=== PATIENT | male | born 1960 | race Caucasian/White ===

== ENCOUNTER → 2025-02-28 | Outpatient (REF) | payer MEDICAID, SELFPAY ==
--- OUTSIDE RECORDS SUMMARY | 2025-02-28 04:25 | XMS RPT_ITS | CCD ---
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 Name Role Phone Aviva Leon Unavailable Unavailable PROVIDER, UNKNOWN Unavailable Unavailable No, PCP Unavailable Unavailable PROVIDER, UNKNOWN Unavailable Unavailable No, PCP Unavailable Unavailable Morello, David Unavailable Unavailable MUAKKASSA, FARID F Unavailable Unavailable MALLAT, ALI F Unavailable Unavailable MUAKKASSA, FARID F Unavailable Unavailable IMCA Unavailable Unavailable SHANDA LCARK Unavailable Unavailable HARSHAL GARCIA Unavailable Unavailable JEB DELCID Unavailable Unavailable Unavailable Primary Care Provider UnavailRosalind Barrera Attending Unavailable Rosalind Ramirez Attending Unavailable Rosalind Ramirez Attending Unavailable Rosalind Ramirez Attending Unavailable Rosalind Ramirez Attending Unavailable Rosalind Ramirez Attending Unavailable Rosalind Ramirez Referring Unavailable Rosalind Ramirez Attending Unavailable Rosalind Ramirez Attending Unavailable Rosalind Almanzar MD Primary Care Provider ROSALIND ALMANZAR Primary Care Unavailable VIKA ANGELA Admitting Unavailable VIKA ANGELA Attending Unavailable SELINA MARQUEZ Consulting Unavailable Rosalind Almanzar MD Primary Care Provider Allergies Allergy Classification Reported Allergen(s) Allergy Type Date of Onset Reaction(s) Facility (2 sources) codeine; Translations: [CODEINE] Drug Allergy 7 [facility] (2 sources) ANTIHISTAMINE-1; Translations: [ANTIHISTAMINE-1 ] Propensity to adverse reactions (disorder) 7 [facility] Medications Current Medications Medication Drug Class(es) Dates Sig (Normalized) Sig (Original) acetaminophen 500 mg oral tablet (6 sources) Start: 02-22-2025 End: 03-25-2025 take 1000 mg by mouth every eight hours Start: 02-19-2025 End: 02-27-2025 take 1 tablet by mouth every four hours as needed for pain and pain and pain [id number] 200 actuat albuter ol 0.09 mg/actuat metered dose inhaler (4 sources) beta2-Adrenergic Agonist Start: 02-22-2025 End: 03-28-2025 docusate sodium 50 mg / sennosides, custodial 8.6 mg oral tablet (2 sources) Start: 02-23-2025 End: 03-25-2025 0.4 ml enoxaparin sodium 100 mg/ml prefilled syringe (4 sources) Low Molecular Weight Heparin Start: 02-14-2025 End: 03-09-2025 ergocalciferol 1.25 mg oral capsule (4 sources) Provitamin D2 Compound Start: 03-02-2025 End: 04-07-2025 Start: 02-16-2025 End: 02-27-2025 ertapenem 1,000 mg in sodium chloride 0.9 % 50 mL IVPB (1 source) Start: 05-17-2023 End: 06-24-2023 ertapenem 1,000 mg in sodium chloride 0.9 % 50 mL IVPB Infuse 1,000 mg into a venous catheter Every 24 hours. 0 05/17/2023 06/24/2023 Active folic acid 1 mg oral tablet (1 source) Start: 05-18-2023 End: 05-17-2024 take 1 tablet by mouth once daily folic acid (Folvite) 1 MG tablet Take 1 tablet (1 mg) by mouth daily. 0 05/18/2023 05/17/2024 Active gabapentin 400 mg oral capsule (16 sources) Anti-epileptic Agent Start: 02-27-2025 End: 03-29-2025 Start: 02-23-2025 End: 02-27-2025 Start: 05-17-2023 End: 02-27-2025 Start: 05-17-2023 End: 05-16-2024 gabapentin (Neurontin) 300 M G capsule Take 1 capsule (300 mg) by mouth in the morning and 1 capsule (300 mg) at noon and 1 capsule (300 mg) before bedtime. 05/17/2023 Suspended mirtazapine 7.5 mg oral tabl et (4 sources) Start: 02-23-2025 End: 03-25-2025 Start: 02-22-2025 End: 02-27-2025 thiamine 100 mg oral tablet (1 source) Start: 05-17-2023 End: 05-16-2024 take 1 tablet by mouth once daily thiamine (Vitamin B-1) 100 MG tablet Take 1 tablet (100 mg) by mouth daily. 0 05/17/2023 05/16/2024 Active vortioxetine 5 mg oral tablet (4 sources) Start: 02-27-2025 End: 03-29-2025 Start: 02-16-2025 End: 02-27-2025 Completed/Discontinued Medications Medication Drug Class(es) Dates Sig (Normalized) Sig (Original) amoxicillin 875 mg / clavulanate 125 mg oral tablet (2 sources) Penicillin-class Antibacterial Start: 02-16-2025 End: 02-23-2025 bismuth tribromophenate 0.03 mg/mg topical ointment (4 sources) Start: 05-18-2023 End: 02-27-2025 Start: 05-18-2023 apply 1 dose transde rmal route once daily Bismuth Tribromoph-Petrolatum (xeroform petrolat patch 2"x2") pads Apply 1 each topically daily. 05/18/2023 Suspended calcium chloride 0.0014 meq/ ml / potassium chloride 0.004 meq/ml / sodium chloride 0.103 meq/ml / sodium lactate 0.028 meq/ml injectable solution (2 sources) Start: 02-14-2025 End: 02-22-2025 Drug or medicament (substanc e) (6 sources) Start: 02-19-2025 End: 02-27-2025 Start: 02-19-2025 End: 02-27-2025 Start: 02-15-2025 End: 02-19-2025 1 ml HYDROmorphone hydrochloride 1 mg/ml cartridge (2 sources) Opioid Agonist Start: 02-19-2025 End: 02-19-2025 hydrOXYzine pamoate 50 mg oral capsule (4 sources) Antihistamine Start: 05-17-2023 End: 02-27-2025 take 50 mg by mouth every six hours as needed for anxiety LORazepam 0.5 mg oral tablet (2 sources) Benzodiazepine Start: 02-17-2025 End: 02-27-2025 melatonin 5 mg oral tablet (4 sources) Start: 02-14-2025 End: 02-27-2025 miconazole nitrate 0.02 mg/mg topical powder (4 sources) Azole Antifungal Start: 02-16-2025 End: 02-27-2025 1 ml naloxone hydrochloride 0.4 mg/ml injection (2 sources) Opioid Antagonist Start: 02-16-2025 End: 02-27-2025 oxyCODONE hydrochloride 5 mg oral tablet (6 sources) Opioid Agonist Start: 02-23-2025 End: 03-02-2025 take 10 mg by mouth every four hours as needed for pain Start: 02-16-2025 End: 02-17-2025 take 5 mg by mouth every four hours as needed for pain polyethylene glycol 3350 [id number] mg powder for oral solution (6 sources) Osmotic Laxative Start: 02-14-2025 End: 03-29-2025 potassium chloride 20 meq powder for oral solution (2 sources) Start: 02-15-2025 End: 02-15-2025 prochlorperazine 5 mg/ml injectable solution (2 sources) Phenothiazine Start: 02-15-2025 End: 02-27-2025 take 5 mg intravenously every six hours as needed for nausea and vomiting 5 ml sodium chloride 9 mg/ml injection (18 sources) Start: 02-19-2025 End: 02-27-2025 Start: 02-16-2025 End: 02-27-2025 Start: 02-16-2025 End: 02-27-2025 Start: 02-14-2025 End: 02-14-2025 traZODone hydrochloride 100 mg oral tablet (4 sources) Serotonin Reuptake Inhibitor Start: 05-17-2023 End: 02-27-2025 (8 sources) Start: 02-22-2025 End: 02-27-2025 [Order 1 Start] Name: diphenhydrAMINE (BENADryl) injection 25 mg Signed Summary: 25 mg, IntraVENous, Once PRN, other, Use per medication instructions, Starting on Lakeisha 02/22/25 at 0332, For 1 dose, CV Procedural Medications, Use for allergic reaction during transthoracic echocardiogram (TTE) procedure only. Mild or Moderate Allergic Reaction (hives, itching, redness, stable vitals), administer 25 mg IVP over 3 minutes or via IM if IV access is not obtainable and contact provider. Severe Allergic Reaction/Anaphylaxis (cardiovascular collapse, respiratory compromise), administer 25 mg IVP over 3 minutes or via IM if IV access is not obtainable. Activate EMS and contact provider. [Order 1 End] [Order 2 Start] Name: diphenhydrAMINE (BENADryl) injection 25 mg Signed Summary: 25 mg, IntraMUSCular, Once PRN, other, Use per medication instructions, Starting on Lakeisha 02/22/25 at 0332, For 1 dose, CV Procedural Medications, Use for allergic reaction during transthoracic echocardiogram (TTE) procedure only. Mild or Moderate Allergic Reaction (hives, itching, redness, stable vitals), administer 25 mg IVP over 3 minutes or via IM if IV access is not obtainable and contact provider. Severe Allergic Reaction/Anaphylaxis (cardiovascular collapse, respiratory compromise), administer 25 mg IVP over 3 minutes or via IM if IV access is not obtainable. Activate EMS and contact provider. [Order 2 End] Start: 02-22-2025 End: 02-27-2025 Start: 02-19-2025 End: 02-27-2025 take 4 mg by mouth every eight hours as needed for nausea and vomiting [Order 1 Start] Name: ondansetron ODT (Zofran-ODT) disintegrating tablet 4 mg Signed Summary: 4 mg, Oral, Every 8 hours PRN, nausea, vomiting, Starting on Wed02/19/25 at 1332, Phase II/On Unit, 1st Line. If inadequate response within 60 minutes, proceed to next-line agent or contact provider if no further options ordered. Patient should allow tablet to dissolve on tongue. Do not remove from blister pack until just before administering. [Order 1 End] [Order 2 Start] Name: ondansetron (Zofran) injection 4 mg Signed Summary: 4 mg, IntraVENous, Every 6 hours PRN, nausea, vomiting, Starting on Wed02/19/25 at 1332, Phase II/On Unit, 1st Line. Give IV if patient is unable to take orally. If inadequate response within 60 minutes, proceed to next-line agent or contact provider if no further options ordered. [Order 2 End] Start: 02-14-2025 End: 02-27-2025 take 4 mg by mouth every eight hours as needed for nausea and vomiting [Order 1 Start] Name: ondansetron ODT (Zofran-ODT) disintegrating tablet 4 mg Signed Summary: 4 mg, Oral, Every 8 hours PRN, nausea, vomiting, Starting on Wed02/14/25 at 1633, 1st Line. If inadequate response within 60 minutes, proceed to next-line agent or contact provider if no further options ordered. Patient should allow tablet to dissolve on tongue. Do not remove from blister pack until just before administering. [Order 1 End] [Order 2 Start] Name: ondansetron (Zofran) injection 4 mg Signed Summary: 4 mg, IntraVENous, Every 6 hours PRN, nausea, vomiting, Starting on Wed02/14/25 at 1633, 1st Line. Give IV if patient is unable to take orally. If inadequate response within 60 minutes, proceed to next-line agent or contact provider if no further options ordered. [Order 2 End] (2 sources) Start: 02-15-2025 End: 02-15-2025 (2 sources) Start: 02-15-2025 End: 02-27-2025 Problems Active Problems Problem Classification Problem Date Documented Date Episodic/Chronic Alcohol-related disorders (13 sources) Alcohol abuse with intoxication, uncomplicated; Translations: [Alcohol abuse with intoxication, unspecified] Onset: 03-22-2017 05-11-2023 Chronic Anal and rectal conditions (7 sources) Rectal mass; Translations: [Other specified diseases of anus and rectum] Onset: 02-14-2025 02-16-2025 Episodic Cancer of rectum and anus (2 sources) Malignant tumor of rectum; Translations: [Malignant neoplasm of rectum] 02-23-2025 Chronic Chronic ulcer of skin (4 sources) Pressure ulcer of sacral region, unstageable; Translations: [Pressure ulcer, lower back] Onset: 02-14-2025 Chronic Essential hypertension (2 sources) Essential (primary) hypertension; Translations: [Essential (primary) hypertension] Onset: 04-03-2017 Chronic Infective arthritis and osteomyelitis (except that caused by tuberculosis or sexually transmitted disease) (8 sources) Osteomyelitis of finger of right hand; Translations: [Osteomyelitis, unspecified] Onset: 05-07-2023 05-07-2023 Chronic Malaise and fatigue (11 sources) Decline in functional status; Translations: [Other malaise] Onset: 02-14-2025 02-16-2025 Episodic Mood disorders (11 sources) Depressive disorder; Translations: [Depression] Onset: 02-14-2025 02-16-2025 Chronic Mood disorders (2 sources) Major depressive disorder, single episode, unspecified; Translations: [Major depressive disorder, single episode, unspecified] Onset: 04-03-2017 Nutritional deficiencies (18 sources) Nutritional marasmus; Translations: [Unspecified severe protein-calorie malnutrition] Onset: 05-10-2023 05-11-2023 Chronic Other aftercare (2 sources) Encounter for palliative care; Translations: [Encounter for palliative care] Onset: 02-14-2025 Episodic Other aftercare (2 sources) Patient encounter status; Translations: [Encounter for palliative care] 02-23-2025 Episodic Other nutritional; endocrine; and metabolic disorders (12 sources) Adult failure to thrive syndrome; Translations: [Adult failure to thrive] Onset: 02-14-2025 02-14-2025 Episodic Other nutritional; endocrine; and metabolic disorders (2 sources) Adult failure to thrive; Translations: [Adult failure to thrive] Onset: 02-14-2025 Episodic Other screening for suspected conditions (not mental disorders or infectious disease) (4 sources) Abnormal electrocardiogram [ECG] [EKG]; Translations: [Electrocardiogram abnormal] Onset: 02-14-2025 Episodic Residual codes; unclassified (1 source) Edema of foot; Translations: [Localized edema] 06-23-2023 Episodic Residual codes; unclassified (5 sources) At risk of delirium; Translations: [Other specified personal risk factors, not elsewhere classified] Onset: 02-16-2025 02-16-2025 Episodic Substance-related disorders (4 sources) Opioid abuse, uncomplicated; Translations: [Nicotine dependence, unspecified, uncomplicated] Onset: 04-03-2017 Chronic Unclassified (1 source) Unknown / UNK(Unknown) Onset: 03-31-2017 Past or Other Problems Problem Classification Problem Date Documented Da te Episodic/Chronic Bacterial infection; unspecified site (5 sources) Bacteremia caused by Gram-positive bacteria; Translations: [Bacteremia] Onset: 06-23-2023 06-23-2023 Episodic Other connective tissue disease (2 sources) Pain in right leg; Translations: [Pain in right leg] Onset: 04-03-2017 Episodic Other connective tissue disease (5 sources) Pain in right foot; Translations: [Pain in right foot] Onset: 06-23-2023 06-23-2023 Episodic Unclassified (1 source) Injury, unspecified, initial encounter Onset: 03-24-2017 Unclassified (2 sources) Pressure injury of sacral region, unstageable ([facility]) 02-27-2025 Results Test Name Value Interpretation Reference Range [facility] [id number] 02-27-2025 [id number] [facility] [id number] [facility] [id number] [facility] [id number] [facility] [id number] Transport requested 130pm in Roundtrip. Awaiting time confirmation. [facility] [phone] Discharge med list transmitted to [facility] via [facility]port per [facility] request. Tasked to complete a 7000, but a PASSR was previously completed. TCC notified [facility] [phone] [facility] CBC W Auto Differential pane l (Bld)on 02-27-2025 Basophils (Bld) [#/Vol] 0 10*3/uL 0.0 - 0.2 10*3/uL [facility] Basophils/100 WBC (Bld) 0.3 % 0.0 - 2.0 % [facility] Eosinophils (Bld) [#/Vol] 0.1 10*3/uL 0.0 - 0.5 10*3/uL [facility] Eosinophils/100 WBC (Bld) 0.9 % 0.0 - 6.0 % [facility] Erythrocyte distribution width (RBC) [Ratio] 20 % High 11.5 - 15.0 % [facility] Hematocrit (Bld) [Volume fraction] 25.6 % Low 40.0 - 52.0 % [facility] Hemoglobin (Bld) [Mass/Vol] 7.8 g/dL Low 13.0 - 18.0 g/dL [facility] Immature granulocytes (Bld) [#/Vol] 0.1 10*3/uL High NINF - 0.1 10*3/uL [facility] Immature granulocytes/100 WBC (Bld) 0.9 % 0.0 - 2.0 % [facility] Interpretation and review of laboratory results Abnormal [facility] Lymphocytes (Bld) [#/Vol] 1.1 10*3/uL 1.0 - 4.3 10*3/uL [facility] Lymphocytes/100 WBC (Bld) 14.4 % Low 15.0 - 45.0 % [facility] MCH (RBC) [Entitic mass] 23.8 pg Low 26. 0 - 34.[address] [facility] MCHC (RBC) [Mass/Vol] 30.5 % 30.5 - 36.0 % [facility] MCV (RBC) [Entitic vol] 78 fL 77.0 - 99.[address] [facility] Monocytes (Bld) [#/Vol] 0.7 10*3/uL 0.0 - 0.9 10*3/uL [facility] Monocytes/100 WBC (Bld) 9.3 % 5.0 - 13.0 % [facility] Neutrophils (Bld) [#/Vol] 5.8 10*3/uL 1.8 - 7.5 10*3/uL [facility] Neutrophils/100 WBC (Bld) 74.2 % 38.0 - 82.0 % [facility] Nucleated RBC/100 WBC (Bld) [Ratio] 0 % [facility] Platelet mean volume (Bld) [Entitic vol] 8.7 fL Low 9.0 - 12.[address] [facility] Platelets (Bld) [#/Vol] 289 10*3/uL 140 - 440 10*3/uL [facility] RBC (Bld) [#/Vol] 3.28 10*6/uL Low 4.40 - 5.9 0 10*6/uL [facility] WBC (Bld) [#/Vol] 7.8 10*3/uL 3.6 - 10.7 10*3/uL [facility] CBC WITH AUTO DIFFERENTIALon 02-27-2025 Basophils (Bld) [#/Vol] 0.0 10*3/uL Normal 0.0-0.2 [facility] Comment on above: Performed By: #### L [id number] ####Knot Borer: SLAVA GARCIAMACIEJ ([id number])[facility] ([facility])[address] Basophils/100 WBC (Bld) 0.3 % Normal 0.0-2.0 [facility] Comment on above: Performed By: #### L [id number] ####Knot Borer: SLAVA GARCIAMACIEJ ([id number])[facility] ([facility])[address] Eosinophils (Bld) [#/Vol] 0.1 10*3/uL Normal 0.0-0.5 [facility] Comment on above: Performed By: #### L [id number] ####Knot Borer: SLAVA GARCIAMACIEJ ([id number])[facility] ([facility])[address] Eosinophils/100 WBC (Bld) 0.9 % Normal 0.0-6.0 [facility] Comment on above: Performed By: #### L [id number] ####Knot Borer: SLAVA GARCIAMACIEJ ([id number])[facility] ([facility])[address] Erythrocyte distribution width (RBC) [Ratio] 20.0 % High 11.5-15.0 [facility] Comment on above: Performed By: #### L [id number] ####Knot Borer: SLAVA GARCIAMACIEJ ([id number])[facility] [place] ([facility])[address] Hematocrit (Bld) [Volume fraction] 25.6 % Low 40.0-52.0 [facility] Comment on above: Performed By: #### L [id number] ####Knot Borer: SLAVA GAINES ([id number])[facility] [place] ([facility])[address] Hemoglobin (Bld) [Mass/Vol] 7.8 g/dL Low 13.0-18.0 [facility] Comment on above: Performed By: #### L [id number] ####Knot Borer: SLAVA GAINES ([id number])[facility] [place] ([facility])[address] IMMATURE GRANS % 0.9 % Normal 0.0-2.0 [facility] Comment on above: Performed By: #### L [id number] ####Knot Borer: SLAVA GAINES ([id number])[facility] ([facility])[address] IMMATURE GRANS ABSOLUTE 0.1 10*3/uL High <0.1 [facility] Comment on above: Performed By: #### L [id number] ####Knot Borer: SLAVA GAINES ([id number])[facility] ([facility])[address] Lymphocytes (Bld) [#/Vol] 1.1 10*3/uL Normal 1.0-4.3 [facility] Comment on above: Performed By: #### L [id number] ####Knot Borer: SLAVA GAINES ([id number])[facility] ([facility])[address] Lymphocytes/100 WBC (Bld) 14.4 % Low 15.0-45.0 [facility] Comment on above: Performed By: #### L [id number] ####Knot Borer: SLAVA GAINES ([id number])[facility] [place] ([facility])[address] MCH (RBC) [Entitic mass] 23.8 pg Low 26.0-34.0 [facility] Comment on above: Performed By: #### L [id number] ####Knot Borer: SLAVA GAINES ([id number])[facility] ([facility])[address] MCHC 30.5 % Normal 30.5-36.0 [facility] Comment on above: Performed By: #### L [id number] ####Knot Borer: SLAVA MCCLELLANCeciliaMACIEJ ([id number])[facility] ([facility])[address] MCV (RBC) [Entitic vol] 78.0 fL Normal 77.0-99.0 [facility] Comment on above: Performed By: #### L [id number] ####Knot Borer: SLAVA EDER ([id number])[facility] ([facility])[address] Monocytes (Bld) [#/Vol] 0.7 10*3/uL Normal 0.0-0.9 [facility] Comment on above: Performed By: #### L [id number] ####Knot Borer: SLAVA MCCLELLANGOOD ([id number])[facility] ([facility])[address] [place] [address] [place] Monocytes/100 WBC (Bld) 9.3 % Normal 5.0-13.0 [facility] Comment on above: Performed By: #### L [id number] ####Knot Borer: SLAVA GARCIAMACIEJ ([id number])[facility] ([facility])[address] NEUTROPHILS ABSOLUTE 5.8 10*3/uL Normal 1.8-7.5 [facility] Comment on above: Performed By: #### L [id number] ####Knot Borer: SLAVA GARCIAMACIEJ ([id number])[facility] ([facility])[address] Neutrophils/100 WBC (Bld) 74.2 % Normal 38.0-82.0 [facility] Comment on above: Performed By: #### L [id number] ####Knot Borer: SLAVA GARCIAMACIEJ ([id number])[facility] ([facility])[address] NRBC 0.0 /100 WBCs Normal 0.0-2.0 [facility] Comment on above: Performed By: #### L [id number] ####Knot Borer: SLAVA GAINES ([id number])[facility] [place] ([facility])[address] Platelet mean volume (Bld) [Entitic vol] 8.7 fL Low 9.0-12.7 [facility] Comment on above: Performed By: #### L [id number] ####Knot Borer: SLAVA GAINES ([id number])[facility] [place] ([facility])[address] Platelets (Bld) [#/Vol] 289 10*3/uL Normal 140-440 [facility] Comment on above: Performed By: #### L [id number] ####Knot Borer: SLAVA GAINES ([id number])[facility] [place] ([facility])[address] RBC (Bld) [#/Vol] 3.28 10*6/uL Low 4.40-5.90 [facility] Comment on above: Performed By: #### L [id number] ####Knot Borer: SLAVA GAINES ([id number])[facility] [place] ([facility])[address] WBC (Bld) [#/Vol] 7.8 10*3/uL Normal 3.6-10.7 [facility] Comment on above: Performed By: #### L [id number] ####Knot Borer: SLAVA GAINES ([id number])[facility] [place] ([facility])[address] COMPREHENSIVE METABOLIC PANE Barry 02-27-2025 Albumin [Mass/Vol] 1.5 g/dL Low 3.1-4.5 [facility] Comment on above: Performed By: #### L [id number] ####Knot Borer: SLAVA GAINES ([id number])[facility] [place] ([facility])[address] ALP [Catalytic activity/Vol] 71 U/L Normal 40-150 [facility] Comment on above: Performed By: #### L [id number] ####Knot Borer: SLAVA GAINES ([id number])[facility] [place] ([facility])[address] ALT [Catalytic activity/Vol] U/L Normal <40 [facility] Comment on above: Performed By: #### L [id number] ####Knot Borer: SLAVA GAINES ([id number])[facility] [place] ([facility])[address] Anion gap [Moles/Vol] 7 mmol/L Normal 3-13 [facility] Comment on above: Performed By: #### L [id number] ####Knot Borer: SLAVA GAINES ([id number])[facility] ([facility])[address] AST [Catalytic activity/Vol] 12 U/L Normal <34 [facility] Comment on above: Performed By: #### L [id number] ####Knot Borer: SLAVA GAINES ([id number])[facility] [place] ([facility])[address] Bilirubin [Mass/Vol] 0.2 mg/dL Normal <1.2 [facility] Comment on above: Performed By: #### L [id number] ####Knot Borer: SLAVA GAINES ([id number])[facility] [place] ([facility])[address] Calcium [Mass/Vol] 7.6 mg/dL Low 8.8-10.0 [facility] Comment on above: Performed By: #### L [id number] ####Knot Borer: SLAVA GAINES ([id number])[facility] [place] ([facility])[address] Chloride [Moles/Vol] 103 mmol/L Normal 98-107 [facility] Comment on above: Performed By: #### L [id number] ####Knot Borer: SLAVA GAINES ([id number])[facility] [place] ([facility])[address] CO2 [Moles/Vol] 24 mmol/L Normal 23-31 [facility] Comment on above: Performed By: #### L [id number] ####Knot Borer: SLAVA MCCLELLANGOOD ([id number])[facility] ([facility])[address] Creatinine [Mass/Vol] 0.59 mg/dL Low 0.67-1.27 [facility] Comment on above: Performed By: #### L [id number] ####Knot Borer: SLAVA MCCLELLANGOOD ([id number])[facility] ([facility] [place] [address] GLOMERULAR FILTRATION RATE ML/MIN/1.73 SQ M.PREDICTED >90.0 Normal >60.0 [facility] Comment on above: Result Comment: Calc ulation based on the Chronic Kidney Disease Epidemiology Collaboration (CKD-EPI) equation refit without adjustment for race Performed By: #### L [id number] ####Knot Borer: SLAVA GAINES ([id number])[facility] (HL[facility])[address] [place] [address] Glucose [Mass/Vol] 129 mg/dL High 82-115 [facility] Comment on above: Performed By: #### L [id number] ####Knot Borer: SLAVA GARCIAMACIEJ ([id number])[facility] (SBHLAB)[address] Potassium [Moles/Vol] 4.5 mmol/L Normal 3.5-5.1 [facility] Comment on above: Result Comment: [facility] potassium values may be up to 0.5 mmol/L lower than serum values. Performed By: #### L [id number] ####Knot Borer: SLAVA GAINES ([id number])[facility] (SBHLAB)[address] Protein [Mass/Vol] 4.9 g/dL Low 6.4-8.3 [facility] Comment on above: Performed By: #### L [id number] ####Knot Borer: SLAVA SHARPCER ([id number])[facility] (SBHLAB)[address] Sodium [Moles/Vol] 134 mmol/L Low 136-145 [facility] Comment on above: Performed By: #### L [id number] ####Knot Borer: SLAVA GARCIAMACIEJ ([id number])[facility] BRARCROWNPOINT [facility]ILITYN (SBHLAB)[address] Urea nitrogen [Mass/Vol] 16 mg/dL Normal 9-23 [facility] Comment on above: Performed By: #### L [id number] ####Knot Borer: SLAVA MCCLELLANCeciliaMACIEJ ([id number])[facility] (SBHLAB)[address] [place] [address] Comprehensive metabolic 1998 panelon 02-27-2025 Albumin [Mass/Vol] 1.5 g/dL Low 3.1 - 4.5 g/dL [facility] ALP [Catalytic activity/Vol] 71 U/L 40 - 150 U/L [facility] ALT [Catalytic activity/Vol] U/[facility]L [facility] Anion gap [Moles/Vol] 7 mmol/L 3 - 13 mmol/L [facility] AST [Catalytic activity/Vol] 12 U/L [facility] - 34 U/L [facility] Bilirubin [Mass/Vol] 0.2 mg/dL NINF - 1.2 mg/dL [facility] Calcium [Mass/Vol] 7.6 mg/dL Low 8.8 - 10. 0 mg/dL [facility] Chloride [Moles/Vol] 103 mmol/L 98 - 10 7 mmol/L [facility] CO2 [Moles/Vol] 24 mmol/L 23 - 31 mmol/L [facility] Creatinine [Mass/Vol] 0.59 mg/dL Low 0.67 - 1.27 mg/dL [facility] GFR/1.73 sq M.predicted (S/P/Bld) [Vol rate/Area] - PINF [facility] Glucose [Mass/Vol] 129 mg/dL High 82 - 115 mg/dL [facility] Interpretation and review of laboratory results Abnormal [facility] Potassium [Moles/Vol] 4.5 mmol/L 3.5 - 5.1 mmol/L [facility] Protein [Mass/Vol] 4.9 g/dL Low 6.4 - 8.3 g/dL [facility] Sodium [Moles/Vol] 134 mmol/L Low 136 - 145 mmol/L [facility] Urea nitrogen [Mass/Vol] 16 mg/dL 9 - 23 mg/dL [facility] Nursing Noteon 02-27-2025 Nursing Note Report called to María watts RN at [facility]. Normal [facility] Progress Noteon 02-27-2025 Progress Note Normal [facility] Progress Note Normal [facility] [id number] 02-26-2025 [id number] I was notified by COLIN Fregoso that patient will no be discharging, attempted to cancel transport in [facility]/ already canceled by Elementary Librarian [facility] [phone] Disch cancelled due to acute back pain. CUSTOM GRINDER tasked to cancel the transport. LVM for pt's brother Aguila with update. [facility] notified of cancelled disch. [facility] [phone] Marcello SCHROEDER updated on 5p m crop picker time. [facility] [phone] [facility] [phone] Transport requested 4pm in [facility]trip. Awaiting time confirmation. [facility] [phone] [facility] [phone] Discharge med list transmitted to [facility] via [employer] per TCC request. [facility] [id number] [facility] CBC W Auto Differential pane l (Bld)on 02-26-2025 Basophils (Bld) [#/Vol] 0 10*3/uL 0.0 - 0.2 10*3/uL [facility] Basophils/100 WBC (Bld) 0.2 % 0.0 - 2.0 % [facility] Eosinophils (Bld) [#/Vol] 0.1 10*3/uL 0.0 - 0.5 10*3/uL [facility] Eosinophils/100 WBC (Bld) 1 % 0.0 - 6.0 % [facility] Erythrocyte distribution width (RBC) [Ratio] 20.7 % High 11.5 - 15.0 % [facility] Hematocrit (Bld) [Volume fraction] 33.6 % Low 40.0 - 52.0 % [facility] Hemoglobin (Bld) [Mass/Vol] 10 g/dL Low 13.0 - 18.0 g/dL [facility] Immature granulocytes (Bld) [#/Vol] 0.1 10*3/uL High NINF - 0.1 10*3/uL [facility] Immature granulocytes/100 WBC (Bld) 1 % 0.0 - 2.0 % [facility] Interpretation and review of laboratory results Abnormal [facility] Lymphocytes (Bld) [#/Vol] 1.3 10*3/uL 1.0 - 4.3 10*3/uL [facility] Lymphocytes/100 WBC (Bld) 14.8 % Low 15.0 - 45.0 % [facility] MCH (RBC) [Entitic mass] 23.9 pg Low 26. 0 - 34.0 pg [facility] MCHC (RBC) [Mass/Vol] 29.8 % Low 30.5 - 36.0 % [facility] MCV (RBC) [Entitic vol] 80.2 fL 77.0 - 99.0 fL [facility] Monocytes (Bld) [#/Vol] 0.7 10*3/uL 0.0 - 0.9 10*3/uL [facility] Monocytes/100 WBC (Bld) 7.4 % 5.0 - 13.0 % [facility] Neutrophils (Bld) [#/Vol] 6.7 10*3/uL 1.8 - 7.5 10*3/uL [facility] Neutrophils/100 WBC (Bld) 75.6 % 38.0 - 82.0 % [facility] Nucleated RBC/100 WBC (Bld) [Ratio] 0 % [facility] Platelet mean volume (Bld) [Entitic vol] 8.9 fL Low 9.0 - 12.[address] [facility] Platelets (Bld) [#/Vol] 350 10*3/uL 140 - 440 10*3/uL [facility] RBC (Bld) [#/Vol] 4.19 10*6/uL Low 4.40 - 5.9 0 10*6/uL [facility] WBC (Bld) [#/Vol] 8.9 10*3/uL 3.6 - 10.7 10*3/uL [facility] CBC WITH AUTO DIFFERENTIALon 02-26-2025 Basophils (Bld) [#/Vol] 0.0 10*3/uL Normal 0.0-0.2 [facility] Comment on above: Performed By: #### L [id number] ####Knot Borer: SLAVA GAINES ([id number])[facility] (SBAB)[address] [place] [address] Basophils/100 WBC (Bld) 0.2 % Normal 0.0-2.0 [facility] Comment on above: Performed By: #### L [id number] ####Knot Borer: SLAVA GAINES ([id number])[facility] (SBAB)[address] [place] [address] Eosinophils (Bld) [#/Vol] 0.1 10*3/uL Normal 0.0-0.5 [facility] Comment on above: Performed By: #### L [id number] ####Knot Borer: SLAVA GAINES ([id number])[facility] (SBHLAB)[address] [place] [address] Eosinophils/100 WBC (Bld) 1.0 % Normal 0.0-6.0 [facility] Comment on above: Performed By: #### L [id number] ####Knot Borer: SLAVA GAINES ([id number])[facility] (SBAB)[address] [place] [address] Erythrocyte distribution width (RBC) [Ratio] 20.7 % High 11.5-15.0 [facility] Comment on above: Performed By: #### L [id number] ####Knot Borer: SLAVA MCCLELLANCeciliaMACIEJ ([id number])[facility]OWNPOINT [facility]N (SBHLAB)[address] Hematocrit (Bld) [Volume fraction] 33.6 % Low 40.0-52.0 [facility] Comment on above: Performed By: #### L [id number] ####Knot Borer: SLAVA EDER ([id number])[facility])[address] Hemoglobin (Bld) [Mass/Vol] 10.0 g/dL Low 13.0-18.0 [facility] Comment on above: Performed By: #### L [id number] ####Knot Borer: SLAVA GARCIAMACIEJ ([id number])[facility])[address] IMMATURE GRANS % 1.0 % Normal 0.0-2.0 [facility] Comment on above: Performed By: #### L [id number] ####Knot Borer: SLAVA GARCIAMACIEJ ([id number])[facility] [place] ([facility])[address] IMMATURE GRANS ABSOLUTE 0.1 10*3/uL High <0.1 [facility] Comment on above: Performed By: #### L [id number] ####Knot Borer: SLAVA MCCLELLANGOOD ([id number])[facility] (SBHLAB)[address] Lymphocytes (Bld) [#/Vol] 1.3 10*3/uL Normal 1.0-4.3 [facility] Comment on above: Performed By: #### L [id number] ####Knot Borer: SLAVA GARCIAMACIEJ ([id number])[facility] (SBAB)[address] [place] [address] [place] Lymphocytes/100 WBC (Bld) 14.8 % Low 15.0-45.0 [facility] Comment on above: Performed By: #### L [id number] ####Knot Borer: SLAVA GARCIAMACIEJ ([id number])[facility] [place] (SBHLAB)[address] MCH (RBC) [Entitic mass] 23.9 pg Low 26.0-34.0 [facility] Comment on above: Performed By: #### L [id number] ####Knot Borer: SLAVA GARCIAMACIEJ ([id number])[facility] (SBHLAB)[address] MCHC 29.8 % Low 30.5-36.0 [facility] Comment on above: Performed By: #### L [id number] ####Knot Borer: SLAVA GARCIAMACIEJ ([id number])[facility] [place] (SBHLAB)[address] MCV (RBC) [Entitic vol] 80.2 fL Normal 77.0-99.0 [facility] Comment on above: Performed By: #### L [id number] ####Knot Borer: SLAVA GAINES ([id number])[facility] [place] (SBHLAB)[address] [place] [address] Monocytes (Bld) [#/Vol] 0.7 10*3/uL Normal 0.0-0.9 [facility] Comment on above: Performed By: #### L [id number] ####Knot Borer: SLAVA GARCIAMACIEJ ([id number])[facility] [place] (SBHLAB)[address] Monocytes/100 WBC (Bld) 7.4 % Normal 5.0-13.0 [facility] Comment on above: Performed By: #### L [id number] ####Knot Borer: SLAVA GAINES ([id number])[facility] [place] (SBHLAB)[address] NEUTROPHILS ABSOLUTE 6.7 10*3/uL Normal 1.8-7.5 [facility] Comment on above: Performed By: #### L [id number] ####Knot Borer: SLAVA GAINES ([id number])[facility] [place] (SBHLAB)[address] Neutrophils/100 WBC (Bld) 75.6 % Normal 38.0-82.0 [facility] Comment on above: Performed By: #### L [id number] ####Knot Borer: SLAVA GAINES ([id number])[facility] [place] (SBHLAB)[address] NRBC 0.0 /100 WBCs Normal 0.0-2.0 [facility] Comment on above: Performed By: #### L [id number] ####Knot Borer: SLAVA GAINES ([id number])[facility] [place] (SBHLAB)[address] [place] [address] [place] Platelet mean volume (Bld) [Entitic vol] 8.9 fL Low 9.0-12.7 [facility] Comment on above: Performed By: #### L [id number] ####Knot Borer: SLAVA GAINES ([id number])[facility] [place] (SBHLAB)[address] [place] [address] [place] Platelets (Bld) [#/Vol] 350 10*3/uL Normal 140-440 [facility] Comment on above: Performed By: #### L [id number] ####Knot Borer: SLAVA GAINES ([id number])[facility] [place] (SBHLAB)[address] [place] [address] [place] RBC (Bld) [#/Vol] 4.19 10*6/uL Low 4.40-5.90 [facility] Comment on above: Performed By: #### L [id number] ####Knot Borer: SLAVA GAINES ([id number])[facility] [place] (SBHLAB)[address] [place] [address] [place] WBC (Bld) [#/Vol] 8.9 10*3/uL Normal 3.6-10.7 [facility] Comment on above: Performed By: #### L [id number] ####Knot Borer: SLAVA GAINES ([id number])[facility] (SBHLAB)[address] COMPREHENSIVE METABOLIC PANE Barry 02-26-2025 Albumin [Mass/Vol] 1.8 g/dL Low 3.1-4.5 [facility] Comment on above: Performed By: #### L [id number] ####Knot Borer: SLAVA GAINES ([id number])[facility] (SBHLAB)[address] ALP [Catalytic activity/Vol] 79 U/L Normal 40-150 [facility] Comment on above: Performed By: #### L [id number] ####Knot Borer: SLAVA GAINES ([id number])[facility] (SBHLAB)[address] ALT [Catalytic activity/Vol] U/L Normal <40 [facility] Comment on above: Performed By: #### L [id number] ####Knot Borer: SLAVA GAINES ([id number])[facility] [place] (HLAB)[address] Anion gap [Moles/Vol] 7 mmol/L Normal 3-13 [facility] Comment on above: Performed By: #### L [id number] ####Knot Borer: SLAVA GAINES ([id number])[facility] (SBHLAB)[address] AST [Catalytic activity/Vol] 15 U/L Normal <34 [facility] Comment on above: Performed By: #### L [id number] ####Knot Borer: SLAVA GAINES ([id number])[facility] (HLAB)[address] Bilirubin [Mass/Vol] 0.2 mg/dL Normal <1.2 [facility] Comment on above: Performed By: #### L [id number] ####Knot Borer: SLAVA GAINES ([id number])[facility]ITALVeronica BRARSHAUNNAN (SBHLAB)[address] Calcium [Mass/Vol] 7.9 mg/dL Low 8.8-10.0 [facility] Comment on above: Performed By: #### L [id number] ####Knot Borer: SLAVA GAINES ([id number])[facility] [place] (SBHLAB)[address] Chloride [Moles/Vol] 103 mmol/L Normal 98-107 [facility] Comment on above: Performed By: #### L [id number] ####Knot Borer: SLAVA GAINES ([id number])[facility] MAYKELSHAUNNAN (SBHLAB)[address] CO2 [Moles/Vol] 25 mmol/L Normal 23-31 [facility] Comment on above: Performed By: #### L [id number] ####Knot Borer: SLAVA GAINES ([id number])[facility]ITAL[facility] BRARSHAUNNAN (SBHLAB)[address] Creatinine [Mass/Vol] 0.56 mg/dL Low 0.67-1.27 [facility] Comment on above: Performed By: #### L [id number] ####Knot Borer: SLAVA GAINES ([id number])[facility]ITAL[facility] BRARSHAUNNAN (SBHLAB)[address] GLOMERULAR FILTRATION RATE ML/MIN/1.73 SQ M.PREDICTED >90.0 Normal >60.0 [facility] Comment on above: Result Comment: Calc ulation based on the Chronic Kidney Disease Epidemiology Collaboration (CKD-EPI) equation refit without adjustment for race Performed By: #### L [id number] ####Knot Borer: SLAVA GAINES ([id number])[facility]ITAL[facility] BARBSHAUNNAN (SBHLAB)[address] Glucose [Mass/Vol] 109 mg/dL Normal 82-115 [facility] Comment on above: Performed By: #### L [id number] ####Knot Borer: SLAVA GAINES ([id number])[facility] (SBHLAB)[address] Potassium [Moles/Vol] 4.0 mmol/L Normal 3.5-5.1 [facility] Comment on above: Result Comment: [facility] potassium values may be up to 0.5 mmol/L lower than serum values. Performed By: #### L [id number] ####Knot Borer: SLAVA GAINES ([id number])[facility] (SBHLAB)[address] Protein [Mass/Vol] 5.8 g/dL Low 6.4-8.3 [facility] Comment on above: Performed By: #### L [id number] ####Knot Borer: SLAVA GAINES ([id number])[facility] (SBHLAB)[address] [place] [address] Sodium [Moles/Vol] 135 mmol/L Low 136-145 [facility] Comment on above: Performed By: #### L [id number] ####Knot Borer: SLAVA GAINES ([id number])[facility] (SBHLAB)[address] [place] [address] Urea nitrogen [Mass/Vol] 16 mg/dL Normal 9-23 [facility] Comment on above: Performed By: #### L [id number] ####Knot Borer: SLAVA GAINES ([id number])[facility] (SBHLAB)[address] [place] [address] Comprehensive metabolic 1998 panelon 02-26-2025 Albumin [Mass/Vol] 1.8 g/dL Low 3.1 - 4.5 g/dL [facility] ALP [Catalytic activity/Vol] 79 U/L 40 - 150 U/L [facility] ALT [Catalytic activity/Vol] U/L NINF - 40 U/L [facility] Anion gap [Moles/Vol] 7 mmol/L 3 - 13 mmol/L [facility] AST [Catalytic activity/Vol] 15 U/L NINF - 34 U/L [facility] Bilirubin [Mass/Vol] 0.2 mg/dL NINF - 1.2 mg/dL [facility] Calcium [Mass/Vol] 7.9 mg/dL Low 8.8 - 10. 0 mg/dL [facility] Chloride [Moles/Vol] 103 mmol/L 98 - 10 7 mmol/L [facility] CO2 [Moles/Vol] 25 mmol/L 23 - 31 mmol/L [facility] Creatinine [Mass/Vol] 0.56 mg/dL Low 0.67 - 1.27 mg/dL [facility] GFR/1.73 sq M.predicted (S/P/Bld) [Vol rate/Area] - PINF [facility] Glucose [Mass/Vol] 109 mg/dL 82 - 115 mg/dL [facility] Interpretation and review of laboratory results Abnormal [facility] Potassium [Moles/Vol] 4 mmol/L 3.5 - 5.1 mmol/L [facility] Protein [Mass/Vol] 5.8 g/dL Low 6.4 - 8.3 g/dL [facility] Sodium [Moles/Vol] 135 mmol/L Low 136 - 145 mmol/L [facility] Urea nitrogen [Mass/Vol] 16 mg/dL 9 - 23 mg/dL [facility] No Panel InformationOrdered By: Slava Gaines on 02-26-2025 Addendum l2kkvFZcUHMabULnRTBp MVx iomSjGNWouBMhW6NvrqwqPL jvTB8xNQ7qbNobkWUsdFNwZ JKzJqYjb4lwj508vNIxd6xm MRRQZDlfNPLHTZf4fWrcR03 ni7A8WeodB83adFEpDAU6HW ClAJUtqVIgIHLrLFT1QBOev MYwC5txUCUaWB3echpiLEen ULidRIGvlMT7XXEsbFJbZ3O wOXMjNItlVLKjooo0BtMjJb 9vdGVyeTcyMFxwYXJkXHBsY WluXGZzMjAgUGxlYXNlIHNl ZSBccHJvdGVjdHtcZmllbGR 3PZqkJonlwB9noIAITCQPGz jEZhaxtxKfLC7ZPENQDvPLU Q73JwS5NJf8GTgalDvlLfdr aaJufKCqUsSqpS5Gg5gwvbZ eozBhVkNpdTLcTOMrj40uph bfzbiwMtipfKH3NDncNqvrz B9pfUPBXVSFGuiPEatqncMw US9PJJTMKC9XtEU0OKb2gPV 5XD22MVZnDOCnjUYrPIifC3 19XHBsYWluXGZzMjAgIHJlc Q6hvTOyXTmoaw6fCHFfjgj8 ZUHDNDZJHPuQOI8UGHYTRSK XMM3KWMjTAjHqQSU5CGzsSM JtH64JSjGXZDHLX74KMFCOF IEDP4TITRKQDWiYT4HOUB1W XCGNGUJCQY3FIWcADvLYVLe ZT0LPEU7MQLKEIINMMD2CKu IoBEuEZ0JQP8bGFGNiYLEFU ZDLIRLgIjWIAY6bLSa1FmPi DCH3BYOVBQEyTGIqYX8bWUG jfRVkHLWab42ebxhmnlJ2Ik F0KNzgcPKHFVQIWWrICECJY l4QSEBMSBVEYQ3VYtCzO9NZ LO7XNa8DBXSQSPHWRM5SLDa XReDrB4IRQM2LWm2YJAOOCO MOMO8PShZhDFMWB9TDAoHAZ 3yzEEBLGYKKIGAaTcEFKB9a WVCTOJ6TZAUURQYJE04RRIJ FVGYNE1PKWC7= [facility] Work Phone: Case Report Locately Phone: Clinical Information t1hvdKFoJZHerRCsTMY wMVx gafDkPFJloOTaA4CfmjrbWH qdGO4nRM4enHiiiGMuwICrC TZsUuPpv3cbu597pYNur8rx ZNPOJVnnGZUQNNy6mRyrG15 vu1A9JjpeH8cbWBNpAJmzAR AcKWhbqELcAOi0IBKmgUMvd xLvBtYjPDGbrLIpzAO9SVIm JO3jdmfoZQstCQjbADJmbvD 5WDMiaPYfI8PvJSYkWD0hjk jfIDV2QLuwRHHrEBG2XeHeS OAym1Rmkbp2XdAsbNBcVDjv bGFpblxmczIwXGNmMSBSZWN 5DBvgeVVdkgGxSKl3Ag51ZH BbSUNELTEwLUNNXVxjZjAgI FxwYXJ9 [facility] Work Phone: Comment o1kadVJjBPQgwHZoWSMc MVx duxWjSULxxNLqB2QdqkgiSL rkLJ5dOY0fqEuouGArkYAaA EXxYfHcb7omm509tXXev3bq KKLHOGwaASSJMDv9hTfiP72 ne1Z5OzasL77pjVLqHZC7FK XuOYIdlXCcMMPiXKN7EKNth KRzU9qhLUQtMY6hxuirTKsc BAoaSZIinKQ6YQDprGIgY9L fSACpCRbxSMOrlab5TrTzLn 9vdGVyeTcyMFxwYXJkXHBsY YukHDVrZrZbQK68UPScffGg Q0GwO5vuh55uGEanqj5vonJ hQBBdRKRinxnoRQXub8EjzZ XpCRLwLTNlO7Rpz30peYIaN 9erAdFhEiEdu5mfd4SmBREi iMHftN48qkBesSj5wFXkbML tIGlzIHByZXNlbnQuICBNTV XlvHIorCptHdPrpsPuIY0mx G1fMTewmXuzvrCanFx1vbO6 kfQai3naa4fyONKacp3= [facility] Work Phone: Disclaimer e4yufVTvLWPffJRiTzRq MDA jRZXyq1bdTSYynSTuBjMdVz NcZnRuYmpcdWMxXGRlZmYwe 2tzp427eBBkt1akBNCwCeY3 kFQmJZUzR71fARGVQ271AGW xQGzxl6rjr9FaLFKfrOPlh6 O5VZNBKMoaCUSHZRc2mEcgF 20ry1Y9PykzW9zlZQYsJTKe I9WuOC5pERUuUaa8RPA2IBJ 0JAOdHUWbU6CuQU3gDCKqeQ YyVOy5n1kepIcxCPVsNVO3n 2vzXIlzqyQgZV0acm9enGn3 b8otelDqGXAwBUBzeIHVJYI sU6XalNwwBn3zhVh5tIzfKu xqYCD9Xny9MT9bmc32uiw6a OzyWHFotilbLoQ1SGrmUSEd hfpqOQh7ZCkwZXOdoER4XGB auXOrX6BiOIXeDE6jiqv0SE R8KDfjTSIlDnR6FPIflBEoE LYggSeeXSgtq369WMH7NyMz JN9vO0Xcq2O6jB3weDNsQWC wkZDdZuTuGKFqol2ajGZqRG auc7GyFOJ1wuX1oWEzyMFfI FPuMZ11Nyapu7InTlbyUAH5 EKHwqnCak7Qtl5czXsZvsnQ yK0srF0TgOQBaECLdFSKtCn DfqbDji6Ibe3PwfPQxeBx7y 8wzKSXiHOIzpCnxo7quJPL2 IYGeE4S3aRQfd4gqTYpuVYE bjPG7ndW5KIAbzVBrY5OylL 4yNPUxVD0lelu3n7dzKGA7E EtlYIFoSrH1hfS8CKTpwDSj EOWzyNluNGvxc175NEM2QvL nMKLgu6AjP8AyrXycZ90nnT zhK01rDNLbfPbhpT1jdDmbp U9jCyYyQjTmHYxjxIxawJYo htzgDPgumvS8LHtlkrdqPKR pOMsiT0nkApRmVVYzhIkuNN ylr4TeSOGsRRSfYDDfIXgjE 6scxI4cqafpJMjdJRIreKdh m9hqSrLboNX9DS5getDwQEA tmUzgrtN2owOqsTnhyG5rgX 4ckLbbqI2olJMocTD0tantW GluIHNpdHUgaHlicmlkaXph gWomfpatxZ9yHNK1mFLdEHA 4vNKbOZXpKNSdRBPtcA49kk 3glTEnsaAkE0XmK0EjxUCvy TnbDrkptBYorJIeEt9npARg AG6jWLJhzPQcJ3TkOI3cEMK hclxwYXIgVGhlIHVzZSBvZi MvnsHga5BzxR2lNOGhCQDzN P01ywDfofC6aXBsCQZteyIv dGVzdHMgaXMgcmVndWxhdGV fXINeYEEhVSAqGKh4sUOac7 GbM3qnmCDixbBrS5FgdTIaX LYHKB8oEYgeg1JrdXXmeWUy x1KgSQHuQVFuwV0xYOPiZJ8 zVMPpWTurZMUuxsYntc0ltf JuNWZmDVYtH3SzoasfnEcek nRtVPXtgo3ufcUkLDO4KBZe ZSBjbGluaWNhbCBsYWJvcmF 0q6MfZILle4OvZ5KkwQDwHB WobJImKBF0u5LpcG5kPRdtv KBoOFRtYV3dgJSaLXSxSCFk ZWFyZWQgYnkgdGhlIFVTIEZ dx2MqAZ4tXSQfjYuiFSGavA 2wk9JdBALiq63uGGZERYviY FRoZSBGREEgaGFzIGRldGVy bWluZWQgdGhhdCBzdWNoIGN mRGYuHB6sIFKsirEdkDEld9 SdnAGedmWha5WqxkUpYDJfM KW7FgObyDEvLBRrfbKOcQha eH0fcB9ug4AzzF3tPOkhvlO woDXkNc3gyLHzSF3zVWZwxs FmZmluIGVtYmVkZGVkIHRpc 5N6GK9uXCMief9wjuwfpKMz uO1jaIAxpuVsRM0mOL9nD5I 6hELnDARndoNbu5qpGOg7zM QlKHOssTQpdWWiIbmtDZA1X VGhTZO5fcGzoqVpZKPihOkj eWI9tKPhAACeAIHrVEVmKL7 5F6Oxg2DhI4cqZI98BSNlQM AoJNPfarXhz2qvOLOjp5ogH LBsaOSpQ9AlJJWtwTYducqp XiChQXL5UNNnSAK3vATvMXW qD9LsdJVqaRSvjI85RP3tlL U0IN2lWUO5UQfvjZ1mUzVDm I31cq0leSC9z5KtVW4aK4Ay MOQxt9C3geEmWWNzQN0qeLF iZWVuIHZhbGlkYXRlZCBvbi ZqKQEzoGVqUwttLZG1yOYtk CVbSbMGIXN6nMKnBIDsk9Hr ZCBiZSBpbnRlcnByZXRlZCB 9aSLhXAYxoQUye13hV8c8TS 6vjYjbCXKsrAHmHYWna2Fvt VPfcNd4wARzClGeLIkaUEYm QLzayBo6kOE8ZD0wOVIhM4Q zJ6jyoKPlHOAnCJWadYLdds 5ccGFyfQ== [facility] Work Phone: Gross Description t9kydQTpWCYmdITsJKGs MVx bjoFsFVNueRCfR3XkfbndQE gdOJ3bMC5lgPpfyFLqxKHjB QJtSdWxc6ycz536uIGbz9nf QAULCJluASOAFJu5uMsxD69 kz8R2XadzY96crSJaDSF0SF WiRQDhoCEvPKSjMIH4VGQrv IQjW6puPZBcFK2xctlmOMla JSaiVVXolLA4EMUzbICoU6R hFGAbCQgiYGCqdvv6MtAbYj 9vdGVyeTcyMFxwYXJkXHBsY FwyFBNoLlSbRxNtQGc5CDEt cR1nFk9beJBczC4irEFlCAk iUEYrtaYltCGfSB3jy0RdDr 3vZLScb5InnBRvqMKnBVNus V8wTAJeWLBis6o6lSF7eRA2 HL1dGUQ6pgMcYQZuEpQ6QNK tSqV5CFCuRoYatC1kHEEeTH Tvf3OjsHGjGQOkQMGfV7Ewd 75vpBLkZ2xcNLdeNZhzDZ20 fPAbGTYsVQ1vHZwkk7HhFCS hGIHmPGCmswYzwDEtw8Kxu9 LuXcQnpjXopUE1mA4hVoBfU GhlIHNwZWNpbWVuIGlzIHNl jdvxdSr0FUNwC1Zvh25gGYT ubsPrYE95xZFkePnzb0TwaX p0uPLjGFovOFAksTCaVYUsK OE1YYNlERnrHKG7 [facility] Work [facility]: Pathologist Interpretation Location [facility], [address] [place] [id number], CLIA: [id number]; Joint Commission: [id number]; CAP: [id number] [facility] Work Phone: Pathology report final diagnosis Narrative t5fqqOFqZRWwnEDwCPJmVCg bwmAgSHVegXQqP0AtsihqRN geOB6iOX4fvJcnlXFycZJbN YKsUrHez0nlh018aKEoj8wn JTZLKDqeOGQTBOx4hLuuJ39 lg2N6IfdoF42xsHNgFTN1XX SbKINqtKMkWWBfSTG2VNJfo LGaO9pkJULdHG7esqsbXXcc FVrcFKDpcDV1CBZbfUWrP0Z mBSLqCJseRSKiymb4PmStWo 9vdGVyeTcyMFxwYXJkXHBsY WluXGZzMjAgUkVDVFVNLCBN CYUWMCNXBTOSU0eVVcNpBEa UOkBKQCJTBITQTN5XT3XGI8 sCW05XMyzzLVRzhZCztG== [facility] Work Phone: Synoptic Checklist [facility] [employer] Work Phone: [facility] Work Phone: Progress Noteon 02-26-2025 Progress Note Patient has been sanam rly adamant about not being ready to go today and wants to leave tomorrow. He says his pain is not controlled enough. Will hold DC today and plan on tomorrow. D/w ALEXANDRE Armendariz, Palliative Care and CM/TCC via secure chat Normal [facility] Progress Note Normal [facility] Progress Note Seen and examined. W e just received authorization so will plan to discharge today to SNF. D/w pt and ALEXANDRE Armendariz, separately. Normal [facility] Progress Note Normal [facility] Progress Note Normal [facility] Progress [facility] Normal [facility] Progress [facility] Normal [facility] [id number] 02-25-2025 [id number] Normal [facility] CBC W Auto Differential pane l (Bld)on 02-25-2025 Basophils (Bld) [#/Vol] 0 10*3/uL 0.0 - 0.2 10*3/uL [facility] Basophils/100 WBC (Bld) 0.3 % 0.0 - 2.0 % [facility] Eosinophils (Bld) [#/Vol] 0.1 10*3/uL 0.0 - 0.5 10*3/uL [facility] Eosinophils/100 WBC (Bld) 0.7 % 0.0 - 6.0 % [facility] Erythrocyte distribution width (RBC) [Ratio] 20.2 % High 11.5 - 15.0 % [facility] Hematocrit (Bld) [Volume fraction] 29.5 % Low 40.0 - 52.0 % [facility] Hemoglobin (Bld) [Mass/Vol] 9 g/dL Low 13.0 - 18.0 g/dL [facility] Immature granulocytes (Bld) [#/Vol] 0.1 10*3/uL High NINF - 0.1 10*3/uL [facility] Immature granulocytes/100 WBC (Bld) 0.7 % 0.0 - 2.0 % [facility] Interpretation and review of laboratory results Abnormal [facility] Lymphocytes (Bld) [#/Vol] 1.3 10*3/uL 1.0 - 4.3 10*3/uL [facility] Lymphocytes/100 WBC (Bld) 12.4 % Low 15.0 - 45.0 % [facility] MCH (RBC) [Entitic mass] 23.9 pg Low 26. 0 - 34.[address] [facility] MCHC (RBC) [Mass/Vol] 30.5 % 30.5 - 36.0 % [facility] MCV (RBC) [Entitic vol] 78.5 fL 77.0 - 99.[address] [facility] Monocytes (Bld) [#/Vol] 0.7 10*3/uL 0.0 - 0.9 10*3/uL [facility] Monocytes/100 WBC (Bld) 6.3 % 5.0 - 13.0 % [facility] Neutrophils (Bld) [#/Vol] 8.6 10*3/uL High 1.8 - 7.5 10*3/uL [facility] Neutrophils/100 WBC (Bld) 79.6 % 38.0 - 82.0 % [facility] Nucleated RBC/100 WBC (Bld) [Ratio] 0 % [facility] Platelet mean volume (Bld) [Entitic vol] 9.4 fL 9.0 - 12.[address] [facility] Platelets (Bld) [#/Vol] 352 10*3/uL 140 - 440 10*3/uL [facility] RBC (Bld) [#/Vol] 3.76 10*6/uL Low 4.40 - 5.9 0 10*6/uL [facility] WBC (Bld) [#/Vol] 10.7 10*3/uL 3.6 - 10.7 10*3/uL [facility] CBC WITH AUTO DIFFERENTIALon 02-25-2025 Basophils (Bld) [#/Vol] 0.0 10*3/uL Normal 0.0-0.2 [facility] Comment on above: Performed By: #### L [id number] ####Knot Borer: SLAVA GAINES ([id number])[facility] ([facility] [place] [address] Basophils/100 WBC (Bld) 0.3 % Normal 0.0-2.0 [facility] Comment on above: Performed By: #### L [id number] ####Knot Borer: SLAVA GAINES ([id number])[facility] (SBHL[facility])[address] [place] [address] Eosinophils (Bld) [#/Vol] 0.1 10*3/uL Normal 0.0-0.5 [facility] Comment on above: Performed By: #### L [id number] ####Knot Borer: SLAVA GAINES ([id number])[facility] (SB[facility])[address] [place] [address] Eosinophils/100 WBC (Bld) 0.7 % Normal 0.0-6.0 [facility] Comment on above: Performed By: #### L [id number] ####Knot Borer: SLAVA GAINES ([id number])[facility] (SB[facility])[address] [place] [address] Erythrocyte distribution width (RBC) [Ratio] 20.2 % High 11.5-15.0 [facility] Comment on above: Performed By: #### L [id number] ####Knot Borer: SLAVA MCCLELLANCeciliaMACIEJ ([id number])[facility] [place] (SBHLAB)[address] Hematocrit (Bld) [Volume fraction] 29.5 % Low 40.0-52.0 [facility] Comment on above: Performed By: #### L [id number] ####Knot Borer: SLAVA EDER ([id number])[facility] (SBHLAB)[address] Hemoglobin (Bld) [Mass/Vol] 9.0 g/dL Low 13.0-18.0 [facility] Comment on above: Performed By: #### L [id number] ####Knot Borer: SLAVA EDER ([id number])[facility] [place] (SBAB)[address] [place] [address] IMMATURE GRANS % 0.7 % Normal 0.0-2.0 [facility] Comment on above: Performed By: #### L [id number] ####Knot Borer: SLAVA EDER ([id number])[facility] (SB[facility])[address] IMMATURE GRANS ABSOLUTE 0.1 10*3/uL High <0.1 [facility] Comment on above: Performed By: #### L [id number] ####Knot Borer: SLAVA GARCIAMACIEJ ([id number])[facility] (SBHLAB)[address] Lymphocytes (Bld) [#/Vol] 1.3 10*3/uL Normal 1.0-4.3 [facility] Comment on above: Performed By: #### L [id number] ####Knot Borer: SLAVA GARCIAMACIEJ ([id number])[facility] (SB[facility])[address] Lymphocytes/100 WBC (Bld) 12.4 % Low 15.0-45.0 [facility] Comment on above: Performed By: #### L [id number] ####Knot Borer: SLAVA GAINES ([id number])[facility] AMARALTony (SBHLAB)[address] MCH (RBC) [Entitic mass] 23.9 pg Low 26.0-34.0 [facility] Comment on above: Performed By: #### L [id number] ####Knot Borer: SLAVA GARCIAMACIEJ ([id number])[facility] (SBHLAB)[address] MCHC 30.5 % Normal 30.5-36.0 [facility] Comment on above: Performed By: #### L [id number] ####Knot Borer: SLAVA GARCIAMACIEJ ([id number])[facility]ITAL[facility] AMARALN (SBHLAB)[address] MCV (RBC) [Entitic vol] 78.5 fL Normal 77.0-99.0 [facility] Comment on above: Performed By: #### L [id number] ####Knot Borer: SLAVA GARCIAMACIEJ ([id number])[facility] (SBHLAB)[address] [place] [address] Monocytes (Bld) [#/Vol] 0.7 10*3/uL Normal 0.0-0.9 [facility] Comment on above: Performed By: #### L [id number] ####Knot Borer: SLAVA GAINES ([id number])CH[facility]STOPHER BRARSHAUNNAN (SBHLAB)[address] Monocytes/100 WBC (Bld) 6.3 % Normal 5.0-13.0 [facility] Comment on above: Performed By: #### L [id number] ####Knot Borer: SLAVA GAINES ([id number])[facility]ITAL[facility] BARBSHAUNNAN (SBHLAB)[address] NEUTROPHILS ABSOLUTE 8.6 10*3/uL High 1.8-7.5 [facility] Comment on above: Performed By: #### L [id number] ####Knot Borer: SLAVA SHARPCER ([id number])[facility] AMARALN (SBHLAB)[address] Neutrophils/100 WBC (Bld) 79.6 % Normal 38.0-82.0 [facility] Comment on above: Performed By: #### L [id number] ####Knot Borer: SLAVA EDER ([id number])[facility] (SBHLAB)[address] NRBC 0.0 /100 WBCs Normal 0.0-2.0 [facility] Comment on above: Performed By: #### L [id number] ####Knot Borer: SLAVA EDER ([id number])[facility]ITALVer[facility] (SBHLAB)[address] Platelet mean volume (Bld) [Entitic vol] 9.4 fL Normal 9.0-12.7 [facility] Comment on above: Performed By: #### L [id number] ####Knot Borer: SLAVA EDER ([id number])[facility] (SBHLAB)[address] [place] [address] [place] Platelets (Bld) [#/Vol] 352 10*3/uL Normal 140-440 [facility] Comment on above: Performed By: #### L [id number] ####Knot Borer: SLAVA MCCLELLANGOOD ([id number])[facility]ITAL[facility] (SBHLAB)[address] [place] [address] [place] RBC (Bld) [#/Vol] 3.76 10*6/uL Low 4.40-5.90 [facility] Comment on above: Performed By: #### L [id number] ####Knot Borer: SLAVA GARCIAMACIEJ ([id number])[facility] (SBHLAB)[address] [place] [address] [place] WBC (Bld) [#/Vol] 10.7 10*3/uL Normal 3.6-10.7 [facility] Comment on above: Performed By: #### L [id number] ####Knot Borer: SLAVA GAINES ([id number])[facility] [place] (SBHLAB)[address] COMPREHENSIVE METABOLIC PANE Barry 02-25-2025 Albumin [Mass/Vol] 1.5 g/dL Low 3.1-4.5 [facility] Comment on above: Performed By: #### L [id number] ####Knot Borer: SLAVA GAINES ([id number])[facility] [place] (SBHLAB)[address] ALP [Catalytic activity/Vol] 66 U/L Normal 40-150 [facility] Comment on above: Performed By: #### L [id number] ####Knot Borer: SLAVA GAINES ([id number])[facility] [place] (SBHLAB)[address] ALT [Catalytic activity/Vol] U/L Normal <40 [facility] Comment on above: Performed By: #### L [id number] ####Knot Borer: SLAVA GAINES ([id number])[facility] [place] (SBHLAB)[address] Anion gap [Moles/Vol] 6 mmol/L Normal 3-13 [facility] Comment on above: Performed By: #### L [id number] ####Knot Borer: SLAVA GAINES ([id number])[facility] [place] (SBHLAB)[address] AST [Catalytic activity/Vol] 13 U/L Normal <34 [facility] Comment on above: Performed By: #### L [id number] ####Knot Borer: SLAVA GAINES ([id number])[facility] [place] (SBHLAB)[address] Bilirubin [Mass/Vol] 0.2 mg/dL Normal <1.2 [facility] Comment on above: Performed By: #### L [id number] ####Knot Borer: SLAVA GAINES ([id number])[facility] [place] (SBHLAB)[address] Calcium [Mass/Vol] 7.5 mg/dL Low 8.8-10.0 [facility] Comment on above: Performed By: #### L [id number] ####Knot Borer: SLAVA GAINES ([id number])[facility] AMARALN (SBHLAB)[address] Chloride [Moles/Vol] 107 mmol/L Normal 98-107 [facility] Comment on above: Performed By: #### L [id number] ####Knot Borer: SLAVA GAINES ([id number])[facility] (SBHLAB)[address] CO2 [Moles/Vol] 23 mmol/L Normal 23-31 [facility] Comment on above: Performed By: #### L [id number] ####Knot Borer: SLAVA GAINES ([id number])[facility]ITAL[facility] (SBHLAB)[address] Creatinine [Mass/Vol] 0.47 mg/dL Low 0.67-1.27 [facility] Comment on above: Performed By: #### L [id number] ####Knot Borer: SLAVA GAINES ([id number])[facility] (SBHLAB)[address] GLOMERULAR FILTRATION RATE ML/MIN/1.73 SQ M.PREDICTED >90.0 Normal >60.0 [facility] Comment on above: Result Comment: Calc ulation based on the Chronic Kidney Disease Epidemiology Collaboration (CKD-EPI) equation refit without adjustment for race Performed By: #### L [id number] ####Knot Borer: SLAVA GAINES ([id number])[facility] (SBHLAB)[address] Glucose [Mass/Vol] 104 mg/dL Normal 82-115 [facility] Comment on above: Performed By: #### L [id number] ####Knot Borer: SLAVA GAINES ([id number])[facility] (HLAB)[address] Potassium [Moles/Vol] 4.2 mmol/L Normal 3.5-5.1 [facility] Comment on above: Result Comment: [facility] potassium values may be up to 0.5 mmol/L lower than serum values. Performed By: #### L [id number] ####Knot Borer: SLAVA GAINES ([id number])[facility] [place] (SBHLAB)[address] Protein [Mass/Vol] 4.9 g/dL Low 6.4-8.3 [facility] Comment on above: Performed By: #### L [id number] ####Knot Borer: SLAVA GAINES ([id number])[facility] [place] (SBHLAB)[address] Sodium [Moles/Vol] 136 mmol/L Normal 136-145 [facility] Comment on above: Performed By: #### L [id number] ####Knot Borer: SLAVA GAINES ([id number])[facility] [place] (SBHLAB)[address] Urea nitrogen [Mass/Vol] 15 mg/dL Normal 9-23 [facility] Comment on above: Performed By: #### L [id number] ####Knot Borer: SLAVA GAINES ([id number])[facility] MUN[facility] (SBHLAB)[address] Comprehensive metabolic 1998 panelon 02-25-2025 Albumin [Mass/Vol] 1.5 g/dL Low 3.1 - 4.5 g/dL [facility] ALP [Catalytic activity/Vol] 66 U/L 40 - 150 U/L [facility] ALT [Catalytic activity/Vol] U/L NINF - 40 U/L [facility] Anion gap [Moles/Vol] 6 mmol/L 3 - 13 mmol/L [facility] AST [Catalytic activity/Vol] 13 U/L NINF - 34 U/L [facility] Bilirubin [Mass/Vol] 0.2 mg/dL NINF - 1.2 mg/dL [facility] Calcium [Mass/Vol] 7.5 mg/dL Low 8.8 - 10. 0 mg/dL [facility] Chloride [Moles/Vol] 107 mmol/L 98 - 10 7 mmol/L [facility] CO2 [Moles/Vol] 23 mmol/L 23 - 31 mmol/L [facility] Creatinine [Mass/Vol] 0.47 mg/dL Low 0.67 - 1.27 mg/dL [facility] GFR/1.73 sq M.predicted (S/P/Bld) [Vol rate/Area] - PINF [facility] Glucose [Mass/Vol] 104 mg/dL 82 - 115 mg/dL [facility] Interpretation and review of laboratory results Abnormal [facility] Potassium [Moles/Vol] 4.2 mmol/L 3.5 - 5.1 mmol/L [facility] Protein [Mass/Vol] 4.9 g/dL Low 6.4 - 8.3 g/dL [facility] Sodium [Moles/Vol] 136 mmol/L 136 - 145 mmol/L [facility] Urea nitrogen [Mass/Vol] 15 mg/dL 9 - 23 mg/dL [facility] Nursing Noteon 02-25-2025 Nursing Note Pt throughout shift refusing turns. Pt educated on importance of turns to help prevent bedsores and relieve pressure. Pt declined. Waffle mattress in place. Call light within reach. Normal [facility] Nursing Note Patient cleaned this morning and still having stool coming from the rectal area. Will continue to monitor Normal [facility] Progress Noteon 02-25-2025 Progress Note Normal [facility] Progress Note Normal [facility] Progress Note Normal [facility] [id number] 02-24-2025 [id number] Normal [facility] COMPLETE URINALYSIS WITH REF SHERMAN TO CULTUREon 02-24-2025 BACTERIA (#/HPF) IN URINE Few Abnormal Negative [facility] Comment on above: Performed By: #### L [id number] ####Knot Borer: SLAVA GAINES ([id number])[facility] [place] (SBHLAB)[address] [place] [address] BILIRUBIN, TOTAL PRESENCE IN URINE Negative Normal Negative [facility] Comment on above: Performed By: #### L [id number] ####Knot Borer: SLAVA GARCIAMACIEJ ([id number])[facility] (SBHLAB)[address] Clarity (U) Clear Normal Clear [facility] Comment on above: Performed By: #### L [id number] ####Knot Borer: SLAVA GARCIAMACIEJ ([id number])[facility] [place] (SBHLAB)[address] [place] [address] [place] Color (U) Light Yellow Normal Lt. Yellow [facility] Comment on above: Performed By: #### L [id number] ####Knot Borer: SLAVA GAINES ([id number])[facility] ([facility])[address] GLUCOSE (MG/DL) IN URINE Normal Normal Nor mal (<70) [facility] Comment on above: Performed By: #### L [id number] ####Knot Borer: SLAVA GAINES ([id number])[facility] ([facility])[address] HEMOGLOBIN PRESENCE IN URINE 0.1 mg/dL Abnormal Negative [facility] Comment on above: Performed By: #### L [id number] ####Knot Borer: SLAVA GAINES ([id number])[facility] (SBHLAB)[address] Ketones Ql (U) Negative Normal Negative [facility] Comment on above: Performed By: #### L [id number] ####Knot Borer: SLAVA GAINES ([id number])[facility] (SBHLAB)[address] LEUKOCYTE ESTERASE PRESENCE IN URINE BY TEST STRIP Negative Normal Negative [facility] Comment on above: Performed By: #### L [id number] ####Knot Borer: SLAVA GAINES ([id number])[facility] (SBHLAB)[address] NITRITE PRESENCE IN URINE Negative Normal Negative [facility] Comment on above: Performed By: #### L [id number] ####Knot Borer: SLAVA GAINES ([id number])[facility] (SBHLAB)[address] pH (U) 7.5 [pH] Normal 5.0-8.0 [facility] Comment on above: Performed By: #### L [id number] ####Knot Borer: SLAVA GAINES ([id number])[facility] (SBHLAB)[address] Protein (U) [Mass/Vol] Negative Normal Negative [facility] Comment on above: Performed By: #### L [id number] ####Knot Borer: SLAVA GAINES ([id number])[facility] AM[facility]N (SBHLAB)[address] RBC (#/HPF) IN URINE SEDIMENT 51-100 Abnormal 0-2 [facility] Comment on above: Performed By: #### L [id number] ####Knot Borer: SLAVA GAINES ([id number])[facility] [place] (HLAB)[address] Specific gravity (U) [Rel density] 1.011 Normal 1.005-1.030 [facility] Comment on above: Result Comment: CHUY R COMMENTS:A specimen with <=10 WBC is not consistent with inflammation. This specimen will not reflex to a urine culture. Performed By: #### L [id number] ####Knot Borer: SLAVA GAINES ([id number])[facility] (SBHLAB)[address] SQUAMOUS EPITHELIAL CELLS (#/HPF) IN URINE SEDIMENT Negative Normal 3-5 [facility] Comment on above: Performed By: #### L [id number] ####Knot Borer: SLAVA GAINES ([id number])[facility] [place] (SBHLAB)[address] UROBILINOGEN (MG/DL) IN URINE Normal Normal Normal (0-1) [facility] Comment on above: Performed By: #### L [id number] ####Knot Borer: SLAVA GAINES ([id number])[facility] (SBHLAB)[address] WBC (LEUKOCYTE) (#/HPF) IN URINE SEDIMENT 3-5 Normal 0-5 [facility] Comment on above: Performed By: #### L [id number] ####Knot Borer: SLAVA GAINES ([id number])[facility] (SBHLAB)[address] DRUGS OF ABUSEon 02-24-2025 AMPHETAMINE SCREEN Negative Normal [facility] Comment on above: Performed By: #### L [id number] ####Knot Borer: SLAVA GAINES ([id number])[facility] (SBAB)[address] BARBITURATES SCREEN Negative Normal [facility] Comment on above: Performed By: #### L [id number] ####Knot Borer: SLAVA GAINES ([id number])[facility] (SBAB)[address] BENZODIAZEPINE SCREEN Negative Normal [facility] Comment on above: Performed By: #### L [id number] ####Knot Borer: SLAVA GAINES ([id number])[facility] (SBAB)[address] [place] [address] COCAINE METAB. SCREEN Negative Normal [facility] Comment on above: Performed By: #### L [id number] ####Knot Borer: SLAVA GAINES ([id number])[facility] (SBAB)[address] FENTANYL SCREEN, UR QUAL Negative Normal [facility] Comment on above: Result Comment: ORDE R COMMENTS:The expected value for all of the drugs listed above is Negative.The following drugs or drug groups have been screened for by Immunoassay at the following thresholds:Amphetamine class (1000 ng/mL)Barbiturates (200 ng/mL)Benzodiazepines (200 ng/mL)Cocaine (300 ng/mL)Methadone (300 ng/mL)Opiates (300 ng/mL)Oxycodone (100 ng/mL)PCP (25 ng/mL)Fentanyl (1.0 ng/ml)NOTE: These results are for medical treatment only. Analysis performed using non-forensic procedures. POSITIVE results are NOT confirmed by a more specificalternative method unless requested. If confirmation is needed, request confirmation under separate order. Performed By: #### L [id number] ####Knot Borer: SLAVA GAINES ([id number])[facility] [place] (SBHLAB)[address] METHADONE SCREEN Negative Normal [facility] Comment on above: Performed By: #### L [id number] ####Knot Borer: SLAVA GAINES ([id number])[facility] [place] (SBHLAB)[address] OPIATES SCREEN Positive Normal [facility] Comment on above: Performed By: #### L [id number] ####Knot Borer: SLAVA GAINES ([id number])[facility] [place] (SBHLAB)[address] OXYCODONE SCREEN Positive Normal [facility] Comment on above: Performed By: #### L [id number] ####Knot Borer: SLAVA GAINES ([id number])[facility] [place] (SBHLAB)[address] PHENCYCLIDINE SCREEN Negative Normal [facility] Comment on above: Performed By: #### L [id number] ####Knot Borer: SLAVA GAINES ([id number])[facility] [place] (SBHLAB)[address] Laboratory - Drug toxicology on 02-24-2025 Amphetamines Screen method >1000 ng/mL Ql (U) Negative [facility] Barbiturates Screen method >200 ng/mL Ql (U) Negative [facility] Benzodiazepines Ql (U) Negative [facility] Methadone Screen Ql (U) Negative [facility] Opiates Screen Ql (U) Positive [facility] oxyCODONE Ql (U) Positive [facility] Phencyclidine Ql (U) Negative [facility] No Panel Informationon 02-24 COCAINE METAB. SCREEN Negative [facility] FENTANYL SCREEN, UR QUAL Negative [facility] Nursing Noteon 02-24-2025 Nursing Note Patient refusing to have bed linens changed. Explained the importance of staying dry, patient verbalized understanding. Normal [facility] Nursing Note Normal [facility] Progress Noteon 02-24-2025 Progress Note Normal [facility] Urinalysis complete panel (U )Ordered By: Brittanie Saldaña on 02-24-2025 Bacteria LM.HPF (Urine sed) [#/Area] Few Abnormal Negative /HPF [facility] Bilirubin Ql (U) Negative Negative mg/dL [facility] Clarity (U) Clear Clear [facility] Color (U) Light Yellow Lt. Yellow [facility] Epithelial cells.squamous LM.HPF (Urine sed) [#/Area] Negative [facility] Glucose Ql (U) Normal Normal (<70) mg/dL [facility] Hemoglobin Ql (U) 0.1 mg/dL Abnormal Negative [facility] ealth Interpretation and review of laboratory results Abnormal [facility] Ketones (U) [Mass/Vol] Negative Negat chandra mg/dL [facility] Leukocyte esterase Test strip Ql (U) Negative Negative Kerry/uL [facility] Nitrite Ql (U) Negative Negative [facility] pH (U) 7.5 [pH] 5.0 - 8.[address] [facility] Protein (U) [Mass/Vol] Negative Negat chandra mg/dL [facility] RBC LM.HPF (Urine sed) [#/Area] 51-[address] [facility] Specific gravity (U) [Rel density] 1.011 1.005 - 1.030 [facility] Urobilinogen (U) [Mass/Vol] Normal Normal (0-1) mg/dL [facility] WBC LM.HPF (Urine sed) [#/Area] 3-5 [facility] [id number] 02-23-2025 [id number] Normal [facility] [id number] SW completed PASRR f or [facility] [place] SW notified CM and the facility in [facility] [phone] [facility] [phone] UPDATED NOTES TO [facility] via [facility] per TCC request. Await review and response regarding ability to accept. TCC notified. [facility] CBC W Auto Differential pane l (Bld)Ordered By: Alexia Ayon on 02-23-2025 Basophils (Bld) [#/Vol] 0 10*3/uL 0.0 - 0.2 10*3/uL [facility] Basophils/100 WBC (Bld) 0.2 % 0.0 - 2.0 % [facility] Eosinophils (Bld) [#/Vol] 0.1 10*3/uL 0.0 - 0.5 10*3/uL [facility] Eosinophils/100 WBC (Bld) 0.6 % 0.0 - 6.0 % [facility] Erythrocyte distribution width (RBC) [Ratio] 20 % High 11.5 - 15.0 % [facility] Hematocrit (Bld) [Volume fraction] 35.8 % Low 40.0 - 52.0 % [facility] Hemoglobin (Bld) [Mass/Vol] 10.7 g/dL Low 13.0 - 18.0 g/dL [facility] Immature granulocytes (Bld) [#/Vol] 0.1 10*3/uL High NINF - 0.1 10*3/uL [facility] Immature granulocytes/100 WBC (Bld) 0.7 % 0.0 - 2.0 % [facility] Interpretation and review of laboratory results Abnormal [facility] Lymphocytes (Bld) [#/Vol] 1.1 10*3/uL 1.0 - 4.3 10*3/uL [facility] Lymphocytes/100 WBC (Bld) 11 % Low 15.0 - 45.0 % [facility] MCH (RBC) [Entitic mass] 23.7 pg Low 26. 0 - 34.[address] [facility] MCHC (RBC) [Mass/Vol] 29.9 % Low 30.5 - 36.0 % [facility] MCV (RBC) [Entitic vol] 79.4 fL 77.0 - 99.[address] [facility] Monocytes (Bld) [#/Vol] 0.8 10*3/uL 0.0 - 0.9 10*3/uL [facility] Monocytes/100 WBC (Bld) 7.7 % 5.0 - 13.0 % [facility] Neutrophils (Bld) [#/Vol] 8.2 10*3/uL High 1.8 - 7.5 10*3/uL [facility] Neutrophils/100 WBC (Bld) 79.8 % 38.0 - 82.0 % [facility] Nucleated RBC/100 WBC (Bld) [Ratio] 0 % [facility] Platelet mean volume (Bld) [Entitic vol] 8.9 fL Low 9.0 - 12.[address] [facility] Platelets (Bld) [#/Vol] 371 10*3/uL 140 - 440 10*3/uL [facility] RBC (Bld) [#/Vol] 4.51 10*6/uL 4.40 - 5.9 0 10*6/uL [facility] WBC (Bld) [#/Vol] 10.3 10*3/uL 3.6 - 10.7 10*3/uL [facility] CBC WITH AUTO DIFFERENTIALon 02-23-2025 Basophils (Bld) [#/Vol] 0.0 10*3/uL Normal 0.0-0.2 [facility] Comment on above: Performed By: #### L [id number] ####Knot Borer: SLAVA GAINES ([id number])[facility] (SBHLAB)[address] [place] [address] Basophils/100 WBC (Bld) 0.2 % Normal 0.0-2.0 [facility] Comment on above: Performed By: #### L [id number] ####Knot Borer: SLAVA GAINES ([id number])[facility] (SBHLAB)[address] Eosinophils (Bld) [#/Vol] 0.1 10*3/uL Normal 0.0-0.5 [facility] Comment on above: Performed By: #### L [id number] ####Knot Borer: SLAVA GARCIAMACIEJ ([id number])[facility] ([facility] [place] [address] Eosinophils/100 WBC (Bld) 0.6 % Normal 0.0-6.0 [facility] Comment on above: Performed By: #### L [id number] ####Knot Borer: SLAVA GARCIAMACIEJ ([id number])[facility] ([facility])[address] Erythrocyte distribution width (RBC) [Ratio] 20.0 % High 11.5-15.0 [facility] Comment on above: Performed By: #### L [id number] ####Knot Borer: SLAVA EDER ([id number])[facility] ([facility])[address] [place] [address] Hematocrit (Bld) [Volume fraction] 35.8 % Low 40.0-52.0 [facility] Comment on above: Performed By: #### L [id number] ####Knot Borer: SLAVA GARCIAMACIEJ ([id number])[facility] ([facility])[address] [place] [address] Hemoglobin (Bld) [Mass/Vol] 10.7 g/dL Low 13.0-18.0 [facility] Comment on above: Performed By: #### L [id number] ####Knot Borer: SLAVA GAINES ([id number])[facility] ([facility])[address] [place] [address] IMMATURE GRANS % 0.7 % Normal 0.0-2.0 [facility] Comment on above: Performed By: #### L [id number] ####Knot Borer: SLAVA GARCIAMACIEJ ([id number])[facility] ([facility])[address] [place] [address] IMMATURE GRANS ABSOLUTE 0.1 10*3/uL High <0.1 [facility] Comment on above: Performed By: #### L [id number] ####Knot Borer: SLAVACOLE GAINES ([id number])[facility] (SBHLAB)[address] Lymphocytes (Bld) [#/Vol] 1.1 10*3/uL Normal 1.0-4.3 [facility] Comment on above: Performed By: #### L [id number] ####Knot Borer: SLAVA EDER ([id number])[facility] [place] (SBHLAB)[address] Lymphocytes/100 WBC (Bld) 11.0 % Low 15.0-45.0 [facility] Comment on above: Performed By: #### L [id number] ####Knot Borer: SLAVA GAINES ([id number])[facility] (SBHL[facility])[address] [place] [address] MCH (RBC) [Entitic mass] 23.7 pg Low 26.0-34.0 [facility] Comment on above: Performed By: #### L [id number] ####Knot Borer: SLAVA EDER ([id number])[facility] [place] (SBHLAB)[address] [place] [address] MCHC 29.9 % Low 30.5-36.0 [facility] Comment on above: Performed By: #### L [id number] ####Knot Borer: SLAVA GAINES ([id number])[facility]ITAL[facility] (SBHL[facility])[address] [place] [address] MCV (RBC) [Entitic vol] 79.4 fL Normal 77.0-99.0 [facility] Comment on above: Performed By: #### L [id number] ####Knot Borer: SLAVA GARCIAMACIEJ ([id number])[facility] ([facility])[address] [place] [address] Monocytes (Bld) [#/Vol] 0.8 10*3/uL Normal 0.0-0.9 [facility] Comment on above: Performed By: #### L [id number] ####Knot Borer: SLAVA GAINES ([id number])[facility] (SBHLAB)[address] Monocytes/100 WBC (Bld) 7.7 % Normal 5.0-13.0 [facility] Comment on above: Performed By: #### L [id number] ####Knot Borer: SLAVA GAINES ([id number])[facility] [place] (SBHLAB)[address] NEUTROPHILS ABSOLUTE 8.2 10*3/uL High 1.8-7.5 [facility] Comment on above: Performed By: #### L [id number] ####Knot Borer: SLAVA GAINES ([id number])[facility] [place] (SBHLAB)[address] Neutrophils/100 WBC (Bld) 79.8 % Normal 38.0-82.0 [facility] Comment on above: Performed By: #### L [id number] ####Knot Borer: SLAVA GAINES ([id number])[facility] [place] (SB[facility])[address] NRBC 0.0 /100 WBCs Normal 0.0-2.0 [facility] Comment on above: Performed By: #### L [id number] ####Knot Borer: SLAVA GAINES ([id number])[facility] [place] (SB[facility])[address] Platelet mean volume (Bld) [Entitic vol] 8.9 fL Low 9.0-12.7 [facility] Comment on above: Performed By: #### L [id number] ####Knot Borer: SLAVA GAINES ([id number])[facility] [place] ([facility])[address] Platelets (Bld) [#/Vol] 371 10*3/uL Normal 140-440 [facility] Comment on above: Performed By: #### L [id number] ####Knot Borer: SLAVA GAINES ([id number])[facility]A [facility] (SBHLAB)[address] RBC (Bld) [#/Vol] 4.51 10*6/uL Normal 4.40-5.90 [facility] Comment on above: Performed By: #### L [id number] ####Knot Borer: SLAVA GAINES ([id number])[facility]A [facility] (SBHLAB)[address] WBC (Bld) [#/Vol] 10.3 10*3/uL Normal 3.6-10.7 [facility] Comment on above: Performed By: #### L [id number] ####Knot Borer: SLAVA GARCIAMACIEJ ([id number])[facility] (SBHLAB)[address] [place] [address] COMPREHENSIVE METABOLIC PANE Barry 02-23-2025 Albumin [Mass/Vol] 1.6 g/dL Low 3.1-4.5 [facility] Comment on above: Performed By: #### L [id number] ####Knot Borer: SLAVA GAINES ([id number])[facility] ([facility])[address] [place] [address] ALP [Catalytic activity/Vol] 70 U/L Normal 40-150 [facility] Comment on above: Performed By: #### L [id number] ####Knot Borer: SLAVA GAINES ([id number])[facility] ([facility])[address] ALT [Catalytic activity/Vol] U/L Normal <40 [facility] Comment on above: Performed By: #### L [id number] ####Knot Borer: SLAVA GAINES ([id number])[facility] (SB[facility])[address] [place] [address] Anion gap [Moles/Vol] 6 mmol/L Normal 3-13 [facility] Comment on above: Performed By: #### L [id number] ####Knot Borer: SLAVA GAINES ([id number])[facility] (SBHLAB)[address] AST [Catalytic activity/Vol] 14 U/L Normal <34 [facility] Comment on above: Performed By: #### L [id number] ####Knot Borer: SLAVA GAINES ([id number])[facility] [place] ([facility])[address] Bilirubin [Mass/Vol] 0.2 mg/dL Normal <1.2 [facility] Comment on above: Performed By: #### L [id number] ####Knot Borer: SLAVA GAINES ([id number])[facility] [place] ([facility])[address] Calcium [Mass/Vol] 7.3 mg/dL Low 8.8-10.0 [facility] Comment on above: Performed By: #### L [id number] ####Knot Borer: SLAVA GAINES ([id number])[facility] [place] ([facility])[address] Chloride [Moles/Vol] 105 mmol/L Normal 98-107 [facility] Comment on above: Performed By: #### L [id number] ####Knot Borer: SLAVA GAINES ([id number])[facility] [place] (SBHLAB)[address] [place] [address] [place] CO2 [Moles/Vol] 24 mmol/L Normal 23-31 [facility] Comment on above: Performed By: #### L [id number] ####Knot Borer: SLAVA GAINES ([id number])[facility] [place] (SB[facility])[address] [place] [address] [place] Creatinine [Mass/Vol] 0.55 mg/dL Low 0.67-1.27 [facility] Comment on above: Performed By: #### L [id number] ####Knot Borer: SLAVA GAINES ([id number])[facility] [place] (SB[facility])[address] [place] [address] GLOMERULAR FILTRATION RATE ML/MIN/1.73 SQ M.PREDICTED >90.0 Normal >60.0 [facility] Comment on above: Result Comment: Calc ulation based on the Chronic Kidney Disease Epidemiology Collaboration (CKD-EPI) equation refit without adjustment for race Performed By: #### L [id number] ####Knot Borer: SLAVA GAINES ([id number])[facility] (SB[facility])[address] Glucose [Mass/Vol] 89 mg/dL Normal 82-115 [facility] Comment on above: Performed By: #### L [id number] ####Knot Borer: SLAVA GAINES ([id number])[facility] (HLAB)[address] [place] [address] Potassium [Moles/Vol] 4.7 mmol/L Normal 3.5-5.1 [facility] Comment on above: Result Comment: [facility] potassium values may be up to 0.5 mmol/L lower than serum values. Performed By: #### L [id number] ####Knot Borer: SLAVA GAINES ([id number])[facility] (HLAB)[address] [place] [address] Protein [Mass/Vol] 5.0 g/dL Low 6.4-8.3 [facility] Comment on above: Performed By: #### L [id number] ####Knot Borer: SLAVA GAINES ([id number])[facility] (HLAB)[address] Sodium [Moles/Vol] 135 mmol/L Low 136-145 [facility] Comment on above: Performed By: #### L [id number] ####Knot Borer: SLAVA GAINES ([id number])[facility] (HLAB)[address] Urea nitrogen [Mass/Vol] 14 mg/dL Normal 9-23 [facility] Comment on above: Performed By: #### L [id number] ####Knot Borer: SLAVA GAINES ([id number])[facility] (SBHLAB)[address] Comprehensive metabolic 1998 panelon 02-23-2025 Albumin [Mass/Vol] 1.6 g/dL Low 3.1 - 4.5 g/dL [facility] ALP [Catalytic activity/Vol] 70 U/L 40 - 150 U/L [facility] ALT [Catalytic activity/Vol] U/L NINF - 40 U/L [facility] Anion gap [Moles/Vol] 6 mmol/L 3 - 13 mmol/L [facility] AST [Catalytic activity/Vol] 14 U/L NINF - 34 U/L [facility] Bilirubin [Mass/Vol] 0.2 mg/dL NINF - 1.2 mg/dL [facility] Calcium [Mass/Vol] 7.3 mg/dL Low 8.8 - 10. 0 mg/dL [facility] Chloride [Moles/Vol] 105 mmol/L 98 - 10 7 mmol/L [facility] CO2 [Moles/Vol] 24 mmol/L 23 - 31 mmol/L [facility] Creatinine [Mass/Vol] 0.55 mg/dL Low 0.67 - 1.27 mg/dL [facility] GFR/1.73 sq M.predicted (S/P/Bld) [Vol rate/Area] - PINF [facility] Glucose [Mass/Vol] 89 mg/dL 82 - 115 mg/dL [facility] Interpretation and review of laboratory results Abnormal [facility] Potassium [Moles/Vol] 4.7 mmol/L 3.5 - 5.1 mmol/L [facility] Protein [Mass/Vol] 5 g/dL Low 6.4 - 8.3 g/dL [facility] Sodium [Moles/Vol] 135 mmol/L Low 136 - 145 mmol/L [facility] Urea nitrogen [Mass/Vol] 14 mg/dL 9 - 23 mg/dL [facility] Progress Noteon 02-23-2025 Progress Note Normal [facility] Progress Note Normal [facility] Progress Note Normal [facility] Progress Note Normal [facility] Progress Note Normal [facility] Progress Note Normal [facility] Progress Note Normal [facility] TRANSTHORACIC ECHOCARDIOGRAM (TTE) COMPLETEon 02-23-2025 TRANSTHORACIC ECHOCARDIOGRAM (TTE) COMPLETE Abnormal [facility] US Heart TransthoracicOrdere d By: Jorge Luis Rivero on 02-23-2025 Aortic Arch 2.8 cm [facility] [employer] Work Phone: Aortic Sinus Valsalva 3.6 cm [facility] [employer] Work Phone: Aortic Sinus Valsalva Index 2 cm/m2 [facility] [employer] Work Phone: Aortic valve Orifice area by US 3.5 cm2 [facility] [employer] Work Phone: Ascending Aorta 3.2 cm [facility] Work Phone: Ascending Aorta Index 1.78 cm/m2 [facility] [employer] Work Phone: E/E' Lateral 5.8 [facility] [employer] Phone: E/E' Ratio (Averaged) 7.73 [facility] Work Phone: E/E' Septal 9.67 [facility] [employer] Phone: Fractional Shortening 2D 38 % 28 - 44 % [facility] [employer] Phone: Interpretation and review of laboratory results Abnormal [facility] [employer] Phone: IVSd 1 cm 0.6 - 1.0 cm [facility] [employer] Phone: LA Diameter 2.5 cm [facility] [employer] Phone: LA Size Index 1.39 cm/m2 [facility] [employer] Work Phone: LA Volume 2C 16 mL Abnormal 18 - 58 mL [facility] [employer] Phone: LA Volume 4C 25 mL 18 - 58 mL [facility] [employer] Phone: LA Volume A/L 25 mL [facility] [employer] Work Phone: LA Volume BP 21 mL 18 - 58 mL [facility] [employer] Phone: LA Volume Index 2C 9 mL/m2 Abnormal 16 - 34 mL/m2 [facility] Work Phone: LA Volume Index 4C 14 mL/m2 Abnormal 16 - 34 mL/m2 [facility] Work Phone: LA Volume Index A/L 14 mL/m2 16 - 34 mL/m2 [facility] Work Phone: LA Volume Index BP 12 ml/m2 Abnormal 16 - 34 ml/m2 [facility] Work Phone: Left ventricular Ejection fraction by US.2D+Calculated by biplane method of disks 69 % 55 - 100 % [facility] Work Phone: LV E' Lateral Velocity 10 cm/s [facility] Work Phone: LV E' Septal Velocity 6 cm/s [facility] Work Phone: LV EDV A2C 53 mL [facility] Work Phone: LV EDV A4C 99 mL [facility] Work Phone: LV EDV BP 72 mL 67 - 155 mL [facility] Work Phone: LV EDV Index A2C 29 mL/m2 [facility] Work Phone: LV EDV Index A4C 55 mL/m2 [facility] Work Phone: LV EDV Index BP 40 mL/m2 [facility] Work Phone: LV Ejection Fraction A2C 74 % [facility] Work Phone: LV Ejection Fraction A4C 66 % [facility] Work Phone: LV ESV A2C 14 mL [facility] Work Phone: LV ESV A4C 33 mL [facility] Work Phone: LV ESV BP 22 mL 22 - 58 mL [facility] Work Phone: LV ESV Index A2C 8 mL/m2 [facility] Work Phone: LV ESV Index A4C 18 mL/m2 [facility] Work Phone: LV ESV Index BP 12 mL/m2 [facility] Work Phone: LV Mass 2D 137.2 g 88 - 224 g [facility] Work Phone: LV Mass 2D Index 76.2 g/m2 49 - 115 g/m2 [facility] [employer] Work Phone: LV RWT Ratio 0.48 [facility] [employer] Work Phone: LVIDd 4.2 cm 4.2 - 5.9 cm [facility] Work Phone: LVIDd Index 2.33 cm/m2 [facility] Work Phone: LVIDs 2.6 cm [facility] [employer] Work Phone: LVIDs Index 1.44 cm/m2 [facility] [employer] Work Phone: LVOT Cardiac Output 4.5 liter/mi nut e [facility] [employer] Work Phone: LVOT Diameter 2.1 cm [facility] [employer] Work Phone: LVOT Mean Gradient 2 mmHg [facility] Work Phone: LVOT Peak Gradient 3 mmHg [facility] [employer] Work Phone: LVOT Peak Velocity 0.9 m/s [facility] [employer] Work Phone: LVOT Stroke Volume Index 31.3 mL/m2 [facility] [employer] Work Phone: LVOT SV 56.4 ml [facility] Work Phone: LVOT VTI 16.3 cm [facility] Work Phone: LVPWd 1 cm 0.6 - 1.0 cm [facility] Work Phone: MV A Velocity 0.69 m/s [facility] [employer] Work Phone: MV E Velocity 0.58 m/s [facility] Work Phone: MV E Wave Deceleration Time 208.6 ms [facility] [employer] Work Phone: MV E/A 0.84 [facility] Work Phone: RA Area 4C 9.3 cm2 [facility] Work Phone: RV Basal Dimension 3.6 cm [facility] Work Phone: RV Free Wall Peak S' 20 cm/s [facility] Work Phone: RV Longitudinal Dimension 5.9 cm [facility] Work Phone: RV Mid Dimension 2.9 cm [facility] Work Phone: Sinotubular Junction 2.4 cm [facility] Work Phone: TAPSE 3 cm 1.7 cm [facility] Work Phone: [facility] Work Phone: US Heart Transthoracicon CV CPACS [id number] 02-22-[id number] [facility] CBC W Auto Differential pane l (Bld)on 02-22-2025 Basophils (Bld) [#/Vol] 0 10*3/uL 0.0 - 0.2 10*3/uL [facility] [employer] Basophils/100 WBC (Bld) 0.2 % 0.0 - 2.0 % [facility] [employer] Eosinophils (Bld) [#/Vol] 0.1 10*3/uL 0.0 - 0.5 10*3/uL [facility] [employer] Eosinophils/100 WBC (Bld) 1 % 0.0 - 6.0 % [facility] [employer] Erythrocyte distribution width (RBC) [Ratio] 18.6 % High 11.5 - 15.0 % [facility] [employer] Hematocrit (Bld) [Volume fraction] 31.4 % Low 40.0 - 52.0 % [facility] [employer] Hemoglobin (Bld) [Mass/Vol] 9.3 g/dL Low 13.0 - 18.0 g/dL [facility] [employer] Immature granulocytes (Bld) [#/Vol] 0.1 10*3/uL High NINF - 0.1 10*3/uL [facility] Immature granulocytes/100 WBC (Bld) 1 % 0.0 - 2.0 % [facility] Interpretation and review of laboratory results Abnormal [facility] Lymphocytes (Bld) [#/Vol] 1.4 10*3/uL 1.0 - 4.3 10*3/uL [facility] Lymphocytes/100 WBC (Bld) 16.2 % 15.0 - 45.0 % [facility] MCH (RBC) [Entitic mass] 23.4 pg Low 26. 0 - 34.0 pg [facility] MCHC (RBC) [Mass/Vol] 29.6 % Low 30.5 - 36.0 % [facility] MCV (RBC) [Entitic vol] 79.1 fL 77.0 - 99.0 fL [facility] Monocytes (Bld) [#/Vol] 1 10*3/uL High 0.0 - 0.9 10*3/uL [facility] Monocytes/100 WBC (Bld) 12.2 % 5.0 - 13.0 % [facility] Neutrophils (Bld) [#/Vol] 5.8 10*3/uL 1.8 - 7.5 10*3/uL [facility] Neutrophils/100 WBC (Bld) 69.4 % 38.0 - 82.0 % [facility] Nucleated RBC/100 WBC (Bld) [Ratio] 0 % [facility] Platelet mean volume (Bld) [Entitic vol] 9.2 fL 9.0 - 12.7 fL [facility] [employer] Platelets (Bld) [#/Vol] 357 10*3/uL 140 - 440 10*3/uL [facility] RBC (Bld) [#/Vol] 3.97 10*6/uL Low 4.40 - 5.9 0 10*6/uL [facility] WBC (Bld) [#/Vol] 8.3 10*3/uL 3.6 - 10.7 10*3/uL [facility] CBC WITH AUTO DIFFERENTIALon 02-22-2025 Basophils (Bld) [#/Vol] 0.0 10*3/uL Normal 0.0-0.2 [facility] Comment on above: Performed By: #### L [id number] ####Knot Borer: SLAVA GAINES ([id number])[facility] ([facility])[address] [place] [address] Basophils/100 WBC (Bld) 0.2 % Normal 0.0-2.0 [facility] Comment on above: Performed By: #### L [id number] ####Knot Borer: SLAVA GAINES ([id number])[facility] [place] (SBHLAB)[address] Eosinophils (Bld) [#/Vol] 0.1 10*3/uL Normal 0.0-0.5 [facility] Comment on above: Performed By: #### L [id number] ####Knot Borer: SLAVA GAINES ([id number])[facility] [place] (SBHLAB)[address] Eosinophils/100 WBC (Bld) 1.0 % Normal 0.0-6.0 [facility] Comment on above: Performed By: #### L [id number] ####Knot Borer: SLAVA GAINES ([id number])[facility] ([facility])[address] Erythrocyte distribution width (RBC) [Ratio] 18.6 % High 11.5-15.0 [facility] Comment on above: Performed By: #### L [id number] ####Knot Borer: SLAVA GAINES ([id number])[facility] ([facility])[address] Hematocrit (Bld) [Volume fraction] 31.4 % Low 40.0-52.0 [facility] Comment on above: Performed By: #### L [id number] ####Knot Borer: SLAVA GAINES ([id number])[facility] [place] (SBHLAB)[address] [place] [address] Hemoglobin (Bld) [Mass/Vol] 9.3 g/dL Low 13.0-18.0 [facility] Comment on above: Performed By: #### L [id number] ####Knot Borer: SLAVA GAINES ([id number])[facility] (SBHLAB)[address] IMMATURE GRANS % 1.0 % Normal 0.0-2.0 [facility] Comment on above: Performed By: #### L [id number] ####Knot Borer: SLAVA GAINES ([id number])[facility] (SBHLAB)[address] IMMATURE GRANS ABSOLUTE 0.1 10*3/uL High <0.1 [facility] Comment on above: Performed By: #### L [id number] ####Knot Borer: SLAVA GAINES ([id number])[facility] (SBHLAB)[address] Lymphocytes (Bld) [#/Vol] 1.4 10*3/uL Normal 1.0-4.3 [facility] Comment on above: Performed By: #### L [id number] ####Knot Borer: SLAVA GARCIAMACIEJ ([id number])[facility] [facility] [place] [address] Lymphocytes/100 WBC (Bld) 16.2 % Normal 15.0-45.0 [facility] Comment on above: Performed By: #### L [id number] ####Knot Borer: SLAVA GAINES ([id number])[facility] (SBAB)[address] [place] [address] MCH (RBC) [Entitic mass] 23.4 pg Low 26.0-34.0 [facility] Comment on above: Performed By: #### L [id number] ####Knot Borer: SLAVA GAINES ([id number])[facility] (SBHLAB)[address] [place] [address] MCHC 29.6 % Low 30.5-36.0 [facility] Comment on above: Performed By: #### L [id number] ####Knot Borer: SLAVA GAINES ([id number])[facility] (SBHLAB)[address] [place] [address] MCV (RBC) [Entitic vol] 79.1 fL Normal 77.0-99.0 [facility] Comment on above: Performed By: #### L [id number] ####Knot Borer: SLAVA GAINES ([id number])[facility] [place] (SBHLAB)[address] Monocytes (Bld) [#/Vol] 1.0 10*3/uL High 0.0-0.9 [facility] Comment on above: Performed By: #### L [id number] ####Knot Borer: SLAVA GAINES ([id number])[facility] [place] (SBHLAB)[address] Monocytes/100 WBC (Bld) 12.2 % Normal 5.0-13.0 [facility] Comment on above: Performed By: #### L [id number] ####Knot Borer: SLAVA GAINES ([id number])[facility] [place] (SBHLAB)[address] NEUTROPHILS ABSOLUTE 5.8 10*3/uL Normal 1.8-7.5 [facility] Comment on above: Performed By: #### L [id number] ####Knot Borer: SLAVA GAINES ([id number])[facility] [place] (SBHLAB)[address] Neutrophils/100 WBC (Bld) 69.4 % Normal 38.0-82.0 [facility] Comment on above: Performed By: #### L [id number] ####Knot Borer: SLAVA GAINES ([id number])[facility] [place] (SBHLAB)[address] NRBC 0.0 /100 WBCs Normal 0.0-2.0 [facility] Comment on above: Performed By: #### L [id number] ####Knot Borer: SLAVA GAINES ([id number])[facility] [place] (SBHLAB)[address] Platelet mean volume (Bld) [Entitic vol] 9.2 fL Normal 9.0-12.7 [facility] Comment on above: Performed By: #### L [id number] ####Knot Borer: SLAVA GAINES ([id number])[facility] [place] (SBHLAB)[address] Platelets (Bld) [#/Vol] 357 10*3/uL Normal 140-440 [facility] Comment on above: Performed By: #### L [id number] ####Knot Borer: SLAVA GAINES ([id number])[facility] [place] (SBHLAB)[address] RBC (Bld) [#/Vol] 3.97 10*6/uL Low 4.40-5.90 [facility] Comment on above: Performed By: #### L [id number] ####Knot Borer: SLAVA GAINES ([id number])[facility] (SBHLAB)[address] WBC (Bld) [#/Vol] 8.3 10*3/uL Normal 3.6-10.7 [facility] Comment on above: Performed By: #### L [id number] ####Knot Borer: SLAVA GAINES ([id number])[facility] (SBHLAB)[address] COMPREHENSIVE METABOLIC PANE Barry 02-22-2025 Albumin [Mass/Vol] 1.7 g/dL Low 3.1-4.5 [facility] Comment on above: Performed By: #### L [id number] ####Knot Borer: SLAVA GAINES ([id number])[facility] [place] (SBHLAB)[address] ALP [Catalytic activity/Vol] 69 U/L Normal 40-150 [facility] Comment on above: Performed By: #### L [id number] ####Knot Borer: SLAVA GAINES ([id number])[facility] (SBHLAB)[address] ALT [Catalytic activity/Vol] U/L Normal <40 [facility] Comment on above: Performed By: #### L [id number] ####Knot Borer: SLAVA GAINES ([id number])[facility] [place] (SBHLAB)[address] Anion gap [Moles/Vol] 7 mmol/L Normal 3-13 [facility] Comment on above: Performed By: #### L [id number] ####Knot Borer: LSAVA GAINES ([id number])[facility] (SBHLAB)[address] AST [Catalytic activity/Vol] 14 U/L Normal <34 [facility] Comment on above: Performed By: #### L [id number] ####Knot Borer: SLAVA GAINES ([id number])[facility] (HLAB)[address] Bilirubin [Mass/Vol] 0.2 mg/dL Normal <1.2 [facility] Comment on above: Performed By: #### L [id number] ####Knot Borer: SLAVA GAINES ([id number])[facility] (HLAB)[address] Calcium [Mass/Vol] 7.6 mg/dL Low 8.8-10.0 [facility] Comment on above: Performed By: #### L [id number] ####Knot Borer: SLAVA GAINES ([id number])[facility] (SBHLAB)[address] [place] [address] [place] Chloride [Moles/Vol] 102 mmol/L Normal 98-107 [facility] Comment on above: Performed By: #### L [id number] ####Knot Borer: SLAVA GAINES ([id number])[facility] (SBHLAB)[address] CO2 [Moles/Vol] 25 mmol/L Normal 23-31 [facility] Comment on above: Performed By: #### L [id number] ####Knot Borer: SLAVA GAINES ([id number])[facility] [place] (SBHLAB)[address] Creatinine [Mass/Vol] 0.54 mg/dL Low 0.67-1.27 [facility] Comment on above: Performed By: #### L [id number] ####Knot Borer: SLAVA GAINES ([id number])[facility] [place] (SBHLAB)[address] [place] [address] [place] GLOMERULAR FILTRATION RATE ML/MIN/1.73 SQ M.PREDICTED >90.0 Normal >60.0 [facility] Comment on above: Result Comment: Calc ulation based on the Chronic Kidney Disease Epidemiology Collaboration (CKD-EPI) equation refit without adjustment for race Performed By: #### L [id number] ####Knot Borer: SLAVA GAINES ([id number])[facility] (SBHLAB)[address] Glucose [Mass/Vol] 95 mg/dL Normal 82-115 [facility] Comment on above: Performed By: #### L [id number] ####Knot Borer: SLAVA GAINES ([id number])[facility] (SBHLAB)[address] [place] [address] [place] Potassium [Moles/Vol] 4.9 mmol/L Normal 3.5-5.1 [facility] Comment on above: Result Comment: [facility] potassium values may be up to 0.5 mmol/L lower than serum values. Performed By: #### L [id number] ####Knot Borer: SLAVA GAINES ([id number])[facility] [place] (SBHLAB)[address] [place] [address] [place] Protein [Mass/Vol] 5.1 g/dL Low 6.4-8.3 [facility] Comment on above: Performed By: #### L [id number] ####Knot Borer: SLAVA GAINES ([id number])[facility] [place] (SBHLAB)[address] [place] [address] [place] Sodium [Moles/Vol] 134 mmol/L Low 136-145 [facility] Comment on above: Performed By: #### L [id number] ####Knot Borer: SLAVA MCCLELLANCeciliaMACIEJ ([id number])[facility] (SBHLAB)[address] Urea nitrogen [Mass/Vol] 11 mg/dL Normal - [facility] Comment on above: Performed By: #### L [id number] ####Knot Borer: SLAVA MCCLELLANCeciliaMACIEJ ([id number])[facility] (SBHLAB)[address] Comprehensive metabolic 1998 panelon 02-22-2025 Albumin [Mass/Vol] 1.7 g/dL Low 3.1 - 4.5 g/dL [facility] ALP [Catalytic activity/Vol] 69 U/L 40 - 150 U/L [facility] ALT [Catalytic activity/Vol] U/L NINF - 40 U/L [facility] Anion gap [Moles/Vol] 7 mmol/L 3 - 13 mmol/L [facility] AST [Catalytic activity/Vol] 14 U/L NINF - 34 U/L [facility] Bilirubin [Mass/Vol] 0.2 mg/dL NINF - 1.2 mg/dL [facility] Calcium [Mass/Vol] 7.6 mg/dL Low 8.8 - 10. 0 mg/dL [facility] Chloride [Moles/Vol] 102 mmol/L 98 - 10 7 mmol/L [facility] CO2 [Moles/Vol] 25 mmol/L 23 - 31 mmol/L [facility] Creatinine [Mass/Vol] 0.54 mg/dL Low 0.67 - 1.27 mg/dL [facility] GFR/1.73 sq M.predicted (S/P/Bld) [Vol rate/Area] - PINF [facility] Glucose [Mass/Vol] 95 mg/dL 82 - 115 mg/dL [facility] Interpretation and review of laboratory results Abnormal [facility] Potassium [Moles/Vol] 4.9 mmol/L 3.5 - 5.1 mmol/L [facility] Protein [Mass/Vol] 5.1 g/dL Low 6.4 - 8.3 g/dL [facility] Sodium [Moles/Vol] 134 mmol/L Low 136 - 145 mmol/L [facility] Urea nitrogen [Mass/Vol] 11 mg/dL 9 - 23 mg/dL [facility] ECG 12-LEADon 02-22-2025 ECG 12-LEAD IMPRESSION: Sinus Bradycardia Supraventricular trigeminy Non-conducted PAC (last beat) Low voltage, extremity leads Electronically Signed On 02-22-2025 16:47:49 EDT by Baltazar Thakkar Normal [facility] No Panel InformationOrdered By: Baltazar Thakkar on 02-22-2025 P Downs 97 degrees [facility] Work Phone: [phone] [place] Interval 168 ms [facility] Work Phone: [phone] QRS Downs 24 degrees [facility] Phone: QRSD Interval 113 ms [facility] Work Phone: QT Interval 476 ms [facility] Phone: [phone] QTC Interval 467 ms [facility] Phone: T Wave Downs 30 degrees [facility] Phone: Locately Phone: [phone] No Panel Informationon 02-[address] [facility] Nursing Noteon 02-22-2025 Nursing Note Notified Ryan Bennett NP about inflammation of stoma. Spoke with Dr. Michoacano Walter about blisters and sores to pt lip and side of tongue. Normal [facility] Progress Noteon 02-22-2025 Progress Note [facility] Progress Note Normal [facility] Progress Note PHYSICAL THERAPY [facility] Name/MRN: David Doan ([id number]) Date: 02/22/2025 Treatment is being deferred at present because Pt just received his lunch . Will continue to attempt Sharri Waterman PTA Normal [facility] Progress Note Normal [facility] Progress [facility] Normal [facility] Progress Note Normal [facility] Progress Note Normal [facility] Vital signsOrdered By: Baltazar Thakkar on 02-22-2025 Heart rate 58 /min bpm [facility] Work Phone: [phone] 02-21-2025 [id number] Normal [facility] CBC W Auto Differential pane l (Bld)on 02-21-2025 Basophils (Bld) [#/Vol] 0 10*3/uL 0.0 - 0.2 10*3/uL [facility] Basophils/100 WBC (Bld) 0.1 % 0.0 - 2.0 % [facility] Eosinophils (Bld) [#/Vol] 0 10*3/uL 0.0 - 0.5 10*3/uL [facility] Eosinophils/100 WBC (Bld) 0 % 0.0 - 6.0 % [facility] Erythrocyte distribution width (RBC) [Ratio] 18.6 % High 11.5 - 15.0 % [facility] Hematocrit (Bld) [Volume fraction] 32.9 % Low 40.0 - 52.0 % [facility] Hemoglobin (Bld) [Mass/Vol] 9.7 g/dL Low 13.0 - 18.0 g/dL [facility] Immature granulocytes (Bld) [#/Vol] 0.1 10*3/uL High NINF - 0.1 10*3/uL [facility] Immature granulocytes/100 WBC (Bld) 1 % 0.0 - 2.0 % [facility] Interpretation and review of laboratory results Abnormal [facility] Lymphocytes (Bld) [#/Vol] 1.2 10*3/uL 1.0 - 4.3 10*3/uL [facility] Lymphocytes/100 WBC (Bld) 13.3 % Low 15.0 - 45.0 % [facility] MCH (RBC) [Entitic mass] 23 pg Low 26. 0 - 34.[address] [facility] MCHC (RBC) [Mass/Vol] 29.5 % Low 30.5 - 36.0 % [facility] MCV (RBC) [Entitic vol] 78 fL 77.0 - 99.[address] [facility] Monocytes (Bld) [#/Vol] 0.8 10*3/uL 0.0 - 0.9 10*3/uL [facility] Monocytes/100 WBC (Bld) 8.3 % 5.0 - 13.0 % [facility] Neutrophils (Bld) [#/Vol] 7.2 10*3/uL 1.8 - 7.5 10*3/uL [facility] Neutrophils/100 WBC (Bld) 77.3 % 38.0 - 82.0 % [facility] Nucleated RBC/100 WBC (Bld) [Ratio] 0.2 % [facility] Platelet mean volume (Bld) [Entitic vol] 9.3 fL 9.0 - 12.[address] [facility] Platelets (Bld) [#/Vol] 362 10*3/uL 140 - 440 10*3/uL [facility] RBC (Bld) [#/Vol] 4.22 10*6/uL Low 4.40 - 5.9 0 10*6/uL [facility] WBC (Bld) [#/Vol] 9.3 10*3/uL 3.6 - 10.7 10*3/uL [facility] CBC WITH AUTO DIFFERENTIALon 02-21-2025 Basophils (Bld) [#/Vol] 0.0 10*3/uL Normal 0.0-0.2 [facility] Comment on above: Performed By: #### L [id number] ####Knot Borer: SLAVA GAINES ([id number])[facility] (SBAB)[address] Basophils/100 WBC (Bld) 0.1 % Normal 0.0-2.0 S [facility] Comment on above: Performed By: #### L [id number] ####Knot Borer: SLAVA GAINES ([id number])[facility] (SBAB)[address] Eosinophils (Bld) [#/Vol] 0.0 10*3/uL Normal 0.0-0.5 [facility] Comment on above: Performed By: #### L [id number] ####Knot Borer: SLAVA GAINES ([id number])[facility] (SBHLAB)[address] [place] [address] [place] Eosinophils/100 WBC (Bld) 0.0 % Normal 0.0-6.0 [facility] Comment on above: Performed By: #### L [id number] ####Knot Borer: SLAVA GAINES ([id number])[facility] (SBAB)[address] Erythrocyte distribution width (RBC) [Ratio] 18.6 % High 11.5-15.0 [facility] Comment on above: Performed By: #### L [id number] ####Knot Borer: SLAVA GAINES ([id number])[facility] (SBHLAB)[address] Hematocrit (Bld) [Volume fraction] 32.9 % Low 40.0-52.0 [facility] Comment on above: Performed By: #### L [id number] ####Knot Borer: SLAVA GAINES ([id number])[facility] ([facility] Hemoglobin (Bld) [Mass/Vol] 9.7 g/dL Low 13.0-18.0 [facility] Comment on above: Performed By: #### L [id number] ####Knot Borer: SLAVA GAINES ([id number])[facility] (SBHLAB)[address] IMMATURE GRANS % 1.0 % Normal 0.0-2.0 [facility] Comment on above: Performed By: #### L [id number] ####Knot Borer: SLAVA GAINES ([id number])[facility] ([facility])[address] IMMATURE GRANS ABSOLUTE 0.1 10*3/uL High <0.1 [facility] Comment on above: Performed By: #### L [id number] ####Knot Borer: SLAVA GAINES ([id number])[facility] (SBHLAB)[address] Lymphocytes (Bld) [#/Vol] 1.2 10*3/uL Normal 1.0-4.3 [facility] Comment on above: Performed By: #### L [id number] ####Knot Borer: SLAVA GAINES ([id number])[facility] (SBHLAB)[address] Lymphocytes/100 WBC (Bld) 13.3 % Low 15.0-45.0 [facility] Comment on above: Performed By: #### L [id number] ####Knot Borer: SLAVA GAINES ([id number])[facility] [place] (SBHLAB)[address] MCH (RBC) [Entitic mass] 23.0 pg Low 26.0-34.0 [facility] Comment on above: Performed By: #### L [id number] ####Knot Borer: SLAVA GAINES ([id number])[facility] (SBHLAB)[address] MCHC 29.5 % Low 30.5-36.0 [facility] Comment on above: Performed By: #### L [id number] ####Knot Borer: SLAVA GAINES ([id number])[facility] [place] (SBHLAB)[address] MCV (RBC) [Entitic vol] 78.0 fL Normal 77.0-99.0 [facility] Comment on above: Performed By: #### L [id number] ####Knot Borer: SLAVA GAINES ([id number])[facility] [place] (SBHLAB)[address] [place] [address] Monocytes (Bld) [#/Vol] 0.8 10*3/uL Normal 0.0-0.9 [facility] Comment on above: Performed By: #### L [id number] ####Knot Borer: SLAVA GAINES ([id number])[facility] [place] (SBHLAB)[address] Monocytes/100 WBC (Bld) 8.3 % Normal 5.0-13.0 [facility] Comment on above: Performed By: #### L [id number] ####Knot Borer: SLAVA GAINES ([id number])[facility] [place] (SBHLAB)[address] NEUTROPHILS ABSOLUTE 7.2 10*3/uL Normal 1.8-7.5 [facility] Comment on above: Performed By: #### L [id number] ####Knot Borer: SLAVA GAINES ([id number])[facility] [place] (SBHLAB)[address] Neutrophils/100 WBC (Bld) 77.3 % Normal 38.0-82.0 [facility] Comment on above: Performed By: #### L [id number] ####Knot Borer: SLAVA GAINES ([id number])[facility] [place] (SBHLAB)[address] NRBC 0.2 /100 WBCs Normal 0.0-2.0 [facility] Comment on above: Performed By: #### L [id number] ####Knot Borer: SLAVA GAINES ([id number])[facility] [place] (SBHLAB)[address] Platelet mean volume (Bld) [Entitic vol] 9.3 fL Normal 9.0-12.7 [facility] Comment on above: Performed By: #### L [id number] ####Knot Borer: SLAVA GAINES ([id number])[facility] [place] (SBHLAB)[address] Platelets (Bld) [#/Vol] 362 10*3/uL Normal 140-440 [facility] Comment on above: Performed By: #### L [id number] ####Knot Borer: SLAVA GAINES ([id number])[facility] [place] (SBHLAB)[address] RBC (Bld) [#/Vol] 4.22 10*6/uL Low 4.40-5.90 [facility] Comment on above: Performed By: #### L [id number] ####Knot Borer: SLAVA GAINES ([id number])[facility] [place] (SBHLAB)[address] WBC (Bld) [#/Vol] 9.3 10*3/uL Normal 3.6-10.7 [facility] Comment on above: Performed By: #### L [id number] ####Knot Borer: SLAVA GAINES ([id number])[facility] [place] (SBHLAB)[address] COMPREHENSIVE METABOLIC PANE Barry 02-21-2025 Albumin [Mass/Vol] 1.7 g/dL Low 3.1-4.5 [facility] Comment on above: Performed By: #### L [id number] ####Knot Borer: SLAVA GAINES ([id number])[facility] [place] (SBHLAB)[address] ALP [Catalytic activity/Vol] 60 U/L Normal 40-150 [facility] Comment on above: Performed By: #### L AB17 ####Knot Borer: SLAVA GAINES ([id number])[facility] [place] (SBHLAB)[address] ALT [Catalytic activity/Vol] U/L Normal <40 [facility] Comment on above: Performed By: #### L AB17 ####Knot Borer: SLAVA GAINES ([id number])[facility] [place] (SBHLAB)[address] Anion gap [Moles/Vol] 3 mmol/L Normal 3-13 [facility] Comment on above: Performed By: #### L AB17 ####Knot Borer: SLAVA GAINES ([id number])[facility] [place] (SBHLAB)[address] AST [Catalytic activity/Vol] 19 U/L Normal <34 [facility] Comment on above: Performed By: #### L AB17 ####Knot Borer: SLAVA GAINES ([id number])[facility] [place] (SBHLAB)[address] Bilirubin [Mass/Vol] 0.2 mg/dL Normal <1.2 [facility] Comment on above: Performed By: #### L AB17 ####Knot Borer: SLAVA GAINES ([id number])[facility] (SBHLAB)[address] Calcium [Mass/Vol] 7.6 mg/dL Low 8.8-10.0 [facility] Comment on above: Performed By: #### L [id number] ####Knot Borer: SLAVA GAINES ([id number])[facility] [place] (SBHLAB)[address] Chloride [Moles/Vol] 103 mmol/L Normal 98-107 [facility] Comment on above: Performed By: #### L AB17 ####Knot Borer: SLAVA GAINES ([id number])[facility] [place] (SBHLAB)[address] CO2 [Moles/Vol] 27 mmol/L Normal 23-31 [facility] Comment on above: Performed By: #### L AB17 ####Knot Borer: SLAVA GAINES ([id number])[facility] Creatinine [Mass/Vol] 0.54 mg/dL Low 0.67-1.27 [facility] Comment on above: Performed By: #### L AB17 ####Knot Borer: SLAVA GAINES ([id number])[facility] [place] (HLAB)[address] GLOMERULAR FILTRATION RATE ML/MIN/1.73 SQ M.PREDICTED >90.0 Normal >60.0 [facility] Comment on above: Result Comment: Calc ulation based on the Chronic Kidney Disease Epidemiology Collaboration (CKD-EPI) equation refit without adjustment for race Performed By: #### L AB17 ####Knot Borer: SLAVA GAINES ([id number])[facility] (SBHLAB)[address] Glucose [Mass/Vol] 117 mg/dL High 82-115 [facility] Comment on above: Performed By: #### L [id number] ####Knot Borer: SLAVA GAINES ([id number])[facility] (SBHLAB)[address] Potassium [Moles/Vol] 5.1 mmol/L Normal 3.5-5.1 [facility] Comment on above: Result Comment: [facility] potassium values may be up to 0.5 mmol/L lower than serum values. Performed By: #### L AB17 ####Knot Borer: SLAVA GAINES ([id number])[facility] (SB[facility]AB)[address] Protein [Mass/Vol] 5.2 g/dL Low 6.4-8.3 [facility] Comment on above: Performed By: #### L AB17 ####Knot Borer: SLAVA GAINES ([id number])[facility] (SB[facility])[address] Sodium [Moles/Vol] 133 mmol/L Low 136-145 [facility] Comment on above: Performed By: #### L [id number] ####Knot Borer: SLAVA GAINES ([id number])[facility] (HLAB)[address] Urea nitrogen [Mass/Vol] 8 mg/dL Low 9-23 [facility] Comment on above: Performed By: #### L [id number] ####Knot Borer: SLAVA GAINES ([id number])[facility] (HLAB)[address] Comprehensive metabolic 1998 panelon 02-21-2025 Albumin [Mass/Vol] 1.7 g/dL Low 3.1 - 4.5 g/dL [facility] ALP [Catalytic activity/Vol] 60 U/L 40 - 150 U/L [facility] ALT [Catalytic activity/Vol] U/L NINF - 40 U/L [facility] Anion gap [Moles/Vol] 3 mmol/L 3 - 13 mmol/L [facility] AST [Catalytic activity/Vol] 19 U/L NINF - 34 U/L [facility] Bilirubin [Mass/Vol] 0.2 mg/dL NINF - 1.2 mg/dL [facility] Calcium [Mass/Vol] 7.6 mg/dL Low 8.8 - 10. 0 mg/dL [facility] Chloride [Moles/Vol] 103 mmol/L 98 - 10 7 mmol/L [facility] CO2 [Moles/Vol] 27 mmol/L 23 - 31 mmol/L [facility] Creatinine [Mass/Vol] 0.54 mg/dL Low 0.67 - 1.27 mg/dL [facility] GFR/1.73 sq M.predicted (S/P/Bld) [Vol rate/Area] - PINF [facility] Glucose [Mass/Vol] 117 mg/dL High 82 - 115 mg/dL [facility] Interpretation and review of laboratory results Abnormal [facility] Potassium [Moles/Vol] 5.1 mmol/L 3.5 - 5.1 mmol/L [facility] Protein [Mass/Vol] 5.2 g/dL Low 6.4 - 8.3 g/dL [facility] Sodium [Moles/Vol] 133 mmol/L Low 136 - 145 mmol/L [facility] Urea nitrogen [Mass/Vol] 8 mg/dL Low 9 - 23 mg/dL [facility] Consulton 02-21-2025 Consult Normal [facility] Nursing Noteon 02-21-2025 Nursing Note Normal [facility] Progress Noteon 02-21-2025 Progress Note Normal [facility] Progress Note Normal [facility] Progress [facility] Normal [facility] Progress Note Normal [facility] [id number] 02-20-2025 [id number] While on unit asked to eval tele strip. Pt in sinus dysrhythmia. Rate as low as 35. Currently 86. BP stable. EKG sinus marsha. Secure chat sent to Dr. Jason Walter Normal [facility] [id number] 02-20-2025 [id number] Normal [facility] CBC W Auto Differential pane l (Bld)on 02-20-2025 Erythrocyte distribution width (RBC) [Ratio] 18.1 % High 11.5 - 15.0 % [facility] Hematocrit (Bld) [Volume fraction] 31.4 % Low 40.0 - 52.0 % [facility] Hemoglobin (Bld) [Mass/Vol] 9.6 g/dL Low 13.0 - 18.0 g/dL [facility] MCH (RBC) [Entitic mass] 23.9 pg Low 26. 0 - 34.[address] [facility] MCHC (RBC) [Mass/Vol] 30.6 % 30.5 - 36.0 % [facility] MCV (RBC) [Entitic vol] 78.3 fL 77.0 - 99.[address] [facility] Platelet mean volume (Bld) [Entitic vol] 9.9 fL 9.0 - 12.[address] [facility] Platelets (Bld) [#/Vol] 304 10*3/uL 140 - 440 10*3/uL [facility] RBC (Bld) [#/Vol] 4.01 10*6/uL Low 4.40 - 5.9 0 10*6/uL [facility] WBC (Bld) [#/Vol] 6.2 10*3/uL 3.6 - 10.7 10*3/uL [facility] CBC WITH AUTO DIFFERENTIALon 02-20-2025 Erythrocyte distribution width (RBC) [Ratio] 18.1 % High 11.5-15.0 [facility] Comment on above: Order Comment: Post transfusion CBC Performed By: #### L [id number], [id number] ####Knot Borer: SLAVA GAINES ([id number])[facility] ([facility])[address] [place] [address] Hematocrit (Bld) [Volume fraction] 31.4 % Low 40.0-52.0 [facility] Comment on above: Order Comment: Post transfusion CBC Performed By: #### L [id number], [id number] ####Knot Borer: SLAVA GAINES ([id number])[facility] ([facility] Hemoglobin (Bld) [Mass/Vol] 9.6 g/dL Low 13.0-18.0 [facility] Comment on above: Order Comment: Post transfusion CBC Performed By: #### L [id number], [id number] ####Knot Borer: SLAVA GAINES ([id number])[facility] ([facility])[address] MCH (RBC) [Entitic mass] 23.9 pg Low 26.0-34.0 [facility] Comment on above: Order Comment: Post transfusion CBC Performed By: #### L [id number], [id number] ####Knot Borer: SLAVA GAINES ([id number])[facility] ([facility])[address] MCHC 30.6 % Normal 30.5-36.0 [facility] Comment on above: Order Comment: Post transfusion CBC Performed By: #### L [id number], [id number] ####Knot Borer: SLAVA GAINES ([id number])[facility] ([facility])[address] [place] [address] MCV (RBC) [Entitic vol] 78.3 fL Normal 77.0-99.0 [facility] Comment on above: Order Comment: Post transfusion CBC Performed By: #### L [id number], [id number] ####Knot Borer: SLAVA GAINES ([id number])[facility] ([facility])[address] [place] [address] Platelet mean volume (Bld) [Entitic vol] 9.9 fL Normal 9.0-12.7 [facility] Comment on above: Order Comment: Post transfusion CBC Performed By: #### L [id number], [id number] ####Knot Borer: SLAVA GAINES ([id number])[facility] ([facility])[address] Platelets (Bld) [#/Vol] 304 10*3/uL Normal 140-440 [facility] Comment on above: Order Comment: Post transfusion CBC Performed By: #### L [id number], [id number] ####Knot Borer: SLAVA GAINES ([id number])[facility] ([facility])[address] RBC (Bld) [#/Vol] 4.01 10*6/uL Low 4.40-5.90 [facility] Comment on above: Order Comment: Post transfusion CBC Performed By: #### L [id number], [id number] ####Knot Borer: SLAVA GAINES ([id number])[facility] ([facility])[address] WBC (Bld) [#/Vol] 6.2 10*3/uL Normal 3.6-10.7 [facility] Comment on above: Order Comment: Post transfusion CBC Performed By: #### L [id number], [id number] ####Knot Borer: SLAVA GAINES ([id number])[facility] ([facility])[address] [place] [address] COMPREHENSIVE METABOLIC PANE Barry 02-20-2025 Albumin [Mass/Vol] 1.9 g/dL Low 3.1-4.5 [facility] Comment on above: Performed By: #### L [id number] ####Knot Borer: SLAVA GAINES ([id number])[facility] ([facility])[address] [place] [address] ALP [Catalytic activity/Vol] 63 U/L Normal 40-150 [facility] Comment on above: Performed By: #### L [id number] ####Knot Borer: SLAVA GAINES ([id number])[facility] ([facility])[address] ALT [Catalytic activity/Vol] U/L Normal <40 [facility] Comment on above: Performed By: #### L [id number] ####Knot Borer: SLAVA GAINES ([id number])[facility] ([facility])[address] Anion gap [Moles/Vol] 8 mmol/L Normal 3-13 [facility] Comment on above: Performed By: #### L [id number] ####Knot Borer: SLAVA GAINES ([phone])[facility] ([facility])[address] AST [Catalytic activity/Vol] 15 U/L Normal <34 [facility] Comment on above: Performed By: #### L [id number] ####Knot Borer: SLAVA GAINES ([id number])[facility] [place] ([facility])[address] Bilirubin [Mass/Vol] 0.6 mg/dL Normal <1.2 [facility] Comment on above: Performed By: #### L AB17 ####Knot Borer: SLAVA GAINES ([id number])[facility] [place] ([facility])[address] Calcium [Mass/Vol] 7.6 mg/dL Low 8.8-10.0 [facility] Comment on above: Performed By: #### L AB17 ####Knot Borer: SLAVA GAINES ([id number])[facility] [place] ([facility])[address] Chloride [Moles/Vol] 101 mmol/L Normal 98-107 [facility] Comment on above: Performed By: #### L AB17 ####Knot Borer: SLAVA GAINES ([id number])[facility] [place] ([facility])[address] [place] [address] [place] CO2 [Moles/Vol] 23 mmol/L Normal 23-31 [facility] Comment on above: Performed By: #### L AB17 ####Knot Borer: SLAVA GAINES ([id number])[facility] [place] ([facility])[address] [place] [address] [place] Creatinine [Mass/Vol] 0.55 mg/dL Low 0.67-1.27 [facility] Comment on above: Performed By: #### L AB17 ####Knot Borer: SLAVA GAINES ([id number])[facility] [place] ([facility])[address] GLOMERULAR FILTRATION RATE ML/MIN/1.73 SQ M.PREDICTED >90.0 Normal >60.0 [facility] Comment on above: Result Comment: Calc ulation based on the Chronic Kidney Disease Epidemiology Collaboration (CKD-EPI) equation refit without adjustment for race Performed By: #### L [id number] ####Knot Borer: SLAVA GAINES ([id number])[facility] ([facility])[address] Glucose [Mass/Vol] 260 mg/dL High 82-115 [facility] Comment on above: Performed By: #### L AB17 ####Knot Borer: SLAVA GAINES ([id number])[facility] ([facility])[address] Potassium [Moles/Vol] 4.6 mmol/L Normal 3.5-5.1 [facility] Comment on above: Result Comment: [facility] potassium values may be up to 0.5 mmol/L lower than serum values. Performed By: #### L AB17 ####Knot Borer: SLAVA GAINES ([id number])[facility] ([facility])[address] Protein [Mass/Vol] 5.8 g/dL Low 6.4-8.3 [facility] Comment on above: Performed By: #### L AB17 ####Knot Borer: SLAVA GAINES ([id number])[facility] ([facility])[address] Sodium [Moles/Vol] 132 mmol/L Low 136-145 [facility] Comment on above: Performed By: #### L AB17 ####Knot Borer: SLAVA GAINES ([id number])[facility] ([facility])[address] Urea nitrogen [Mass/Vol] 9 mg/dL Normal 9-23 [facility] Comment on above: Performed By: #### L AB17 ####Knot Borer: SLAVA GAINES ([id number])[facility] ([facility])[address] Comprehensive metabolic 1998 panelon 02-20-2025 Albumin [Mass/Vol] 1.9 g/dL Low 3.1 - 4.5 g/dL [facility] ALP [Catalytic activity/Vol] 63 U/L 40 - 150 U/L [facility] ALT [Catalytic activity/Vol] U/L NINF - 40 U/L [facility] Anion gap [Moles/Vol] 8 mmol/L 3 - 13 mmol/L [facility] AST [Catalytic activity/Vol] 15 U/L NINF - 34 U/L [facility] Bilirubin [Mass/Vol] 0.6 mg/dL NINF - 1.2 mg/dL [facility] Calcium [Mass/Vol] 7.6 mg/dL Low 8.8 - 10. 0 mg/dL [facility] Chloride [Moles/Vol] 101 mmol/L 98 - 10 7 mmol/L [facility] CO2 [Moles/Vol] 23 mmol/L 23 - 31 mmol/L [facility] Creatinine [Mass/Vol] 0.55 mg/dL Low 0.67 - 1.27 mg/dL [facility] GFR/1.73 sq M.predicted (S/P/Bld) [Vol rate/Area] - PINF [facility] Glucose [Mass/Vol] 260 mg/dL High 82 - 115 mg/dL [facility] Interpretation and review of laboratory results Abnormal [facility] Potassium [Moles/Vol] 4.6 mmol/L 3.5 - 5.1 mmol/L [facility] Protein [Mass/Vol] 5.8 g/dL Low 6.4 - 8.3 g/dL [facility] Sodium [Moles/Vol] 132 mmol/L Low 136 - 145 mmol/L [facility] Urea nitrogen [Mass/Vol] 9 mg/dL 9 - 23 mg/dL [facility] Laboratory - Hematology and Cell countson 02-20-2025 Anisocytosis Ql (Bld) Slight Abnormal (none) [facility] Band form neutrophils (Bld) [#/Vol] 0.1 10*3/uL High NINF - 0.0 10*3/uL [facility] Band form neutrophils/100 WBC (Bld) 2 % High NINF - 0 % [facility] Lymphocytes (Bld) [#/Vol] 0.4 10*3/uL Low 1.0 - 4.3 10*3/uL [facility] Lymphocytes/100 WBC (Bld) 7 % Low 15 - 45 % [facility] Monocytes (Bld) [#/Vol] 0.2 10*3/uL 0.0 - 0.9 10*3/uL [facility] Monocytes/100 WBC (Bld) 4 % Low 5 - 13 % [facility] Neutrophils (Bld) [#/Vol] 5.5 10*3/uL 1.8 - 7.5 10*3/uL [facility] RBC morphology finding Nom (Bld) abnormal [facility] Segmented neutrophils/100 WBC (Bld) 87 % High 38 - 82 % [facility] MANUAL DIFFERENTIAL (CELLAVI TEMO)on 02-20-2025 ANISOCYTOSIS PRESENCE IN BLOOD BY LIGHT MICROSCOPY Slight Abnormal (none) [facility] Comment on above: Order Comment: Post transfusion CBC Performed By: #### L [id number], [id number] ####Knot Borer: SLAVA GAINES ([id number])[facility] ([facility])[address] BAND NEUTROPHILS TOTAL PER COUNTED LEUKOCYTES BY MANUAL COUNT 2 Normal [facility] Comment on above: Order Comment: Post transfusion CBC Performed By: #### L [id number], [id number] ####Knot Borer: SLAVA GAINES ([id number])[facility] ([facility])[address] [place] [address] [place] BANDS (10*3/UL) IN BLOOD-CELLAVISION 0.1 10*3/uL High <=0.0 [facility] Comment on above: Order Comment: Post transfusion CBC Performed By: #### L [id number], [id number] ####Knot Borer: SLAVA GAINES ([id number])[facility]BCROWNPOINT [facility]ILITYN ([facility])[address] BASOPHILS TOTAL PER COUNTED LEUKOCYTES BY MANUAL COUNT Normal [facility] Comment on above: Order Comment: Post transfusion CBC Performed By: #### L [id number], [id number] ####Knot Borer: SLAVA GAINES ([id number])[facility] ([facility])[address] [place] [address] [place] BLASTS TOTAL PER COUNTED LEUKOCYTES BY MANUAL COUNT [facility] Comment on above: Order Comment: Post transfusion CBC Performed By: #### L [id number], [id number] ####Knot Borer: SLAVA GAINES ([id number])[facility] ([facility])[address] [place] [address] [place] EOSINOPHILS TOTAL PER COUNTED LEUKOCYTES BY MANUAL COUNT [facility] Comment on above: Order Comment: Post transfusion CBC Performed By: #### L [id number], [id number] ####Knot Borer: SLAVA GAINES ([id number])[facility] [place] ([facility])[address] [place] [address] [place] LYMPHOCYTES (10*3/UL) IN BLOOD-CELLAVISION 0.4 10*3/uL Low 1.0-4.3 [facility] Comment on above: Order Comment: Post transfusion CBC Performed By: #### L [id number], [id number] ####Knot Borer: SLAVA GAINES ([id number])[facility] ([facility])[address] [place] [address] [place] LYMPHOCYTES TOTAL PER COUNTED LEUKOCYTES BY MANUAL COUNT [address] [place] [address] Comment on above: Order Comment: Post transfusion CBC Performed By: #### L [id number], [id number] ####Knot Borer: SLAVA GAINES ([id number])[facility] [place] ([facility])[address] [place] [address] [place] LYMPHOCYTES/100 LEUKOCYTES IN BLOOD-CELLAVISION 7 % Low 15-45 [facility] Comment on above: Order Comment: Post transfusion CBC Performed By: #### L [id number], [id number] ####Knot Borer: SLAVA GAINES ([id number])[facility] [place] ([facility])[address] [place] [address] [place] METAMYELOCYTES TOTAL PER COUNTED LEUKOCYTES BY MANUAL COUNT [facility] Comment on above: Order Comment: Post transfusion CBC Performed By: #### L [id number], [id number] ####Knot Borer: SLAVA GAINES ([id number])[facility] ([facility])[address] [place] [address] [place] MONOCYTES (10*3/UL) IN BLOOD-CELLAVISION 0.2 10*3/uL Normal 0.0-0.9 [facility] Comment on above: Order Comment: Post transfusion CBC Performed By: #### L [id number], [id number] ####Knot Borer: SLAVA GAINES ([id number])[facility] [place] ([facility])[address] MONOCYTES TOTAL PER COUNTED LEUKOCYTES BY MANUAL COUNT 4 Normal [facility] Comment on above: Order Comment: Post transfusion CBC Performed By: #### L [id number], [id number] ####Knot Borer: SLAVA GAINES ([id number])[facility] [place] ([facility])[address] [place] [address] [place] MONOCYTES/100 LEUKOCYTES IN BLOOD-ALEXANDRE 4 % Low 5-13 [facility] Comment on above: Order Comment: Post transfusion CBC Performed By: #### L [id number], [id number] ####Knot Borer: SLAVA GAINES ([id number])[facility] [place] ([facility])[address] [place] [address] [place] MYELOCYTES COUNTED BY MANUAL COUNT Normal [facility] Comment on above: Order Comment: Post transfusion CBC Performed By: #### L [id number], [id number] ####Knot Borer: SLAVA GAINES ([id number])[facility] [place] ([facility])[address] [place] [address] [place] NEUTROPHILS BAND FORM/100 LEUKOCYTES IN BLOOD-CELLAVISI 2 % High <=0 [facility] Comment on above: Order Comment: Post transfusion CBC Performed By: #### L [id number], [id number] ####Knot Borer: SLAVA GAINES ([id number])[facility] ([facility])[address] [place] [address] [place] NEUTROPHILS TOTAL PER COUNTED LEUKOCYTES BY MANUAL COUNT 88 [facility] Comment on above: Order Comment: Post transfusion CBC Performed By: #### L [id number], [id number] ####Knot Borer: SLAVA GAINES ([id number])[facility] ([facility])[address] [place] [address] [place] PROMYELOCYTES TOTAL PER COUNTED LEUKOCYTES BY MANUAL COUNT Normal [facility] Comment on above: Order Comment: Post transfusion CBC Performed By: #### L [id number], [id number] ####Knot Borer: SLAVA GAINES ([id number])[facility] ([facility])[address] RBC MORPHOLOGY IN BLOOD abnormal Normal [facility] Comment on above: Order Comment: Post transfusion CBC Performed By: #### L [id number], [id number] ####Knot Borer: SLAVA GAINES ([id number])[facility]ITAL[facility] ([facility])[address] [place] [address] [place] SEGMENTED NEUTROPHILS (10*3/UL) IN BLOOD-CELLAVISION 5.5 10*3/uL Normal 1.8-7.5 [facility] Comment on above: Order Comment: Post transfusion CBC Performed By: #### L [id number], [id number] ####Knot Borer: SLAVA GAINES ([id number])[facility] ([facility])[address] [place] [address] [place] SEGMENTED NEUTROPHILS/100 LEUKOCYTES-CE 87 % High 38-82 [facility] Comment on above: Order Comment: Post transfusion CBC Performed By: #### L [id number], [id number] ####Knot Borer: SLAVA GAINES ([id number])[facility] ([facility])[address] [place] [address] [place] UNCLASSIFIED CELLS TOTAL PER COUNTED LEUKOCYTES BY MANUAL COUNT [facility] Comment on above: Order Comment: Post transfusion CBC Performed By: #### L [id number], [id number] ####Knot Borer: SLAVA [id number])[facility] ([facility])[address] [place] [address] VARIANT LYMPHOCYTES TOTAL PER COUNTED LEUKOCYTES BY MANUAL COUNT Normal [facility] Comment on above: Order Comment: Post transfusion CBC Performed By: #### L [id number], [id number] ####Knot Borer: SLAVA GAINES ([id number])[facility] ([facility])[address] No Panel Informationon 02-[address] [facility] Interpretation and review of laboratory results Abnormal [facility] Lymphocytes Manual 7 [facility] Monocytes Manual 4 [facility] Neutrophils Manual [facility] Progress Noteon 02-20-2025 Progress Note [facility] Progress Note Normal [facility] Progress Note Normal [facility] Progress Note Normal [facility] Progress Note Normal [facility] Progress Note Normal [facility] [id number] 02-19-[id number] [facility] [id number] 02-19-[id number] [facility] Anesthesia Noteon 02-19-2025 Anesthesia Note Normal [facility] Anesthesia Note Normal [facility] BLOOD TYPE AND SCREEN GELon 02-19-2025 ABO GROUPING A Normal [facility] Comment on above: Performed By: #### L [id number] ####Knot Borer: SLAVA GAINES ([id number])[facility] BLOOD BANK ([facility])[address] [place] [address] RH TYPE IN BLOOD Positive Normal [facility] Comment on above: Performed By: #### L [id number] ####Knot Borer: SLAVA GAINES ([id number])[facility] B[facility]OD [facility] ([facility])[address] [place] [address] Blood type and Crossmatch vincent aguirre (Bld)on 02-19-2025 ABO group Nom (Bld) A [facility] Blood group antibody screen GEL Ql Negative [facility] D Ag Ql (RBC) Positive [facility] Healt h [facility] CBC W Auto Differential pane l (Bld)Ordered By: Ama Giraldo on 02-19-2025 Erythrocyte distribution width (RBC) [Ratio] 18.8 % High 11.5 - 15.0 % [facility] Hematocrit (Bld) [Volume fraction] 23.5 % Low 40.0 - 52.0 % [facility] Hemoglobin (Bld) [Mass/Vol] 6.8 g/dL Critically low 13.0 - 18.0 g/dL [facility] Interpretation and review of laboratory results Abnormal [facility] MCH (RBC) [Entitic mass] 23.1 pg Low 26. 0 - 34.[address] [facility] MCHC (RBC) [Mass/Vol] 28.9 % Low 30.5 - 36.0 % [facility] MCV (RBC) [Entitic vol] 79.7 fL 77.0 - 99.[address] [facility] Platelet mean volume (Bld) [Entitic vol] 9.8 fL 9.0 - 12.[address] [facility] Platelets (Bld) [#/Vol] 237 10*3/uL 140 - 440 10*3/uL [facility] RBC (Bld) [#/Vol] 2.95 10*6/uL Low 4.40 - 5.9 0 10*6/uL [facility] WBC (Bld) [#/Vol] 5.7 10*3/uL 3.6 - 10.7 10*3/uL [facility] CBC W Auto Differential pane l (Bld)on 02-19-2025 Erythrocyte distribution width (RBC) [Ratio] 19.8 % High 11.5 - 15.0 % [facility] Hematocrit (Bld) [Volume fraction] 22.7 % Low 40.0 - 52.0 % [facility] Hemoglobin (Bld) [Mass/Vol] 6.6 g/dL Critically low 13.0 - 18.0 g/dL [facility] Interpretation and review of laboratory results Abnormal [facility] MCH (RBC) [Entitic mass] 22.4 pg Low 26. 0 - 34.[address] [facility] MCHC (RBC) [Mass/Vol] 29.1 % Low 30.5 - 36.0 % [facility] MCV (RBC) [Entitic vol] 76.9 fL Low 77.0 - 99.[address] [facility] Platelet mean volume (Bld) [Entitic vol] 9.3 fL 9.0 - 12.[address] [facility] Platelets (Bld) [#/Vol] 320 10*3/uL 140 - 440 10*3/uL [facility] RBC (Bld) [#/Vol] 2.95 10*6/uL Low 4.40 - 5.9 0 10*6/uL [facility] WBC (Bld) [#/Vol] 5.7 10*3/uL 3.6 - 10.7 10*3/uL [facility] CBC WITH AUTO DIFFERENTIALon 02-19-2025 Erythrocyte distribution width (RBC) [Ratio] 18.8 % High 11.5-15.0 [facility] Comment on above: Performed By: #### L [id number], [id number] ####Knot Borer: SLAVA GAINES ([id number])[facility] ([facility])[address] [place] [address] Hematocrit (Bld) [Volume fraction] 23.5 % Low 40.0-52.0 [facility] Comment on above: Performed By: #### L [id number], [id number] ####Knot Borer: SLAVA GAINES ([id number])[facility] ([facility])[address] [place] [address] Hemoglobin (Bld) [Mass/Vol] 6.8 g/dL Critically low 13.0-18.0 [facility] Comment on above: Performed By: #### L [id number], [id number] ####Knot Borer: SLAVA GAINES ([id number])[facility] ([facility])[address] [place] [address] MCH (RBC) [Entitic mass] 23.1 pg Low 26.0-34.0 [facility] Comment on above: Performed By: #### L [id number], [id number] ####Knot Borer: SLAVA GAINES ([id number])[facility] ([facility])[address] MCHC 28.9 % Low 30.5-36.0 [facility] Comment on above: Performed By: #### L [id number], [id number] ####Knot Borer: SLAVA GAINES ([id number])[facility] ([facility])[address] MCV (RBC) [Entitic vol] 79.7 fL Normal 77.0-99.0 [facility] Comment on above: Performed By: #### L [id number], [id number] ####Knot Borer: SLAVA GAINES ([id number])[facility] ([facility])[address] Platelet mean volume (Bld) [Entitic vol] 9.8 fL Normal 9.0-12.7 [facility] Comment on above: Performed By: #### L [id number], [id number] ####Knot Borer: SLAVA GAINES ([id number])[facility]ITALVer[facility] BR[facility]CR[facility]POINT [facility] ([facility])[address] Platelets (Bld) [#/Vol] 237 10*3/uL Normal 140-440 [facility] Comment on above: Performed By: #### L [id number], [id number] ####Knot Borer: SLAVA GAINES ([id number])[facility] ([facility])[address] RBC (Bld) [#/Vol] 2.95 10*6/uL Low 4.40-5.90 [facility] Comment on above: Performed By: #### L [id number], [id number] ####Knot Borer: SLAVA GAINES ([id number])[facility] (SB[facility])[address] WBC (Bld) [#/Vol] 5.7 10*3/uL Normal 3.6-10.7 [facility] Comment on above: Performed By: #### L [id number], [id number] ####Knot Borer: SLAVA GAINES ([id number])[facility]ILITYTony (SBHLAB)[address] Erythrocyte distribution width (RBC) [Ratio] 19.8 % High 11.5-15.0 [facility] Comment on above: Performed By: #### L [id number], [id number] ####Knot Borer: SLAVA GARCIAMACIEJ ([id number])[facility] (SBHLAB)[address] Hematocrit (Bld) [Volume fraction] 22.7 % Low 40.0-52.0 [facility] Comment on above: Performed By: #### L [id number], [id number] ####Knot Borer: SLAVA GARCIAMACIEJ ([id number])[facility] (SBHLAB)[address] Hemoglobin (Bld) [Mass/Vol] 6.6 g/dL Critically low 13.0-18.0 [facility] Comment on above: Performed By: #### L [id number], [id number] ####Knot Borer: SLAVA GAINES ([id number])[facility] [place] (SBHLAB)[address] MCH (RBC) [Entitic mass] 22.4 pg Low 26.0-34.0 [facility] Comment on above: Performed By: #### L [id number], [id number] ####Knot Borer: SLAVA GAINES ([id number])[facility]ITAL[facility] (SB[facility])[address] MCHC 29.1 % Low 30.5-36.0 [facility] Comment on above: Performed By: #### L [id number], [id number] ####Knot Borer: SLAVA GAINES ([id number])[facility] (SB[facility])[address] MCV (RBC) [Entitic vol] 76.9 fL Low 77.0-99.0 [facility] Comment on above: Performed By: #### L [id number], [id number] ####Knot Borer: SLAVA GAINES ([id number])[facility] BRARARMAAN (SBHLAB)[address] Platelet mean volume (Bld) [Entitic vol] 9.3 fL Normal 9.0-12.7 [facility] Comment on above: Performed By: #### L [id number], [id number] ####Knot Borer: SLAVA GAINES ([id number])[facility]ITALVer[facility]BCR[facility]ILITYN (SBHLAB)[address] Platelets (Bld) [#/Vol] 320 10*3/uL Normal 140-440 [facility] Comment on above: Performed By: #### L [id number], [id number] ####Knot Borer: SLAVA GAINES ([id number])[facility] [place] (SBHLAB)[address] RBC (Bld) [#/Vol] 2.95 10*6/uL Low 4.40-5.90 [facility] Comment on above: Performed By: #### L [id number], [id number] ####Knot Borer: SLAVA GAINES ([id number])[facility]ITALVer[facility] BRARCROWNPOINT [facility]ALTH CARE FACILITYTony (SBHLAB)[address] WBC (Bld) [#/Vol] 5.7 10*3/uL Normal 3.6-10.7 [facility] Comment on above: Performed By: #### L [id number], [id number] ####Knot Borer: SLAVA GAINES ([id number])[facility] (SBHLAB)[address] COMPREHENSIVE METABOLIC PANE Barry 02-19-2025 Albumin [Mass/Vol] 1.6 g/dL Low 3.1-4.5 [facility] Comment on above: Performed By: #### L [id number] ####Knot Borer: SLAVA GAINES ([id number])[facility] [place] (SB[facility]AB)[address] ALP [Catalytic activity/Vol] 48 U/L Normal 40-150 [facility] Comment on above: Performed By: #### L [id number] ####Knot Borer: SLAVA GAINES ([id number])[facility] [place] (SB[facility]AB)[address] ALT [Catalytic activity/Vol] U/L Normal <40 [facility] Comment on above: Performed By: #### L [id number] ####Knot Borer: SLAVA GAINES ([id number])[facility] [place] (SB[facility])[address] Anion gap [Moles/Vol] 8 mmol/L Normal 3-13 [facility] Comment on above: Performed By: #### L [id number] ####Knot Borer: SLAVA GAINES ([id number])[facility] [place] (SB[facility])[address] AST [Catalytic activity/Vol] 9 U/L Normal <34 [facility] Comment on above: Performed By: #### L [id number] ####Knot Borer: SLAVA GAINES ([id number])[facility] [place] (SB[facility])[address] Bilirubin [Mass/Vol] 0.5 mg/dL Normal <1.2 [facility] Comment on above: Performed By: #### L [id number] ####Knot Borer: SLAVA GAINES ([id number])[facility] [place] (SB[facility])[address] Calcium [Mass/Vol] 7.0 mg/dL Low 8.8-10.0 [facility] Comment on above: Performed By: #### L [id number] ####Knot Borer: SLAVA GAINES ([id number])[facility] [place] (SB[facility])[address] Chloride [Moles/Vol] 101 mmol/L Normal 98-107 [facility] Comment on above: Performed By: #### L [id number] ####Knot Borer: SLAVA GAINES ([id number])[facility] (SB[facility]AB)[address] CO2 [Moles/Vol] 20 mmol/L Low 23-31 [facility] Comment on above: Performed By: #### L [id number] ####Knot Borer: SLAVA GAINES ([id number])[facility] (SBHLAB)[address] Creatinine [Mass/Vol] 0.46 mg/dL Low 0.67-1.27 [facility] Comment on above: Performed By: #### L [id number] ####Knot Borer: SLAVA GAINES ([phone])[facility] ([facility])[address] GLOMERULAR FILTRATION RATE ML/MIN/1.73 SQ M.PREDICTED >90.0 Normal >60.0 [facility] Comment on above: Result Comment: Calc ulation based on the Chronic Kidney Disease Epidemiology Collaboration (CKD-EPI) equation refit without adjustment for race Performed By: #### L [id number] ####Knot Borer: SLAVA GAINES ([id number])[facility] (HLAB)[address] Glucose [Mass/Vol] 168 mg/dL High 82-115 [facility] Comment on above: Performed By: #### L [id number] ####Knot Borer: SLAVA GAINES ([id number])[facility] (SBHLAB)[address] [place] [address] [place] Potassium [Moles/Vol] 4.2 mmol/L Normal 3.5-5.1 [facility] Comment on above: Result Comment: [facility] potassium values may be up to 0.5 mmol/L lower than serum values. Performed By: #### L [id number] ####Knot Borer: SLAVA GAINES ([id number])[facility] (SBHLAB)[address] [place] [address] [place] Protein [Mass/Vol] 4.4 g/dL Low 6.4-8.3 [facility] Comment on above: Performed By: #### L [id number] ####Knot Borer: SLAVA GARCIAMACIEJ ([id number])[facility] [place] (SB[facility]AB)[address] Sodium [Moles/Vol] 129 mmol/L Low 136-145 [facility] Comment on above: Performed By: #### L [id number] ####Knot Borer: SLAVA GARCIAMACIEJ ([id number])[facility] [place] (SBHLAB)[address] Urea nitrogen [Mass/Vol] 8 mg/dL Low 9-23 [facility] Comment on above: Performed By: #### L [id number] ####Knot Borer: SLAVA GARCIAMACIEJ ([id number])[facility]ITALA [facility]BCR[facility]POINT [facility]N (SBHLAB)[address] Albumin [Mass/Vol] 1.4 g/dL Low 3.1-4.5 [facility] Comment on above: Performed By: #### L [id number] ####Knot Borer: SLAVA GAINES ([id number])[facility] [place] (SB[facility]AB)[address] ALP [Catalytic activity/Vol] 65 U/L Normal 40-150 [facility] Comment on above: Performed By: #### L [id number] ####Knot Borer: SLAVA GAINES ([id number])[facility] [place] (SBHLAB)[address] [place] [address] [place] ALT [Catalytic activity/Vol] U/L Normal <40 [facility] Comment on above: Performed By: #### L [id number] ####Knot Borer: SLAVA GAINES ([id number])[facility]ITALA [facility]BCROWNPOINT [facility]ILITYN (SBHLAB)[address] Anion gap [Moles/Vol] 7 mmol/L Normal 3-13 [facility] Comment on above: Performed By: #### L [id number] ####Knot Borer: SLAVA GAINES ([id number])[facility] [place] (SBHLAB)[address] AST [Catalytic activity/Vol] 12 U/L Normal <34 [facility] Comment on above: Performed By: #### L [id number] ####Knot Borer: SLAVA GAINES ([id number])[facility] [place] (SBHLAB)[address] Bilirubin [Mass/Vol] 0.1 mg/dL Normal <1.2 [facility] Comment on above: Performed By: #### L [id number] ####Knot Borer: SLAVA GAINES ([id number])[facility] [place] (SB[facility]AB)[address] Calcium [Mass/Vol] 7.3 mg/dL Low 8.8-10.0 [facility] Comment on above: Performed By: #### L [id number] ####Knot Borer: SLAVA GAINES ([id number])[facility] [place] (SB[facility]AB)[address] Chloride [Moles/Vol] 99 mmol/L Normal 98-107 [facility] Comment on above: Performed By: #### L AB17 ####Knot Borer: SLAVA GAINES ([id number])[facility] [place] (SB[facility]AB)[address] CO2 [Moles/Vol] 25 mmol/L Normal 23-31 [facility] Comment on above: Performed By: #### L AB17 ####Knot Borer: SLAVA GAINES ([id number])[facility] [place] (SB[facility]AB)[address] Creatinine [Mass/Vol] 0.53 mg/dL Low 0.67-1.27 [facility] Comment on above: Performed By: #### L [id number] ####Knot Borer: SLAVA GAINES ([id number])[facility] [place] (SB[facility]AB)[address] GLOMERULAR FILTRATION RATE ML/MIN/1.73 SQ M.PREDICTED >90.0 Normal >60.0 [facility] Comment on above: Result Comment: Calc ulation based on the Chronic Kidney Disease Epidemiology Collaboration (CKD-EPI) equation refit without adjustment for race Performed By: #### L [id number] ####Knot Borer: SLAVA GAINES ([id number])[facility] (SBHLAB)[address] Glucose [Mass/Vol] 129 mg/dL High 82-115 [facility] Comment on above: Performed By: #### L [id number] ####Knot Borer: LSAVA GAINES ([id number])[facility] (HLAB)[address] Potassium [Moles/Vol] 4.7 mmol/L Normal 3.5-5.1 [facility] Comment on above: Result Comment: [facility] potassium values may be up to 0.5 mmol/L lower than serum values. Performed By: #### L AB17 ####Knot Borer: SLAVA GAINES ([id number])[facility] (HLAB)[address] Protein [Mass/Vol] 5.1 g/dL Low 6.4-8.3 [facility] Comment on above: Performed By: #### L [id number] ####Knot Borer: SLAVA GAINES ([id number])[facility] (HLAB)[address] [place] [address] [place] Sodium [Moles/Vol] 131 mmol/L Low 136-145 [facility] Comment on above: Performed By: #### L [id number] ####Knot Borer: SLAVA GAINES ([id number])[facility] (HLAB)[address] Urea nitrogen [Mass/Vol] 11 mg/dL Normal 9-23 [facility] Comment on above: Performed By: #### L [id number] ####Knot Borer: SLAVA GAINES ([id number])[facility]ITAL[facility] (SBHLAB)[address] [place] [address] Comprehensive metabolic 1998 panelon 02-19-2025 Albumin [Mass/Vol] 1.6 g/dL Low 3.1 - 4.5 g/dL [facility] ALP [Catalytic activity/Vol] 48 U/L 40 - 150 U/L [facility] ALT [Catalytic activity/Vol] U/L NINF - 40 U/L [facility] Anion gap [Moles/Vol] 8 mmol/L 3 - 13 mmol/L [facility] AST [Catalytic activity/Vol] 9 U/L NINF - 34 U/L [facility] Bilirubin [Mass/Vol] 0.5 mg/dL NINF - 1.2 mg/dL [facility] Calcium [Mass/Vol] 7 mg/dL Low 8.8 - 10. 0 mg/dL [facility] Chloride [Moles/Vol] 101 mmol/L 98 - 10 7 mmol/L [facility] CO2 [Moles/Vol] 20 mmol/L Low 23 - 31 mmol/L [facility] Creatinine [Mass/Vol] 0.46 mg/dL Low 0.67 - 1.27 mg/dL [facility] GFR/1.73 sq M.predicted (S/P/Bld) [Vol rate/Area] - PINF [facility] Glucose [Mass/Vol] 168 mg/dL High 82 - 115 mg/dL [facility] Interpretation and review of laboratory results Abnormal [facility] Potassium [Moles/Vol] 4.2 mmol/L 3.5 - 5.1 mmol/L [facility] Protein [Mass/Vol] 4.4 g/dL Low 6.4 - 8.3 g/dL [facility] Sodium [Moles/Vol] 129 mmol/L Low 136 - 145 mmol/L [facility] Urea nitrogen [Mass/Vol] 8 mg/dL Low 9 - 23 mg/dL [facility] Albumin [Mass/Vol] 1.4 g/dL Low 3.1 - 4.5 g/dL [facility] ALP [Catalytic activity/Vol] 65 U/L 40 - 150 U/L [facility] ALT [Catalytic activity/Vol] U/L NINF - 40 U/L [facility] Anion gap [Moles/Vol] 7 mmol/L 3 - 13 mmol/L [facility] AST [Catalytic activity/Vol] 12 U/L NINF - 34 U/L [facility] Bilirubin [Mass/Vol] 0.1 mg/dL NINF - 1.2 mg/dL [facility] Calcium [Mass/Vol] 7.3 mg/dL Low 8.8 - 10. 0 mg/dL [facility] Chloride [Moles/Vol] 99 mmol/L 98 - 10 7 mmol/L [facility] CO2 [Moles/Vol] 25 mmol/L 23 - 31 mmol/L [facility] Creatinine [Mass/Vol] 0.53 mg/dL Low 0.67 - 1.27 mg/dL [facility] GFR/1.73 sq M.predicted (S/P/Bld) [Vol rate/Area] - PINF [facility] Glucose [Mass/Vol] 129 mg/dL High 82 - 115 mg/dL [facility] Interpretation and review of laboratory results Abnormal [facility] Potassium [Moles/Vol] 4.7 mmol/L 3.5 - 5.1 mmol/L [facility] Protein [Mass/Vol] 5.1 g/dL Low 6.4 - 8.3 g/dL [facility] Sodium [Moles/Vol] 131 mmol/L Low 136 - 145 mmol/L [facility] Urea nitrogen [Mass/Vol] 11 mg/dL 9 - 23 mg/dL [facility] Laboratory - Hematology and Cell countson 02-19-2025 Anisocytosis Ql (Bld) Slight Abnormal (none) [facility] Deng cells LM Ql (Bld) Slight Abnormal (none) [facility] Dacrocytes LM Ql (Bld) Slight Abnormal (none) [facility] Elliptocytes LM Ql (Bld) Rare Abnormal (none) [facility] Giant platelets LM Ql (Bld) Rare Abnormal (none) [facility] Hypochromia Ql (Bld) Moderate Abnormal (none) [facility] Lymphocytes (Bld) [#/Vol] 0.1 10*3/uL Low 1.0 - 4.3 10*3/uL [facility] Lymphocytes/100 WBC (Bld) 1 % Low 15 - 45 % [facility] Monocytes (Bld) [#/Vol] 0.3 10*3/uL 0.0 - 0.9 10*3/uL [facility] Monocytes/100 WBC (Bld) 5 % 5 - 13 % [facility] Neutrophils (Bld) [#/Vol] 5.4 10*3/uL 1.8 - 7.5 10*3/uL [facility] Ovalocytes LM Ql (Bld) Slight Abnormal (none) [facility] Polychromasia LM Ql (Bld) Rare Abnormal (none) [facility] RBC morphology finding Nom (Bld) abnormal [facility] Segmented neutrophils/100 WBC (Bld) 94 % High 38 - 82 % [facility] Anisocytosis Ql (Bld) Moderate Abnormal (none) [facility] Band form neutrophils (Bld) [#/Vol] 0.1 10*3/uL High NINF - 0.0 10*3/uL [facility] Band form neutrophils/100 WBC (Bld) 2 % High NINF - 0 % [facility] [place] cells LM Ql (Bld) Slight Abnormal (none) [facility] Eosinophils (Bld) [#/Vol] 0.1 10*3/uL 0.0 - 0.5 10*3/uL [facility] Eosinophils/100 WBC (Bld) 2 % 0 - 6 % [facility] Hypochromia Ql (Bld) Slight Abnormal (none) [facility] Lymphocytes (Bld) [#/Vol] 0.6 10*3/uL Low 1.0 - 4.3 10*3/uL [facility] Lymphocytes/100 WBC (Bld) 11 % Low 15 - 45 % [facility] Monocytes (Bld) [#/Vol] 0.4 10*3/uL 0.0 - 0.9 10*3/uL [facility] Monocytes/100 WBC (Bld) 7 % 5 - 13 % [facility] Neutrophils (Bld) [#/Vol] 4.5 10*3/uL 1.8 - 7.5 10*3/uL [facility] Nucleated RBC/100 WBC (Bld) [Ratio] 1 % 0 - 2 % [facility] Ovalocytes LM Ql (Bld) Slight Abnormal (none) [facility] Poikilocytosis LM Ql (Bld) Slight Abnormal (none) [facility] Polychromasia LM Ql (Bld) Slight Abnormal (none) [facility] RBC morphology finding Nom (Bld) abnormal [facility] Segmented neutrophils/100 WBC (Bld) 77 % 38 - 82 % [facility] Variant lymphocytes (Bld) [#/Vol] 0.1 10*3/uL High NINF - 0.0 10*3/uL [facility] Variant lymphocytes/100 WBC (Bld) 1 % High NINF - 0 % [facility] MANUAL DIFFERENTIAL (CELLAVI TEMO)on 02-19-2025 ANISOCYTOSIS PRESENCE IN BLOOD BY LIGHT MICROSCOPY Slight Abnormal (none) [facility] Comment on above: Performed By: #### L [id number], [id number] ####Knot Borer: SLAVA GAINES ([id number])[facility] [place] (SBHLAB)[address] [place] [address] [place] BAND NEUTROPHILS TOTAL PER COUNTED LEUKOCYTES BY MANUAL COUNT Normal [facility] Comment on above: Performed By: #### L [id number], [id number] ####Knot Borer: SLAVA GAINES ([id number])[facility] [place] (SBHLAB)[address] [place] [address] [place] BASOPHILS TOTAL PER COUNTED LEUKOCYTES BY MANUAL COUNT Normal [facility] Comment on above: Performed By: #### L [id number], [id number] ####Knot Borer: SLAVA GAINES ([id number])[facility] [place] (SBHLAB)[address] [place] [address] [place] BLASTS TOTAL PER COUNTED LEUKOCYTES BY MANUAL COUNT Normal [facility] Comment on above: Performed By: #### L [id number], [id number] ####Knot Borer: SLAVA GAINES ([id number])[facility] [place] (SB[facility]AB)[address] [place] [address] [place] DENG CELLS PRESENCE IN BLOOD BY LIGHT MICROSCOPY Slight Abnormal (none) [facility] Comment on above: Performed By: #### L [id number], [id number] ####Knot Borer: SLAVA GAINES ([id number])[facility] [place] (SB[facility]AB)[address] [place] [address] [place] DACROCYTES PRESENCE IN BLOOD BY LIGHT MICROSCOPY Slight Abnormal (none) [facility] Comment on above: Performed By: #### L [id number], [id number] ####Knot Borer: SLAVA GAINES ([phone])[facility] [place] (SBHLAB)[address] [place] [address] [place] ELLIPTOCYTES IN BLOOD BY LIGHT MICROSCOPY Rare Abnormal (none) [facility] Comment on above: Performed By: #### L [id number], [id number] ####Knot Borer: SLAVACOLE GAINES ([id number])[facility] [place] (SBHLAB)[address] [place] [address] [place] EOSINOPHILS TOTAL PER COUNTED LEUKOCYTES BY MANUAL COUNT Normal [facility] Comment on above: Performed By: #### L [id number], [id number] ####Knot Borer: SLAVA GAINES ([id number])[facility] [place] (SBHLAB)[address] [place] [address] [place] HYPOCHROMIA (PRESENCE) IN BLOOD BY LIGHT MICROSCOPY Moderate Abnormal (none) [facility] Comment on above: Performed By: #### L [id number], [id number] ####Knot Borer: SLAVACOLE GAINES ([id number])[facility] [place] (SB[facility]AB)[address] [place] [address] [place] LYMPHOCYTES (10*3/UL) IN BLOOD-CELLAVISION 0.1 10*3/uL Low 1.0-4.3 [facility] Comment on above: Performed By: #### L [id number], [id number] ####Knot Borer: SLAVA DEER ([id number])[facility] [place] (SBHLAB)[address] [place] [address] [place] LYMPHOCYTES TOTAL PER COUNTED LEUKOCYTES BY MANUAL COUNT 1 Normal [facility] Comment on above: Performed By: #### L [id number], [id number] ####Knot Borer: SLAVA MCCLELLANGOOD ([id number])[facility] [place] (SBHLAB)[address] [place] [address] [place] LYMPHOCYTES/100 LEUKOCYTES IN BLOOD-CELLAVISION 1 % Low 15-45 [facility] Comment on above: Performed By: #### L [id number], [id number] ####Knot Borer: SLAVA GARCIAMACIEJ ([id number])[facility] [place] (SB[facility]AB)[address] [place] [address] [place] METAMYELOCYTES TOTAL PER COUNTED LEUKOCYTES BY MANUAL COUNT [facility] Comment on above: Performed By: #### L [id number], [id number] ####Knot Borer: SLAVA SHARPCER ([phone])[facility] [place] (SB[facility]AB)[address] [place] [address] [place] MONOCYTES (10*3/UL) IN BLOOD-CELLAVISION 0.3 10*3/uL Normal 0.0-0.9 [facility] Comment on above: Performed By: #### L [id number], [id number] ####Knot Borer: SLAVA GAINES ([id number])[facility] [place] (SB[facility])[address] [place] [address] [place] MONOCYTES TOTAL PER COUNTED LEUKOCYTES BY MANUAL COUNT [address] [place] [address] Comment on above: Performed By: #### L [id number], [id number] ####Knot Borer: SLAVA MCCLELLANGOOD ([phone])[facility] [place] (SB[facility]AB)[address] [place] [address] [place] MONOCYTES/100 LEUKOCYTES IN BLOOD-ALEXANDRE 5 % Normal 5-13 [facility] Comment on above: Performed By: #### L [id number], [id number] ####Knot Borer: SLAVA GAINES ([id number])[facility] [place] (SB[facility])[address] [place] [address] [place] MYELOCYTES COUNTED BY MANUAL COUNT [facility] Comment on above: Performed By: #### L [id number], [id number] ####Knot Borer: SLAVA GAINES ([id number])[facility] [place] (SB[facility])[address] [place] [address] [place] NEUTROPHILS TOTAL PER COUNTED LEUKOCYTES BY MANUAL COUNT [address] [facility] Comment on above: Performed By: #### L [id number], [id number] ####Knot Borer: SLAVA GAINES ([id number])[facility] [place] (SBHLAB)[address] [place] [address] [place] OVALOCYTES PRESENCE IN BLOOD BY LIGHT MICROSCOPY Slight Abnormal (none) [facility] Comment on above: Performed By: #### L [id number], [id number] ####Knot Borer: SLAVA GAINES ([id number])[facility] [place] (SB[facility])[address] [place] [address] [place] PLATELETS GIANT PRESENCE IN BLOOD BY LIGHT MICROSCOPY Rare Abnormal (none) [facility] Comment on above: Performed By: #### L [id number], [id number] ####Knot Borer: SLAVA GAINES ([id number])[facility] [place] ([facility])[address] POLYCHROMASIA IN BLOOD BY LIGHT MICROSCOPY Rare Abnormal (none) [facility] Comment on above: Performed By: #### L [id number], [id number] ####Knot Borer: SLAVA GAINES ([phone])[facility] [place] ([facility])[address] [place] [address] [place] PROMYELOCYTES TOTAL PER COUNTED LEUKOCYTES BY MANUAL COUNT Normal [facility] Comment on above: Performed By: #### L [id number], [id number] ####Knot Borer: SLAVA GAINES ([id number])[facility] [place] (SB[facility])[address] [place] [address] [place] RBC MORPHOLOGY IN BLOOD abnormal Normal [facility] Comment on above: Performed By: #### L [id number], [id number] ####Knot Borer: SLAVA GAINES ([id number])[facility] [place] ([facility])[address] [place] [address] [place] SEGMENTED NEUTROPHILS (10*3/UL) IN BLOOD-CELLAVISION 5.4 10*3/uL Normal 1.8-7.5 [facility] Comment on above: Performed By: #### L [id number], [id number] ####Knot Borer: SLAVA GAINES ([id number])[facility] (SBHLAB)[address] [place] [address] [place] SEGMENTED NEUTROPHILS/100 LEUKOCYTES-CE 94 % High 38-82 [facility] Comment on above: Performed By: #### L [id number], [id number] ####Knot Borer: SLAVA MCCLELLANILIAMACIEJ ([id number])[facility] (SBHLAB)[address] UNCLASSIFIED CELLS TOTAL PER COUNTED LEUKOCYTES BY MANUAL COUNT [facility] Comment on above: Performed By: #### L [id number], [id number] ####Knot Borer: SLAVA MCCLELLANILIAMACIEJ ([id number])[facility] (SBHLAB)[address] VARIANT LYMPHOCYTES TOTAL PER COUNTED LEUKOCYTES BY MANUAL COUNT [facility] Comment on above: Performed By: #### L [id number], [id number] ####Knot Borer: SLAVA MCCLELLANILIAMACIEJ ([id number])[facility] (SBHLAB)[address] ACANTHOCYTES (PRESENCE) IN BLOOD BY LIGHT MICROSCOPY Slight Abnormal (none) [facility] Comment on above: Performed By: #### L [id number], [id number] ####Knot Borer: SLAVA MCCLELLANGOOD ([id number])[facility] (SBHLAB)[address] ANISOCYTOSIS PRESENCE IN BLOOD BY LIGHT MICROSCOPY Moderate Abnormal (none) [facility] Comment on above: Performed By: #### L [id number], [id number] ####Knot Borer: SLAVA MCCLELLANILIAMACIEJ ([id number])[facility] ([facility])[address] [place] [address] [place] BAND NEUTROPHILS TOTAL PER COUNTED LEUKOCYTES BY MANUAL COUNT 2 Normal [facility] Comment on above: Performed By: #### L [id number], [id number] ####Knot Borer: SLAVA GARCIAMACIEJ ([id number])[facility] ([facility])[address] [place] [address] [place] BANDS (10*3/UL) IN BLOOD-CELLAVISION 0.1 10*3/uL High <=0.0 [facility] Comment on above: Performed By: #### L [id number], [id number] ####Knot Borer: SLAVA GAINES ([id number])[facility] ([facility])[address] [place] [address] [place] BASOPHILS TOTAL PER COUNTED LEUKOCYTES BY MANUAL COUNT Normal [facility] Comment on above: Performed By: #### L [id number], [id number] ####Knot Borer: SLAVA SHARPCER ([id number])[facility] [place] [facility] [place] [address] [place] BLASTS TOTAL PER COUNTED LEUKOCYTES BY MANUAL COUNT Normal [facility] Comment on above: Performed By: #### L [id number], [id number] ####Knot Borer: SLAVA SHARPCER ([id number])[facility] [place] ([facility])[address] [place] [address] [place] EOSINOPHILS (10*3/UL) IN BLOOD-CELLAVISION 0.1 10*3/uL Normal 0.0-0.5 [facility] Comment on above: Performed By: #### L [id number], [id number] ####Knot Borer: SLAVA GAINES ([id number])[facility] ([facility])[address] [place] [address] [place] EOSINOPHILS TOTAL PER COUNTED LEUKOCYTES BY MANUAL COUNT 2 High 0-1 [facility] Comment on above: Performed By: #### L [id number], [id number] ####Knot Borer: SLAVA SHARPCER ([id number])[facility] [place] ([facility])[address] [place] [address] [place] EOSINOPHILS/100 LEUKOCYTES IN BLOOD-CELLAVISION 2 % Normal 0-6 [facility] Comment on above: Performed By: #### L [id number], [id number] ####Knot Borer: SLAVA GAINES ([id number])[facility] [place] (SBHLAB)[address] [place] [address] [place] HYPOCHROMIA (PRESENCE) IN BLOOD BY LIGHT MICROSCOPY Slight Abnormal (none) [facility] Comment on above: Performed By: #### L [id number], [id number] ####Knot Borer: SLAVA GAINES ([id number])[facility] [place] (SBHLAB)[address] [place] [address] [place] LYMPHOCYTE VARIANT/100 LEUKOCYTES IN BLOOD- CELLAVISION 1 % High <=0 [facility] Comment on above: Performed By: #### L [id number], [id number] ####Knot Borer: SLAVA GAINES ([id number])[facility] [place] (SBHLAB)[address] [place] [address] [place] LYMPHOCYTES (10*3/UL) IN BLOOD-CELLAVISION 0.6 10*3/uL Low 1.0-4.3 [facility] Comment on above: Performed By: #### L [id number], [id number] ####Knot Borer: SLAVA GAINES ([id number])[facility] [place] (SBHLAB)[address] [place] [address] [place] LYMPHOCYTES TOTAL PER COUNTED LEUKOCYTES BY MANUAL COUNT 11 Normal [facility] Comment on above: Performed By: #### L [id number], [id number] ####Knot Borer: SLAVA GAINES ([id number])[facility] [place] (SBHLAB)[address] [place] [address] [place] LYMPHOCYTES/100 LEUKOCYTES IN BLOOD-CELLAVISION 11 % Low 15-45 [facility] Comment on above: Performed By: #### L [id number], [id number] ####Knot Borer: SLAVA GAINES ([id number])[facility] [place] (SBHLAB)[address] [place] [address] [place] METAMYELOCYTES TOTAL PER COUNTED LEUKOCYTES BY MANUAL COUNT Normal [facility] Comment on above: Performed By: #### L [id number], [id number] ####Knot Borer: SLAVA GAINES ([id number])[facility] [place] (SBHLAB)[address] [place] [address] [place] MONOCYTES (10*3/UL) IN BLOOD-CELLAVISION 0.4 10*3/uL Normal 0.0-0.9 [facility] Comment on above: Performed By: #### L [id number], [id number] ####Knot Borer: SLAVA SHARPCER ([id number])[facility] [place] (SBHLAB)[address] [place] [address] [place] MONOCYTES TOTAL PER COUNTED LEUKOCYTES BY MANUAL COUNT 7 Normal [facility] Comment on above: Performed By: #### L [id number], [id number] ####Knot Borer: SLAVA SHARPCER ([id number])[facility] [place] (SBHLAB)[address] [place] [address] [place] MONOCYTES/100 LEUKOCYTES IN BLOOD-ALEXANDRE 7 % Normal 5-13 [facility] Comment on above: Performed By: #### L [id number], [id number] ####Knot Borer: SLAVA GAINES ([id number])[facility] [place] ([facility])[address] [place] [address] [place] MYELOCYTES COUNTED BY MANUAL COUNT [facility] Comment on above: Performed By: #### L [id number], [id number] ####Knot Borer: SLAVA GAINES ([id number])[facility] [place] (SBHLAB)[address] [place] [address] [place] NEUTROPHILS BAND FORM/100 LEUKOCYTES IN BLOOD-CELLAVISI 2 % High <=0 [facility] Comment on above: Performed By: #### L [id number], [id number] ####Knot Borer: SLAVA SHARPCER ([id number])[facility] [place] ([facility])[address] [place] [address] [place] NEUTROPHILS TOTAL PER COUNTED LEUKOCYTES BY MANUAL COUNT 77 Normal [facility] Comment on above: Performed By: #### L [id number], [id number] ####Knot Borer: SLAVA SHARPCER ([id number])[facility] [place] (SBHLAB)[address] [place] [address] [place] NUCLEATED ERYTHROCYTES/100 LEUKOCTES IN BLOOD-CELLAVISION 1 % Normal 0-2 [facility] Comment on above: Performed By: #### L [id number], [id number] ####Knot Borer: SLAVA GAINES ([id number])[facility] [place] ([facility])[address] [place] [address] [place] OVALOCYTES PRESENCE IN BLOOD BY LIGHT MICROSCOPY Slight Abnormal (none) [facility] Comment on above: Performed By: #### L [id number], [id number] ####Knot Borer: SLAVA GAINES ([id number])[facility] [place] ([facility])[address] [place] [address] [place] POIKILOCYTOSIS (PRESENCE) IN BLOOD BY LIGHT MICROSCOPY Slight Abnormal (none) [facility] Comment on above: Performed By: #### L [id number], [id number] ####Knot Borer: SLAVA GAINES ([id number])[facility] [place] ([facility])[address] [place] [address] [place] POLYCHROMASIA IN BLOOD BY LIGHT MICROSCOPY Slight Abnormal (none) [facility] Comment on above: Performed By: #### L [id number], [id number] ####Knot Borer: SLAVA GAINES ([id number])[facility] [place] ([facility])[address] [place] [address] [place] PROMYELOCYTES TOTAL PER COUNTED LEUKOCYTES BY MANUAL COUNT Normal [facility] Comment on above: Performed By: #### L [id number], [id number] ####Knot Borer: SLAVA GAINES ([id number])[facility] [place] ([facility])[address] [place] [address] [place] RBC MORPHOLOGY IN BLOOD abnormal Normal [facility] Comment on above: Performed By: #### L [id number], [id number] ####Knot Borer: SLAVA GAINES ([id number])[facility] [place] ([facility])[address] [place] [address] [place] SEGMENTED NEUTROPHILS (10*3/UL) IN BLOOD-CELLAVISION 4.5 10*3/uL Normal 1.8-7.5 [facility] Comment on above: Performed By: #### L [id number], [id number] ####Knot Borer: SLAVA GAINES ([id number])[facility] [place] ([facility])[address] [place] [address] [place] SEGMENTED NEUTROPHILS/100 LEUKOCYTES-CE 77 % Normal 38-82 [facility] Comment on above: Performed By: #### L [id number], [id number] ####Knot Borer: SLAVA GAINES ([id number])[facility] [place] ([facility])[address] [place] [address] [place] UNCLASSIFIED CELLS TOTAL PER COUNTED LEUKOCYTES BY MANUAL COUNT Normal [facility] Comment on above: Performed By: #### L [id number], [id number] ####Knot Borer: SLAVA GAINES ([id number])[facility] [place] ([facility])[address] [place] [address] [place] VARIANT LYMPHOCYTES (10*3/UL) IN BLOOD-CELLAVISION 0.1 10*3/uL High <=0.0 [facility] Comment on above: Performed By: #### L [id number], [id number] ####Knot Borer: SLAVA GAINES ([id number])[facility] [place] ([facility])[address] [place] [address] [place] VARIANT LYMPHOCYTES TOTAL PER COUNTED LEUKOCYTES BY MANUAL COUNT 1 Normal [facility] Comment on above: Performed By: #### L [id number], [id number] ####Knot Borer: SLAVA GAINES ([id number])[facility] [place] ([facility])[address] [place] [address] [place] No Panel Informationon 02-19 Blood Expiration Date [id number] [facility] Crossmatch interpretation COMP [facility] Dispense Status Transfused [facility] Product Blood Type 6200 [facility] PRODUCT CODE [id number] [facility] Unit ABO A [facility] Unit Number [id number] [facility] RH Positive [facility] Volume 300 mL [facility] Interpretation and review of laboratory results Abnormal [facility] Lymphocytes Manual 1 [facility] Monocytes Manual 5 [facility] Neutrophils Manual 94 [facility] Blood Expiration Date S [facility] Crossmatch interpretation COMP [facility] Dispense Status Transfused [facility] lt Product Blood Type 6200 [facility] PRODUCT CODE [id number] [facility] ABO A [facility] Unit [facility] [id number] [facility] RH Positive [facility] Volume 300 mL [facility] Atypical Lymphocytes Manual 1 [facility] Bands Manual 2 [facility] Eosinophils Manual 2 High 0 - 1 [facility] Interpretation and review of laboratory results Abnormal [facility] Lymphocytes Manual 11 [facility] Monocytes Manual 7 [facility] Neutrophils Manual 77 [facility] Nursing Noteon 02-19-2025 Nursing Note Hicuups have resolve d small amt bloody drng from sacral area Normal [facility] Nursing Note Report to nurse on [place] pt resting quietly no family here to update to [address] [place] [address] via bed Normal [facility] Nursing Note Pt has hiccups dr egan feels its from surgical gas and will subside Normal [facility] Nursing Note Wound Care arrived t o pt's room for [facility] Prevention consult, but pt not in room at present time. Will return as time permits. Please secure chat for any questions or concerns. Luisana Whitten RN Normal [facility] Nursing Note Pt refused pneumatic cuffs pre op Normal [facility] Nursing Note Normal [facility] Op Noteon 02-19-2025 Op Note Normal [facility] Progress Noteon 02-19-2025 Progress Note Normal [facility] Progress Note Normal [facility] Progress Note Normal [facility] Progress Note PHYSICAL THERAPY [facility] Name/MRN: David Doan ([id number]) Date: 02/19/2025 Treatment is being deferred at present because pt is currently off of the floor for surgery. Will resume when medically stable Sharri Waterman, CHARU Normal [facility] Progress Note Normal [facility] Progress Note Normal [facility] CBC W Auto Differential pane l (Bld)on 02-18-2025 Basophils (Bld) [#/Vol] 0 10*3/uL 0.0 - 0.2 10*3/uL [facility] Basophils/100 WBC (Bld) 0.3 % 0.0 - 2.0 % [facility] Eosinophils (Bld) [#/Vol] 0.1 10*3/uL 0.0 - 0.5 10*3/uL [facility] Eosinophils/100 WBC (Bld) 0.7 % 0.0 - 6.0 % [facility] Erythrocyte distribution width (RBC) [Ratio] 19.9 % High 11.5 - 15.0 % [facility] Hematocrit (Bld) [Volume fraction] 26.2 % Low 40.0 - 52.0 % [facility] Hemoglobin (Bld) [Mass/Vol] 7.6 g/dL Low 13.0 - 18.0 g/dL [facility] Immature granulocytes (Bld) [#/Vol] 0 10*3/uL NINF - 0.1 10*3/uL [facility] Immature granulocytes/100 WBC (Bld) 0.4 % 0.0 - 2.0 % [facility] Interpretation and review of laboratory results Abnormal [facility] Lymphocytes (Bld) [#/Vol] 1.1 10*3/uL 1.0 - 4.3 10*3/uL [facility] Lymphocytes/100 WBC (Bld) 14.9 % Low 15.0 - 45.0 % [facility] MCH (RBC) [Entitic mass] 22.6 pg Low 26. 0 - 34.0 pg [facility] MCHC (RBC) [Mass/Vol] 29 % Low 30.5 - 36.0 % [facility] MCV (RBC) [Entitic vol] 77.7 fL 77.0 - 99.0 fL [facility] Monocytes (Bld) [#/Vol] 0.9 10*3/uL 0.0 - 0.9 10*3/uL [facility] Monocytes/100 WBC (Bld) 12.1 % 5.0 - 13.0 % [facility] Neutrophils (Bld) [#/Vol] 5.3 10*3/uL 1.8 - 7.5 10*3/uL [facility] Neutrophils/100 WBC (Bld) 71.6 % 38.0 - 82.0 % [facility] Nucleated RBC/100 WBC (Bld) [Ratio] 0 % [facility] Platelet mean volume (Bld) [Entitic vol] 10.1 fL 9.0 - 12.[address] [facility] Platelets (Bld) [#/Vol] 326 10*3/uL 140 - 440 10*3/uL [facility] RBC (Bld) [#/Vol] 3.37 10*6/uL Low 4.40 - 5.9 0 10*6/uL [facility] WBC (Bld) [#/Vol] 7.3 10*3/uL 3.6 - 10.7 10*3/uL [facility] CBC WITH AUTO DIFFERENTIALon 02-18-2025 Basophils (Bld) [#/Vol] 0.0 10*3/uL Normal 0.0-0.2 [facility] Comment on above: Performed By: #### L [id number] ####Knot Borer: SLAVA GAINES ([id number])[facility] ([facility])[address] [place] [address] Basophils/100 WBC (Bld) 0.3 % Normal 0.0-2.0 [facility] Comment on above: Performed By: #### L [id number] ####Knot Borer: SLAVA GAINES ([id number])[facility] (SBAB)[address] [place] [address] Eosinophils (Bld) [#/Vol] 0.1 10*3/uL Normal 0.0-0.5 [facility] Comment on above: Performed By: #### L [id number] ####Knot Borer: SLAVA GAINES ([id number])[facility] [place] ([facility])[address] [place] [address] [place] Eosinophils/100 WBC (Bld) 0.7 % Normal 0.0-6.0 [facility] Comment on above: Performed By: #### L [id number] ####Knot Borer: SLAVA GAINES ([id number])[facility] ([facility])[address] Erythrocyte distribution width (RBC) [Ratio] 19.9 % High 11.5-15.0 [facility] Comment on above: Performed By: #### L [id number] ####Knot Borer: SLAVA GAINES ([id number])[facility] [place] ([facility])[address] Hematocrit (Bld) [Volume fraction] 26.2 % Low 40.0-52.0 [facility] Comment on above: Performed By: #### L [id number] ####Knot Borer: SLAVA GAINES ([id number])[facility] [place] [address] Hemoglobin (Bld) [Mass/Vol] 7.6 g/dL Low 13.0-18.0 [facility] Comment on above: Performed By: #### L [id number] ####Knot Borer: SLAVA GAINES ([id number])[facility] ([facility])[address] IMMATURE GRANS % 0.4 % Normal 0.0-2.0 [facility] Comment on above: Performed By: #### L [id number] ####Knot Borer: SLAVA GAINES ([id number])[facility] [place] [address] IMMATURE GRANS ABSOLUTE 0.0 10*3/uL Normal <0.1 [facility] Comment on above: Performed By: #### L [id number] ####Knot Borer: SLAVA GAINES ([id number])[facility] [place] ([facility])[address] Lymphocytes (Bld) [#/Vol] 1.1 10*3/uL Normal 1.0-4.3 [facility] Comment on above: Performed By: #### L [id number] ####Knot Borer: SLAVA GAINES ([id number])[facility] ([facility])[address] Lymphocytes/100 WBC (Bld) 14.9 % Low 15.0-45.0 [facility] Comment on above: Performed By: #### L [id number] ####Knot Borer: SLAVA GAINES ([id number])[facility] [place] (SB[facility])[address] MCH (RBC) [Entitic mass] 22.6 pg Low 26.0-34.0 [facility] Comment on above: Performed By: #### L [id number] ####Knot Borer: SLAVA GAINES ([id number])[facility] [place] ([facility])[address] MCHC 29.0 % Low 30.5-36.0 [facility] Comment on above: Performed By: #### L [id number] ####Knot Borer: SLAVA GAINES ([id number])[facility] [place] ([facility])[address] MCV (RBC) [Entitic vol] 77.7 fL Normal 77.0-99.0 [facility] Comment on above: Performed By: #### L [id number] ####Knot Borer: SLAVA GAINES ([id number])[facility] [place] ([facility])[address] [place] [address] Monocytes (Bld) [#/Vol] 0.9 10*3/uL Normal 0.0-0.9 [facility] Comment on above: Performed By: #### L [id number] ####Knot Borer: SLAVA GAINES ([id number])[facility] [place] ([facility])[address] Monocytes/100 WBC (Bld) 12.1 % Normal 5.0-13.0 [facility] Comment on above: Performed By: #### L [id number] ####Knot Borer: SLAVA GAINES ([id number])[facility] [place] ([facility])[address] NEUTROPHILS ABSOLUTE 5.3 10*3/uL Normal 1.8-7.5 [facility] Comment on above: Performed By: #### L [id number] ####Knot Borer: SLAVA GAINES ([id number])[facility] [place] ([facility])[address] Neutrophils/100 WBC (Bld) 71.6 % Normal 38.0-82.0 [facility] Comment on above: Performed By: #### L [id number] ####Knot Borer: SLAVA GAINES ([id number])[facility] [place] ([facility])[address] NRBC 0.0 /100 WBCs Normal 0.0-2.0 [facility] Comment on above: Performed By: #### L [id number] ####Knot Borer: SLAVA GAINES ([id number])[facility] [place] ([facility])[address] Platelet mean volume (Bld) [Entitic vol] 10.1 fL Normal 9.0-12.7 [facility] Comment on above: Performed By: #### L [id number] ####Knot Borer: SLAVA GAINES ([id number])[facility] [place] ([facility])[address] Platelets (Bld) [#/Vol] 326 10*3/uL Normal 140-440 [facility] Comment on above: Performed By: #### L [id number] ####Knot Borer: SLAVA GAINES ([id number])[facility] [place] ([facility])[address] [place] [address] [place] RBC (Bld) [#/Vol] 3.37 10*6/uL Low 4.40-5.90 [facility] Comment on above: Performed By: #### L [id number] ####Knot Borer: SLAVA GAINES ([id number])[facility] [place] ([facility])[address] WBC (Bld) [#/Vol] 7.3 10*3/uL Normal 3.6-10.7 [facility] Comment on above: Performed By: #### L [id number] ####Knot Borer: SLAVA GAINES ([id number])[facility] [place] ([facility])[address] COMPREHENSIVE METABOLIC PANE Barry 02-18-2025 Albumin [Mass/Vol] 1.6 g/dL Low 3.1-4.5 [facility] Comment on above: Performed By: #### L AB17 ####Knot Borer: SLAVA GAINES ([id number])[facility] [place] ([facility])[address] ALP [Catalytic activity/Vol] 65 U/L Normal 40-150 [facility] Comment on above: Performed By: #### L AB17 ####Knot Borer: SLAVA GAINES ([id number])[facility] [place] ([facility])[address] ALT [Catalytic activity/Vol] U/L Normal <40 [facility] Comment on above: Performed By: #### L AB17 ####Knot Borer: SLAVA GAINES ([id number])[facility] [place] ([facility])[address] Anion gap [Moles/Vol] 5 mmol/L Normal 3-13 [facility] Comment on above: Performed By: #### L AB17 ####Knot Borer: SLAVA GAINES ([id number])[facility] [place] ([facility])[address] AST [Catalytic activity/Vol] 14 U/L Normal <34 [facility] Comment on above: Performed By: #### L AB17 ####Knot Borer: SLAVA GAINES ([id number])[facility] [place] ([facility])[address] Bilirubin [Mass/Vol] 0.2 mg/dL Normal <1.2 [facility] Comment on above: Performed By: #### L AB17 ####Knot Borer: SLAVA GAINES ([id number])[facility] ([facility])[address] Calcium [Mass/Vol] 7.2 mg/dL Low 8.8-10.0 [facility] Comment on above: Performed By: #### L AB17 ####Knot Borer: SLAVA GAINES ([id number])[facility] [place] ([facility])[address] Chloride [Moles/Vol] 101 mmol/L Normal 98-107 [facility] Comment on above: Performed By: #### L AB17 ####Knot Borer: SLAVA GAINES ([id number])[facility] [place] ([facility])[address] CO2 [Moles/Vol] 25 mmol/L Normal 23-31 [facility] Comment on above: Performed By: #### L AB17 ####Knot Borer: SLAVA GAINES ([id number])[facility] Creatinine [Mass/Vol] 0.49 mg/dL Low 0.67-1.27 [facility] Comment on above: Performed By: #### L AB17 ####Knot Borer: SLAVA GAINES ([id number])[facility] [place] [facility] GLOMERULAR FILTRATION RATE ML/MIN/1.73 SQ M.PREDICTED >90.0 Normal >60.0 [facility] Comment on above: Result Comment: Calc ulation based on the Chronic Kidney Disease Epidemiology Collaboration (CKD-EPI) equation refit without adjustment for race Performed By: #### L AB17 ####Knot Borer: SLAVA GAINES ([id number])[facility] ([facility])[address] [place] [address] [place] Glucose [Mass/Vol] 111 mg/dL Normal 82-115 [facility] Comment on above: Performed By: #### L AB17 ####Knot Borer: SLAVA GAINES ([id number])[facility] ([facility])[address] Potassium [Moles/Vol] 4.4 mmol/L Normal 3.5-5.1 [facility] Comment on above: Result Comment: [facility] potassium values may be up to 0.5 mmol/L lower than serum values. Performed By: #### L AB17 ####Knot Borer: SLAVA GAINES ([id number])[facility] Protein [Mass/Vol] 5.3 g/dL Low 6.4-8.3 [facility] Comment on above: Performed By: #### L AB17 ####Knot Borer: SLAVA GAINES ([id number])[facility] ([facility])[address] Sodium [Moles/Vol] 131 mmol/L Low 136-145 [facility] Comment on above: Performed By: #### L AB17 ####Knot Borer: SLAVA GAINES ([id number])[facility] Urea nitrogen [Mass/Vol] 11 mg/dL Normal 9-23 [facility] Comment on above: Performed By: #### L AB17 ####Knot Borer: SLAVA GAINES ([id number])[facility] (HLAB)[address] Comprehensive metabolic 1998 panelon 02-18-2025 Albumin [Mass/Vol] 1.6 g/dL Low 3.1 - 4.5 g/dL [facility] ALP [Catalytic activity/Vol] 65 U/L 40 - 150 U/L [facility] ALT [Catalytic activity/Vol] U/L NINF - 40 U/L [facility] Anion gap [Moles/Vol] 5 mmol/L 3 - 13 mmol/L [facility] AST [Catalytic activity/Vol] 14 U/L NINF - 34 U/L [facility] Bilirubin [Mass/Vol] 0.2 mg/dL NINF - 1.2 mg/dL [facility] Calcium [Mass/Vol] 7.2 mg/dL Low 8.8 - 10. 0 mg/dL [facility] Chloride [Moles/Vol] 101 mmol/L 98 - 10 7 mmol/L [facility] CO2 [Moles/Vol] 25 mmol/L 23 - 31 mmol/L [facility] Creatinine [Mass/Vol] 0.49 mg/dL Low 0.67 - 1.27 mg/dL [facility] GFR/1.73 sq M.predicted (S/P/Bld) [Vol rate/Area] - PINF [facility] Glucose [Mass/Vol] 111 mg/dL 82 - 115 mg/dL [facility] Interpretation and review of laboratory results Abnormal [facility] Potassium [Moles/Vol] 4.4 mmol/L 3.5 - 5.1 mmol/L [facility] Protein [Mass/Vol] 5.3 g/dL Low 6.4 - 8.3 g/dL [facility] Sodium [Moles/Vol] 131 mmol/L Low 136 - 145 mmol/L [facility] Urea nitrogen [Mass/Vol] 11 mg/dL 9 - 23 mg/dL [facility] Progress Noteon 02-18-2025 Progress Note Normal [facility] Progress Note Normal [facility] [id number] 02-17-[id number] [facility] CBC W Auto Differential pane l (Bld)Ordered By: Flash Chandler on 02-17-2025 Erythrocyte distribution width (RBC) [Ratio] 19.5 % High 11.5 - 15.0 % [facility] Hematocrit (Bld) [Volume fraction] 25.7 % Low 40.0 - 52.0 % [facility] Hemoglobin (Bld) [Mass/Vol] 7.5 g/dL Low 13.0 - 18.0 g/dL [facility] MCH (RBC) [Entitic mass] 22.6 pg Low 26. 0 - 34.[address] [facility] MCHC (RBC) [Mass/Vol] 29.2 % Low 30.5 - 36.0 % [facility] MCV (RBC) [Entitic vol] 77.4 fL 77.0 - 99.[address] [facility] Platelet mean volume (Bld) [Entitic vol] 9.6 fL 9.0 - 12.[address] [facility] Platelets (Bld) [#/Vol] 319 10*3/uL 140 - 440 10*3/uL [facility] RBC (Bld) [#/Vol] 3.32 10*6/uL Low 4.40 - 5.9 0 10*6/uL [facility] WBC (Bld) [#/Vol] 8.8 10*3/uL 3.6 - 10.7 10*3/uL [facility] CBC WITH AUTO DIFFERENTIALon 02-17-2025 Erythrocyte distribution width (RBC) [Ratio] 19.5 % High 11.5-15.0 [facility] Comment on above: Performed By: #### L [id number] ####Knot Borer: SLAVA GAINES ([id number])[facility] [facility] ([facility])[address] [place] [address] Hematocrit (Bld) [Volume fraction] 25.7 % Low 40.0-52.0 [facility] Comment on above: Performed By: #### L [id number], [id number] ####Knot Borer: SLAVA GAINES ([id number])[facility] ([facility])[address] [place] [address] Hemoglobin (Bld) [Mass/Vol] 7.5 g/dL Low 13.0-18.0 [facility] Comment on above: Performed By: #### L [id number], [id number] ####Knot Borer: SLAVA GAINES ([phone])[facility] (SBHLAB)[address] [place] [address] MCH (RBC) [Entitic mass] 22.6 pg Low 26.0-34.0 [facility] Comment on above: Performed By: #### L [id number], [id number] ####Knot Borer: SLAVA GAINES ([id number])[facility] (SBHLAB)[address] MCHC 29.2 % Low 30.5-36.0 [facility] Comment on above: Performed By: #### L [id number], [id number] ####Knot Borer: SLAVA GAINES ([id number])[facility] (SBHLAB)[address] MCV (RBC) [Entitic vol] 77.4 fL Normal 77.0-99.0 [facility] Comment on above: Performed By: #### L [id number], [id number] ####Knot Borer: SLAVA GAINES ([id number])[facility] (SBHLAB)[address] Platelet mean volume (Bld) [Entitic vol] 9.6 fL Normal 9.0-12.7 [facility] Comment on above: Performed By: #### L [id number], [id number] ####Knot Borer: SLAVA GAINES ([id number])[facility] (SBHLAB)[address] Platelets (Bld) [#/Vol] 319 10*3/uL Normal 140-440 [facility] Comment on above: Performed By: #### L [id number], [id number] ####Knot Borer: SLAVA GAINES ([id number])[facility] (SBHLAB)[address] RBC (Bld) [#/Vol] 3.32 10*6/uL Low 4.40-5.90 [facility] Comment on above: Performed By: #### L [id number], [id number] ####Knot Borer: SLAVA GAINES ([phone])[facility] (SBHLAB)[address] WBC (Bld) [#/Vol] 8.8 10*3/uL Normal 3.6-10.7 [facility] Comment on above: Performed By: #### L [id number], [id number] ####Knot Borer: SLAVA GAINES ([id number])[facility] [place] ([facility])[address] COMPREHENSIVE METABOLIC PANE Barry 02-17-2025 Albumin [Mass/Vol] 1.7 g/dL Low 3.1-4.5 [facility] Comment on above: Performed By: #### L AB17 ####Knot Borer: SLAVA GAINES ([id number])[facility] [place] ([facility])[address] ALP [Catalytic activity/Vol] 56 U/L Normal 40-150 [facility] Comment on above: Performed By: #### L [id number] ####Knot Borer: SLAVA GAINES ([id number])[facility] ([facility])[address] ALT [Catalytic activity/Vol] U/L Normal <40 [facility] Comment on above: Performed By: #### L AB17 ####Knot Borer: SLAVA GAINES ([id number])[facility] ([facility])[address] Anion gap [Moles/Vol] 6 mmol/L Normal 3-13 [facility] Comment on above: Performed By: #### L AB17 ####Knot Borer: SLAVA GAINES ([phone])[facility] ([facility])[address] AST [Catalytic activity/Vol] 13 U/L Normal <34 [facility] Comment on above: Performed By: #### L AB17 ####Knot Borer: SLAVA GAINES ([id number])[facility] ([facility])[address] Bilirubin [Mass/Vol] 0.2 mg/dL Normal <1.2 [facility] Comment on above: Performed By: #### L AB17 ####Knot Borer: SLAVA GAINES ([phone])[facility] (SBHLAB)[address] Calcium [Mass/Vol] 7.2 mg/dL Low 8.8-10.0 [facility] Comment on above: Performed By: #### L AB17 ####Knot Borer: SLAVA GAINES ([phone])[facility] (SBHLAB)[address] Chloride [Moles/Vol] 102 mmol/L Normal 98-107 [facility] Comment on above: Performed By: #### L AB17 ####Knot Borer: SLAVA GAINES ([id number])[facility] ([facility])[address] CO2 [Moles/Vol] 23 mmol/L Normal 23-31 [facility] Comment on above: Performed By: #### L AB17 ####Knot Borer: SLAVA GAINES ([id number])[facility] (SBHLAB)[address] Creatinine [Mass/Vol] 0.54 mg/dL Low 0.67-1.27 [facility] Comment on above: Performed By: #### L AB17 ####Knot Borer: SLAVA GAINES ([id number])[facility] (SBHLAB)[address] GLOMERULAR FILTRATION RATE ML/MIN/1.73 SQ M.PREDICTED >90.0 Normal >60.0 [facility] Comment on above: Result Comment: Calc ulation based on the Chronic Kidney Disease Epidemiology Collaboration (CKD-EPI) equation refit without adjustment for race Performed By: #### L AB17 ####Knot Borer: SLAVA GAINES ([id number])[facility] (SBHLAB)[address] Glucose [Mass/Vol] 119 mg/dL High 82-115 [facility] Comment on above: Performed By: #### L AB17 ####Knot Borer: SLAVA GAINES ([id number])[facility] [place] ([facility])[address] Potassium [Moles/Vol] 4.5 mmol/L Normal 3.5-5.1 [facility] Comment on above: Result Comment: [facility] potassium values may be up to 0.5 mmol/L lower than serum values. Performed By: #### L AB17 ####Knot Borer: SLAVA GAINES ([phone])[facility] [place] ([facility])[address] Protein [Mass/Vol] 5.3 g/dL Low 6.4-8.3 [facility] Comment on above: Performed By: #### L AB17 ####Knot Borer: SLAVA GAINES ([id number])[facility] [place] ([facility])[address] Sodium [Moles/Vol] 131 mmol/L Low 136-145 [facility] Comment on above: Performed By: #### L AB17 ####Knot Borer: SLAVA GAINES ([id number])[facility] (SBHL[facility])[address] Urea nitrogen [Mass/Vol] 13 mg/dL Normal 9-23 [facility] Comment on above: Performed By: #### L [id number] ####Knot Borer: SLAVA GAINES ([id number])[facility] ([facility])[address] Comprehensive metabolic 1998 panelon 02-17-2025 Albumin [Mass/Vol] 1.7 g/dL Low 3.1 - 4.5 g/dL [facility] ALP [Catalytic activity/Vol] 56 U/L 40 - 150 U/L [facility] ALT [Catalytic activity/Vol] U/L NINF - 40 U/L [facility] Anion gap [Moles/Vol] 6 mmol/L 3 - 13 mmol/L [facility] AST [Catalytic activity/Vol] 13 U/L NINF - 34 U/L [facility] Bilirubin [Mass/Vol] 0.2 mg/dL NINF - 1.2 mg/dL [facility] Calcium [Mass/Vol] 7.2 mg/dL Low 8.8 - 10. 0 mg/dL [facility] Chloride [Moles/Vol] 102 mmol/L 98 - 10 7 mmol/L [facility] CO2 [Moles/Vol] 23 mmol/L 23 - 31 mmol/L [facility] Creatinine [Mass/Vol] 0.54 mg/dL Low 0.67 - 1.27 mg/dL [facility] GFR/1.73 sq M.predicted (S/P/Bld) [Vol rate/Area] - PINF [facility] Glucose [Mass/Vol] 119 mg/dL High 82 - 115 mg/dL [facility] Interpretation and review of laboratory results Abnormal [facility] Potassium [Moles/Vol] 4.5 mmol/L 3.5 - 5.1 mmol/L [facility] Protein [Mass/Vol] 5.3 g/dL Low 6.4 - 8.3 g/dL [facility] Sodium [Moles/Vol] 131 mmol/L Low 136 - 145 mmol/L [facility] Urea nitrogen [Mass/Vol] 13 mg/dL 9 - 23 mg/dL [facility] Consulton 02-17-[address] [facility] Laboratory - Hematology and Cell countson 02-17-2025 Anisocytosis Ql (Bld) Slight Abnormal (none) [facility] Hypochromia Ql (Bld) Slight Abnormal (none) [facility] Lymphocytes (Bld) [#/Vol] 0.9 10*3/uL Low 1.0 - 4.3 10*3/uL [facility] Lymphocytes/100 WBC (Bld) 10 % Low 15 - 45 % [facility] Monocytes (Bld) [#/Vol] 0.9 10*3/uL 0.0 - 0.9 10*3/uL [facility] Monocytes/100 WBC (Bld) 10 % 5 - 13 % [facility] Neutrophils (Bld) [#/Vol] 7 10*3/uL 1.8 - 7.5 10*3/uL [facility] Ovalocytes LM Ql (Bld) Slight Abnormal (none) [facility] Poikilocytosis LM Ql (Bld) Slight Abnormal (none) [facility] RBC morphology finding Nom (Bld) abnormal [facility] Segmented neutrophils/100 WBC (Bld) 80 % 38 - 82 % [facility] MANUAL DIFFERENTIAL (CELLAVI TEMO)on 02-17-2025 ANISOCYTOSIS PRESENCE IN BLOOD BY LIGHT MICROSCOPY Slight Abnormal (none) [facility] Comment on above: Performed By: #### L [id number], [id number] ####Knot Borer: SLAVA GAINES ([id number])[facility] [place] (SBHLAB)[address] BAND NEUTROPHILS TOTAL PER COUNTED LEUKOCYTES BY MANUAL COUNT Normal [facility] Comment on above: Performed By: #### L [id number], [id number] ####Knot Borer: SLAVA GAINES ([id number])[facility] [place] (SBHLAB)[address] BASOPHILS TOTAL PER COUNTED LEUKOCYTES BY MANUAL COUNT Normal [facility] Comment on above: Performed By: #### L [id number], [id number] ####Knot Borer: SLAVA GAINES ([id number])[facility] [place] ([facility])[address] BLASTS TOTAL PER COUNTED LEUKOCYTES BY MANUAL COUNT Normal [facility] Comment on above: Performed By: #### L [id number], [id number] ####Knot Borer: SLAVA GAINES ([id number])[facility] [place] ([facility])[address] EOSINOPHILS TOTAL PER COUNTED LEUKOCYTES BY MANUAL COUNT Normal [facility] Comment on above: Performed By: #### L [id number], [id number] ####Knot Borer: SLAVA GAINES ([id number])[facility] [place] (SBHLAB)[address] [place] [address] [place] HYPOCHROMIA (PRESENCE) IN BLOOD BY LIGHT MICROSCOPY Slight Abnormal (none) [facility] Comment on above: Performed By: #### L [id number], [id number] ####Knot Borer: SLAVA GAINES ([id number])[facility] [place] (SBHLAB)[address] [place] [address] [place] LYMPHOCYTES (10*3/UL) IN BLOOD-CELLAVISION 0.9 10*3/uL Low 1.0-4.3 [facility] Comment on above: Performed By: #### L [id number], [id number] ####Knot Borer: SLAVA GARCIAMACIEJ ([id number])[facility] [place] (SBHLAB)[address] [place] [address] [place] LYMPHOCYTES TOTAL PER COUNTED LEUKOCYTES BY MANUAL COUNT 10 Normal [facility] Comment on above: Performed By: #### L [id number], [id number] ####Knot Borer: SLAVA MCCLELLANGOOD ([id number])[facility] [place] (SBHLAB)[address] [place] [address] [place] LYMPHOCYTES/100 LEUKOCYTES IN BLOOD-CELLAVISION 10 % Low 15-45 [facility] Comment on above: Performed By: #### L [id number], [id number] ####Knot Borer: SLAVA GAINES ([id number])[facility] [place] (SBHLAB)[address] [place] [address] [place] METAMYELOCYTES TOTAL PER COUNTED LEUKOCYTES BY MANUAL COUNT Normal [facility] Comment on above: Performed By: #### L [id number], [id number] ####Knot Borer: SLAVA GAINES ([id number])[facility] [place] (SBHLAB)[address] [place] [address] [place] MONOCYTES (10*3/UL) IN BLOOD-CELLAVISION 0.9 10*3/uL Normal 0.0-0.9 [facility] Comment on above: Performed By: #### L [id number], [id number] ####Knot Borer: SLAVA GAINES ([id number])[facility] [place] ([facility]HLAB)[address] [place] [address] [place] MONOCYTES TOTAL PER COUNTED LEUKOCYTES BY MANUAL COUNT 10 Normal [facility] Comment on above: Performed By: #### L [id number], [id number] ####Knot Borer: SLAVA GAINES ([id number])[facility] [place] ([facility]HLAB)[address] [place] [address] [place] MONOCYTES/100 LEUKOCYTES IN BLOOD-ALEXANDRE 10 % Normal 5-13 [facility] Comment on above: Performed By: #### L [id number], [id number] ####Knot Borer: SLAVA GAINES ([id number])[facility] [place] (SBHLAB)[address] MYELOCYTES COUNTED BY MANUAL COUNT Normal [facility] Comment on above: Performed By: #### L [id number], [id number] ####Knot Borer: SLAVA GAINES ([id number])[facility] [place] (SBHLAB)[address] [place] [address] [place] NEUTROPHILS TOTAL PER COUNTED LEUKOCYTES BY MANUAL COUNT 80 Normal [facility] Comment on above: Performed By: #### L [id number], [id number] ####Knot Borer: SLAVA GAINES ([phone])[facility] [place] ([facility])[address] [place] [address] [place] OVALOCYTES PRESENCE IN BLOOD BY LIGHT MICROSCOPY Slight Abnormal (none) [facility] Comment on above: Performed By: #### L [id number], [id number] ####Knot Borer: SLAVA GAINES ([id number])[facility] [place] ([facility])[address] [place] [address] [place] POIKILOCYTOSIS (PRESENCE) IN BLOOD BY LIGHT MICROSCOPY Slight Abnormal (none) [facility] Comment on above: Performed By: #### L [id number], [id number] ####Knot Borer: SLAVA GAINES ([id number])[facility] [place] ([facility])[address] [place] [address] [place] PROMYELOCYTES TOTAL PER COUNTED LEUKOCYTES BY MANUAL COUNT Normal [facility] Comment on above: Performed By: #### L [id number], [id number] ####Knot Borer: SLAVA GAINES ([id number])[facility] [place] ([facility])[address] [place] [address] [place] RBC MORPHOLOGY IN BLOOD abnormal Normal [facility] Comment on above: Performed By: #### L [id number], [id number] ####Knot Borer: SLAVA GAINES ([id number])[facility] [place] ([facility])[address] SEGMENTED NEUTROPHILS (10*3/UL) IN BLOOD-CELLAVISION 7.0 10*3/uL Normal 1.8-7.5 [facility] Comment on above: Performed By: #### L [id number], [id number] ####Knot Borer: SLAVA GAINES ([id number])[facility] [place] ([facility])[address] SEGMENTED NEUTROPHILS/100 LEUKOCYTES-CE 80 % Normal 38-82 [facility] Comment on above: Performed By: #### L [id number], [id number] ####Knot Borer: SLAVA GAINES ([id number])[facility] [place] ([facility])[address] UNCLASSIFIED CELLS TOTAL PER COUNTED LEUKOCYTES BY MANUAL COUNT Normal [facility] Comment on above: Performed By: #### L [id number], [id number] ####Knot Borer: SLAVA GAINES ([id number])[facility] [place] ([facility])[address] VARIANT LYMPHOCYTES TOTAL PER COUNTED LEUKOCYTES BY MANUAL COUNT [facility] Comment on above: Performed By: #### L [id number], [id number] ####Knot Borer: SLAVA GAINES ([id number])[facility] [place] (SBHL[facility])[address] [place] [address] No Panel InformationOrdered By: Falsh Chandler on 02-17-2025 Interpretation and review of laboratory results Abnormal [facility] No Panel Informationon 02-17 Lymphocytes Manual 10 [facility] Monocytes Manual 10 [facility] Neutrophils Manual 80 [facility] Progress Noteon 02-17-2025 Progress Note Normal [facility] Progress Note Normal [facility] Progress Note Normal [facility] [id number] 02-16-2025 [id number] Normal [facility] [id number] Normal [facility] [id number] Normal [facility] CBC W Auto Differential pane l (Bld)Ordered By: Pee Salguero on 02-16-2025 Erythrocyte distribution width (RBC) [Ratio] 19.7 % High 11.5 - 15.0 % [facility] Hematocrit (Bld) [Volume fraction] 26.4 % Low 40.0 - 52.0 % [facility] Hemoglobin (Bld) [Mass/Vol] 7.6 g/dL Low 13.0 - 18.0 g/dL [facility] MCH (RBC) [Entitic mass] 22.2 pg Low 26. 0 - 34.[address] [facility] MCHC (RBC) [Mass/Vol] 28.8 % Low 30.5 - 36.0 % [facility] MCV (RBC) [Entitic vol] 77 fL 77.0 - 99.[address] [facility] Platelet mean volume (Bld) [Entitic vol] 9.3 fL 9.0 - 12.[address] [facility] Platelets (Bld) [#/Vol] 312 10*3/uL 140 - 440 10*3/uL [facility] RBC (Bld) [#/Vol] 3.43 10*6/uL Low 4.40 - 5.9 0 10*6/uL [facility] WBC (Bld) [#/Vol] 10.5 10*3/uL 3.6 - 10.7 10*3/uL [facility] CBC WITH AUTO DIFFERENTIALon 02-16-2025 Erythrocyte distribution width (RBC) [Ratio] 19.7 % High 11.5-15.0 [facility] Comment on above: Performed By: #### L [id number], [id number] ####Knot Borer: SLAVA GAINES ([id number])[facility] ([facility])[address] [place] [address] Hematocrit (Bld) [Volume fraction] 26.4 % Low 40.0-52.0 [facility] Comment on above: Performed By: #### L [id number], [id number] ####Knot Borer: SLAVA [id number])[facility] (SBHLAB)[address] Hemoglobin (Bld) [Mass/Vol] 7.6 g/dL Low 13.0-18.0 [facility] Comment on above: Performed By: #### L [id number], [id number] ####Knot Borer: SLAVA GAINES ([id number])[facility] (SBHLAB)[address] MCH (RBC) [Entitic mass] 22.2 pg Low 26.0-34.0 [facility] Comment on above: Performed By: #### L [id number], [id number] ####Knot Borer: SLAVA GAINES ([id number])[facility] [place] (HL[facility])[address] MCHC 28.8 % Low 30.5-36.0 [facility] Comment on above: Performed By: #### L [id number], [id number] ####Knot Borer: SLAVA GAINES ([id number])[facility] [place] ([facility]AB)[address] MCV (RBC) [Entitic vol] 77.0 fL Normal 77.0-99.0 [facility] Comment on above: Performed By: #### L [id number], [id number] ####Knot Borer: SLAVA GAINES ([id number])[facility] (SBHLAB)[address] Platelet mean volume (Bld) [Entitic vol] 9.3 fL Normal 9.0-12.7 [facility] Comment on above: Performed By: #### L [id number], [id number] ####Knot Borer: SLAVA GAINES ([id number])[facility] (SBHLAB)[address] Platelets (Bld) [#/Vol] 312 10*3/uL Normal 140-440 [facility] Comment on above: Performed By: #### L [id number], [id number] ####Knot Borer: SLAVA SHARPCER ([id number])[facility] [place] (SB[facility]AB)[address] RBC (Bld) [#/Vol] 3.43 10*6/uL Low 4.40-5.90 [facility] Comment on above: Performed By: #### L [id number], [id number] ####Knot Borer: SLAVA MCCLELLANGOOD ([id number])[facility] (SBHLAB)[address] WBC (Bld) [#/Vol] 10.5 10*3/uL Normal 3.6-10.7 [facility] Comment on above: Performed By: #### L [id number], [id number] ####Knot Borer: SLAVA GARCIAMACIEJ ([id number])[facility] (SBHLAB)[address] [place] [address] CEAon 02-16-2025 Carcinoembryonic Ag [Mass/Vol] 21.5 ng/mL High <=5.0 [facility] Comment on above: Result Comment: CHUY Beasley COMMENTS:The concentration of CEA in a given specimen, determined with assays from different manufacturers, can vary due to differences in assay methods and reagent specificity. Values obtained with different assay methods cannot be used interchangeably. If, in the course of monitoring a patient, the assay method used for determining CEA levels serially is changed, additional sequential testing should be carried out.METHODOLOGY: Chemiluminescent Microparticle Immunoassay (CMIA)ANALYZER: Gaspar Alinity I Performed By: #### L AB17, LAB57 ####Knot Borer: SLAVA GAINES ([id number])[facility] (SBHLAB)[address] COMPREHENSIVE METABOLIC PANE Barry 02-16-2025 Albumin [Mass/Vol] 1.7 g/dL Low 3.1-4.5 [facility] Comment on above: Performed By: #### L AB17, LAB57 ####Knot Borer: SLAVA GAINES ([id number])[facility] [place] (SBHLAB)[address] [place] [address] [place] ALP [Catalytic activity/Vol] 52 U/L Normal 40-150 [facility] Comment on above: Performed By: #### L 17, LAB57 ####Knot Borer: SLAVA GAINES ([id number])[facility] [place] (SB[facility])[address] [place] [address] [place] ALT [Catalytic activity/Vol] U/L Normal <40 [facility] Comment on above: Performed By: #### L AB17, LAB57 ####Knot Borer: SLAVA GAINES ([id number])[facility] [place] ([facility])[address] Anion gap [Moles/Vol] 5 mmol/L Normal 3-13 [facility] Comment on above: Performed By: #### Jimmy GARDNER, LAB57 ####Knot Borer: SLAVA GAINES ([id number])[facility] [place] ([facility])[address] AST [Catalytic activity/Vol] 14 U/L Normal <34 [facility] Comment on above: Performed By: #### Jimmy GARDNER, LAB57 ####Knot Borer: SLAVA GAINES ([id number])[facility] [place] ([facility])[address] Bilirubin [Mass/Vol] 0.2 mg/dL Normal <1.2 [facility] Comment on above: Performed By: #### Jimmy GARDNER, LAB57 ####Knot Borer: SLAVA GAINES ([id number])[facility] [place] ([facility])[address] [place] [address] [place] Calcium [Mass/Vol] 7.1 mg/dL Low 8.8-10.0 [facility] Comment on above: Performed By: #### L AB17, LAB57 ####Knot Borer: SLAVA GAINES ([id number])[facility] [place] ([facility])[address] [place] [address] [place] Chloride [Moles/Vol] 102 mmol/L Normal 98-107 [facility] Comment on above: Performed By: #### L AB17, LAB57 ####Knot Borer: SLAVA MCCLELLANGOOD ([id number])[facility] ([facility])[address] CO2 [Moles/Vol] 23 mmol/L Normal 23-31 [facility] Comment on above: Performed By: #### L AB17, LAB57 ####Knot Borer: SLAVA MCCLELLANGOOD ([id number])[facility] (SBHLAB)[address] Creatinine [Mass/Vol] 0.57 mg/dL Low 0.67-1.27 [facility] Comment on above: Performed By: #### L AB17, LAB57 ####Knot Borer: SLAVA MCCLELLANGOOD ([id number])[facility] (SBHLAB)[address] GLOMERULAR FILTRATION RATE ML/MIN/1.73 SQ M.PREDICTED >90.0 Normal >60.0 [facility] Comment on above: Result Comment: Calc ulation based on the Chronic Kidney Disease Epidemiology Collaboration (CKD-EPI) equation refit without adjustment for race Performed By: #### L AB17, LAB57 ####Knot Borer: SLAVA GAINES ([id number])[facility] ([facility])[address] Glucose [Mass/Vol] 132 mg/dL High 82-115 [facility] Comment on above: Performed By: #### L AB17, LAB57 ####Knot Borer: SLAVA GAINES ([id number])[facility] (SBHLAB)[address] Potassium [Moles/Vol] 3.8 mmol/L Normal 3.5-5.1 [facility] Comment on above: Result Comment: [facility] potassium values may be up to 0.5 mmol/L lower than serum values. Performed By: #### L AB17, LAB57 ####Knot Borer: SLAVA GAINES ([id number])[facility] BR[facility]CR[facility] FACILITYTony (SBHLAB)[address] Protein [Mass/Vol] 5.2 g/dL Low 6.4-8.3 [facility] Comment on above: Performed By: #### L AB17, LAB57 ####Knot Borer: SLAVA GAINES ([id number])[facility] (SBHLAB)[address] Sodium [Moles/Vol] 130 mmol/L Low 136-145 [facility] Comment on above: Performed By: #### L AB17, LAB57 ####Knot Borer: SLAVA GAINES ([id number])[facility] (SBHLAB)[address] Urea nitrogen [Mass/Vol] 12 mg/dL Normal 9-23 [facility] Comment on above: Performed By: #### L AB17, LAB57 ####Knot Borer: SLAVA GAINES ([id number])[facility] (SBHLAB)[address] [place] [address] Carcinoembryonic Ag [Mass/Vo l]on 02-16-2025 Interpretation and review of laboratory results Abnormal [facility] Comprehensive metabolic 1998 panelon 02-16-2025 Albumin [Mass/Vol] 1.7 g/dL Low 3.1 - 4.5 g/dL [facility] ALP [Catalytic activity/Vol] 52 U/L 40 - 150 U/L [facility] ALT [Catalytic activity/Vol] U/L NINF - 40 U/L [facility] Anion gap [Moles/Vol] 5 mmol/L 3 - 13 mmol/L [facility] AST [Catalytic activity/Vol] 14 U/L NINF - 34 U/L [facility] Bilirubin [Mass/Vol] 0.2 mg/dL NINF - 1.2 mg/dL [facility] Calcium [Mass/Vol] 7.1 mg/dL Low 8.8 - 10. 0 mg/dL [facility] Chloride [Moles/Vol] 102 mmol/L 98 - 10 7 mmol/L [facility] CO2 [Moles/Vol] 23 mmol/L 23 - 31 mmol/L [facility] Creatinine [Mass/Vol] 0.57 mg/dL Low 0.67 - 1.27 mg/dL [facility] GFR/1.73 sq M.predicted (S/P/Bld) [Vol rate/Area] - PINF [facility] Glucose [Mass/Vol] 132 mg/dL High 82 - 115 mg/dL [facility] Interpretation and review of laboratory results Abnormal [facility] Potassium [Moles/Vol] 3.8 mmol/L 3.5 - 5.1 mmol/L [facility] Protein [Mass/Vol] 5.2 g/dL Low 6.4 - 8.3 g/dL [facility] Sodium [Moles/Vol] 130 mmol/L Low 136 - 145 mmol/L [facility] Urea nitrogen [Mass/Vol] 12 mg/dL 9 - 23 mg/dL [facility] Laboratory - Chemistry and C hemistry - challengeon 02-16-2025 Carcinoembryonic Ag [Mass/Vol] 21.5 ng/mL High NINF - 5.0 ng/mL [facility] Laboratory - Hematology and Cell countson 02-16-2025 Anisocytosis Ql (Bld) Slight Abnormal (none) [facility] Hypochromia Ql (Bld) Slight Abnormal (none) [facility] Lymphocytes (Bld) [#/Vol] 1.1 10*3/uL 1.0 - 4.3 10*3/uL [facility] Lymphocytes/100 WBC (Bld) 10 % Low 15 - 45 % [facility] Microcytes Ql (Bld) Slight Abnormal (none) [facility] Monocytes (Bld) [#/Vol] 0.5 10*3/uL 0.0 - 0.9 10*3/uL [facility] Monocytes/100 WBC (Bld) 5 % 5 - 13 % S [facility] Neutrophils (Bld) [#/Vol] 8.9 10*3/uL High 1.8 - 7.5 10*3/uL [facility] Ovalocytes LM Ql (Bld) Slight Abnormal (none) [facility] Poikilocytosis LM Ql (Bld) Slight Abnormal (none) [facility] RBC morphology finding Nom (Bld) abnormal [facility] Segmented neutrophils/100 WBC (Bld) 85 % High 38 - 82 % [facility] MANUAL DIFFERENTIAL (CELLAVI TEMO)on 02-16-2025 ANISOCYTOSIS PRESENCE IN BLOOD BY LIGHT MICROSCOPY Slight Abnormal (none) [facility] Comment on above: Performed By: #### L [id number], [id number] ####Knot Borer: SLAVA GAINES ([id number])[facility] [place] (SBHLAB)[address] BAND NEUTROPHILS TOTAL PER COUNTED LEUKOCYTES BY MANUAL COUNT Normal [facility] Comment on above: Performed By: #### L [id number], [id number] ####Knot Borer: SLAVA GAINES ([id number])[facility] [place] (SBHLAB)[address] BASOPHILS TOTAL PER COUNTED LEUKOCYTES BY MANUAL COUNT Normal [facility] Comment on above: Performed By: #### L [id number], [id number] ####Knot Borer: SLAVA GAINES ([id number])[facility] [place] (SB[facility]AB)[address] BLASTS TOTAL PER COUNTED LEUKOCYTES BY MANUAL COUNT Normal [facility] Comment on above: Performed By: #### L [id number], [id number] ####Knot Borer: SLAVA GAINES ([id number])[facility] [place] (SB[facility])[address] EOSINOPHILS TOTAL PER COUNTED LEUKOCYTES BY MANUAL COUNT Normal [facility] Comment on above: Performed By: #### L [id number], [id number] ####Knot Borer: SLAVA GAINES ([id number])[facility] [place] ([facility])[address] HYPOCHROMIA (PRESENCE) IN BLOOD BY LIGHT MICROSCOPY Slight Abnormal (none) [facility] Comment on above: Performed By: #### L [id number], [id number] ####Knot Borer: SLAVA GAINES ([id number])[facility] [place] (SBHLAB)[address] [place] [address] [place] LYMPHOCYTES (10*3/UL) IN BLOOD-CELLAVISION 1.1 10*3/uL Normal 1.0-4.3 [facility] Comment on above: Performed By: #### L [id number], [id number] ####Knot Borer: SLAVA GAINES ([id number])[facility] [place] (SBHLAB)[address] [place] [address] [place] LYMPHOCYTES TOTAL PER COUNTED LEUKOCYTES BY MANUAL COUNT 10 Normal [facility] Comment on above: Performed By: #### L [id number], [id number] ####Knot Borer: SLAVA GAINES ([id number])[facility] [place] ([facility])[address] LYMPHOCYTES/100 LEUKOCYTES IN BLOOD-CELLAVISION 10 % Low 15-45 [facility] Comment on above: Performed By: #### L [id number], [id number] ####Knot Borer: SLAVA GAINES ([id number])[facility] [place] ([facility])[address] METAMYELOCYTES TOTAL PER COUNTED LEUKOCYTES BY MANUAL COUNT Normal [facility] Comment on above: Performed By: #### L [id number], [id number] ####Knot Borer: SLAVA GAINES ([id number])[facility] [place] ([facility])[address] MICROCYTES (PRESENCE) IN BLOOD BY LIGHT MICROSCOPY Slight Abnormal (none) [facility] Comment on above: Performed By: #### L [id number], [id number] ####Knot Borer: SLAVA GAINES ([id number])[facility] [place] ([facility])[address] [place] [address] [place] MONOCYTES (10*3/UL) IN BLOOD-CELLAVISION 0.5 10*3/uL Normal 0.0-0.9 [facility] Comment on above: Performed By: #### L [id number], [id number] ####Knot Borer: SLAVA GAINES ([id number])[facility] [place] (SB[facility])[address] [place] [address] [place] MONOCYTES TOTAL PER COUNTED LEUKOCYTES BY MANUAL COUNT 5 Normal [facility] Comment on above: Performed By: #### L [id number], [id number] ####Knot Borer: SLAVA GARCIAMACIEJ ([id number])[facility] [place] (SBHLAB)[address] [place] [address] [place] MONOCYTES/100 LEUKOCYTES IN BLOOD-ALEXANDRE 5 % Normal 5-13 [facility] Comment on above: Performed By: #### L [id number], [id number] ####Knot Borer: SLAVA GAINES ([id number])[facility] [place] ([facility])[address] MYELOCYTES COUNTED BY MANUAL COUNT [facility] Comment on above: Performed By: #### L [id number], [id number] ####Knot Borer: SLAVA GAINES ([phone])[facility] [place] ([facility])[address] [place] [address] [place] NEUTROPHILS TOTAL PER COUNTED LEUKOCYTES BY MANUAL COUNT 87 Normal [facility] Comment on above: Performed By: #### L [id number], [id number] ####Knot Borer: SLAVA GAINES ([id number])[facility] [place] (SB[facility]AB)[address] [place] [address] [place] OVALOCYTES PRESENCE IN BLOOD BY LIGHT MICROSCOPY Slight Abnormal (none) [facility] Comment on above: Performed By: #### L [id number], [id number] ####Knot Borer: SLAVA GAINES ([id number])[facility] [place] ([facility])[address] [place] [address] [place] POIKILOCYTOSIS (PRESENCE) IN BLOOD BY LIGHT MICROSCOPY Slight Abnormal (none) [facility] Comment on above: Performed By: #### L [id number], [id number] ####Knot Borer: SLAVA GAINES ([id number])[facility] [place] ([facility])[address] [place] [address] [place] PROMYELOCYTES TOTAL PER COUNTED LEUKOCYTES BY MANUAL COUNT Normal [facility] Comment on above: Performed By: #### L [id number], [id number] ####Knot Borer: SLAVA GAINES ([id number])[facility] [place] ([facility])[address] RBC MORPHOLOGY IN BLOOD abnormal Normal [facility] Comment on above: Performed By: #### L [id number], [id number] ####Knot Borer: SLAVA GAINES ([id number])[facility] [place] ([facility])[address] SEGMENTED NEUTROPHILS (10*3/UL) IN BLOOD-CELLAVISION 8.9 10*3/uL High 1.8-7.5 [facility] Comment on above: Performed By: #### L [id number], [id number] ####Knot Borer: SLAVA GAINES ([id number])[facility] [place] ([facility])[address] SEGMENTED NEUTROPHILS/100 LEUKOCYTES-CE 85 % High 38-82 [facility] Comment on above: Performed By: #### L [id number], [id number] ####Knot Borer: SLAVA GAINES ([id number])[facility] [place] ([facility])[address] UNCLASSIFIED CELLS TOTAL PER COUNTED LEUKOCYTES BY MANUAL COUNT [facility] Comment on above: Performed By: #### L IZ2065, [id number] ####Knot Borer: SLAVA GAINES ([id number])[facility] [place] ([facility])[address] VARIANT LYMPHOCYTES TOTAL PER COUNTED LEUKOCYTES BY MANUAL COUNT [facility] Comment on above: Performed By: #### L [id number], [id number] ####Knot Borer: SLAVA GAINES ([id number])[facility] ([facility])[address] No Panel InformationOrdered By: Pee Salguero on 02-16-2025 Interpretation and review of laboratory results Abnormal [facility] No Panel Informationon 02-[address] [facility] Monocytes Manual 5 [facility]th Neutrophils Manual 87 [facility] Nursing Noteon 02-16-2025 Nursing Note Pt c/o envela bed shaking him "like an earthquake" and stating it was causing him to be nauseous and making his buttocks hurt more. Pt insisted on being moved back to his "original bed". Wound team updated and patient returned to his previous bed. Normal [facility] Progress Noteon 02-16-2025 Progress Note Normal [facility] Progress Note Normal [facility] Progress Note Normal [facility] Progress Note Normal [facility] Progress Note Normal [facility] Progress Note Normal [facility] 25-hydroxyvitamin D3 [Mass/V ol]on 02-15-2025 Interpretation and review of laboratory results Abnormal [facility] [id number] 02-15-2025 [id number] Normal [facility] [id number] Normal [facility] C. difficile toxin genes GERSON +probe Ql (Stl)on 02-15-2025 C. difficile toxin B tcdB gene GERSON+probe Ql (Stl) Not detected Not Detected [facility] Interpretation and review of laboratory results Normal [facility] CBC W Auto Differential pane l (Bld)Ordered By: Francisca Castillo on 02-15-2025 Basophils (Bld) [#/Vol] 0 10*3/uL 0.0 - 0.2 10*3/uL [facility] Basophils/100 WBC (Bld) 0.2 % 0.0 - 2.0 % [facility] Eosinophils (Bld) [#/Vol] 0.1 10*3/uL 0.0 - 0.5 10*3/uL [facility] Eosinophils/100 WBC (Bld) 0.8 % 0.0 - 6.0 % [facility] Erythrocyte distribution width (RBC) [Ratio] 19.8 % High 11.5 - 15.0 % [facility] Hematocrit (Bld) [Volume fraction] 27.1 % Low 40.0 - 52.0 % [facility] Hemoglobin (Bld) [Mass/Vol] 7.9 g/dL Low 13.0 - 18.0 g/dL [facility] Immature granulocytes (Bld) [#/Vol] 0.1 10*3/uL High NINF - 0.1 10*3/uL [facility] Immature granulocytes/100 WBC (Bld) 0.7 % 0.0 - 2.0 % [facility] Interpretation and review of laboratory results Abnormal [facility] Lymphocytes (Bld) [#/Vol] 1.1 10*3/uL 1.0 - 4.3 10*3/uL [facility] Lymphocytes/100 WBC (Bld) 12.2 % Low 15.0 - 45.0 % [facility] MCH (RBC) [Entitic mass] 22.4 pg Low 26. 0 - 34.[address] [facility] MCHC (RBC) [Mass/Vol] 29.2 % Low 30.5 - 36.0 % [facility] MCV (RBC) [Entitic vol] 76.8 fL Low 77.0 - 99.0 fL [facility] Monocytes (Bld) [#/Vol] 0.8 10*3/uL 0.0 - 0.9 10*3/uL [facility] Monocytes/100 WBC (Bld) 9.1 % 5.0 - 13.0 % [facility] Neutrophils (Bld) [#/Vol] 6.8 10*3/uL 1.8 - 7.5 10*3/uL [facility] Neutrophils/100 WBC (Bld) 77 % 38.0 - 82.0 % [facility] Nucleated RBC/100 WBC (Bld) [Ratio] 0 % [facility] Platelet mean volume (Bld) [Entitic vol] 9.7 fL 9.0 - 12.7 fL [facility] Platelets (Bld) [#/Vol] 330 10*3/uL 140 - 440 10*3/uL [facility] RBC (Bld) [#/Vol] 3.53 10*6/uL Low 4.40 - 5.9 0 10*6/uL [facility] WBC (Bld) [#/Vol] 8.9 10*3/uL 3.6 - 10.7 10*3/uL [facility] CBC WITH AUTO DIFFERENTIALon 02-15-2025 Basophils (Bld) [#/Vol] 0.0 10*3/uL Normal 0.0-0.2 [facility] Comment on above: Performed By: #### L [id number] ####Knot Borer: SLAVA GAINES ([id number])[facility] [place] (SBHLAB)[address] Basophils/100 WBC (Bld) 0.2 % Normal 0.0-2.0 [facility] Comment on above: Performed By: #### L [id number] ####Knot Borer: SLAVA GARCIAMACIEJ ([id number])[facility] [place] (SB[facility])[address] Eosinophils (Bld) [#/Vol] 0.1 10*3/uL Normal 0.0-0.5 [facility] Comment on above: Performed By: #### L [id number] ####Knot Borer: SLAVA GAINES ([id number])[facility] [place] (SBHLAB)[address] Eosinophils/100 WBC (Bld) 0.8 % Normal 0.0-6.0 [facility] Comment on above: Performed By: #### L [id number] ####Knot Borer: SLAVA GAINES ([id number])[facility] [place] (SBHLAB)[address] [place] [address] Erythrocyte distribution width (RBC) [Ratio] 19.8 % High 11.5-15.0 [facility] Comment on above: Performed By: #### L [id number] ####Knot Borer: SLAVA GARCIAMACIEJ ([id number])[facility] [place] ([facility])[address] Hematocrit (Bld) [Volume fraction] 27.1 % Low 40.0-52.0 [facility] Comment on above: Performed By: #### L [id number] ####Knot Borer: SLAVA GAINES ([id number])[facility] [place] ([facility])[address] [place] [address] Hemoglobin (Bld) [Mass/Vol] 7.9 g/dL Low 13.0-18.0 [facility] Comment on above: Performed By: #### L [id number] ####Knot Borer: SLAVA GAINES ([id number])[facility] [place] ([facility])[address] IMMATURE GRANS % 0.7 % Normal 0.0-2.0 [facility] Comment on above: Performed By: #### L [id number] ####Knot Borer: SLAVA GAINES ([id number])[facility] [place] ([facility])[address] IMMATURE GRANS ABSOLUTE 0.1 10*3/uL High <0.1 [facility] Comment on above: Performed By: #### L [id number] ####Knot Borer: SLAVA GAINES ([id number])[facility] ([facility])[address] Lymphocytes (Bld) [#/Vol] 1.1 10*3/uL Normal 1.0-4.3 [facility] Comment on above: Performed By: #### L [id number] ####Knot Borer: SLAVA GAINES ([id number])[facility] (SB[facility])[address] Lymphocytes/100 WBC (Bld) 12.2 % Low 15.0-45.0 [facility] Comment on above: Performed By: #### L [id number] ####Knot Borer: SLAVA GAINES ([id number])[facility] [place] ([facility])[address] MCH (RBC) [Entitic mass] 22.4 pg Low 26.0-34.0 [facility] Comment on above: Performed By: #### L [id number] ####Knot Borer: SLAVA GAINES ([id number])[facility] ([facility])[address] MCHC 29.2 % Low 30.5-36.0 [facility] Comment on above: Performed By: #### L [id number] ####Knot Borer: SLAVA GAINES ([id number])[facility] [place] (SB[facility]AB)[address] MCV (RBC) [Entitic vol] 76.8 fL Low 77.0-99.0 [facility] Comment on above: Performed By: #### L [id number] ####Knot Borer: SLAVA GAINES ([id number])[facility] [place] ([facility])[address] Monocytes (Bld) [#/Vol] 0.8 10*3/uL Normal 0.0-0.9 [facility] Comment on above: Performed By: #### L [id number] ####Knot Borer: SLAVA GARCIAMACIEJ ([id number])[facility] [place] ([facility])[address] Monocytes/100 WBC (Bld) 9.1 % Normal 5.0-13.0 [facility] Comment on above: Performed By: #### L [id number] ####Knot Borer: SLAVA GARCIAMACIEJ ([id number])[facility] [place] ([facility])[address] NEUTROPHILS ABSOLUTE 6.8 10*3/uL Normal 1.8-7.5 [facility] Comment on above: Performed By: #### L [id number] ####Knot Borer: SLAVA GARCIAMACIEJ ([id number])[facility] [place] ([facility])[address] Neutrophils/100 WBC (Bld) 77.0 % Normal 38.0-82.0 [facility] Comment on above: Performed By: #### L [id number] ####Knot Borer: SLAVA GARCIAMACIEJ ([id number])[facility] [place] ([facility])[address] NRBC 0.0 /100 WBCs Normal 0.0-2.0 [facility] Comment on above: Performed By: #### L [id number] ####Knot Borer: SLAVA GAINES ([id number])[facility] [place] ([facility])[address] Platelet mean volume (Bld) [Entitic vol] 9.7 fL Normal 9.0-12.7 [facility] Comment on above: Performed By: #### L [id number] ####Knot Borer: SLAVA GAINES ([id number])[facility] [place] ([facility])[address] Platelets (Bld) [#/Vol] 330 10*3/uL Normal 140-440 [facility] Comment on above: Performed By: #### L [id number] ####Knot Borer: SLAVA GAINES ([id number])[facility] [place] ([facility])[address] RBC (Bld) [#/Vol] 3.53 10*6/uL Low 4.40-5.90 [facility] Comment on above: Performed By: #### L [id number] ####Knot Borer: SLAVA GARCIAMACIEJ ([id number])[facility] [place] ([facility])[address] WBC (Bld) [#/Vol] 8.9 10*3/uL Normal 3.6-10.7 [facility] Comment on above: Performed By: #### L [id number] ####Knot Borer: SLAVA GARCIAMACIEJ ([id number])[facility] [place] ([facility])[address] COMPREHENSIVE METABOLIC PANE Barry 02-15-2025 Albumin [Mass/Vol] 1.8 g/dL Low 3.1-4.5 [facility] Comment on above: Performed By: #### L AB67, LAB17, [id number] ####Knot Borer: SLAVA GAINES ([id number])[facility] [place] ([facility])[address] ALP [Catalytic activity/Vol] 55 U/L Normal 40-150 [facility] Comment on above: Performed By: #### Jimmy FRAUSTO, LAB17, [id number] ####Knot Borer: SLAVA GAINES ([id number])[facility] [place] ([facility])[address] ALT [Catalytic activity/Vol] U/L Normal <40 [facility] Comment on above: Performed By: #### Jimmy FRAUSTO, LAB17, [id number] ####Knot Borer: SLAVA GAINES ([id number])[facility] ([facility])[address] Anion gap [Moles/Vol] 9 mmol/L Normal 3-13 [facility] Comment on above: Performed By: #### Jimmy FRAUSTO, LAB17, [id number] ####Knot Borer: SLAVA GAINES ([id number])[facility] (SB[facility])[address] AST [Catalytic activity/Vol] 25 U/L Normal <34 [facility] Comment on above: Performed By: #### Jimmy FRAUSTO, LAB17, [id number] ####Knot Borer: SLAVA GAINES ([id number])[facility] [place] ([facility])[address] Bilirubin [Mass/Vol] 0.4 mg/dL Normal <1.2 [facility] Comment on above: Performed By: #### Jimmy FRAUSTO, LAB17, [id number] ####Knot Borer: SLAVA GAINES ([id number])[facility] (SB[facility])[address] Calcium [Mass/Vol] 7.5 mg/dL Low 8.8-10.0 [facility] Comment on above: Performed By: #### Jimmy FRAUSTO, LAB17, [id number] ####Knot Borer: SLAVA GAINES ([id number])[facility] (SB[facility])[address] Chloride [Moles/Vol] 101 mmol/L Normal 98-107 [facility] Comment on above: Performed By: #### L AB67, LAB17, [id number] ####Knot Borer: SLAVA GAINES ([id number])[facility] (SBHLAB)[address] CO2 [Moles/Vol] 19 mmol/L Low 23-31 [facility] Comment on above: Performed By: #### L AB67, LAB17, [id number] ####Knot Borer: SLAVA GAINES ([id number])[facility] Creatinine [Mass/Vol] 0.63 mg/dL Low 0.67-1.27 [facility] Comment on above: Performed By: #### Jimmy ABKimberlyn, LAB17, [id number] ####Knot Borer: SLAVA GAINES ([id number])[facility] GLOMERULAR FILTRATION RATE ML/MIN/1.73 SQ M.PREDICTED >90.0 Normal >60.0 [facility] Comment on above: Result Comment: Calc ulation based on the Chronic Kidney Disease Epidemiology Collaboration (CKD-EPI) equation refit without adjustment for race Performed By: #### L , LAB17, [id number] ####Knot Borer: SLAVA GAINES ([id number])[facility] (SBHLAB)[address] Glucose [Mass/Vol] 150 mg/dL High 82-115 [facility] Comment on above: Performed By: #### L AB, LAB17, [id number] ####Knot Borer: SLAVA GAINES ([id number])[facility] ([facility] Potassium [Moles/Vol] 3.4 mmol/L Low 3.5-5.1 [facility] Comment on above: Result Comment: [facility] potassium values may be up to 0.5 mmol/L lower than serum values. Performed By: #### L AB67, LAB17, [id number] ####Knot Borer: SLAVA GAINES ([id number])[facility] (SB[facility]AB)[address] Protein [Mass/Vol] 5.7 g/dL Low 6.4-8.3 [facility] Comment on above: Performed By: #### L AB67, LAB17, [id number] ####Knot Borer: SLAVA GAINES ([id number])[facility] (SB[facility])[address] Sodium [Moles/Vol] 129 mmol/L Low 136-145 [facility] Comment on above: Performed By: #### L AB67, LAB17, [id number] ####Knot Borer: SLAVA GAINES ([phone])[facility] ([facility])[address] Urea nitrogen [Mass/Vol] 16 mg/dL Normal 01-16 [facility] Comment on above: Performed By: #### L AB67, LAB17, [id number] ####Knot Borer: SLAVA MCCLELLANILIAMACIEJ ([id number])[facility] (SBHLAB)[address] [place] [address] CT Abdomen and Pelvis WO and W contrast Bernabe 02-15-2025 [facility] RADIOLOGY [facility] RADIOLOGY [facility] Radiology Study observation (narrative) [facility] CT Abdomen and Pelvis WO and W contrast IVOrdered By: Olivia Sears on 02-15-2025 [facility] Work Phone: CT CHEST ABDOMEN PELVIS W CO NTRASTon 02-15-2025 CT CHEST ABDOMEN PELVIS W CONTRAST Normal [facility] Cobalamin (Vitamin B12) [Mas s/Vol]on 02-15-2025 Interpretation and review of laboratory results Normal [facility] Comprehensive metabolic 1998 panelOrdered By: Anisa Rodriges on 02-15-2025 Albumin [Mass/Vol] 1.8 g/dL Low 3.1 - 4.5 g/dL [facility] ALP [Catalytic activity/Vol] 55 U/L 40 - 150 U/L [facility] ALT [Catalytic activity/Vol] U/L NINF - 40 U/L [facility] Anion gap [Moles/Vol] 9 mmol/L 3 - 13 mmol/L [facility] AST [Catalytic activity/Vol] 25 U/L NINF - 34 U/L [facility] Bilirubin [Mass/Vol] 0.4 mg/dL NINF - 1.2 mg/dL [facility] Calcium [Mass/Vol] 7.5 mg/dL Low 8.8 - 10. 0 mg/dL [facility] Chloride [Moles/Vol] 101 mmol/L 98 - 10 7 mmol/L [facility] CO2 [Moles/Vol] 19 mmol/L Low 23 - 31 mmol/L [facility] Creatinine [Mass/Vol] 0.63 mg/dL Low 0.67 - 1.27 mg/dL [facility] GFR/1.73 sq M.predicted (S/P/Bld) [Vol rate/Area] - PINF [facility] Glucose [Mass/Vol] 150 mg/dL High 82 - 115 mg/dL [facility] Interpretation and review of laboratory results Abnormal [facility] Potassium [Moles/Vol] 3.4 mmol/L Low 3.5 - 5.1 mmol/L [facility] Protein [Mass/Vol] 5.7 g/dL Low 6.4 - 8.3 g/dL [facility] Sodium [Moles/Vol] 129 mmol/L Low 136 - 145 mmol/L [facility] Urea nitrogen [Mass/Vol] 16 mg/dL 9 - 23 mg/dL [facility] Consulton 02-15-2025 Consult Normal [facility] [facility] Consult Normal [facility] Consult Normal [facility] Consult Normal [facility] Consult Normal [facility] Gastrointestinal pathogens p yovani GERSON+probe (Stl)on 02-15-2025 Adenovirus 40+41 DNA GERSON+non-probe Ql (Stl) Not detected Not Detected [facility] Astrovirus subtypes 1-8 RNA GERSON+non-probe Ql (Stl) Not detected Not Detected [facility] C. cayetanensis DNA GERSON+non-probe Ql (Stl) Not detected Not Detected [facility] C. coli+jejuni+upsaliensis DNA GERSON+non-probe Ql (Stl) Not detected Not Detected [facility] Cryptosporidium sp DNA GERSON+non-probe Ql (Stl) Not detected Not Detected [facility] E. coli enterotoxigenic ltA+st1a+st1b genes GERSON+non-probe Ql (Stl) Not detected Not Detected [facility] E. coli stx1+stx2 genes GERSON+non-probe Ql (Stl) Not detected Not Detected [facility] E. histolytica DNA GERSON+non-probe Ql (Stl) Not detected Not Detected [facility] G. lamblia DNA GERSON+non-probe Ql (Stl) Not detected Not Detected [facility] Interpretation and review of laboratory results Abnormal [facility] Norovirus genogroup I+II RNA GERSON+non-probe Ql (Stl) Detected Abnormal Not Detected [facility] P. shigelloides DNA GERSON+non-probe Ql (Stl) Not detected Not Detected [facility] Rotavirus A RNA GERSON+non-probe Ql (Stl) Not detected Not Detected [facility] S. enterica+bongori DNA GERSON+non-probe Ql (Stl) Not detected Not Detected [facility] Sapovirus genogroups I+II+IV+V RNA GERSON+non-probe Ql (Stl) Not detected Not Detected [facility] Shigella species+EIEC invasion plasmid antigen H ipaH gene GERSON+non-probe Ql (Stl) Not detected Not Detected [facility] V. cholerae DNA GERSON+non-probe Ql (Stl) Not detected Not Detected [facility] V. cholerae+parahaemolyticu s+vulnificus DNA GERSON+non-probe Ql (Stl) Not detected Not Detected [facility] Y. enterocolitica DNA GERSON+non-probe Ql (Stl) Not detected Not Detected [facility] Laboratory - Chemistry and C hemistry - challengeon 02-15-2025 Magnesium [Mass/Vol] 1.9 mg/dL 1.6 - 2 .6 mg/dL [facility] 25-hydroxyvitamin D3 [Mass/Vol] ng/mL Low 20 - 50 ng/mL [facility] TSH Qn 2.62 m[IU]/L [facility] Cobalamin (Vitamin B12) [Mass/Vol] 680 pg/mL 213 - 816 pg/mL [facility] MAGNESIUMon 02-15-2025 Magnesium [Mass/Vol] 1.9 mg/dL Normal 1.6-2.6 [facility] Comment on above: Result Comment: CHUY R COMMENTS:Higher values can be expected in females during menses. Performed By: #### Jimmy [id number], LAB17, [id number] ####Knot Borer: SLAVA GAINES ([id number])[facility] (SBHLAB)[address] Magnesium [Mass/Vol]on 02-15 Interpretation and review of laboratory results Normal [facility] No Panel Informationon 02-15 [facility] Progress Noteon 02-15-2025 Progress Note Normal [facility] Progress Note Normal [facility] Progress Note Normal [facility] THYROID STIMULATING HORMONEo n 02-15-2025 THYROID STIMULATING HORMONE 2.62 uIU/mL Normal 0.35-4.94 [facility] Comment on above: Performed By: #### L [id number], [id number] ####Knot Borer: SLAVA GAINES ([id number])[facility] TSH Qnon 02-15-2025 Interpretation and review of laboratory results Normal [facility] VITAMIN B12on 02-15-2025 Cobalamin (Vitamin B12) [Mass/Vol] 680 pg/mL Normal 213-816 [facility] Comment on above: Performed By: #### Jimmy [id number], LAB17, [id number] ####Knot Borer: SLAVA GAINES ([id number])[facility] ([facility] [place] [address] VITAMIN D DEFICIENCY SCREENI NG (VIT D 25)on 02-15-2025 VIT D 25-OH, TOTAL <4 Low See comment [facility] Comment on above: Result Comment: CHUY Beasley COMMENTS:Target concentration: 30 - 40 ng/mL; toxicity seen at concentrations >100 ng/mLLess than 20 ng/mL: Indicative of Vit D deficiencyTest performed by [employer], measuring Total Vitamin D, not individual fractions. Performed By: #### L AB129, [id number] ####Knot Borer: SLAVA GAINES ([id number])[facility] (SBHLAB)[address] [place] [address] [id number] 02-14-2025 [id number] Normal [facility] C. DIFFICILE BY PCR WITH REF SHERMAN TO EIAon 02-14-2025 C. DIFFICILE BY PCR WITH REFLEX TO EIA C. DIFFICILE TOXIN PCR Reference Not Detected Not Detected ORDER COMMENTS: C. difficile infection is unlikely to be present. Methodology: Real-time PCR Normal [facility] Comment on above: Performed By: #### L [id number], [id number] ####Knot Borer: HEIDY MENDIOLA ([phone])[facility] (SACLAB)[address] [place] [address] CBC W Auto Differential pane l (Bld)on 02-14-2025 Erythrocyte distribution width (RBC) [Ratio] 20.4 % High 11.5 - 15.0 % [facility] Hematocrit (Bld) [Volume fraction] 34 % Low 40.0 - 52.0 % [facility] Hemoglobin (Bld) [Mass/Vol] 9.6 g/dL Low 13.0 - 18.0 g/dL [facility] Interpretation and review of laboratory results Abnormal [facility] MCH (RBC) [Entitic mass] 22.3 pg Low 26. 0 - 34.[address] [facility] MCHC (RBC) [Mass/Vol] 28.2 % Low 30.5 - 36.0 % [facility] MCV (RBC) [Entitic vol] 78.9 fL 77.0 - 99.[address] [facility] Platelet mean volume (Bld) [Entitic vol] 9.4 fL 9.0 - 12.[address] [facility] Platelets (Bld) [#/Vol] 412 10*3/uL 140 - 440 10*3/uL [facility] RBC (Bld) [#/Vol] 4.31 10*6/uL Low 4.40 - 5.9 0 10*6/uL [facility] WBC (Bld) [#/Vol] 9.9 10*3/uL 3.6 - 10.7 10*3/uL [facility] CBC WITH AUTO DIFFERENTIALon 02-14-2025 Erythrocyte distribution width (RBC) [Ratio] 20.4 % High 11.5-15.0 [facility] Comment on above: Performed By: #### L [id number], [id number] ####Knot Borer: SLAVA GAINES ([phone])[facility] (SBHLAB)[address] Hematocrit (Bld) [Volume fraction] 34.0 % Low 40.0-52.0 [facility] Comment on above: Performed By: #### L [id number], [id number] ####Knot Borer: SLAVA GAINES ([id number])[facility] (SBHLAB)[address] Hemoglobin (Bld) [Mass/Vol] 9.6 g/dL Low 13.0-18.0 [facility] Comment on above: Performed By: #### L [id number], [id number] ####Knot Borer: SLAVA GAINES ([id number])[facility] (SBHLAB)[address] MCH (RBC) [Entitic mass] 22.3 pg Low 26.0-34.0 [facility] Comment on above: Performed By: #### L [id number], [id number] ####Knot Borer: SLAVA GAINES ([id number])[facility] (SBHLAB)[address] MCHC 28.2 % Low 30.5-36.0 [facility] Comment on above: Performed By: #### L [id number], [id number] ####Knot Borer: SLAVA GAINES ([id number])[facility] (SBHLAB)[address] MCV (RBC) [Entitic vol] 78.9 fL Normal 77.0-99.0 [facility] Comment on above: Performed By: #### L [id number], [id number] ####Knot Borer: SLAVA GAINES ([id number])[facility] [place] (SBHLAB)[address] Platelet mean volume (Bld) [Entitic vol] 9.4 fL Normal 9.0-12.7 [facility] Comment on above: Performed By: #### L [id number], [id number] ####Knot Borer: SLAVA GAINES ([id number])[facility] (SBHLAB)[address] Platelets (Bld) [#/Vol] 412 10*3/uL Normal 140-440 [facility] Comment on above: Performed By: #### L [id number], [id number] ####Knot Borer: SLAVA GAINES ([id number])[facility] (HLAB)[address] RBC (Bld) [#/Vol] 4.31 10*6/uL Low 4.40-5.90 [facility] Comment on above: Performed By: #### L [id number], [id number] ####Knot Borer: SLAVA GAINES ([id number])[facility] (SBHLAB)[address] WBC (Bld) [#/Vol] 9.9 10*3/uL Normal 3.6-10.7 [facility] Comment on above: Performed By: #### L [id number], [id number] ####Knot Borer: SLAVA GAINES ([id number])[facility] (SBHLAB)[address] CKon 02-14-2025 CK [Catalytic activity/Vol] 30 U/L Normal 30-185 [facility] Comment on above: Performed By: #### L AB103, LAB62, LAB46, LAB17 ####Knot Borer: SLAVA GAINES ([id number])[facility] (SBHLAB)[address] CK [Catalytic activity/Vol]o n 02-14-2025 Interpretation and review of laboratory results Normal [facility] [employer] [place] [place] 02-14-2025 Albumin [Mass/Vol] 2.3 g/dL Low 3.1-4.5 [facility] Comment on above: Performed By: #### L AB103, LAB62, LAB46, LAB17 ####Knot Borer: SLAVA GAINES ([id number])[facility] [place] (SBHLAB)[address] ALP [Catalytic activity/Vol] 61 U/L Normal 40-150 [facility] Comment on above: Performed By: #### L AB103, LAB62, LAB46, LAB17 ####Knot Borer: SLAVA GAINES ([id number])[facility] (SBHLAB)[address] ALT [Catalytic activity/Vol] U/L Normal <40 [facility] Comment on above: Performed By: #### L AB103, LAB62, LAB46, LAB17 ####Knot Borer: SLAVA GAINES ([id number])[facility] (SBHLAB)[address] Anion gap [Moles/Vol] 13 mmol/L Normal 3-13 [facility] Comment on above: Performed By: #### L AB103, LAB62, LAB46, LAB17 ####Knot Borer: SLAVA GAINES ([id number])[facility] (SBHLAB)[address] AST [Catalytic activity/Vol] 22 U/L Normal <34 [facility] Comment on above: Performed By: #### L AB103, LAB62, LAB46, LAB17 ####Knot Borer: SLAVA GAINES ([id number])[facility] (SBHLAB)[address] Bilirubin [Mass/Vol] 0.4 mg/dL Normal <1.2 [facility] Comment on above: Performed By: #### L AB103, LAB62, LAB46, LAB17 ####Knot Borer: SLAVA GAINES ([id number])[facility] [place] (SBHLAB)[address] Calcium [Mass/Vol] 8.5 mg/dL Low 8.8-10.0 [facility] Comment on above: Performed By: #### L AB103, LAB62, LAB46, LAB17 ####Knot Borer: SLAVA GAINES ([id number])[facility] [place] (SBHLAB)[address] Chloride [Moles/Vol] 114 mmol/L High 98-107 [facility] Comment on above: Performed By: #### L AB103, LAB62, LAB46, LAB17 ####Knot Borer: SLAVA GAINES ([id number])[facility] [place] (SBHLAB)[address] CO2 [Moles/Vol] 20 mmol/L Low 23-31 [facility] Comment on above: Performed By: #### L AB103, LAB62, LAB46, LAB17 ####Knot Borer: SLAVA GAINES ([id number])[facility] (SBHLAB)[address] Creatinine [Mass/Vol] 0.81 mg/dL Normal 0.67-1.27 [facility] Comment on above: Performed By: #### L AB103, LAB62, LAB46, LAB17 ####Knot Borer: SLAVA GAINES ([phone])[facility] (SBHLAB)[address] GLOMERULAR FILTRATION RATE ML/MIN/1.73 SQ M.PREDICTED >90.0 Normal >60.0 [facility] Comment on above: Result Comment: Calc ulation based on the Chronic Kidney Disease Epidemiology Collaboration (CKD-EPI) equation refit without adjustment for race Performed By: #### L AB103, LAB62, LAB46, LAB17 ####Knot Borer: SLAVA GAINES ([id number])[facility] [place] (SBHLAB)[address] [place] [address] [place] Glucose [Mass/Vol] 133 mg/dL High 82-115 [facility] Comment on above: Performed By: #### L AB103, LAB62, LAB46, LAB17 ####Knot Borer: SLAVA GAINES ([id number])[facility] (SBHLAB)[address] Potassium [Moles/Vol] 4.5 mmol/L Normal 3.5-5.1 [facility] Comment on above: Result Comment: [facility] potassium values may be up to 0.5 mmol/L lower than serum values. Performed By: #### L AB103, LAB62, LAB46, LAB17 ####Knot Borer: SLAVA GAINES ([id number])[facility] (SBAB)[address] Protein [Mass/Vol] 7.3 g/dL Normal 6.4-8.3 [facility] Comment on above: Performed By: #### L AB103, LAB62, LAB46, LAB17 ####Knot Borer: SLAVA GAINES ([id number])[facility] (HLAB)[address] Sodium [Moles/Vol] 147 mmol/L High 136-145 [facility] Comment on above: Performed By: #### L AB103, LAB62, LAB46, LAB17 ####Knot Borer: SLAVA GAINES ([id number])[facility] (SBHLAB)[address] Urea nitrogen [Mass/Vol] 21 mg/dL Normal 9-23 [facility] Comment on above: Performed By: #### L AB103, LAB62, LAB46, LAB17 ####Knot Borer: SLAVA GAINES ([id number])[facility] (HLAB)[address] Comprehensive metabolic 1998 panelon 02-14-2025 Albumin [Mass/Vol] 2.3 g/dL Low 3.1 - 4.5 g/dL [facility] ALP [Catalytic activity/Vol] 61 U/L 40 - 150 U/L [facility] ALT [Catalytic activity/Vol] U/L NINF - 40 U/L [facility] Anion gap [Moles/Vol] 13 mmol/L 3 - 13 mmol/L [facility] AST [Catalytic activity/Vol] 22 U/L NINF - 34 U/L [facility] Bilirubin [Mass/Vol] 0.4 mg/dL NINF - 1.2 mg/dL [facility] Calcium [Mass/Vol] 8.5 mg/dL Low 8.8 - 10. 0 mg/dL [facility] Chloride [Moles/Vol] 114 mmol/L High 98 - 10 7 mmol/L [facility] CO2 [Moles/Vol] 20 mmol/L Low 23 - 31 mmol/L [facility] Creatinine [Mass/Vol] 0.81 mg/dL 0.67 - 1.27 mg/dL [facility] GFR/1.73 sq M.predicted (S/P/Bld) [Vol rate/Area] - PINF [facility] Glucose [Mass/Vol] 133 mg/dL High 82 - 115 mg/dL [facility] Interpretation and review of laboratory results Abnormal [facility] Potassium [Moles/Vol] 4.5 mmol/L 3.5 - 5.1 mmol/L [facility] Protein [Mass/Vol] 7.3 g/dL 6.4 - 8.3 g/dL [facility] Sodium [Moles/Vol] 147 mmol/L High 136 - 145 mmol/L [facility] Urea nitrogen [Mass/Vol] 21 mg/dL 9 - 23 mg/dL 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 Analysis performed using non-forensic procedures. Performed By: #### L AB103, LAB62, LAB46, LAB17 ####Knot Borer: SLAVA GAINES ([id number])[facility] (SBHLAB)[address] [place] [address] Ethanol (Bld) [Mass/Vol]on 1 Ethanol [Mass/Vol] mg/dL NINF - 10 mg/dL [facility] GASTROINTESTINAL PCR PANELon 02-14-2025 GASTROINTESTINAL PCR PANEL Normal [facility] Comment on above: Performed By: #### L [id number], [id number] ####Knot Borer: HEIDY MENDIOLA ([phone])[facility] (SACLAB)[address] [place] [address] HIGH SENSITIVITY TROPONIN, S ERIAL BASELINEon 02-14-2025 TROPONIN HS SERIAL BASELINE <3 Normal <=35 [facility] Comment on above: Result Comment: In i ndividuals presenting with symptoms > 2h, a baseline troponin <= 5 ng/L suggests acutecardiac injury is unlikely and further serial testing is generally not indicated. Performed By: #### L [id number] ####Knot Borer: SLAVA GAINES ([phone])[facility] ([facility])[address] [place] [address] HIGH SENSITIVITY TROPONIN, S ERIAL, SECOND TESTon 02-14-2025 2H TROPONIN HS (SERIAL 2ND TROPONIN) <3 Normal <=35 [facility] Comment on above: Result Comment: Delt a value was unable to be calculated as both baseline and serial troponin tests were below the level of quantitation. As both baseline and 2h troponin values are below the level of quantitation, acute cardiac injury is unlikely. Performed By: #### L [id number] ####Knot Borer: SLAVA GAINES ([id number])[facility] [place] ([facility])[address] [place] [address] Laboratory - Chemistry and C hemistry - challengeon 02-14-2025 CK [Catalytic activity/Vol] 30 U/L 30 - 185 U/L [facility] Magnesium [Mass/Vol] 2.5 mg/dL 1.6 - 2 .6 mg/dL [facility] Laboratory - Hematology and Cell countson 02-14-2025 Anisocytosis Ql (Bld) Slight Abnormal (none) [facility] Band form neutrophils (Bld) [#/Vol] 0.3 10*3/uL High NINF - 0.0 10*3/uL [facility] Band form neutrophils/100 WBC (Bld) 3 % High NINF - 0 % [facility] [place] cells LM Ql (Bld) Slight Abnormal (none) [facility] Dacrocytes LM Ql (Bld) Slight Abnormal (none) [facility] Dohle body LM Ql (Bld) Present Abnormal (none) [facility] Giant platelets LM Ql (Bld) Rare Abnormal (none) [facility] Hypochromia Ql (Bld) Slight Abnormal (none) [facility] Lymphocytes (Bld) [#/Vol] 0.4 10*3/uL Low 1.0 - 4.3 10*3/uL [facility] Lymphocytes/100 WBC (Bld) 4 % Low 15 - 45 % [facility] Microcytes Ql (Bld) Slight Abnormal (none) [facility] Monocytes (Bld) [#/Vol] 0.5 10*3/uL 0.0 - 0.9 10*3/uL [facility] Monocytes/100 WBC (Bld) 5 % 5 - 13 % [facility] Neutrophils (Bld) [#/Vol] 8.6 10*3/uL High 1.8 - 7.5 10*3/uL [facility] Ovalocytes LM Ql (Bld) Slight Abnormal (none) [facility] RBC morphology finding Nom (Bld) abnormal [facility] Segmented neutrophils/100 WBC (Bld) 84 % High 38 - 82 % [facility] Toxic granules LM Ql (Bld) Present Abnormal (none) [facility] Variant lymphocytes (Bld) [#/Vol] 0.4 10*3/uL High NINF - 0.0 10*3/uL [facility] Variant lymphocytes/100 WBC (Bld) 4 % High NINF - 0 % [facility] Laboratory - Microbiology an d Antimicrobial susceptibilityOrdered By: Jeronimo Webber on 02-14-2025 SARS-CoV-2 (COVID-19) Ag IA.rapid Ql (Resp) Negative Negative [facility] MAGNESIUMon 02-14-2025 Magnesium [Mass/Vol] 2.5 mg/dL Normal 1.6-2.6 [facility] Comment on above: Result Comment: CHUY R COMMENTS:Higher values can be expected in females during menses. Performed By: #### L AB103, LAB62, LAB46, LAB17 ####Knot Borer: SLAVA GAINES ([id number])[facility] [place] (SBHLAB)[address] MANUAL DIFFERENTIAL (CELLAVI TEMO)on 02-14-2025 ACANTHOCYTES (PRESENCE) IN BLOOD BY LIGHT MICROSCOPY Slight Abnormal (none) [facility] Comment on above: Performed By: #### L [id number], [id number] ####Knot Borer: SLAVA GAINES ([id number])[facility] [place] (SBHLAB)[address] ANISOCYTOSIS PRESENCE IN BLOOD BY LIGHT MICROSCOPY Slight Abnormal (none) [facility] Comment on above: Performed By: #### L [id number], [id number] ####Knot Borer: SLAVA GAINES ([id number])[facility] [place] (SBHLAB)[address] BAND NEUTROPHILS TOTAL PER COUNTED LEUKOCYTES BY MANUAL COUNT 3 Normal [facility] Comment on above: Performed By: #### L [id number], [id number] ####Knot Borer: SLAVA GAINES ([id number])[facility] [place] (SBHLAB)[address] BANDS (10*3/UL) IN BLOOD-CELLAVISION 0.3 10*3/uL High <=0.0 [facility] Comment on above: Performed By: #### L [id number], [id number] ####Knot Borer: SLAVA GAINES ([id number])[facility] [place] (SBHLAB)[address] BASOPHILS TOTAL PER COUNTED LEUKOCYTES BY MANUAL COUNT Normal [facility] Comment on above: Performed By: #### L [id number], [id number] ####Knot Borer: SLAVA GAINES ([id number])[facility] [place] (SBHLAB)[address] [place] [address] [place] BLASTS TOTAL PER COUNTED LEUKOCYTES BY MANUAL COUNT Normal [facility] Comment on above: Performed By: #### L [id number], [id number] ####Knot Borer: SLAVA GAINES ([id number])[facility] [place] (SBHLAB)[address] [place] [address] [place] DACROCYTES PRESENCE IN BLOOD BY LIGHT MICROSCOPY Slight Abnormal (none) [facility] Comment on above: Performed By: #### L [id number], [id number] ####Knot Borer: SLAVA GAINES ([id number])[facility] [place] (SBHLAB)[address] [place] [address] [place] DOHLE BODY PRESENCE IN BLOOD BY LIGHT MICROSCOPY (PRESENT) Present Abnormal (none) [facility] Comment on above: Performed By: #### L [id number], [id number] ####Knot Borer: SLAVA GAINES ([id number])[facility] [place] (SBHLAB)[address] [place] [address] [place] EOSINOPHILS TOTAL PER COUNTED LEUKOCYTES BY MANUAL COUNT Normal [facility] Comment on above: Performed By: #### L [id number], [id number] ####Knot Borer: SLAVA GAINES ([phone])[facility] [place] (SBHLAB)[address] [place] [address] [place] HYPOCHROMIA (PRESENCE) IN BLOOD BY LIGHT MICROSCOPY Slight Abnormal (none) [facility] Comment on above: Performed By: #### L [id number], [id number] ####Knot Borer: SLAVA GAINES ([id number])[facility] [place] (SBHLAB)[address] [place] [address] [place] LYMPHOCYTE VARIANT/100 LEUKOCYTES IN BLOOD- CELLAVISION 4 % High <=0 [facility] Comment on above: Performed By: #### L [id number], [id number] ####Knot Borer: SLAVA GAINES ([id number])[facility] [place] (SBHLAB)[address] [place] [address] [place] LYMPHOCYTES (10*3/UL) IN BLOOD-CELLAVISION 0.4 10*3/uL Low 1.0-4.3 [facility] Comment on above: Performed By: #### L [id number], [id number] ####Knot Borer: SLAVA GAINES ([id number])[facility] [place] (SBHLAB)[address] LYMPHOCYTES TOTAL PER COUNTED LEUKOCYTES BY MANUAL COUNT 4 Normal [facility] Comment on above: Performed By: #### L [id number], [id number] ####Knot Borer: SLAVA GAINES ([id number])[facility] [place] (SBHLAB)[address] LYMPHOCYTES/100 LEUKOCYTES IN BLOOD-CELLAVISION 4 % Low 15-45 [facility] Comment on above: Performed By: #### L [id number], [id number] ####Knot Borer: SLAVA GAINES ([id number])[facility] [place] (SBHLAB)[address] METAMYELOCYTES TOTAL PER COUNTED LEUKOCYTES BY MANUAL COUNT Normal [facility] Comment on above: Performed By: #### L [id number], [id number] ####Knot Borer: SLAVA GAINES ([id number])[facility] [place] (SBHLAB)[address] MICROCYTES (PRESENCE) IN BLOOD BY LIGHT MICROSCOPY Slight Abnormal (none) [facility] Comment on above: Performed By: #### L [id number] ####Knot Borer: SLAVA GAINES ([id number])[facility] [place] ([facility])[address] [place] [address] [place] MONOCYTES (10*3/UL) IN BLOOD-CELLAVISION 0.5 10*3/uL Normal 0.0-0.9 [facility] Comment on above: Performed By: #### L [id number], [id number] ####Knot Borer: SLAVA GAINES ([id number])[facility] (SBHLAB)[address] [place] [address] [place] MONOCYTES TOTAL PER COUNTED LEUKOCYTES BY MANUAL COUNT 5 Normal [facility] Comment on above: Performed By: #### L [id number], [id number] ####Knot Borer: SLAVA GAINES ([id number])[facility] ([facility])[address] [place] [address] [place] MONOCYTES/100 LEUKOCYTES IN BLOOD-ALEXANDRE 5 % Normal 5-13 [facility] Comment on above: Performed By: #### L [id number], [id number] ####Knot Borer: SLAVA SHARPCER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 (RBC) 32.8 % Normal 32.3-36.5 [facility] Comment on above: Performed By: #### G FR ####[place] [address] MCV 105.3 fL High 83.2-95.6 [facility] Comment on above: Performed By: #### G FR ####[place] [address] Platelet mean volume (PMV) 9.7 fL Normal 8.7-12.0 [facility] Comment on above: Performed By: #### G FR ####[place] [address] Platelets 124 thou/cmm Low 141-365 [facility] Comment on above: Performed By: #### G FR ####[place] [address] RDW SD 49.1 fl High 36.1-45.8 [facility] Comment on above: Performed By: #### G FR ####[place] [address] WBC (Leukocytes) 3.09 thou/cmm Low 4.23-9.07 [facility] Comment on above: Performed By: #### G FR ####[place] [address] KNEE 1 OR 2 VIEWS UNILATERAL on 03-29-2017 KNEE 1 OR 2 VIEWS UNILATERAL Performed at [facility] APPROVED BY: Antonio Dumas MD INTRAOPERATIVE RIGHT KNEE, THREE IMAGES: CLINICAL INDICATION: Status post-ORIF lateral tibial plateau fracture COMPARISON: CT right knee study 03/25/2017. One frontal and two lateral small lyhop-ey-bemn C-arm images of the right knee are submitted. Bone detail is limited. There is an inverted, L-shape fixation plate and screws along the lateral proximal tibia. There is ill-defined increased opacity of the proximal lateral tibia. There is soft tissue air lateral to the knee joint. Fluoroscopy time: 58 seconds IMPRESSION: Status post-ORIF lateral tibial plateau fracture. Normal [facility] KNEE LIMITED 2V AP/LAT RIGHT on 03-29-2017 KNEE LIMITED 2V AP/LAT RIGHT Performed at [facility] APPROVED BY: Krzysztof Lee MD EXAM TITLE: KNEE LIMITED 2V AP/LAT RIGHT DATE: 03/29/2017 14:00 COMPARISON: 03/24/2017 CLINICAL INDICATION/HISTORY: Fracture TECHNIQUE: Portable AP and crosstable lateral views of the right knee FINDINGS:Status post ORIF of a known lateral tibial plateau fracture. Methylmethacrylate is seen along the fracture and there is been placement of a lateral buttress plate and multiple screws. Very slight articular surface incongruity is present. No other fracture is identified. A small amount of postoperative air is noted within the joint space. There are lateral cutaneous kumar. IMPRESSION: Status post ORIF of a lateral tibial plateau fracture. Normal [facility] MDRD GFRon 03-29-2017 eGFR (non-black) mL/min/{1.73_m2} Normal >60mL/m in/1 .73m2 [facility] Comment on above: Result Comment: If t he patient is , multiply the result by 1.210. Performed By: #### G FR ####[address] [address] Basic Panelon 03-28-2017 Creatinine 0.82 mg/dL Normal 0.67-1.17 [facility] Comment on above: Performed By: #### G FR ####[address] [address] Urea nitrogen 8 mg/dL Normal 7-18 [facility] Comment on above: Performed By: #### G FR ####[facility] [place], [place] [address] Anion gap 11 mmol/L Normal 8-16 [facility] Comment on above: Performed By: #### G FR ####[facility] [place], [place] [address] Calcium 8.0 mg/dL Low 8.5-10.1 [facility] Comment on above: Performed By: #### G FR ####[facility] [place], [place] [address] Chloride 103 mmol/L Normal 98-107 [facility] Comment on above: Performed By: #### G FR ####[facility] [place], [place] [address] CO2 26 mmol/L Normal 21-32 [facility] Comment on above: Performed By: #### G FR ####[facility] [place], [place] [address] Glucose mass conc 110 mg/dL High 70-99 [facility] Comment on above: Performed By: #### G FR ####[facility] [place], [place] [address] Potassium molar conc 4.0 mmol/L Normal 3.5-5.1 [facility] Comment on above: Performed By: #### G FR ####[facility] [place], [place] [address] Sodium 136 mmol/L Normal 136-145 [facility] Comment on above: Performed By: #### G FR ####[facility] [place], [place] [address] CT HEAD W/O CONTRASTon 03-28 CT HEAD W/O CONTRAST Performed at [facility] APPROVED BY: Memo Sawyer MD BRAIN CT WITHOUT CONTRAST ENHANCEMENT Serial transverse images of the brain were obtained without contrast material. The study was performed beyond 24 hours of arrival to evaluate intracranial hemorrhage. CT Dose-Length Product (DLP): 932 mGy*cmCT Dose Reduction Employed: 5 Serial images redemonstrate the presence of an acute subdural hematoma overlying the left cerebral convexity estimated to measure approximately 15-20 mm in maximal thickness. An acute interhemispheric subdural hematoma on the left is estimated to measure approximately 3-5 mm in maximal thickness. Bilateral acute tentorial subdural hematomas, with retrocerebellar extension on the right, are estimated to measure approximately 3-5 mm in maximal thickness. An acute ventral subdural hematoma at the level of the cervicomedullary junction is also estimated to measure approximately 3-5 mm in maximal thickness. Acute subarachnoid hemorrhage is again noted predominantly within cortical subarachnoid spaces. The overall size of the ventricular system is within normal limits. Shift of midline structures from the left to the right remains limited to approximately 3-5 mm. IMPRESSION: No evidence of interval rebleeding when compared with the most recent previous study from 03/26/17 as described above. Acute subdural and subarachnoid hemorrhage is again noted with mass effect limited to mild left to right midline shift. Normal [facility] Hemogram/Diffon 03-28-2017 Abs Immature Grans 0.03 thou/cmm Normal 0.00-0.05 [facility] Comment on above: Performed By: #### A MY ####[place] [address] Abs. Baso 0.02 thou/cmm Normal 0.01-0.08 [facility] Comment on above: Result Comment: [employer] r scanned; tech agrees with automated differential Performed By: #### A MY ####[place] [address] Abs. Mclennan 0.51 thou/cmm Normal 0.30-0.82 [facility] Comment on above: Performed By: #### A MY ####[place] [address] Abs. Neut 1.85 thou/cmm Normal 1.78-5.38 [facility] Comment on above: Performed By: #### A MY ####[place] [address] Basophils/100 WBC Auto (Bld) 0.6 % Normal [facility] Comment on above: Performed By: #### A MY ####[place] [address] Eosinophils 0.14 thou/cmm Normal 0.04-0.54 [facility] Comment on above: Performed By: #### A MY ####[facility] [place], [place] [address] Eosinophils/100 leukocytes 4.2 % Normal [facility] Comment on above: Performed By: #### A MY ####[address] [address] Immature Grans 0.90 % Normal [facility] Comment on above: Performed By: #### A MY ####[address] [address] Lymphocytes 0.82 thou/cmm Low 0.84-2.85 [facility] Comment on above: Performed By: #### A MY ####[address] [address] Lymphocytes/100 leukocytes 24.3 % Normal [facility] Comment on above: Performed By: #### A MY ####[address] [address] Monocytes/100 leukocytes 15.1 % Normal [facility] Comment on above: Performed By: #### A MY ####[address] [address] Seg Neutrophil 54.9 % Normal [facility] Comment on above: Performed By: #### A MY ####[address] [address] Erythrocyte distribution width Auto Ratio (RBC) 12.7 % Normal 11.6-14.4 [facility] Comment on above: Performed By: #### A MY ####[address] [address] Erythrocytes (RBC) 2.41 mil/cmm Low 4.63-6.08 [facility] Comment on above: Performed By: #### A MY ####[address] [address] Hematocrit (HCT) 25.4 % Low 40.1-51.0 [facility] Comment on above: Performed By: #### A MY ####[address] [address] Hemoglobin mass conc (Bld) 8.3 g/dL Low 13.7-17.5 [facility] Comment on above: Performed By: #### A MY ####[facility] [place] [address] MCH 34.4 pg High 25.7-32.2 [facility] Comment on above: Performed By: #### A MY ####[place] [address] MCHC mass conc (RBC) 32.7 % Normal 32.3-36.5 [facility] Comment on above: Performed By: #### A MY ####[place] [address] MCV 105.4 fL High 83.2-95.6 [facility] Comment on above: Performed By: #### A MY ####[place] [address] Platelet mean volume (PMV) 9.4 fL Normal 8.7-12.0 [facility] Comment on above: Performed By: #### A MY ####[place] [address] Platelets 106 thou/cmm Low 141-365 [facility] Comment on above: Performed By: #### A MY ####[place] [address] RDW SD 48.2 fl High 36.1-45.8 [facility] Comment on above: Performed By: #### A MY ####[place] [address] WBC (Leukocytes) 3.37 thou/cmm Low 4.23-9.07 [facility] Comment on above: Performed By: #### A MY ####[place] [address] MDRD GFRon 03-28-2017 eGFR (non-black) mL/min/{1.73_m2} Normal >60mL/m in/1 .73m2 [facility] Comment on above: Result Comment: If t he patient is , multiply the result by 1.210. Performed By: #### G FR ####[facility] [place] [address] Type and Screenon 03-28-2017 ABO group A Normal [facility] Comment on above: Performed By: #### G FR ####[facility] [place] [address] Antibody Screen Negative Normal [facility] Comment on above: Performed By: #### G FR ####[place] [address] Comment See Below Normal [facility] Comment on above: Result Comment: Scre en &/or Xmatch expires in 3 days at 12 midnight. Redrawpatient at that time. Performed By: #### G FR ####[place] [address] RH Type Positive Normal [facility] Comment on above: Performed By: #### G FR ####[place] [address] Basic Panelon 03-27-2017 Creatinine 0.71 mg/dL Normal 0.67-1.17 [facility] Comment on above: Performed By: #### A MY ####[place] [address] Calcium 7.9 mg/dL Low 8.5-10.1 [facility] Comment on above: Performed By: #### A MY ####[place] [address] Glucose mass conc 123 mg/dL High 70-99 [facility] Comment on above: Performed By: #### A MY ####[place] [address] Urea nitrogen 9 mg/dL Normal 7-18 [facility] Comment on above: Performed By: #### A MY ####[place] [address] Anion gap 10 mmol/L Normal 8-16 [facility] Comment on above: Performed By: #### A MY ####[place] [address] CO2 23 mmol/L Normal 21-32 [facility] Comment on above: Performed By: #### A MY ####[facility] [place] [address] Chloride 104 mmol/L Normal 98-107 [facility] Comment on above: Performed By: #### A MY ####[place] [address] Potassium molar conc 3.4 mmol/L Low 3.5-5.1 [facility] Comment on above: Performed By: #### A MY ####[place] [address] Sodium 134 mmol/L Low 136-145 [facility] Comment on above: Performed By: #### A MY ####[place] [address] Hemogram/Diffon 03-27-2017 Abs Immature Grans 0.04 thou/cmm Normal 0.00-0.05 [facility] Comment on above: Performed By: #### A MY ####[place] [address] Abs. Baso 0.02 thou/cmm Normal 0.01-0.08 [facility] Comment on above: Performed By: #### A MY ####[place] [address] Abs. Mclennan 0.52 thou/cmm Normal 0.30-0.82 [facility] Comment on above: Performed By: #### A MY ####[place] [address] Abs. Neut 2.70 thou/cmm Normal 1.78-5.38 [facility] Comment on above: Performed By: #### A MY ####[place] [address] Basophils/100 WBC Auto (Bld) 0.4 % Normal [facility] Comment on above: Performed By: #### A MY ####[place] [address] Eosinophils 0.14 thou/cmm Normal 0.04-0.54 [facility] Comment on above: Performed By: #### A MY ####[place] [address] Eosinophils/100 leukocytes 3.1 % Normal [facility] Comment on above: Performed By: #### A MY ####[place] [address] Erythrocyte distribution width Auto Ratio (RBC) 12.7 % Normal 11.6-14.4 [facility] Comment on above: Performed By: #### A MY ####[place] [address] Erythrocytes (RBC) 2.52 mil/cmm Low 4.63-6.08 [facility] Comment on above: Performed By: #### A MY ####[place] [address] Hematocrit (HCT) 25.8 % Low 40.1-51.0 [facility] Comment on above: Performed By: #### A MY ####[place] [address] Hemoglobin mass conc (Bld) 8.9 g/dL Low 13.7-17.5 [facility] Comment on above: Performed By: #### A MY ####[place] [address] Immature Grans 0.90 % Normal [facility] Comment on above: Performed By: #### A MY ####[place] [address] Lymphocytes 1.05 thou/cmm Normal 0.84-2.85 [facility] Comment on above: Performed By: #### A MY ####[place] [address] Lymphocytes/100 leukocytes 23.5 % Normal [facility] Comment on above: Performed By: #### A MY ####[place] [address] MCH 35.3 pg High 25.7-32.2 [facility] Comment on above: Performed By: #### A MY ####[address] [address] MCHC mass conc (RBC) 34.5 % Normal 32.3-36.5 [facility] Comment on above: Performed By: #### A MY ####[address] [address] MCV 102.4 fL High 83.2-95.6 [facility] Comment on above: Performed By: #### A MY ####[place] [address] Monocytes/100 leukocytes 11.6 % Normal [facility] Comment on above: Performed By: #### A MY ####[place] [address] Platelet mean volume (PMV) 9.6 fL Normal 8.7-12.0 [facility] Comment on above: Performed By: #### A MY ####[place] [address] Platelets 100 thou/cmm Low 141-365 [facility] Comment on above: Result Comment: [facility] tech agrees with platelet count Performed By: #### A MY ####[place] [address] RDW SD 47.8 fl High 36.1-45.8 [facility] Comment on above: Performed By: #### A MY ####[place] [address] Seg Neutrophil 60.5 % Normal [facility] Comment on above: Performed By: #### A MY ####[place] [address] WBC (Leukocytes) 4.47 thou/cmm Normal 4.23-9.07 [facility] Comment on above: Performed By: #### A MY ####[place] [address] MDRD GFRon 03-27-2017 eGFR (non-black) mL/min/{1.73_m2} Normal >60mL/m in/1 .73m2 [facility] Comment on above: Result Comment: If t he patient is , multiply the result by 1.210. Performed By: #### A MY ####[facility] [place] [address] Magnesium Bloodon 03-27-2017 Magnesium 2.0 mg/dL Normal 1.6-2.6 [facility] Comment on above: Performed By: #### A MY ####[place] [address] Phosphorus Bloodon 7 Phosphate 3.2 mg/dL Normal 2.5-4.9 [facility] Comment on above: Performed By: #### A MY ####[place] [address] Basic Panelon 03-26-2017 Creatinine 0.74 mg/dL Normal 0.67-1.17 [facility] Comment on above: Performed By: #### P 8 ####[place] [address] Anion gap 11 mmol/L Normal 8-16 [facility] Comment on above: Performed By: #### P 8 ####[place] [address] Calcium 7.9 mg/dL Low 8.5-10.1 [facility] Comment on above: Performed By: #### P 8 ####[place] [address] CO2 24 mmol/L Normal 21-32 [facility] Comment on above: Performed By: #### P 8 ####[place] [address] Glucose mass conc 116 mg/dL High 70-99 [facility] Comment on above: Performed By: #### P 8 ####[place] [address] Urea nitrogen 12 mg/dL Normal 7-18 [facility] Comment on above: Performed By: #### P 8 ####[place] [address] Chloride 106 mmol/L Normal 98-107 [facility] Comment on above: Performed By: #### P 8 ####[facility] [place], [place] [address] Potassium molar conc 3.6 mmol/L Normal 3.5-5.1 [facility] Comment on above: Performed By: #### P 8 ####[facility] [place], [place] [address] Sodium 137 mmol/L Normal 136-145 [facility] Comment on above: Performed By: #### P 8 ####[facility] [place], [place] [address] CT HEAD W/O CONTRASTon 03-26 CT HEAD W/O CONTRAST Performed at [facility] APPROVED BY: Memo Sawyer MD BRAIN CT WITHOUT CONTRAST ENHANCEMENT Serial transverse images of the brain were obtained without contrast material. The study was performed beyond 24 hours of arrival to evaluate intracranial hemorrhage. CT Dose-Length Product (DLP): 828 mGy*cmCT Dose Reduction Employed: 5 Serial images redemonstrate the presence of an acute subdural hematoma overlying the left cerebral convexity estimated to measure approximately 15-20 mm in maximal thickness. An acute interhemispheric subdural hematoma on the left is estimated to measure approximately 3-5 mm in maximal thickness. Bilateral acute tentorial subdural hematomas, with retrocerebellar extension on the right, are estimated to measure approximately 3-5 mm in maximal thickness. An acute ventral subdural hematoma at the level of the cervicomedullary junction is also estimated to measure approximately 3-5 mm in maximal thickness. Acute subarachnoid hemorrhage is again noted predominantly within cortical subarachnoid spaces. The overall size of the ventricular system is within normal limits. Shift of midline structures from the left to the right remains limited to approximately 3-5 mm. IMPRESSION: 1. Acute subdural hemorrhage as described above overlying the left cerebral convexity, within the interhemispheric fissure on the left, along the tentorium bilaterally with retrocerebellar extension on the right, as well as at the level of the cervicomedullary junction ventrally. 2. Acute posttraumatic subarachnoid hemorrhage as noted. 3. Mild left to right midline shift as described above. Normal [facility] Hemogram/Diffon 03-26-2017 Abs Immature Grans 0.03 thou/cmm Normal 0.00-0.05 [facility] Comment on above: Performed By: #### P 8 ####[facility] [place] [address] Abs. Baso 0.02 thou/cmm Normal 0.01-0.08 [facility] Comment on above: Performed By: #### P 8 ####[facility] [place] [address] Abs. Mclennan 0.41 thou/cmm Normal 0.30-0.82 [facility] Comment on above: Performed By: #### P 8 ####[place] [address] Abs. Neut 3.91 thou/cmm Normal 1.78-5.38 [facility] Comment on above: Performed By: #### P 8 ####[place] [address] Basophils/100 WBC Auto (Bld) 0.4 % Normal [facility] Comment on above: Performed By: #### P 8 ####[place] [address] Eosinophils 0.14 thou/cmm Normal 0.04-0.54 [facility] Comment on above: Performed By: #### P 8 ####[place] [address] Eosinophils/100 leukocytes 2.6 % Normal [facility] Comment on above: Performed By: #### P 8 ####[place] [address] Erythrocyte distribution width Auto Ratio (RBC) 13.3 % Normal 11.6-14.4 [facility] Comment on above: Performed By: #### P 8 ####[place] [address] Erythrocytes (RBC) 2.69 mil/cmm Low 4.63-6.08 [facility] Comment on above: Performed By: #### P 8 ####[place] [address] Hematocrit (HCT) 28.2 % Low 40.1-51.0 [facility] Comment on above: Performed By: #### P 8 ####[facility] [place] [address] Hemoglobin mass conc (Bld) 9.4 g/dL Low 13.7-17.5 [facility] Comment on above: Performed By: #### P 8 ####[place] [address] Immature Grans 0.60 % Normal [facility] Comment on above: Performed By: #### P 8 ####[facility] [place] [address] Lymphocytes 0.86 thou/cmm Normal 0.84-2.85 [facility] Comment on above: Performed By: #### P 8 ####[place] [address] Lymphocytes/100 leukocytes 16.0 % Normal [facility] Comment on above: Performed By: #### P 8 ####[place] [address] MCH 34.9 pg High 25.7-32.2 [facility] Comment on above: Performed By: #### P 8 ####[place] [address] MCHC mass conc (RBC) 33.3 % Normal 32.3-36.5 [facility] Comment on above: Performed By: #### P 8 ####[place] [address] MCV 104.8 fL High 83.2-95.6 [facility] Comment on above: Performed By: #### P 8 ####[place] [address] Monocytes/100 leukocytes 7.6 % Normal [facility] Comment on above: Performed By: #### P 8 ####[place] [address] Platelet mean volume (PMV) 9.6 fL Normal 8.7-12.0 [facility] Comment on above: Performed By: #### P 8 ####[place] [address] Platelets 104 thou/cmm Low 141-365 [facility] Comment on above: Result Comment: [facility] r scanned tech agrees with platelet count Performed By: #### P 8 ####[address] [address] RDW SD 51.3 fl High 36.1-45.8 [facility] Comment on above: Performed By: #### P 8 ####[address] [address] Seg Neutrophil 72.8 % Normal [facility] Comment on above: Performed By: #### P 8 ####[address] [address] WBC (Leukocytes) 5.37 thou/cmm Normal 4.23-9.07 [facility] Comment on above: Performed By: #### P 8 ####[address] [address] Hepatic Panelon 03-26-2017 Alkaline phosphatase (ALP) 52 U/L Normal 46-116 [facility] Comment on above: Performed By: #### A MY ####[address] [address] Bilirubin Ql (U) 0.9 mg/dL Normal 0.2-1.0 [facility] Comment on above: Performed By: #### A MY ####[address] [address] Protein 6.2 g/dL Low 6.4-8.2 [facility] Comment on above: Performed By: #### A MY ####[address] [address] Alanine aminotransferase (ALT) 38 U/L Normal 12-78 [facility] Comment on above: Performed By: #### A MY ####[address] [address] Aspartate aminotransferase (AST) 22 U/L Normal 9-37 [facility] Comment on above: Performed By: #### A MY ####[address] [address] Bilirubin (total) 0.29 mg/dL High 0.00-0.20 [facility] Comment on above: Performed By: #### A MY ####[place] [address] Albumin 3.1 g/dL Low 3.4-5.0 [facility] Comment on above: Performed By: #### A MY ####[address] [address] MDRD GFRon 03-26-2017 eGFR (non-black) mL/min/{1.73_m2} Normal >60mL/m in/1 .73m2 [facility] Comment on above: Result Comment: If t he patient is , multiply the result by 1.210. Performed By: #### A MY ####[place] [address] Magnesium Bloodon 03-26-2017 Magnesium 2.6 mg/dL Normal 1.6-2.6 [facility] Comment on above: Performed By: #### P 8 ####[place] [address] Phosphorus Bloodon 7 Phosphate 1.7 mg/dL Critically low 2.5-4.9 [facility] Comment on above: Performed By: #### A MY ####[place] [address] Basic Panelon 03-25-2017 Creatinine 0.69 mg/dL Normal 0.67-1.17 [facility] Comment on above: Performed By: #### P 8 ####[place] [address] Urea nitrogen 21 mg/dL High 7-18 [facility] Comment on above: Performed By: #### P 8 ####[place] [address] Anion gap 10 mmol/L Normal 8-16 [facility] Comment on above: Performed By: #### P 8 ####[address] [address] Calcium 7.9 mg/dL Low 8.5-10.1 [facility] Comment on above: Performed By: #### P 8 ####[facility] [place], [place] [address] CO2 23 mmol/L Normal 21-32 [facility] Comment on above: Performed By: #### P 8 ####[facility] [place], [place] [address] Glucose mass conc 139 mg/dL High 70-99 [facility] Comment on above: Performed By: #### P 8 ####[facility] [place] [address] Chloride 107 mmol/L Normal 98-107 [facility] Comment on above: Performed By: #### P 8 ####[facility] [place] [address] Potassium molar conc 3.6 mmol/L Normal 3.5-5.1 [facility] Comment on above: Performed By: #### P 8 ####[facility] [place] [address] Sodium 136 mmol/L Normal 136-145 [facility] Comment on above: Performed By: #### P 8 ####[facility] [place], [place] [address] CT HEAD W/O CONTRASTon 03-25 CT HEAD W/O CONTRAST Performed at [facility] APPROVED BY: Neo Sarkar MD EXAMINATION: CT BRAIN WITHOUT CONTRAST CLINICAL HISTORY: The patient is a 56-year-old male with traumatic subdural hematoma. TECHNIQUE: Routine CT scan of the brain without contrast. Serial axial unenhanced images were obtained from the vertex to the foramen magnum.M: [id number] CT Radiation dose: Integrated Dose-length product (DLP) for this visit = 828.43 mGy*cm.CT Dose Reduction Employed: No dose reduction techniques were required. COMPARISON: CT scan of the head from earlier on the same day at 1:30 AM RESULT: Post-operative change: Langdon are present over the left parietal scalp and underlying scalp hematoma and swelling is stable and unchanged. Acute change: No evidence of an acute infarct or other acute parenchymal process. Hemorrhage: The acute to subacute subdural hematoma over the left convexity is still present with some further layering of the hematoma with greater amounts of seroma anteriorly. It continues to have a focal inward convexity in the mid parietal area and at that level the thickness of the subdural has increased from 12 mm to 17 mm. The rest of the subdural hematoma has increased from 3 mm to 5 mm in thickness. There now is 2.7 mm of shift underneath the falx from left to right. In addition there is a component of subdural hematoma over each tentorium which is new since the previous exam. There also is a small subdural collection along the frontal interhemispheric fissure with the thickness of 4 mm which also is new from the earlier exam. There are small areas of subarachnoid hemorrhage over the right frontal and parietal convexities. There is effacement of the left parietal and posterior left frontal sulci. There is no significant transtentorial herniation. Mass effect / Mass lesion: There is no evidence of an additional intracranial mass or extraaxial fluid collection. Chronic change: None apparent. Ventricles: The ventricles are within normal limits of size and configuration for age. Paranasal sinuses and skull base: The visualized paranasal sinuses are clear. The skull base and imaged soft tissues are unremarkable. IMPRESSION: There is expansion of the left mid convexity subdural hematoma and there are new subdural hematomas over each tentorium and along the left side of the interhemispheric fissure. Overall mass effect has increased slightly with greater effacement of the sulci and 2.7 mm of subfalcine shift. There also is a small amount of posttraumatic subarachnoid hemorrhage on the right side which is relatively stable and unchanged from the earlier exam. These results were phoned to the [facility]IC unit on March 25, 2017 at 5:44 PM. Normal [facility] CT HEAD W/O CONTRAST Performed at [facility] APPROVED BY: Gregory Bishop MD EXAMINATION: CT BRAIN WITHOUT CONTRAST CLINICAL HISTORY: Trauma, history of subdural hematoma TECHNIQUE: Routine CT scan of the brain without contrast. Serial axial and coronal unenhanced images were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 &S ####[place] [address] RH Type Positive Normal [facility] Comment on above: Performed By: #### T &S ####[place] [address] Ur/Serum Drug Screenon 03-24 Acetaminophen mass conc <2.0 Low 10.0-30.0 A [facility] Comment on above: Performed By: #### D RUG3 ####[place] [address] Performed By: #### T &S ####[place] [address] Serum Alcohol < 3 Normal [facility] Comment on above: Performed By: #### T &S ####[place] [address] Performed By: #### D RUG3 ####[place] [address] Serum Salicylate 1.8 mg/dL Low 2.8-20.0 [facility] Comment on above: Performed By: #### D RUG3 ####[facility] [place] [address] Performed By: #### T &S ####[place] [address] Urinalysis Routineon 017 Ep Cells Urine 0.5 /hpf Normal 0.0-5.0 [facility] Comment on above: Performed By: #### U RIN2 ####[facility] [place] [address] Hyaline Cast 0.0 /lpf Normal 0.0-1.0 [facility] Comment on above: Performed By: #### U RIN2 ####[place] [address] Urine, bacteria in sediment NONE Normal None [facility] Comment on above: Performed By: #### U RIN2 ####[place] [address] Urine, erythrocytes in sediment by area 11.8 /[HPF] High 0.0-5.0 [facility] Comment on above: Performed By: #### U RIN2 ####[place] [address] Urine, leukocytes in sedmiment 0.9 /[HPF] Normal 0.0-5.0 [facility] Comment on above: Performed By: #### U RIN2 ####[place] [address] Bilirubin Urine Negative Normal Negative [facility] Comment on above: Performed By: #### U RIN2 ####[place] [address] Hemoglobin,Urine MODERATE Abnormal Negative [facility] Comment on above: Performed By: #### U RIN2 ####[place] [address] Ketone Urine TRACE Abnormal Negative [facility] Comment on above: Performed By: #### U RIN2 ####[place] [address] Nitrites Urine Negative Normal Negative [facility] Comment on above: Performed By: #### U RIN2 ####[place] [address] Protein Urine Negative Normal Negative [facility] Comment on above: Performed By: #### U RIN2 ####[place] [address] Specific [place], Ur 1.037 Abnormal 1.005-1.030 [facility] Comment on above: Performed By: #### U RIN2 ####[place] [address] Urine, appearance CLEAR Normal [facility] Comment on above: Performed By: #### U RIN2 ####[place] [address] Urine, color YELLOW Normal [facility] Comment on above: Performed By: #### U RIN2 ####[place] [address] Urine, glucose presence Negative Normal Negative A [facility] Comment on above: Performed By: #### U RIN2 ####[place] [address] Urine, pH 7.5 [pH] Normal 5.0-8.0 [facility] Comment on above: Performed By: #### U RIN2 ####[place] [address] Urobilinogen,Ur 1.0 EU/dL Normal 0.0-1.0 [facility] Comment on above: Performed By: #### U RIN2 ####[place] [address] WBC (Leukocytes) Negative Normal Negative [facility] Comment on above: Performed By: #### U RIN2 ####[place] [address] Urine Drug Screenon 03-24-20 17 Urine THC see below Normal Non-Detecte d [facility] Comment on above: Result Comment: Dete cted (unconfirmed) Urine Drug Cutoff LevelsUrine Amphetamine 500 ng/mLUrine Barbituate 200 ng/mLUrine Benzodiazepines 200 ng/mLUrine Cocaine 150 ng/mLUrine Phencyclidine (PCP) 25 ng/mLUrine Opiates 300 ng/mLUrine THC 50 ng/mLThe results of these analytes are unconfirmed and reportedqualitatively as detected or non-detected relative to the cutoff value.Detected results indicate the sample is likely to contain the analyte.Non-detected results indicate that either the sample does notcontain the analyte or it is present in concentrations belowthe cutoff level. This drug screen should be used for medical diagnosticpurposes only. Performed By: #### P T ####[place] [address] Urine Amphetamine Non-detected Normal Non-Detect e d [facility] Comment on above: Performed By: #### P T ####[place] [address] Urine Barbiturates Non-detected Normal Non-Detec te d [facility] Comment on above: Performed By: #### P T ####[place] [address] Urine Benzodiazepine Non-detected Normal Non-Det ecte d [facility] Comment on above: Performed By: #### P T ####[place] [address] Urine Cocaine Metab Non-detected Normal Non-Dete cte d [facility] Comment on above: Performed By: #### P T ####[place] [address] Urine Opiate Non-detected Normal Non-Detecte d [facility] Comment on above: Performed By: #### P T ####[place] [address] Urine PCP Non-detected Normal Non-Detecte d [facility] Comment on above: Performed By: #### P T ####[place] [address] Urine Alcohol NON-DETECTED Normal [facility] Comment on above: Result Comment: >or= 50 mg/dl ethyl alcohol is considered detected in urine. Performed By: #### P T ####[place] [address] Vital Signs Date Time Vital Sign Value Performing Clinician Khurram abreu 02-27-2025 15:04-0500 Body temperature 99.3 [degF] Caleb Bess MD Work Phone: [facility] 02-27-2025 15:04-0500 Diastolic blood pressure 73 mm[Hg] Caleb Bess MD Work Phone: [facility] 02-27-2025 15:04-0500 Heart rate 77 /min Caleb Bess MD Work Phone: [facility] 02-27-2025 15:04-0500 Respiratory rate 18 /min Caleb Bess MD Work Phone: [facility] 02-27-2025 15:04-0500 SaO2% (BldA) [Mass fraction] 92 % Caleb Bess MD Work Phone: [facility] 02-27-2025 15:04-0500 Systolic blood pressure 109 mm[Hg] Caleb Bess MD Work Phone: [facility] 02-26-2025 07:00-0500 Body mass index (BMI) [Ratio] 18.81 kg/m2 Caleb Bess MD Work Phone: [facility] 02-26-2025 07:00-0500 Body weight 60.33 kg Caleb Bess MD Work Phone: [facility] 02-23-2025 12:45-0400 Body height 179.1 cm Caleb Bess MD Work Phone: [facility] 06-23-2023 13:52-0500 Body height 179.1 cm Unique Updyke PA-C Work Phone: [facility] 06-23-2023 13:52-0500 Body mass index (BMI) [Ratio] 21.08 kg/m2 Unique Updyke PA-C Work Phone: [facility] 06-23-2023 13:52-0500 Body temperature 97.5 [degF] Unique Updyke PA-C Work Phone: [facility] 06-23-2023 13:52-0500 Body weight 67.59 kg Unique Updyke PA-C Work Phone: [facility] 06-23-2023 13:52-0500 Diastolic blood pressure 70 mm[Hg] Unique Updyke PA-C Work Phone: [facility] 06-23-2023 13:52-0500 Heart rate 59 /min Unique Updyke PA-C Work Phone: [facility] 06-23-2023 13:52-0500 SaO2% (BldA) [Mass fraction] 98 % Unique Updyke PA-C Work Phone: [facility] 06-23-2023 13:52-0500 Systolic blood pressure 110 mm[Hg] Revo Roundyke PA-C Work Phone: [facility] Encounters Encounter Date Encounter Type Care Provider Facility Start: 02-23-2025 End: 02-23-2025 Orders Only Sherman Castro MD Work Phone: [facility] above: Rectal cancer (HCC) (Primary Dx) Start: 02-14-2025 End: 02-27-2025 [facility] Start: 06-23-2023 End: 06-23-2023 Office outpatient visit 40 minutes Unique Updyke PA-C Work Phone: [facility] Comment on above: Right foot pain (Brooke andrés Dx); Edema of right foot; Osteomyelitis of finger of right hand (HCC); Streptococcal bacteremia Start: 06-21-2023 ambulatory Rosalind Almanzar OLS Facil [facility]y:[facility] Start: 06-14-2023 ambulatory Rosalind Almanzar OLS Facil ity:[facility] Start: 06-11-2023 ambulatory Rosalind Almanzar OLS Facil ity:[facility] Start: 06-07-2023 ambulatory Rosalind Almanzar OLS Facil ity:[facility] Start: 06-01-2023 ambulatory Rosalind Almanzar OLS Facil ity:[facility] Start: 05-31-2023 ambulatory Rosalind Almanzar OLS Facil ity:[facility] Start: 05-24-2023 ambulatory Rosalind Almanzar OLS Facil ity:[facility] Start: 05-18-2023 ambulatory Rosalind RIDER Facil ity:[facility] Start: 05-11-2023 Telephone encounter Stephanie MURCIA [facility] Comment on above: IV Medication (IV an tibiotic sheet_Updyke ); Orders (Updated IV antibiotic sheet) Start: 03-26-2023 Emergency department patient visit Facility:[facility] Start: 04-14-2017 Ambulatory JEB DELCID Facility :[facility] Start: 04-03-2017 Ambulatory UNKNOWN PROVIDER [facility] Start: 03-24-2017 End: 03-31-2017 Evaluation and management of inpatient NORMA Cardoza [facility] Facility:[facility] Start: 03-24-2017 End: 03-24-2017 Emergency department patient visit NORMA SAAVEDRA Facility:[facility] Start: 03-22-2017 Ambulatory Aviva Mckayyanisari [facility] Procedures Date Procedure Procedure Detail Performing Clinician Start: 02-27-2025 Comprehensive metabo lic panel Vika Angela MD Work Phone: Start: 02-26-2025 OXYGEN THERAPY Selina Marquez MD Work Phone: Start: 02-26-2025 Comprehensive metabo lic panel Vika Angela MD Work Phone: Start: 02-25-2025 OXYGEN THERAPY Selina Marquez MD Work Phone: Start: 02-25-2025 Comprehensive metabo lic panel Vika Angela MD Work Phone: Start: 02-24-2025 OXYGEN THERAPY Selina Marquez MD Work Phone: Start: 02-24-2025 OXYGEN THERAPY Selina Marquez MD Work Phone: Start: 02-24-2025 Drug tst prsmv instr mnt chem analyzers pr date Sherman Castro MD Work Phone: Start: 02-24-2025 Urnls dip stick/tabl et reagent auto microscopy Sherman Castro MD Work Phone: Start: 02-23-2025 Echo tthrc r-t 2d w/wom-mode compl spec&colr d Selina Marquez MD Work Phone: Start: 02-23-2025 Blood count complete auto&auto difrntl wbc Sam Walter MD Work Phone: Start: 02-23-2025 OXYGEN THERAPY Selina Marquez MD Work Phone: Start: 02-23-2025 Comprehensive metabo lic panel Sam Walter MD Work Phone: Start: 02-22-2025 Comprehensive metabo lic panel Sam Walter MD Work Phone: Start: 02-22-2025 OXYGEN THERAPY Selina Marquez MD Work Phone: Start: 02-21-2025 Comprehensive metabo lic panel Sam Walter MD Work Phone: Start: 02-20-2025 Ecg routine ecg w/le ast 12 lds trcg only w/o i&r Sam Walter MD Work Phone: Start: 02-20-2025 Comprehensive metabo lic panel Vika Angela MD Work Phone: Start: 02-20-2025 Manual Differential panel - Blood Jarod Elliott MD Work Phone: Start: 02-19-2025 Compatibility each u nit electronic Jarod Elliott MD Work Phone: Start: 02-19-2025 Comprehensive metabo lic panel Sherman Castro MD Work Phone: Start: 02-19-2025 Manual Differential panel - Blood Sherman Castro MD Work Phone: Start: 02-19-2025 Level iv surg pathol ogy gross&microscopic exam Sherman Castro MD Work Phone: Start: 02-19-2025 End: 02-19-2025 Laparoscopy surg colostomy/skn lvl cecostomy Sherman Castro MD Work Phone: Start: 02-19-2025 Compatibility each u nit electronic Juan Antonio Zhao HUNTER Work Phone: Start: 02-19-2025 End: 02-19-2025 TRANSFUSE RED BLOOD CELLS Sherman Castro MD Work Phone: Start: 02-19-2025 Antibody screen ROSALIND ALMANZAR Comment on above: Performed By: #### L [id number] ####Knot Borer: SLAVA WING ([phone])[facility] ([facility])[address] [place], [place] [id number] [place] [address] Start: 02-19-2025 Blood typing serolog ic rh (d) Jarod Elliott MD Work Phone: Start: 02-19-2025 Comprehensive metabo lic panel Vika Angela MD Work Phone: Start: 02-19-2025 Manual Differential panel - Blood Vika Angela MD Work Phone: Start: 02-18-2025 Comprehensive metabo lic panel Vika Angela MD Work Phone: Start: 02-17-2025 Comprehensive metabo lic panel Vika Angela MD Work Phone: Start: 02-17-2025 Manual Differential panel - Blood Vika Angela MD Work Phone: Start: 02-16-2025 Comprehensive metabo lic panel Vika Angela MD Work Phone: Start: 02-16-2025 Manual Differential panel - Blood Vika Angela MD Work Phone: Start: 02-15-2025 Ct abdomen & pelvis w/contrast material Gely Trejo PA Work Phone: Start: 02-15-2025 Comprehensive metabo lic panel Vika Angela MD Work Phone: Start: 02-14-2025 Iadna-dna/rna gi pth gn multiplex probe tq 04-19 Vika Angela MD Work Phone: Start: 02-14-2025 Inf agent det nuclei c acid clostridium amp probe Vika Angela MD Work Phone: Start: 02-14-2025 Assay of troponin quantitative Vika Angela MD Work Phone: Start: 02-14-2025 Assay of troponin quantitative Vika Angela MD Work Phone: Start: 02-14-2025 Comprehensive metabo lic panel Caleb Bess MD Work Phone: Start: 02-14-2025 Drug test def 1-7 classes Caleb Bess MD Work Phone: Start: 02-14-2025 Manual Differential panel - Blood Caleb Bess MD Work Phone: Start: 02-14-2025 SARS-CoV-2 (COVID-19 ) Ag [Presence] in Respiratory specimen by Rapid immunoassay Caleb Bess MD Work Phone: Start: 02-14-2025 Ecg routine ecg w/le ast 12 lds trcg only w/o i&r Caleb Bess MD Work Phone: Plan of Treatment Date Care Activity Detail Author Start: 2036 RSV Immunization for Adults (1 - 1-dose 75+ series) RSV Immunization for Adults (1 - 1-dose 75+ series) [facility] Start: 2036 [facility] Start: 05-07-2033 DTaP/Tdap/Td Vaccines (3 - Td or Tdap) DTaP/Tdap/Td Vaccines (3 - Td or Tdap) [facility] Start: 05-07-2033 [facility] Start: 08-16-2025 Depression Monitoring Depression Monitoring [facility] Start: 08-16-2025 [facility] Start: 12-25-2024 COVID-19 Vaccine ( season) COVID-19 Vaccine ( season) [facility] Start: 12-25-2024 Influenza vaccination Influenza Vaccine (#1) [facility] Start: 12-25-2024 [facility] Start: 06-23-2023 End: 06-23-2023 Patient encounter procedure 06/23/2023 2:00 PM EST Office Visit [facility] [address] [id number] Unique Moreno PA-C [address] [place] [address] [facility] Start: 12-25-2022 Influenza vaccination Influenza Vaccine (#1) [facility] Start: 2021 RSV Immunization aged 60 or older (1 - 1-dose 60+ series) RSV Immunization aged 60 or older (1 - 1-dose 60+ series) [facility] Start: 2011 Zoster Vaccines (1 of 2) Zoster Vaccines (1 of 2) [facility] Start: 2011 [facility] Start: 1980 Hepatitis A Vaccines (1 of 2 - Risk 2-dose series) Hepatitis A Vaccines (1 of 2 - Risk 2-dose series) [facility] Start: 1980 Pneumococcal Vaccine: 50+ Years (1 of 2 - PCV) Pneumococcal Vaccine: 50+ Years (1 of 2 - PCV) [facility] Start: 1980 [facility] Start: 1973 Depression Screening Depression Screening [facility] Start: 1967 Pneumococcal Vaccine: Pediatrics (0 to 5 Years) and At-Risk Patients (6 to 64 Years) (1 of 2 - PCV) Pneumococcal Vaccine: Pediatrics (0 to 5 Years) and At-Risk Patients (6 to 64 Years) (1 of 2 - PCV) [facility] Start: 1962 MMR Vaccines (1 of 1 - Standard series) MMR Vaccines (1 of 1 - Standard series) [facility] Start: 1962 [facility] Start: 1961 COVID-19 Vaccine (#1) COVID-19 Vaccine (#1) [facility] Start: [address] [facility] Start: 1961 Screening for malignant neoplasm of colon [facility] Immunizations Immunization Date Immunization Notes Care Provider Fa cility 05-07-2023 tetanus toxoid, redu elizabeth diphtheria toxoid, and acellular pertussis vaccine, adsorbed Stephanie Schuler LPN [facility] NEGATED: Highlighted row has not occurred!02-22-2025 influenza, injectable, madin cade canine kidney, preservative free Sherman Castro MD Work Phone: [facility] Comment on above: Deferred: Patient Re fused Payers Date Payer Category Payer Self-pay 2023 Medicaid 2023 Medicaid HMO [id number] 2017 Medicaid [id number] Social History Date Type Detail Facility Tobacco smoking status NHIS Smokes tobacc o daily [facility] Start: 2023 End: 02-23-2025 Alcohol intake Current drinker of alcohol (finding) [facility] Start: 05-08-2023 End: 02-23-[address] History of [address] [facility] Start: 05-08-2023 End: 02-23-2025 Humiliation, Afraid, Rape, and Kick questionnaire [HARK] [facility] Within the last year , have you been afraid of your partner or ex-partner? No [facility] How often to you hav e a drink containing alcohol? 2-3 time sa week [facility] How many standard dr inks containing alcohol do you have on a typical day? 3 or 4 [facility] How often do you hav e 6 or more drinks on 1 occasion? Weekly [facility] Start: 1960 Sex Assigned At Not on file S [facility] Start: 11-24-2021 Sex Male (finding) [facility] Marco loco Clinical Notes 05-11-2023 to 02-27-2025 Care Coordination - Unknown Case Management - 02/27/2025 2:46 PM ESTCare Coordination - Nestor Hui - 02/27/2025 2:43 PM ESTCare Coordination - LILIA Jones - 02/27/2025 2:22 PM EST Note Date & Type Note Facility 02-27-2025 Miscellaneous Notes Patient Choice Patient Name: DAVID DOAN Date of : 1960 All Providers Sent Referral Name: Jania Phone: [phone] Address: [address] [place] [address] [address] [place] [address] PER NOTIFICATION FROM [facility]: TRANSPORT UPDATE: The BLS Vehicle you requested for David Mclain in unit/room [facility] [id number] on 02/27/2025 is scheduled to arrive at 4:15pm EST! [facility] is handling this ride and you can contact them at . MARIO spoke to pt's brother Aguila Doan. Aguila has been notified of pt's discharge already. Aguila asked SW to ask the pt if there was anything he wanted saved from his house as the house is being condemned. MARIO met with the pt at the bedside to discuss his personal belongings in the house. Pt stated he wanted his bank card that is laying on a table underneath a lamp in the living room. Pt also wanted his model airplane, a guero barreto box, and guero barreto jackets that are all in the living room. Pt asked if he could have his walker off the front porch and a phone that is "somewhere in the house". MARIO left pt's brother Aguila a voicemail notifying him of the pt's requests. MARIO also left a voicemail for Ethan from [facility] to notify him of pt's discharge to [facility]. Confirmed pickup time of 1430 by transport [employer] at phone number [phone]. Location of facility drop off is [facility]. Facility notified via [facility], [facility] notified on secure chat. Transport requested 130pm in Roundtrip. Awaiting time confirmation. Discharge med list transmitted to [facility] via Careport per TCC request. Tasked to complete a 7000, but a PASSR was previously completed. TCC notified Discharge order noted. Precert approved for [facility] Alf [facility]. CHACHO complete. Tasked CUSTOM GRINDER to send discharge paperwork, complete 7000 and arrange ambulance transport. Left voicemail with patient's brother regarding transportation plan. Confirmed pickup time is 1430. Updated bedside RN with transport time. I was notified by TCC that patient will no be discharging, attempted to cancel transport in Roundtrip/ already canceled by Elementary Librarian Disch cancelled due to acute back pain. [employer] tasked to cancel the transport. LVM for pt's brother Aguila with update. [facility] notified of cancelled disch. Patient has been fairly adamant about not being ready to go today and wants to leave tomorrow. He says his pain is not controlled enough. Will hold DC today and plan on tomorrow. D/w ALEXANDRE Armendariz, Palliative Care and CM/TCC via secure chat Marcello SCHROEDER updated on 5pm crop picker time. Confirmed pickup time of 5pm by transport [employer]DAL[facility] at phone number [phone]. Location of facility drop off is [facility]. [facility], TCC notified on secure chat. Transport requested 4pm in Roundtrip. Awaiting time confirmation. Dr. Domingo said to disch today. Confirmed with that PASSR has been completed. CUSTOM GRINDER tasked to send the disch info and med rec to [facility] and to set up cot amb transportation for 4pm - await confirmation. Pt updated. LVM with pt's brother Aguila also. [facility]charge [facility] via [facility]port per TCC request. Care Management Progress Note Short Medical why still here: SNF placement Planned Discharge Disposition: Alf Facility Auth received for [facility]. MD notified via upad chat. Met with pt at bedside to provide update. Pt states he wants to wait til tomorrow AM because his back is hurting real bad - Dr. Angela notified. Pt informed of poss co-pay for Amb transport, verbalized understanding. Barriers/Today we still Wait: Facility pre-cert Length of Stay (Days): 10 GMLOS: No GMLOS Documented Care Management Progress Note Short Medical why still here: Remains on 4S for functional decline, failure to thrive, diarrhea, and bradycardia. S/p perforated rectal adenocarcinoma following rectal exam under anesthesia with biopsy and diverting loop sigmoid colostomy 02/19. Pending placement. Planned Discharge Disposition: Alf Facility ([facility]) Barriers/Today we still Wait: Clinical stability, Facility pre-cert Length of Stay (Days): 9 GMLOS: No GMLOS Documented CM following for auth. This CM added into CarePort to receive notifications on this referral. Checked CarePort to confirm - remains pending. Auth remains pending. CM will continue to follow. Care Management Progress Note Short Medical why still here: Remains on 4S for functional decline, failure to thrive, diarrhea, and bradycardia. S/p perforated rectal adenocarcinoma following rectal exam under anesthesia with biopsy and diverting loop sigmoid colostomy 02/19. Pending placement. Planned Discharge Disposition: Alf Facility ([facility]) Barriers/Today we still Wait: Clinical stability, Facility pre-cert Length of Stay (Days): 8 GMLOS: No GMLOS Documented CM tasked to follow patient through the weekend to assist with discharge needs. Chart reviewed. Expected Discharge, Rapid Rounding, and Discharge Milestones / Delays updated as appropriate. CM portion of CHACHO complete. Tasked to follow for auth to [facility]. Checked CarePort - remains pending. This CM added into CarePort to receive notifications on this referral. Checked CarePort to confirm no messages received - auth remains pending. MARIO met with pt at the bedside for HCPOA consult SW asked pt if he would like to fill out the HCPOA document. Pt declined stating he was in pain and would like to do it another time. SW left the HCPOA in the top drawer by the sink per pt's request. MARIO will follow up on Wednesday MARIO completed PASRR for [facility] MARIO notified CM and the facility in CarePort Care Management Progress Note Short Medical why still here: Chart reviewed. Patient remains on for treatment of perforated rectal mass s/p rectal exam with biopsy and diverting loop sigmoid colostomy 02/19/2025. Debility, failure to thrive. Severe malnutrition. Geriatrics and General Surgery following. Psych evaluated, patient does not require inpatient psychiatric admission. Planned Discharge Disposition: Alf [facility], [facility]. Requested [facility] to send recent therapies and updates to this facility. Requested facilities to start authorization today. TCC section of CHACHO completed. SW notified facility requesting PASS R in order to start authorization. Barriers/Today we still Wait: Administering IV medications, Clinical stability, Symptomatic control Length of Stay (Days): 7 GMLOS: No GMLOS Documented Tasked weekend team DP to follow. UPDATED NOTES TO [facility] via Careport per TCC request. Await review and response regarding ability to accept. TCC notified. Care Management Progress Note Short Medical why still here: s/p REUA and closostomy creation on 02/19/25. Bradycardia. IV fluids. Colostomy intact with bowel function. Ostomy teaching. Biopsy results pending. Patient is reporting a great deal of pain, using IV narcotics, refusing to work with therapy due to pain. IP CONSULT TO GERIATRICS IP CONSULT TO DIETITIAN IP CONSULT TO WOUND PREVENTION IP CONSULT TO PSYCHIATRY INPATIENT CONSULT TO WOUND CARE PROVIDERS IP CONSULT TO GENERAL SURGERY IP CONSULT TO PALLIATIVE CARE IP CONSULT TO CARDIOLOGY Planned Discharge Disposition: Alf Facility ([facility]) will need precert Barriers/Today we still Wait: Administering IV medications, Clinical stability, Symptomatic control Length of Stay (Days): 6 GMLOS: No GMLOS Documented senior care manager to follow for discharge planning. Care Management Progress Note Short Medical why still here: s/p REUA and closostomy creation on 02/19/25. Full liquid diet. IV fluids. Redman catheter. Ostomy teaching. Biopsy results pending. IP CONSULT TO GERIATRICS IP CONSULT TO DIETITIAN IP CONSULT TO WOUND PREVENTION INPATIENT CONSULT TO WOUND CARE PROVIDERS IP CONSULT TO PSYCHIATRY IP CONSULT TO GENERAL SURGERY IP CONSULT TO PALLIATIVE CARE IP CONSULT TO CARDIOLOGY Planned Discharge Disposition: Alf Facility ([facility]) will need precert. Requested OT order. Barriers/Today we still Wait: Administering IV medications, Clinical stability, Symptomatic control Length of Stay (Days): 5 GMLOS: No GMLOS Documented senior care manager to follow for discharge planning. While on unit asked to eval tele strip. Pt in sinus dysrhythmia. Rate as low as 35. Currently 86. BP stable. EKG sinus marsha. Secure chat sent to Dr. Jason Walter Care Management Progress Note Short Medical why still here: s/p REUA and closostomy creation on 02/19/25. Clear liquid diet. IV fluids. Redman catheter. Ostomy teaching. IP CONSULT TO GERIATRICS IP CONSULT TO DIETITIAN IP CONSULT TO WOUND PREVENTION INPATIENT CONSULT TO WOUND CARE PROVIDERS IP CONSULT TO PSYCHIATRY IP CONSULT TO GENERAL SURGERY IP CONSULT TO PALLIATIVE CARE Planned Discharge Disposition: Alf Facility ([facility]) will need precert Barriers/Today we still Wait: Administering IV medications, Clinical stability, Symptomatic control Length of Stay (Days): 4 GMLOS: No GMLOS Documented senior care manager to follow for discharge planning. Hicuups have resolved small amt bloody drng from sacral area Report to nurse on 4 south josefina pt resting quietly no family here to update to 4 south via bed Pt has hiccups dr egan feels its from surgical gas and will subside Images from the original note were not included. Date: 02/19/2025 PreOp Dx: Perforated Rectal Mass PostOp Dx: Same Procedure: 1) Rectal Exam Under Anesthesia with Biopsy 2) Diverting Loop Sigmoid Colostomy Surgical Procedure Classification: Surgical Procedure Classification [] Elective (EL) [x] Urgent (UR) [] Emergent (EM) [] Trauma (TR) Wound Classification: Surgical Wound Classification [] Class I/Clean (CL) [] Class II/Clean-Contaminated (CC) [] Class III/Contaminated (C) [x] ClassIV/Dirty-Infected (D) Complications: None Specimen(s): 1) Rectal Mass Biopsy Notes EBL: 25cc Transfusion: 1U PRBC Fluids: See anesthesia record Drains: none Redman: See anesthesia record Special Meds: Scheduled Augmentin, Ancef, TAP block Surgeon: Sherman Castro MD Assist: Amador Rivas SA Anesthesia: General Indications: This is a 64-year-old male who presented to hospital with failure to thrive and a large rectal mass. CT scan confirmed a large rectal mass without obvious distant disease. He had fecal incontinence related to the mass. The mass appeared perforated on CT scan. Given his worsening symptoms, it was recommended he undergo biopsy and stool diversion. Risks, benefits and alternatives to surgery were discussed with the patient and decision was made to proceed. Informed consent was obtained. Description of procedure: The patient was brought to the operative suite and placed in the supine position. General anesthesia was induced. A timeout was performed verifying the correct patient, procedure, site and positioning. The patient was then placed in lithotomy position and all bony prominences were padded. A Redman catheter was placed. A block was performed by the anesthesia team that is documented elsewhere. The abdomen is prepped and draped in a sterile fashion with chlorhexidine solution. The perineum was prepped and draped in a sterile fashion with Betadine solution. We began with a rectal exam under anesthesia. Digital rectal exam revealed a circumferential fungating rectal mass that extended from the anal verge proximally. No normal tissue was palpated. The entire anal canal and rectal vault. Involved with disease. There was gross bloody mucus discharge. Sphincter tone was decreased. The portion of the mass that was external was sharply removed and sent to pathology for further evaluation. Bovie electrocautery was used for hemostasis. A Gelfoam gauze was placed in the rectal vault for additional hemostasis. All gowns, gloves and instruments were changed. We then proceeded with the laparoscopic loop sigmoid colostomy. An incision was made in the left upper quadrant at Leong's point. The Veress needle was inserted. The abdomen was insufflated to 15 mmHg. An optical trocar was then placed in the right upper quadrant under direct visualization. No obvious injuries were noted. The entry site of the needle was without injury. 2 additional trocars were then placed along the right lateral sidewall under direct visualization. A general abdominal survey was conducted. There was no obvious gross disease upon the liver or peritoneal surfaces. Within the pelvis there was noted to be some reactive ascites without additional disease. There was a highly redundant sigmoid colon that required no further mobilization. An ostomy site within the left lower quadrant was identified as an appropriate location for loop sigmoid colostomy. The skin and subcutaneous tissues were circumferentially divided down to the anterior fascia. Anterior rectus sheath was then divided using Bovie electrocautery with a cruciate incision. The rectus muscles were spread and the posterior sheath was divided in a similar fashion. The loop of sigmoid colon was then delivered through this ostomy site. We laparoscopically inspected to ensure no undue tension or torsion. The abdomen was then desufflated. Hemostasis was ensured. The trocar sites were then closed with 3-0 Vicryl and 4-0 Monocryl. Sterile Steri-Strips were then applied. The loop colostomy was then matured using 3-0 Vicryl sutures. An ostomy appliance was then applied. Patient tolerated the procedure well, was awoken from anesthesia and transferred to PACU in stable condition. All counts were correct. The Redman catheter remained in place with clear yellow urine. Pt refused pneumatic cuffs pre op Patient educated on importance of coughing/ deep breathing after surgery to reduce risk of pneumonia. Patient educated on importance of early mobility to reduce the risk of blood clots. Falls prevention information reviewed with patient. Post-operative pain control and ways to prevent constipation discussed with patient. Care Management Progress Note Short Medical why still here: plan for OR today for rectal mass. NPO. IV fluids. Planned Discharge Disposition: Alf Facility ([facility]) Barriers/Today we still Wait: Administering IV medications, Clinical stability, Symptomatic control, Procedure (comment) (plan for OR today) Length of Stay (Days): 3 GMLOS: No GMLOS Documented senior care manager to follow for discharge planning. Images from the original note were not included. [facility] Palliative Care Transitions of Care Note David Doan : 1960 ADMIT DATE: 02/14/2025 DISCHARGE DATE: 02/27/25 PRIMARY CARE PHYSICIAN: Rosalind Almanzar MD CODE STATUS: Full Code DISCHARGE DIAGNOSES: Principal Problem: Failure to thrive in adult Active Problems: Severe malnutrition (CMS/HCC) (HCC) Adult failure to thrive Declining functional status Depression Vitamin D deficiency At risk for delirium HOSPITAL COURSE: David Doan is a 64 y.o. male with PMH depression, HTN, anxiety, past alcohol use disorder (in remission), chronic back pain. He presented to ED due to weakness, functional decline, inability to care for self. He was recently seen at the MD in November 2024 for depression, low energy, impaired self-care where he was found with poor hygiene and fecal soiling retained capacity and insight. A welfare check was called & pt was found to be in deplorable living conditions, patient on couch covered in feces. Patient also reported rectal pain and some nausea without vomiting. CT c/a/p findings are most consistent with rectal malignancy with local perforation and suspect perirectal abscess. Palliative care consulted for goals of care. Severe PCM -dietitian following - albumin 1.7 - on regular diet, thin liquids Rectal abscess/mass/Concern for malignancy - General Surgery following--> reports that mass appears malignant -CT c/a/p--> Findings are most consistent with rectal malignancy with local perforation and suspect perirectal abscess. There is abnormal irregular soft tissue wall thickening for a long segment of the rectum with near occlusion of the lumen. There are locules of air with fluid surrounding the rectum near the anal rectal verge most concerning for perforation and/or abscess. Locules of air extend into the soft tissue of the medial left buttocks and into the tissues of the scrotum (gas-forming organism not excluded) -also seen on imaging are multiple lymph nodes surrounding the rectum concerning for metastatic lymph nodes - CEA 21.5 - patient S/P biopsy and Diverting Loop Sigmoid Colostomy by Dr. Castro on 02/19 Pain - likely due to combination of his chronic back pain along with pain from surgery - patient stated that in past he has followed with pain management doctors - patient on oxycodone 10mg q4h PRN by our team, used Oxycodone 10 mg po X 4 in last 24 hrs - patient continues to complain of back, abdominal pain , stated pain much better than yesterday - continue scheduled tylenol -increased Gabapentin to 400 mg TID - sent in script of Gabapentin, Oxycodone to [facility] Anxiety/Depression - psychiatry on case - [facility] started this admission - also on lorazepam 0.5 mg nightly prn Insomnia - patient on melatonin 5 mg nightly prn, patient stated that melatonin does not help - Remeron 7.5 mg HS nightly started 02/22, patient stated that helped with his sleep Debility -found at home alone, in deplorable condition--> APS and SW involved -PT/OT as able--> [facility] SNF[facility] + on [facility] panel 02/14/25 CODE STATUS DISCUSSIONS: -David Doan retains capacity for medical decision-making -NOK: pt has a brother Aguila and sister Olivia, has not spoken to either one in quite some time due to drifting apart, no HCPOA - per chart review, house is condemned and patient will not be able to return, SW following & [facility] involved (Ethan [phone]) - patient seen this am, was awake, alert, oriented X 3 when seen - patient continues to request for medical team not to call his siblings, did not complete HCPOA paperwork this admission - patient continues to have goal to continue all care, remain Full Code - Code status remains Full Code - patient's goal remains to get stronger, go to SNF for PT/OT - patient was discharged to [facility] today - patient's brother Aguila Doan was notified by social insurance analyst of the discharge SYMPTOM MANAGEMENT MEDICATIONS: Oxycodone 10 mg po every 4 hrs prn pain Gabapentin 400 mg BID Tylenol 1000 mg TID DISPOSITION: Skilled Rehab Facility FACILITY/HOME CARE AGENCY NAME: [facility] Follow up with [facility] Palliative on office to call patient. If appointment not scheduled, patient should be scheduled within 1-2 weeks. Reason for Outpatient/Home/ECF Palliative Care follow-up: Symptom management: specifically Pain Opiate Prescribing OARRS was reviewed and is supportive of the care plan. The qualifying diagnosis is cancer The patient is Palliative care patient The duration of opiate prescription is longer than 7 days because malignancy This patient requires opioid dosage greater than 30 oral morphine equivalents due to Advanced Malignancy and symptoms could not be controlled with non-opioid alternatives alone or with lower doses of opiates. Patient being rotated to a new opiate regimen no. Education was provided regarding 3 options for disposal of left over medication including drug take back programs, flushing appropriate medications down the toilet or household disposal. SIGNED: Joe Grant APRN - LEATHER ETCHER 02/17/2025, 10:00 AM Care Management Progress Note Short Medical why still here: failure to thrive, rectal mass. General surgery planning to do rectal exam under anesthesia and diverting loop colostomy on Wednesday. Planned Discharge Disposition: Alf Facility ([facility]) Barriers/Today we still Wait: Administering IV medications, Clinical stability, Director Of Finance recommendations (comment), Symptomatic control Length of Stay (Days): 0 GMLOS: No GMLOS Documented senior care manager to follow for discharge planning. SW met with the pt at the bedside to discuss his home. SW notified pt that his house is condemned and he will not be able to return. Pt asked SW where he would go. SW spoke to pt about SNF but asked if he would be willing to go LTC. Pt was agreeable to this and asked if [facility] would be able to provide LTC. MARIO spoke to CM about this and received conformation from [facility] via [employer]. Per [facility] Absolutely - patient has been with us before and we are happy to have him back short or ferry terminal agent should that be how this journey goes". SW will notify pt and Ethan from [facility]. Pt reported to SW that he could not get off or on the couch at home and became to ill to attend his doctor appointments. SW [facility] Pt stated no one had been out to the house. SW asked pt if he told anyone about how sick he was getting, pt responded "[facility]". Per pt his brother, Aguila lives in [place] and his sister, Olivia lives in [place]. Pt stated he has not spoken to either one in quite some time due to drifting apart. Pt stated he would not like to contact his family or have them see him until he gets better. SW will update Ethan from APS on Wednesday. MARIO called Ethan with [facility] [phone]. Ethan states they are still interested in pursing an emergency protection order on the pt but would like a full geriatrics capacity eval including cognitive testing. Ethan stated if this would take too many days pt is fine to discharge to SNF. Etahn spoke about the idea of a guardianship since pt has a history of repeating the same cycle of getting better, making bad decisions, ending up in a bad spot. Ethan asked about LTC options. MARIO will speak to pt today to see if LTC is something the pt would be interested in. MARIO will evaluate pt today and discuss options in rounds before calling Ethan back with an update. Referral placed to SNF- [facility] per TCC request. Await review and response regarding ability to accept. TCC notified. Care Managment Initial Assessment Date: 02/15/2025 Patient Name: David Doan : 1960 Patient Information Source of Information: Patient Cognition/Language: WFL - Within Functional Limits, Language Barrier (hard of hearing) Permission given to speak with patient resources representative/caregiver as indicated: Confirmation of Payer with patient/family: Yes Payer Name: [employer]ICA[employer] : Yes Confirmation of Primary Care Physician: [facility] Se[facility] in last 2 years?: Yes Primary Caregiver: Self If assistance needed, confirmed caregiver ready, willing and able to care for patient at discharge: No Confirmed with: Living Arrangements Current Residence: Apartment Number of Floors 1 Number of Entry Steps: 5 or more Bed/Bath Levels: Both first floor Facility: Facility Name: Plan to Return: Lives with: Alone Support Systems: Friends/neighbors Activities of Daily Living Ambulation: Independent (prior to current illness) Bathing/Dressing: Independent (prior to current illness) Elimination/Continence/Toileting: Independent (prior to current illness) Feeding: Independent (prior to current illness) Who Assists with Activities of Daily Living: Instrumental Activities of Daily Living Prescription Coverage: Yes Pharmacy Used: MD Medication Management: Independent Transportation/Shopping: (walks wherever he needs to go) Transportation Mode: Needs Assistance with Transportation at Discharge: Yes Meal Preparation: Independent (prior to current illness) Laundry/Cleaning: Independent (prior to current illness) Finances/Bill Paying: Independent (prior to current illness) Communication: Independent Types of Care Services/Equipment Utilized Care Services: Dialysis Type: NA Durable Medical Equipment: Walker Patient's Goal/Discharge Plan Patient expects to be discharged to: long term facility Discharge Planning Actions: Continue to follow Patient's Choice Rights and [employer] and Collaborative Relationships Disclosed as Indicated for Post-Acute Care: NA Interdisciplinary Team Engagement: Social Work Referral for: Additional Information: Spoke with patient at their bedside. Introduced self and role. Discussed discharge planning. Patient has health insurance and prescription coverage. Patient states they are independent at baseline but having difficulty since being ill. Patient walks wherever he needs to go and will need transportation at discharge. He has been to [facility] previously and would like to return at discharge. Tasked CUSTOM GRINDER to send referral in [facility]. Will await response. automation/controls manager will continue to follow for any discharge planning needs. Care Management Progress Note Short Medical why still here: failure to thrive, on IV fluids. Pressure ulcer. IP CONSULT TO GERIATRICS IP CONSULT TO DIETITIAN IP CONSULT TO WOUND PREVENTION INPATIENT CONSULT TO WOUND CARE PROVIDERS IP CONSULT TO PSYCHIATRY Planned Discharge Disposition: Alf Facility Barriers/Today we still Wait: Administering IV medications, Clinical stability, Symptomatic control Length of Stay (Days): 1 GMLOS: No GMLOS Documented senior care manager to follow for discharge planning. S/W, APS Call Call received from Ethan with [facility], . Ethan was in ED, I did meet him, patient brought in by boogie, in decon room. Ethan noted he did see the patient today at his home, the home was found to be in deplorable condition and patient was in deplorable condition. Patient emaciated, covered in feces. Ethan did show pictures of the home, clutter, trash, floor covered in used adult diapers, toliet was black. Per Ethan, the home will likely be condemned and APS is pursuing an Emergency Protection Order on the patient. Ethan noted the patient has a Brother, Aguila Doan [phone], Aguila knows the patient is at the Hospital per Ethan. I did briefly see the patient after his decon in ED hallway. Patient emaciated, dirt under his fingernails, poor dentition. The patient stated he wanted water, " I have not had any water in three days" patient stated he has " C-Diff" he stated he sees Dr. Gomes at [facility] and they provided him with Abx. EMS reported patient was Aox3 in transport. APS asked for geriatric eval or mental health eval. Limited history provided by APS. S/W to follow for APS involvement and placement. documented in this encounter [facility] 02-27-2025 Nurse Note Report called to Eun SCHROEDER at [facility]. Pt throughout shift refusing turns. Pt educated on importance of turns to help prevent bedsores and relieve pressure. Pt declined. Waffle mattress in place. Call light within reach. Patient cleaned this morning and still having stool coming from the rectal area. Will continue to monitor Patient refusing to have bed linens changed. Explained the importance of staying dry, patient verbalized understanding. Patient refusing to allow this nurse to draw his blood at present also patient refusing to allow this nurse to change his bed, stating I just dribbled. Explained that laying in urine would break down his skin patient verbalized understanding and denies questions at present. Notified Ryan Bennett NP about inflammation of stoma. Spoke with Dr. Michoacano Walter about blisters and sores to pt lip and side of tongue. Wound Care consulted for Pressure Injury Prevention. Pt's Aviva score= 14 on 02/20 Pt's pressure points assessed. Pt turned with max assist of 2 (this RN and Wound DAG SPRAYER) for posterior assessment. Pt's Heels, Back, Elbows, Occiput and ears all intact. Pt moved lower extremities well in the bed. Pressure injury noted to sacrum. See media tab for photo. Wound DAG SPRAYER group aware, DAG SPRAYER at bedside for concurrent skin assessment. Pt currently followed by Wound DAG SPRAYER group for wounds to bilateral buttocks (MASD) and bilateral groin (fungal dermatitis). For the above wound assessments and treatment plan, please see Wound/Ostomy DAG SPRAYER progress notes. Redman catheter in place. Pt resting on waffle mattress overlay. Prevention Measures in place, including: Bee sheet (obtained, at bedside) with pillows/wedges, Heels elevated off bed on pillows, Zinc/Moisture Barrier ointment (obtained, ET mix at bedside), Waffle chair cushion (obtain if out of bed to chair). Skin Care precaution order set in place. Dietitian consult in place. PT/OT consult in place. D/W nursing staff. Will continue to follow pt. Please secure chat for any questions or concerns. Luisana Whitten RN Wound Care arrived to pt's room for Aviva Prevention consult, but pt not in room at present time. Will return as time permits. Please secure chat for any questions or concerns. Luisana Whitten RN Pt c/o envela bed shaking him "like an earthquake" and stating it was causing him to be nauseous and making his buttocks hurt more. Pt insisted on being moved back to his "original bed". Wound team updated and patient returned to his previous bed. Patient refusing to add emergency contacts to chart. Per patient he doesn't want to be a "bother to anyone." Brother is noted in BOILER FITTER documentation earlier in the day as being aware patient is in hospital. documented in this encounter [facility] 02-27-2025 History of Present illness Narrative Images from the original note were not included. Speech-Language Pathology SPEECH LANGUAGE PATHOLOGY [facility] Dysphagia Treatment Note Patient Name: David Doan Evaluation Date: 02/27/2025 Date of : 1960 Admission Date: 02/14/2025 11:10 AM Age: 64 y.o. Room/Bed: B4468/B4468 A Subjective Patient alert and cooperative. Seen upright in bed, after repositioning. Pt was content with slouched position. Encourage more upright. Answers most basic questions with clear vocal quality, needed repetition as pt is very hard of hearing. Follows all, some basic commands, d/t hearing. No visitors at bedside. Spoke with RN Marcello who cleared pt for treatment. Current Diet: Dietary Orders (From admission, onward) Start Ordered 02/26/25 1134 Supplement:Lunch, Breakfast; Glucerna Shake Vanilla Until discontinued Question Answer Comment Frequency Lunch Frequency Breakfast Select supplement: Glucerna Shake Vanilla 02/26/25 1133 02/26/25 1035 Adult diet Regular; Low Fiber Diet effective now Question Answer Comment Diet type Regular Fiber: Low Fiber 02/26/25 1034 02/23/25 1215 Supplement:Lunch; Fruit Punch Desmond Until discontinued Question Answer Comment Frequency Lunch Select supplement: Fruit Punch Desmond 02/23/25 1214 Aspiration Precautions: - Upright positioning for all PO intake - Smaller bites/sips - Alternate solid and liquids Oxygen: Oxygen Therapy: None (Room air) "I am fine were I am" "Will you order my lunch?" Pain: Pt denies any current pain. PPE Worn: surgical mask, gown, gloves Objective & Assessment Dysphagia Treatment # of Activities: 1 Dysphagia Activity 1: Assess dietary tolerance. Pt without overt deficits reported with po intake. Appetite is good and pt is eating well. Asking for supplement. Mastication of fredo cracker is prompt with functional oral clearing. No overt deficits with s/s pharyngeal residuals, no throat clearing, no vocal changes. No concern of airway protection with bedside snack. Continue regular diet with thin liquids. Pt is on low fiber diet post surgery. Plan & Recommendations Plan: Recommend Regular solids and Thin liquids and meds as tolerated and the following precautions: - Upright positioning for all PO intake, Encourage - Small bites/sips - Alternate solid and liquids as needed Patient has achieved all acute care BOX SPINNER goals. Speech therapy to sign off at this time. D/C Recommendations: No follow up therapy recommended post discharge Education Education Given: swallowing strategies, diet recommendations Given To: patient Response: verbalizes understanding Goals Patient Stated Goal: "to have lunch" Encounter Problems Encounter Problems (Resolved) Swallowing Patient will tolerate the least restrictive diet consistency to allow for safe consumption of daily meals (Completed) Start: 02/26/25 Expected End: 03/05/25 Resolved: 02/27/25 Therapy Time BOX SPINNER Individual Minutes Time In: 1035 Time Out: 1045 Minutes: 10 MEGHAN Benavides Images from the original note were not included. Palliative Care Progress Note Chief Complaint: David Doan is a 64 y.o. male with chief complaint of weakness, functional decline, diarrhea Palliative care consulted for goals of care, symptom management Palliative Care is actively following. Assessment/Plan Goals of care -David Doan retains capacity for medical decision-making -NOK: pt has a brother Aguila and sister Olivia, has not spoken to either one in quite some time due to drifting apart, no HCPOA - per chart review, house is condemned and patient will not be able to return, SW following & [facility] involved (Ethan [phone]) - patient seen this am, was awake, alert, oriented X 3 when seen - patient continues to request for medical team not to call his siblings, did not complete HCPOA paperwork this admission - patient continues to have goal to continue all care, remain Full Code - Code status remains Full Code - patient's goal remains to get stronger, go to SNF for PT/OT - patient was discharged to [facility] today - patient's brother Aguila Doan was notified by social insurance analyst of the discharge Severe PCM -dietitian following - albumin 1.7 - on regular diet, thin liquids Rectal abscess/mass/Concern for malignancy - General Surgery following--> reports that mass appears malignant -CT c/a/p--> Findings are most consistent with rectal malignancy with local perforation and suspect perirectal abscess. There is abnormal irregular soft tissue wall thickening for a long segment of the rectum with near occlusion of the lumen. There are locules of air with fluid surrounding the rectum near the anal rectal verge most concerning for perforation and/or abscess. Locules of air extend into the soft tissue of the medial left buttocks and into the tissues of the scrotum (gas-forming organism not excluded) -also seen on imaging are multiple lymph nodes surrounding the rectum concerning for metastatic lymph nodes - CEA 21.5 - patient S/P biopsy and Diverting Loop Sigmoid Colostomy by Dr. Castro on 02/19 Pain - likely due to combination of his chronic back pain along with pain from surgery - patient stated that in past he has followed with pain management doctors - patient on oxycodone 10mg q4h PRN by our team, used Oxycodone 10 mg po X 4 in last 24 hrs - patient continues to complain of back, abdominal pain , stated pain much better than yesterday - continue scheduled tylenol -increased Gabapentin to 400 mg TID - sent in script of Gabapentin, Oxycodone to [facility] Anxiety/Depression - psychiatry on case - trintellix started this admission - also on lorazepam 0.5 mg nightly prn Insomnia - patient on melatonin 5 mg nightly prn, patient stated that melatonin does not help - Remeron 7.5 mg HS nightly started 02/22, patient stated that helped with his sleep Debility -found at home alone, in deplorable condition--> APS and SW involved -PT/OT as able--> rec SNF, patient discharged to [facility] - + on GI panel 02/14/25 Palliative Care Encounter -Code Status: Full Code - will continue to follow for ongoing monitoring of progression of Pain and Constipation as well as for appropriateness for hospice care due to Cancer - will continue to evaluate test results related to Cancer, medication effectiveness for Pain and Constipation, response to treatment of Cancer Total of 55 minutes spent on this encounter including Chart review, Patient visit and exam, Documentation in EHR, Care coordination, and Communicating with primary attending or other consultants. Discharge planning: Not ready for discharge due to uncontrolled symptoms Patient meets criteria for general inpatient hospice care: No Palliative Care IDT members involved: None Discussed the plan of care with the other interdisciplinary team (IDT) members of the Palliative Care and Hospice teams and Patient. Subjective: Subjective/Events David Doan is a 64 y.o. male admitted to [facility] for weakness, functional decline, diarrhea on 02/14/25. Patient seen and examined this afternoon. He was lying on bed. Patient continuous to complain of abdominal and back pain, stated pain was better than yesterday . Patient used Oxycodone 4 in last 24 hrs. Ostomy functioning well with stool in it. Palliative Care Assessments: Goals of care: Continue Current Management and Improve or Maintain Function/Quality of Life Advanced Directives: No Known Advance Directive Functional Assessment: PPS 30% bedbound; can't do any work/extensive disease; total care; reduced intake; full or drowsy or confusion Prognosis: depends upon goals of care and uncertain at this time Spiritual Assessment: No spiritual distress identified Bereavement and Grief: Grief Issues Not Identified PDMP/OARRS Reviewed: Yes-reviewed. 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 Irving Symptom Assessment Score Irving Score Pain Score (if non-verbal, add .FLACC below) 4 Tiredness Score 4 Nausea Score 0 Depression Score 0 Anxiety Score 0 Drowsiness Score 0 Anorexia Score (0= eating well, 10= not eating) 3 Wellbeing Score (10= worst sense of well-being) 4 Constipation 0 Dyspnea Score (0= no shortness of breath) 0 Family Meeting: Participants: patient Family meeting was held to discuss:Diagnosis and Prognosis, Goals of Care, Treatment Options, Symptom Management, Advanced Care Planning, and Prior Expressed Wishes Objective: BP 125/72 (BP Location: Right arm, Patient Position: Lying) Pulse 85 Temp 36.9 C (98.4 F) (Temporal) Resp 16 Ht 5' 10.5" (1.791 m) Wt 133 lb (60.3 kg) SpO2 96% BMI 18.81 kg/m Physical Exam Constitutional: Appearance: He is ill-appearing. HENT: Head: Normocephalic. Right Ear: External ear normal. Left Ear: External ear normal. Nose: Nose normal. Mouth/Throat: Mouth: Mucous membranes are moist. Eyes: General: No scleral icterus. Right eye: No discharge. Left eye: No discharge. Conjunctiva/sclera: Conjunctivae normal. Pupils: Pupils are equal, round, and reactive to light. Cardiovascular: Rate and Rhythm: Normal rate and regular rhythm. Pulses: Normal pulses. Heart sounds: Normal heart sounds. No murmur heard. Pulmonary: Effort: Pulmonary effort is normal. Breath sounds: Normal breath sounds. Abdominal: General: Abdomen is flat. Bowel sounds are normal. There is no distension. Palpations: Abdomen is soft. Comments: Ostomy present with liquid stool, gas Musculoskeletal: General: No swelling. Cervical back: Normal range of motion and neck supple. Right lower leg: No edema. Left lower leg: No edema. Skin: General: Skin is warm. Neurological: Mental Status: He is alert and oriented to person, place, and time. Motor: Weakness present. Psychiatric: Mood and Affect: Mood normal. Medication information: 24-hour PRN meds received: Oxycodone 10 mg po x 4 Results/Verification of Data Review Objective data reviewed (must include dates reviewed for labs, imaging reports and other specialty notes): - BMP, CBC, MAR, Vitals reviewed 02/27/25 Data in Support of Terminal Illness: Is patient hospice appropriate? TBD Brenda Phipps MD Images from the original note were not included. PHYSICAL THERAPY [facility] Treatment Note Name/MRN: David Doan ([id number]) Date of : 1960 Age: 64 y.o. Room/Bed: [facility] A Visit #: 2 out of 7 Discharge Recommendation: Alf Facility Equipment Needed: No Assessment Pt continues to make good overall progress towards established therapy goals this date. Remains limited by increase in pain, decreased strength, endurance, and exercise tolerance. Pt agreeable to bed exercises. Pt tolerated all activity well and gave good overall effort. Vitals noted WFL. Pt will continue to benefit from skilled therapy services during acute medical stay to improve upon presenting deficits prior to discharge SNF. Subjective Pt in bed agreeable to PT Per RN pt okay for therapy. Pt did not want to move at this time due to previously working with OT/ high pain levels. Pt was educated on the benefits of completing therapy/ increasing his activity. Pt agreeable to bed exercises at this time with increased encouragement. Pain: 0-10 pain scale: 8/10 Location: stomach/ back Medical Precautions: Enhanced Contact Proper PPE donned/doffed in accordance with facility standards. Fall Risk: Meza Fall Risk Score: 60 (Medium Risk) Meza Fall Risk Score: 60 (High Risk) Precautions/Restrictions: Lines/Drains/Airways: colostomy Overall Cognitive Status: WFL Family/Caregiver Present: none Objective Exercises 1 X 12 quad sets BLE 1 X 12 ankle pumps BLE 1 X 12 glute sets 1 X 12 SAQ BLE 1 X 12 adduction isometrics BLE 1 X 12 heel slides Pt was able to complete exercises correctly with cueing required. Exercises were completed in order to help increase pts independence, increase strength, increase activity tolerance, while decreasing fatigue making it safer for pt to be able to return home. Increased time required due to pain/ fatigue. Plan Continue acute PT per plan of care. Safety/Education Safety Safety Devices in place: All fall risk precautions in place, call light within reach, left in bed, nurse notified, and no alarms engaged upon entry Restraints: No Education Education Given To: patient Education Provided: PT Role, PT Goals, Plan of Care, Home Exercise Program, Discharge Recommendations, and Benefits of Increasing Activity Education Method: Verbal and Demonstration Barriers to Learning: None Education Outcome: Verbalized Understanding and Demonstrated Understanding Outcome Measures AM-PAC AM-PAC Inpatient Mobility Raw Score (No Stairs) : 9 JH-HLM JH-HLM Scale: Bed activity Goals Patient Stated Goal: To decrease pain Encounter Problems Encounter Problems (Active) Balance Patient will maintain dynamic standing balance for 4 minutes with CGA in order to demonstrate decreased risk of falling. (Not Addressed) Start: 02/15/25 Expected End: 02/28/25 Patient will maintain dynamic sitting balance for 5 minutes with modified independence in order to demonstrate improved postural control and prepare for out of bed mobility. (Not Addressed) Start: 02/15/25 Expected End: 02/28/25 Exercise Patient will complete lower extremity exercises for 3 sets / 10-15 reps in order to improve strength and activity tolerance for mobility. (Progressing) Start: 02/15/25 Expected End: 02/28/25 Mobility Patient will ambulate 50 feet with CGA and rolling walker in order to improve safety and independence with mobility. (Not Addressed) Start: 02/15/25 Expected End: 02/28/25 Patient will ascend and descend 7 stairs with rolling walker and CGA in order to safely negotiate home. (Not Addressed) Start: 02/15/25 Expected End: 02/28/25 Transfers Patient will perform bed mobility with modified independence in order to improve independence and prepare for out of bed mobility. (Not Addressed) Start: 02/15/25 Expected End: 02/28/25 Patient will complete functional transfer with rolling walker with CGA in order to prepare for ambulation. (Not Addressed) Start: 02/15/25 Expected End: 02/28/25 Therapy Time Individual Co-treatment Time In 1147 Time Out 1158 Minutes 11 Timed Code Treatment Minutes: 10 Minutes (ther ex X1) Eliana Ramirez PT Seen and examined. We just received authorization so will plan to discharge today to SNF. D/w pt and ALEXANDRE Armendariz, separately. Nutrition Assessment Type and Reason for Visit: Reassess Nutrition Recommendations/Plan: Suggest to continue Adult diet Regular; Low Fiber per surgery ,BOX SPINNER - has colostomy. Ordered lunch with patient- very BEAVER. Patient wants Glucerna shakes at meals as stating not getting- is in isolation(220 rebeca, 10 gm pro/serving) . Will continue Desmond at dinner(Desmond provides 90 kcals, 14 g amino acids, and 300 mg Vitamin C per packet serving) Please document PO intakes -diet and ONS-consistently in the flowsheet to better assess intake adequacy. Monitor labs, status, intakes,wts to reassess. Malnutrition Assessment: Malnutrition Status: Severe malnutrition Context: Social/Environmental Circumstances Findings of the 6 clinical characteristics of malnutrition: Energy Intake: 50% or less estimated energy requirements for 1 month or longer Weight Loss: Unable to assess Body Fat Loss: Severe body fat loss Buccal region, Triceps, Orbital Muscle Mass Loss: Severe muscle mass loss Temples (temporalis), Clavicles (pectoralis & deltoids), Thigh (quadraceps), Calf (gastrocnemius) Fluid Accumulation: No significant fluid accumulation Clarification Operator Strength: Not Performed Nutrition Assessment: 64 yo male admitted with perforated rectal mass and had diverting loop ileostomy 02/19/25- invasive ca - pe rmDAssessment S/P lap diverting colostomy 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 Hypoalbuminemia Bradycardia Anemia Failure to thrive Norovirus diarrhea Hypokalemia Hyponatremia Hyperglycemia Vit D deficiency Functional decline HTN Depression BPH Severe malnutrition Plan Continue to increase activity as able, alter diet, BOX SPINNER evaluation, continue to adjust pain control as appropriate, continue wound care, Geriatrics and Psychiatry and Palliative Care and Cardiology have seen, GS following, transfuse hb < 7, continue PT/OT, follow up labs, discharge planning, see orders Estimated Daily Nutrient Needs: Energy Requirements Based On: Kcal/kg Weight Used for Energy Requirements: Sylva Weight for Energy Calculation (kg): 77 kg Total Energy Requirements (kcals/day): 5740-8651(22-27 kcal/kg IBW) --> risk for re-feeding Weight Used for Protein Requirements: Sylva Weight in Kg Used for Protein Requirements: 77 kg Estimated Total Protein (g/day): 77-116 (1.0-1.5 g protein/kg IBW) Estimated Daily Total Fluid (ml/day): ~1900 mL/day or per MD Nutrition Related Findings: long nails., aviva 13, on vit d 2,miralax, remeron,+ colostomy,na 135, ca 7.9, alb 1.8,hgb 10,gfr >90, corrected ca 9.42, loose brown stool Wound Type: Multiple, Surgical Incision, Pressure Injury (mult incision, hip red,coccyx) Current Nutrition Therapies: Adult diet Regular; Low Fiber Current Oral Intake Average Meal Intake: 1-25%, 76-100%, 26-50% Average Supplements Intake: 51-75% Anthropometric Measures: Height: 179.1 cm (5' 10.5") Current Body Weight: 60.3 kg (133 lb) (02/26/25) Weight Source: Bed Scale Admission Body Weight: 59.9 kg (132 lb) (stated) Usual Body Weight: 59.6 kg (131 lb 6.4 oz) (11/30/24) % Weight Change (Calculated): 1.4 Sylva Body Weight (lbs) (Calculated): 169 lbs Sylva Body Weight (Kg) (Calculated): 77 kg % Sylva Body Weight (Calculated): 78.9 % BMI (kg/m2) (Calculated): 18.8 Weight Adjustment For: No Adjustment BMI Categories: Normal Weight (BMI 18.5-24.9) Nutrition Diagnosis: Severe malnutrition, In context of social or environmental circumstances related to inadequate protein-energy intake as evidenced by poor intake prior to admission, severe loss of subcutaneous fat, severe muscle loss Altered GI function related to altered GI structure as evidenced by (Rectal Exam Under Anesthesia with Biopsy, +Diverting Loop Sigmoid Colostomy creation on 02/19) Nutrition Interventions: Nutrition Education/Counseling: Education initiated (very [place]- doesn't understand diet) Coordination of Nutrition Care: Continue to monitor while inpatient Plan of Care discussed with: patient Goals: Previous Goal Met: Progressing toward Goal(s) Goals: PO intake 75% or greater, prior to discharge Nutrition Monitoring and Evaluation: Behavioral-Environmental Outcomes: Readiness for Change (doesnt know diet - to be placed) Food/Nutrient Intake Outcomes: Food and Nutrient Intake, Supplement Intake Physical Signs/Symptoms Outcomes: Biochemical Data, Chewing or Swallowing, GI Status, Nausea or Vomiting, Fluid Status or Edema, Hemodynamic Status, Meal Time Behavior, Nutrition Focused Physical Findings, Skin, Weight Discharge Planning: Continue current diet, Continue Oral Nutrition Supplement Andrés Richards RD Contact: *[phone] or secure chat Images from the original note were not included. Speech-Language Pathology SPEECH LANGUAGE PATHOLOGY [facility] Bedside Swallow Evaluation Patient Name: David Doan Evaluation Date: 02/26/2025 Date of : 1960 Admission Date: 02/14/2025 11:10 AM Age: 64 y.o. Room/Bed: [facility] A IMPRESSION: No s/s oropharyngeal dysphagia. No overt clinical s/s pulmonary compromise with PO. Risk factors for aspiration include weakness, poor po in past, ETOH, GI deficits; s/p surgery (need low fiber). RECOMMENDATION: Recommend Regular solids and Thin liquids and meds as tolerated and the following precautions: - Upright positioning for all PO intake - Smaller bites/sips - Alternate solid and liquids as needed Dysphagia NOMS: Level 6: Swallowing is safe, and individual eats and drinks independently and requires no more than minimal cueing. Individual usually self-cues when difficulty occurs. May need to avoid specific food items (e.g., popcorn) or require additional time (due to difficulty with mastication). Pt would benefit from skilled acute BOX SPINNER services to ensure patient tolerance of the recommended diet. Frequency: 3 days/wk for 1 week Barriers: Cooperation with self care Prognosis: fair-good for diet D/C Recommendations: No follow up therapy recommended post discharge suspected. Subjective Patient alert and cooperative. Seen upright in bed, after repositioning. Answers all basic questions with clear vocal quality. Follows all basic commands. No visitors at bedside. Spoke with RN Marcello who cleared pt to be evaluated. Dysphagia History: No history of BOX SPINNER services in EMR with retrospective chart review Baseline Diet: Regular diet at home, however poor po intake. Current Diet: Dietary Orders (From admission, onward) Start Ordered 02/26/25 1035 Adult diet Regular; Low Fiber Diet effective now Question Answer Comment Diet type Regular Fiber: Low Fiber 02/26/25 1034 02/23/25 1215 Supplement:Lunch; Fruit Punch Desmond Until discontinued Question Answer Comment Frequency Lunch Select supplement: Fruit Punch Desmond 02/23/25 1214 02/20/25 1407 Supplement:AM Snack, HS Snack; Glucerna Shake Vanilla Until discontinued Question Answer Comment Frequency AM Snack Frequency HS Snack Select supplement: Glucerna Shake Vanilla 02/20/25 1406 Tube Feeding: no Tracheostomy: no Recent Chest Xray/CT of Chest: No results found for this visit on 02/14/25. Oxygen: Oxygen Therapy: None (Room air) Past Medical History: Medical History[1] Past Surgical History: Surgical History[2] Admission Diagnosis: Patient Active Problem List Diagnosis Date Noted Declining functional status 02/16/2025 Depression 02/16/2025 Vitamin D deficiency 02/16/2025 At risk for delirium 02/16/2025 Severe malnutrition ([facility]) ([facility]) 02/15/2025 Adult failure to thrive 02/15/2025 Failure to thrive in adult 02/14/2025 Streptococcal bacteremia 06/23/2023 Right foot pain 06/23/2023 Severe alcohol use disorder ([facility]) 05/11/2023 Osteomyelitis of finger of right hand ([facility]) 05/07/2023 Rectal mass 02/14/2025 History of Present Illness: Reason for Admission: weakness/functional decline/diarrhea 64 y.o. male with past medical history below who presents with chief complaint listed above. He was brought in after a welfare check found him on his couch and covered in feces. He has not eating for a bit and is having significant weakness. He has been unable to care for himself. He says he has had diarrhea and had c diff recently but did not complete a course of treatment. He denies cp, sob, cough, n/v, f/c. No syncope. Will admit for further evaluation and management. Patient Complaint: "I want a prime rib" Pain: c/o pain in had, when attempt to clean it. Provided wipe to continue to self clean hands. (D/w RN and pt has deferred pt care) PPE Worn: surgical mask, gown, gloves Objective Bedside swallow eval completed. Oral Motor Mechanism Facial Movement (CN VII) - WFL Labial Structure/Function (CN VII) - WFL Lingual Structure/Function (CN XII) - WFL Velopharyngeal Structure/Function (CN X & XI) - Elevation with phonation Dentition - Some missing teeth Oral Hygiene: dried secretions, fair repair, set up for oral hygiene at conclusion of evaluation Swallowing Examination PO Trials - thin liquid, (straw) - puree, (teaspoon) - regular solids Oral Phase Patient presents with adequate oral receipt of each bolus. There is no anterior bolus loss. There is appropriate bolus containment for each tested texture in the oral cavity. Mastication appeared complete, organized, and timely. Oral transit time appears WFL. There is no oral residue. Pharyngeal Phase Hyolaryngeal excursion clinically appears adequate and timely per palpation. 1-2 swallows palpated per bolus, likely indicative of adequate pharyngeal clearance. No overt clinical s/s airway penetration as evidenced by no cough, no throat clear, and no change in vocal quality. Education Education Given: diet recommendations Given To: patient Response: verbalizes understanding Goals Patient Stated Goal: "to have Prime rib" "to get my diet changed by lunch." Encounter Problems Encounter Problems (Active) Swallowing Patient will tolerate the least restrictive diet consistency to allow for safe consumption of daily meals Start: 02/26/25 Expected End: 03/05/25 Therapy Time BOX SPINNER Individual Minutes Time In: 1018 Time Out: 1031 Minutes: 13 MEGHAN Benavides [1] Past Medical History: Diagnosis Date Depression Hypertension Prostate disease [2] Past Surgical History: Procedure Laterality Date AMPUTATION Right 2023 right partial index finger COLOSTOMY 02/19/2025 FEMUR SURGERY Right Images from the original note were not included. OCCUPATIONAL THERAPY [facility] Treatment Note Name/MRN: David Doan ([id number]) Date of : 1960 Age: 64 y.o. Room/Bed: B4468/B4468 A Visit #: 2 out of 7 Discharge Recommendation: Alf Facility Equipment Needed: No Prior Level of Function Prior Level of ADL Function: Independent Prior Level of Mobility: Independent; Device: Front wheeled walker Prior Level of Transfers: Independent Assessment Pt tolerated session fair, continues to be limited by pain and self limiting behaviors, likely fear based. Pt completed bed mobility at Mod A, lateral scooting at Max A, and rolling at Min A. Pt adamantly declined ADLs or attempts at STS. Pt is progressing with POC but is still below baseline and is a high fall risk. Pt would benefit from continued OT to improve activity tolerance, balance, and strength needed for improved occupational performance. Pt is recommended for SNF at D/C Subjective Pt supine in bed, agreeable to OT tx. Pain: [place] Pain Ratin = Hurts even more Pain Location: stomach and back Medical Precautions: Enhanced Contact Proper PPE donned/doffed in accordance with facility standards. Fall Risk: Meza Fall Risk Score: 60 (Medium Risk) Meza Fall Risk Score: 60 (High Risk) Precautions/Restrictions: Lines/Drains/Airways: colostomy Family/Caregiver Present: none Objective Bed Mobility Supine to sit: Mod Assist Sit to supine: Mod Assist Rolling to right: Min Assist Rolling to left: Min Assist Scooting: Max Assist HOB Elevated Use of bed rail(s) Pt completed supine to/from sit with HOB elevated and use of bed rails at Mod A. Pt ed on log rolling tech to aid in pain management, fair teachback. Pt attempted lateral scooting at EOB, completed x3 with heavy max A and use of draw pad. Pt rolled L<>R for draw pad replacement at Min A. Transfers/Mobility Sit to stand: Pt politely but adamantly declined attempting. Pt states if he tries he will fall straight to the floor, unable to encourage Sitting balance: SBA Pt sat EOB for ~12-14 mins at SBA. Pt required VC and tactile cues for improved posture and engagement of core. Pt c/o fatigue and light headedness, requests to return to supine. Device(s) used: None Cognition - Safety judgement: decreased awareness of need for assistance and decreased awareness of need for safety - Insights: decreased awareness of deficits Exceptions Plan Continue acute OT per plan of care. Safety/Education Safety Safety Devices in place: All fall risk precautions in place, call light within reach, left in bed, patient at risk for falls, nurse notified, and no alarms engaged upon entry Restraints: No Education Education Given To: patient Education Provided: OT Role, Plan of Care, Precautions, Transfer Training, Fall Prevention Education, and Discharge Recommendations Education Method: Verbal, Demonstration, and Teach Back Barriers to Learning: Cognition Education Outcome: Verbalized Understanding, Demonstrated Understanding, and Continued Education Needed AM-PAC AM-PAC Inpatient Daily Activity Raw Score: 12 ADL Inpatient CMS G-Code Modifier: CL Goals Patient Stated Goal: to control his pain. Encounter Problems Encounter Problems (Active) Balance Patient will maintain dynamic sitting balance for 3 minutes with modified independence in order to demonstrate improved postural control and prepare for out of bed mobility. (Progressing) Start: 02/22/25 Expected End: 03/04/25 Dressing Upper Extremities Patient will complete upper body dressing SBA (Not Addressed) Start: 02/22/25 Expected End: 03/04/25 Dressings Lower Extremities Patient will dress lower body MIN A (Not Addressed) Start: 02/22/25 Expected End: 03/04/25 Grooming Patient will complete daily grooming tasks SBA (Not Addressed) Start: 02/22/25 Expected End: 03/04/25 Mobility Patient will demonstrate functional mobility with MOD A and FWW (Not Addressed) Start: 02/22/25 Expected End: 03/04/25 Therapeutic Exercise Pt will demo good participation in BUE exercises to increase ROM And strength for participation in ADLS and transfers. (Not Addressed) Start: 02/22/25 Expected End: 03/04/25 Toileting Patient will complete toileting tasks at bedside commode with mod assist. (Not Addressed) Start: 02/22/25 Expected End: 03/04/25 Transfers Patient will complete functional transfer with rolling walker with mod assist in order to prepare for ambulation. (Not Addressed) Start: 02/22/25 Expected End: 03/04/25 Patient will perform bed mobility with modified independence in order to improve independence and prepare for out of bed mobility. (Progressing) Start: 02/22/25 Expected End: 03/04/25 Therapy Time Individual Co-treatment Time In 0847 Time Out 0906 Minutes 19 Timed Code Treatment Minutes: 19 Minutes (1 Ther act) JAYNE Adnerson Cosigned by Samuel Webb OT at 02/26/2025 3:51 PM EST Hospitalist Progress Note 02/26/2025 Subjective: Admit Date: 02/14/2025 PCP: Rosalind Almanzar MD Room#: [id number]/[id number] A Interval History: No cp, sob, cough, n/v, f/c. Tolerating diet. Still with moderate to severe pain at times in his back. Very weak. Case and plan discussed with patient and ALEXANDRE Armendariz, and BOX SPINNER all separately. All questions answered. Adult diet Dysphagia - Pureed; Low Fiber 24HR INTAKE/OUTPUT: Intake/Output Summary (Last 24 hours) at 02/26/2025 0910 Last data filed at 02/26/2025 0500 Gross per 24 hour Intake -- Output 1050 ml Net -1050 ml Past Medical History: Medical History[1] LABS: CBC: Recent Labs 02/25/25 0605 02/26/25 0232 WBC 10.7 8.9 RBC 3.76* 4.19* HGB 9.0* 10.0* HCT 29.5* 33.6* MCV 78.5 80.2 RDW 20.2* 20.7* PLT 352 350 BMP: Recent Labs 02/25/25 0605 02/26/25 0232 NA 136 135* K 4.2 4.0 CL 107 103 CO2 23 25 BUN 15 16 CREATININE 0.47* 0.56* GLUCOSE 104 109 CALCIUM 7.5* 7.9* ANIONGAP 6 7 LIVER PROFILE: Recent Labs 02/25/25 0605 02/26/25 0232 AST 13 15 ALT <6 <6 BILITOT 0.2 0.2 ALKPHOS 66 79 PROT 4.9* 5.8* PT/INR: No results for input(s): "PROTIME", "INR" in the last 72 hours. CARDIAC ENZYMES: No results for input(s): "TROPONINI" in the last 72 hours. Procalcitonin: No results found for: "PROCAL" COVID-19 PCR: No results for input(s): "COVID19" in the last 72 hours. Objective: Vitals: BP 123/75 Pulse 85 Temp 36.6 C (97.9 F) (Temporal) Resp 17 Ht 5' 10.5" (1.791 m) Wt 133 lb (60.3 kg) SpO2 99% BMI 18.81 kg/m Pulse Ox: SpO2 Av % Min: 93 % Max: 99 % Supplemental O2: O2 Flow Rate (L/min): 6 L/min Physical Exam Vitals and nursing note reviewed. Constitutional: General: He is not in acute distress. HENT: Head: Normocephalic and atraumatic. Eyes: Extraocular Movements: Extraocular movements intact. Pupils: Pupils are equal, round, and reactive to light. Cardiovascular: Rate and Rhythm: Normal rate and regular rhythm. Pulses: Normal pulses. Heart sounds: Murmur heard. Pulmonary: Effort: Pulmonary effort is normal. Breath sounds: Normal breath sounds. Abdominal: General: Bowel sounds are normal. There is no distension. Palpations: Abdomen is soft. Tenderness: There is no abdominal tenderness. Musculoskeletal: General: Normal range of motion. Cervical back: Neck supple. Skin: General: Skin is warm. Capillary Refill: Capillary refill takes less than 2 seconds. Findings: Lesion present. Neurological: General: No focal deficit present. Mental Status: He is alert and oriented to person, place, and time. Mental status is at baseline. Psychiatric: Mood and Affect: Mood normal. 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 Hypoalbuminemia Bradycardia Anemia Failure to thrive Norovirus diarrhea Hypokalemia Hyponatremia Hyperglycemia Vit D deficiency Functional decline HTN Depression BPH Severe malnutrition Plan BOX SPINNER has seen, diet adjusted, continue to increase activity as able, continue to adjust pain control as appropriate, continue wound care, GS and Geriatrics and Psychiatry and Palliative Care and Cardiology have seen, transfuse hb < 7, continue PT/OT, follow up labs, discharge planning, see orders - am labs, replace lytes prn - PT/OT/CM/SW - delirium precautions: increase activity - DVT prophylaxis: enoxaparin and encourage ambulation Advance Directive: Full Code Anticipated Discharge - Date - 02/26-02/27 - Location - Skilled Facility - Pending the following - authorization obtained Total time spent (which include face to face and non face to face encounters) : 45 minutes Toxic drug monitoring/narrow therapeutic index drug monitoring : # Drug name : lovenox # Route administered : subcutaneous # Method of monitoring : daily CBC Extended Emergency Contact Information Primary Emergency Contact: Aguila Doan Mobile Relation: Brother Preferred language: Portuguese Humidifier Maintenance Worker needed? No Vika Angela MD Division of Hospitalist Medicine [facility] [1] Past Medical History: Diagnosis Date Depression Hypertension Prostate disease [2] acetaminophen, 1,000 mg, Oral, q8h enoxaparin, 40 mg, SubCUTAneous, Daily ergocalciferol, 1.25 mg, Oral, Weekly gabapentin, 300 mg, Oral, TID influenza, 0.5 mL, IntraMUSCular, Prior to discharge miconazole, , Topical, BID mirtazapine, 7.5 mg, Oral, Nightly polyethylene glycol (PEG) 3350, 17 g, Oral, Daily sodium chloride 0.9%, 10 mL, IntraVENous, 2 times per day sodium chloride 0.9%, 10 mL, IntraVENous, 2 times per day stomahesive in petrolatum, , Topical, 3 times per day Vortioxetine HBr, 5 mg, Oral, Daily [3] PRN medications: acetaminophen, albuterol, diphenhydrAMINE OR diphenhydrAMINE, LORazepam, melatonin, miconazole, naloxone, ondansetron ODT OR ondansetron, ondansetron ODT OR ondansetron, [DISCONTINUED] oxyCODONE OR oxyCODONE, oxyCODONE OR [DISCONTINUED] oxyCODONE, perflutren protein A microsphere (Optison) 3 mL in sodium chloride (PF) 0.9 % 10 mL IV, polyethylene glycol (PEG) 3350, prochlorperazine, sodium chloride, sodium chloride, sodium chloride, sodium chloride, sodium chloride 0.9%, sodium chloride 0.9%, stomahesive in petrolatum [4] Images from the original note were not included. PHYSICAL THERAPY [facility] Name/MRN: David Doan ([id number]) Date: 02/25/2025 Pt is alert and oriented to where they can understand that therapy was being offered to them. Treatment was offered and patient refused. The reason stated by patient for refusal was back pain, abdominal pain. The therapist explained the proposed treatment, the expected benefits and outcome of the treatment and possible medical consequences/risks of refusal. Nurse notified of pt's refusal. Nahed Velasquez PT Hospitalist Progress Note 02/25/2025 Subjective: Admit Date: 02/14/2025 PCP: Rosalind Almanzar MD Room#: [id number]/[id number] A Interval History: Tolerating diet but would like it changed. Having continued back pain. Remains weak. No cp, sob, cough, n/v, f/c. Case and plan discussed with patient and ALEXANDRE Armendariz, separately. All questions answered. Adult diet Dysphagia - Pureed; Low Fiber 24HR INTAKE/OUTPUT: Intake/Output Summary (Last 24 hours) at 02/25/2025 1044 Last data filed at 02/25/2025 0847 Gross per 24 hour Intake -- Output 1000 ml Net -1000 ml Past Medical History: Medical History[1] LABS: CBC: Recent Labs 02/23/25 1004 02/25/25 0605 WBC 10.3 10.7 RBC 4.51 3.76* HGB 10.7* 9.0* HCT 35.8* 29.5* MCV 79.4 78.5 RDW 20.0* 20.2* PLT 371 352 BMP: Recent Labs 02/23/25 0556 02/25/25 0605 NA 135* 136 K 4.7 4.2 CL 105 107 CO2 24 23 BUN 14 15 CREATININE 0.55* 0.47* GLUCOSE 89 104 CALCIUM 7.3* 7.5* ANIONGAP 6 6 LIVER PROFILE: Recent Labs 02/23/25 0556 02/25/25 0605 AST 14 13 ALT <6 <6 BILITOT 0.2 0.2 ALKPHOS 70 66 PROT 5.0* 4.9* PT/INR: No results for input(s): "PROTIME", "INR" in the last 72 hours. CARDIAC ENZYMES: No results for input(s): "TROPONINI" in the last 72 hours. Procalcitonin: No results found for: "PROCAL" COVID-19 PCR: No results for input(s): "COVID19" in the last 72 hours. Objective: Vitals: BP 117/74 (BP Location: Right arm, Patient Position: Lying) Pulse 53 Temp 36.8 C (98.2 F) (Temporal) Resp 15 Ht 5' 10.5" (1.791 m) Wt 135 lb (61.2 kg) SpO2 98% BMI 19.10 kg/m Pulse Ox: SpO2 Av.5 % Min: 97 % Max: 98 % Supplemental O2: O2 Flow Rate (L/min): 6 L/min Physical Exam Vitals and nursing note reviewed. Constitutional: General: He is not in acute distress. Appearance: He is ill-appearing. HENT: Head: Normocephalic. Mouth/Throat: Mouth: Mucous membranes are dry. Eyes: Pupils: Pupils are equal, round, and reactive to light. Cardiovascular: Rate and Rhythm: Normal rate and regular rhythm. Pulses: Normal pulses. Heart sounds: Murmur heard. Pulmonary: Effort: Pulmonary effort is normal. Breath sounds: Normal breath sounds. Abdominal: General: Bowel sounds are normal. There is no distension. Palpations: Abdomen is soft. Tenderness: There is abdominal tenderness. There is no guarding. Musculoskeletal: Cervical back: Normal range of motion. Right lower leg: No edema. Left lower leg: No edema. Skin: General: Skin is dry. Capillary Refill: Capillary refill takes less than 2 seconds. Findings: Lesion present. Neurological: General: No focal deficit present. Mental Status: He is alert and oriented to person, place, and time. Mental status is at baseline. Psychiatric: Mood and Affect: Mood normal. 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 Hypoalbuminemia Bradycardia Anemia Failure to thrive Norovirus diarrhea Hypokalemia Hyponatremia Hyperglycemia Vit D deficiency Functional decline HTN Depression BPH Severe malnutrition Plan Continue to increase activity as able, alter diet, BOX SPINNER evaluation, continue to adjust pain control as appropriate, continue wound care, Geriatrics and Psychiatry and Palliative Care and Cardiology have seen, GS following, transfuse hb < 7, continue PT/OT, follow up labs, discharge planning, see orders - am labs, replace lytes prn - PT/OT/CM/SW - delirium precautions: increase activity - DVT prophylaxis: enoxaparin and encourage ambulation Advance Directive: Full Code Anticipated Discharge - Date - 02/26-02/27 - Location - Skilled Facility - Pending the following - clinical improvement, completion of work up, disposition finalization and when OK with consultants Total time spent (which include face to face and non face to face encounters) : 44 minutes Toxic drug monitoring/narrow therapeutic index drug monitoring : # Drug name : lovenox # Route administered : subcutaneous # Method of monitoring : daily CBC Extended Emergency Contact Information Primary Emergency Contact: Aguila Doan Mobile Relation: Brother Preferred language: Portuguese Humidifier Maintenance Worker needed? No Vika Angela MD Division of Hospitalist Medicine Acute care [facility] [1] Past Medical History: Diagnosis Date Depression Hypertension Prostate disease [2] acetaminophen, 1,000 mg, Oral, q8h [Held by provider] enoxaparin, 40 mg, SubCUTAneous, Daily ergocalciferol, 1.25 mg, Oral, Weekly gabapentin, 300 mg, Oral, TID influenza, 0.5 mL, IntraMUSCular, Prior to discharge miconazole, , Topical, BID mirtazapine, 7.5 mg, Oral, Nightly polyethylene glycol (PEG) 3350, 17 g, Oral, Daily sodium chloride 0.9%, 10 mL, IntraVENous, 2 times per day sodium chloride 0.9%, 10 mL, IntraVENous, 2 times per day stomahesive in petrolatum, , Topical, 3 times per day Vortioxetine HBr, 5 mg, Oral, Daily [3] PRN medications: acetaminophen, albuterol, diphenhydrAMINE OR diphenhydrAMINE, LORazepam, melatonin, miconazole, naloxone, ondansetron ODT OR ondansetron, ondansetron ODT OR ondansetron, oxyCODONE OR [DISCONTINUED] oxyCODONE, perflutren protein A microsphere (Optison) 3 mL in sodium chloride (PF) 0.9 % 10 mL IV, polyethylene glycol (PEG) 3350, prochlorperazine, sodium chloride, sodium chloride, sodium chloride, sodium chloride, sodium chloride 0.9%, sodium chloride 0.9%, stomahesive in petrolatum [4] Images from the original note were not included. OCCUPATIONAL THERAPY [facility] Name/MRN: David Doan ([id number]) Date: 02/25/2025 Pt is alert and oriented to where they can understand that therapy was being offered to them. Treatment was offered and patient refused. The reason stated by patient for refusal was being too tired and having back pain. The therapist explained the proposed treatment, the expected benefits and outcome of the treatment and possible medical consequences/risks of refusal. Pt given max encouragement and treatment options but adamantly declined JAYNE Anderson Cosigned by Samuel Webb OT at 02/25/2025 12:49 PM EST Hospitalist Progress Note 02/24/2025 Subjective: Admit Date: 02/14/2025 PCP: Rosalind Almanzar MD Room#: M3-868/A9-122 A Interval History: Still with pain. Tolerating diet. Very weak. No cp, sob, cough, n/v, f/c. Case and plan discussed with patient and ALEXANDRE Drake, separately. All questions answered. Adult diet Dysphagia - Pureed; Low Fiber 24HR INTAKE/OUTPUT: Intake/Output Summary (Last 24 hours) at 02/24/2025 1004 Last data filed at 02/23/20252036 Gross per 24 hour Intake 1440 ml Output 700 ml Net 740 ml Past Medical History: Medical History[1] LABS: CBC: Recent Labs 02/22/25 0342 02/23/25 1004 WBC 8.3 10.3 RBC 3.97* 4.51 HGB 9.3* 10.7* HCT 31.4* 35.8* MCV 79.1 79.4 RDW 18.6* 20.0* PLT 357 371 BMP: Recent Labs 02/22/25 0342 02/23/25 0556 NA 134* 135* K 4.9 4.7 CL 102 105 CO2 25 24 BUN 11 14 CREATININE 0.54* 0.55* GLUCOSE 95 89 CALCIUM 7.6* 7.3* ANIONGAP 7 6 LIVER PROFILE: Recent Labs 02/22/25 0342 02/23/25 0556 AST 14 14 ALT <6 <6 BILITOT 0.2 0.2 ALKPHOS 69 70 PROT 5.1* 5.0* PT/INR: No results for input(s): "PROTIME", "INR" in the last 72 hours. CARDIAC ENZYMES: No results for input(s): "TROPONINI" in the last 72 hours. Procalcitonin: No results found for: "PROCAL" COVID-19 PCR: No results for input(s): "COVID19" in the last 72 hours. Objective: Vitals: BP 127/81 Pulse 75 Temp 36.7 C (98.1 F) (Temporal) Resp 18 Ht 5' 10.5" (1.791 m) Wt 135 lb (61.2 kg) SpO2 97% BMI 19.10 kg/m Pulse Ox: SpO2 Av % Min: 97 % Max: 97 % Supplemental O2: O2 Flow Rate (L/min): 6 L/min Physical Exam Vitals and nursing note reviewed. Constitutional: General: He is not in acute distress. HENT: Head: Normocephalic and atraumatic. Eyes: Extraocular Movements: Extraocular movements intact. Pupils: Pupils are equal, round, and reactive to light. Cardiovascular: Rate and Rhythm: Normal rate and regular rhythm. Pulses: Normal pulses. Heart sounds: Murmur heard. Pulmonary: Effort: Pulmonary effort is normal. Breath sounds: Normal breath sounds. Abdominal: General: Bowel sounds are normal. There is no distension. Palpations: Abdomen is soft. Tenderness: There is abdominal tenderness. There is no guarding. Musculoskeletal: General: Normal range of motion. Cervical back: Neck supple. Skin: Capillary Refill: Capillary refill takes less than 2 seconds. Findings: Lesion present. Neurological: General: No focal deficit present. Mental Status: He is alert and oriented to person, place, and time. Mental status is at baseline. Psychiatric: Mood and Affect: Mood normal. 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 Hypoalbuminemia Bradycardia Anemia Failure to thrive Norovirus diarrhea Hypokalemia Hyponatremia Hyperglycemia Vit D deficiency Functional decline HTN Depression BPH Severe malnutrition Plan Continue to increase activity as able, continue wound care, Geriatrics and Psychiatry and Palliative Care and Cardiology have seen, GS following, transfuse hb < 7, continue PT/OT, follow up labs, discharge planning, see orders - am labs, replace lytes prn - PT/OT/CM/SW - delirium precautions: increase activity - DVT prophylaxis: enoxaparin and encourage ambulation Advance Directive: Full Code Anticipated Discharge - Date - 02/26-02/27 - Location - Skilled Facility - Pending the following - clinical improvement, completion of work up, disposition finalization and when OK with consultants Total time spent (which include face to face and non face to face encounters) : 45 minutes Toxic drug monitoring/narrow therapeutic index drug monitoring : # Drug name : lovenox # Route administered : subcutaneous # Method of monitoring : daily CBC Extended Emergency Contact Information Primary Emergency Contact: Aguila Doan Mobile Relation: Brother Preferred language: Portuguese Humidifier Maintenance Worker needed? No Vika Angela MD Division of Hospitalist Medicine Acute care [facility] [1] Past Medical History: Diagnosis Date Depression Hypertension Prostate disease [2] acetaminophen, 1,000 mg, Oral, q8h [Held by provider] enoxaparin, 40 mg, SubCUTAneous, Daily ergocalciferol, 1.25 mg, Oral, Weekly gabapentin, 300 mg, Oral, TID influenza, 0.5 mL, IntraMUSCular, Prior to discharge miconazole, , Topical, BID mirtazapine, 7.5 mg, Oral, Nightly polyethylene glycol (PEG) 3350, 17 g, Oral, Daily sodium chloride 0.9%, 10 mL, IntraVENous, 2 times per day sodium chloride 0.9%, 10 mL, IntraVENous, 2 times per day stomahesive in petrolatum, , Topical, 3 times per day Vortioxetine HBr, 5 mg, Oral, Daily [3] PRN medications: acetaminophen, albuterol, diphenhydrAMINE OR diphenhydrAMINE, LORazepam, melatonin, miconazole, naloxone, ondansetron ODT OR ondansetron, ondansetron ODT OR ondansetron, oxyCODONE OR [DISCONTINUED] oxyCODONE, perflutren protein A microsphere (Optison) 3 mL in sodium chloride (PF) 0.9 % 10 mL IV, polyethylene glycol (PEG) 3350, prochlorperazine, sodium chloride, sodium chloride, sodium chloride, sodium chloride, sodium chloride 0.9%, sodium chloride 0.9%, stomahesive in petrolatum [4] Spiritual Care Note [facility] Palliative Care Patient Name:David Doan Chief Complaint: Chief Complaint Patient presents with Failure To Thrive Pt arrives via EMS following a welfare check where pt was stuck on his couch and has not been able to eat or drink anything for a few days and cannot care for himself. Pt arrives with feces covering body and complaints of wound to his bottom. Reason for visit: Follow Up Services Provided To:patient Background and visit note: Attempted follow up visit. Patient was sleeping both times I came by to visit. No follow up needed. . Follow Up: PRN. Debriefed: with well digger team. Laurita Celis 02/23/25 Nutrition Assessment Type and Reason for Visit: Reassess Nutrition Recommendations/Plan: Continue diet as ordered Adult diet Dysphagia - Pureed; Low Fiber Continue Glucerna Shake bid as ordered. Per mnt will add Desmond daily for wound healing (90 kcals, 14 g amino acids, and 300 mg Vitamin C per packet serving) Please continue to record meal and supplement intakes in RN Flowsheets RD to monitor labs, weight, skin status/wound healing, PO intake, bowel function -follow up weekly Malnutrition Assessment: Malnutrition Status: Severe malnutrition Context: Social/Environmental Circumstances Nutrition Assessment: 64 y.o. male remains hospitalized for perforated rectal mass s/p rectal exam with biopsy and diverting loop sigmoid colostomy 02/19/2025. Surgery following pathology from biopsy consistent with invasive adenocarcinoma" plan for staging MRI pelvis at [facility] as outpatient. Debility, failure to thrive, +norovirus infection. Wound Care -following/Geriatrics/Psychiatry evaluated. Pt reports tolerating meals with good appetite/intake -confirmed per observation of tray in room. Discharge planning to SNF. Pt states he likes Glucerna Shake and is drinking as ordered. bed scale wt 154.6 lb ?accuracy based on prior bed scale wts Estimated Daily Nutrient Needs: Energy Requirements Based On: Kcal/kg Weight Used for Energy Requirements: Sylva Weight for Energy Calculation (kg): 77 kg Total Energy Requirements (kcals/day): 6065-7674(22-27 kcal/kg IBW) --> risk for re-feeding Weight Used for Protein Requirements: Sylva Weight in Kg Used for Protein Requirements: 77 kg Estimated Total Protein (g/day): 77-116 (1.0-1.5 g protein/kg IBW) Estimated Daily Total Fluid (ml/day): ~1900 mL/day or per MD Nutrition Related Findings: no edema. i/0 -650. loose stool per colostomy last record 140 mL 02/22/25, "liquid brown stool within the bag" today per Surgery notes bgluc 89, 117, 260, na 135, cr .55, ca 7.3, alb 1.6, Vit D < 4. no recent a1c. abx, Vit D, remeron, miralax. bed scale wt 154.6 lb (02/23) hard to interpret due to wide variance last wt 139 lb (02/21) Wound Type: Pressure Injury, Stage III, Moisture Associate Skin Damage, Surgical Incision (sacrum. Bilateral groins: fungal dermatitis. laparoscopic diverting loop sigmoid colostomy- clean, dry, no drainage, steri strips intact per Surgery.) Current Nutrition Therapies: Adult diet Dysphagia - Pureed; Low Fiber Current Oral Intake Average Meal Intake: 76-100% Average Supplements Intake: (pt appears to be drinking Glucerna based on empty bottle at bed side -intake records not avail) Anthropometric Measures: Height: 179.1 cm (5' 10.51") Current Body Weight: 60.5 kg (133 lb 4.8 oz) Weight Source: Bed Scale Admission Body Weight: 59.9 kg (132 lb) (stated) Usual Body Weight: 59.6 kg (131 lb 6.4 oz) (11/30/24) % Weight Change (Calculated): 1.4 Sylva Body Weight (lbs) (Calculated): 169 lbs Sylva Body Weight (Kg) (Calculated): 77 kg % Sylva Body Weight (Calculated): 78.9 % BMI (kg/m2) (Calculated): 18.8 Weight Adjustment For: No Adjustment BMI Categories: Normal Weight (BMI 18.5-24.9) Nutrition Diagnosis: Severe malnutrition, In context of social or environmental circumstances related to inadequate protein-energy intake as evidenced by poor intake prior to admission, severe loss of subcutaneous fat, severe muscle loss Altered GI function related to altered GI structure as evidenced by (Rectal Exam Under Anesthesia with Biopsy, +Diverting Loop Sigmoid Colostomy creation on 02/19) Nutrition Interventions: Nutrition Education/Counseling: Education not indicated Coordination of Nutrition Care: Continue to monitor while inpatient Plan of Care discussed with: Patient Goals: Previous Goal Met: Progressing toward Goal(s) Goals: PO intake 75% or greater, prior to discharge Nutrition Monitoring and Evaluation: Behavioral-Environmental Outcomes: None Identified, Knowledge or Skill Food/Nutrient Intake Outcomes: Food and Nutrient Intake, Supplement Intake Physical Signs/Symptoms Outcomes: Biochemical Data, Chewing or Swallowing, GI Status, Nausea or Vomiting, Fluid Status or Edema, Hemodynamic Status, Nutrition Focused Physical Findings, Skin, Weight Discharge Planning: Continue Oral Nutrition Supplement, Continue current diet Deirdre Torre RD Contact: *[phone] or via Secure Chat Images from the original note were not included. Attending Attestation [facility] - [facility] Physicians Surgery Patient Name: David Doan Date: 02/23/25 Patient seen and examined. Resting in bed. Worked with physical therapy. Tired. Tolerating diet. Ostomy functioning. Exam: Abdomen: Soft, nontender, nondistended, incisions clean, dry and intact, ostomy pink with gas and stool Assessment and Plan: 64 y.o. male postoperative day 4 status post rectal exam under anesthesia and laparoscopic diverting loop sigmoid colostomy Ostomy functioning, low fiber diet as tolerated Pathology results reveal adenocarcinoma consistent with perforated rectal cancer as seen on CT scan. CEA 21.5, will need MRI of the pelvis as outpatient to complete staging. Final Diagnosis RECTUM, MASS, EXCISION - INVASIVE ADENOCARCINOMA. Given the patient's failure to thrive and poor living conditions, decision making capacity and overall goals of care discussions are ongoing. Psychiatry and geriatrics following. Palliative care also following given advanced local malignancy. Care team in agreement with surgical plan. Patient has capacity to make own decisions per care team. However, will need continued assistance for goals of care discussions going forward. Has completed perioperative antibiotic course. Continue to wean narcotics as able, palliative managing pain control, continue MiraLAX for opioid induced ileus Functional decline-PT and OT following, recommending SNF at discharge, okay for discharge from surgical standpoint when appropriate from medical standpoint Anemia-multifactorial, acute on chronic secondary to rectal mass, perioperative blood loss, malnutrition and chronic comorbidities. Has received 2 units packed red blood cells this admission. Ostomy care following, will need ostomy bar removed prior to discharge This case had moderate medical decision making and case complexity with 35 minute total care time including chart review, care coordination and face to face encounter. The patient was seen and examined independently and relevant data reviewed by myself. A full chart review was performed. I personally interviewed the patient and performed an individual physical examination. In addition, I discussed the patient's condition and treatment options with them. I have also reviewed and agree with the past medical, family and social history and care plan unless otherwise noted. All of the patient's questions were answered. Sherman Castro MD General Surgery Pager #[phone] 11:43 AM 02/23/2025 Surgery Post Op Progress Note PATIENT NAME: David Doan TODAY'S DATE: 02/23/2025 SUBJECTIVE: General Surgery follow up on REUA and diverting colostomy. Overall doing well. Sore from PT this morning. No nausea or emesis. Abdominal incisional pain. NO acute events overnight. Pain controlled YES/NO: Yes Other Complaints YES/NO: No Flatus/BM/or Ostomy function YES/NO: Yes OBJECTIVE: VITALS: BP 139/83 (Patient Position: Lying) Pulse 63 Temp 36.9 C (98.5 F) (Temporal) Resp 20 Ht 5' 10.51" (1.791 m) Wt 139 lb 15.9 oz (63.5 kg) SpO2 98% BMI 19.80 kg/m INTAKE/OUTPUT: I/O last 3 completed shifts: In: - (0 mL/kg) Out: 790 (12.4 mL/kg) [Urine:650 (0.3 mL/kg/hr); Stool:140] Weight: 63.5 kg No intake/output data recorded. CONSTITUTIONAL: awake and alert ABDOMEN: soft, nontender, and nondistended INCISION: clean, dry, no drainage. Steri strips intact. Ostomy beefy red and edematous. Liquid brown stool within the bag. Data: CBC: Recent Labs 02/21/2530002/22/2534102/23/25 1004 WBC 9.3 8.3 10.3 HGB 9.7* 9.3* 10.7* HCT 32.9* 31.4* 35.8* PLT 362 357 371 BMP: Recent Labs 02/21/2530002/22/252 02/23/25 0556 NA 133* 134* 135* K 5.1 4.9 4.7 CL 103 102 105 CO2 27 25 24 BUN 8* 11 14 CREATININE 0.54* 0.54* 0.55* GLUCOSE 117* 95 89 Hepatic: Recent Labs 02/21/2530002/22/2534102/23/25 0556 AST 19 14 14 ALT <6 <6 <6 BILITOT 0.2 0.2 0.2 ALKPHOS 60 69 70 ASSESSMENT AND PLAN: Mr. Doan is a 64 y/o M who presented with rectal mass and failure to thrive. 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 Liquid stool within the bag - Lovenox continue to hold given known bleeding rectal mass - Continue daily miralax given narcotic use - PT/OT is consulted and did work with PT this morning and they are recommending SNF - Working on ongoing home going planning - Will need ostomy bar removed prior to discharge SUYAPA Tee CNP Images from the original note were not included. OCCUPATIONAL THERAPY [facility] Treatment Note Name/MRN: David Doan ([id number]) Date of : 1960 Age: 64 y.o. Room/Bed: [facility] A Visit #: 1 out of 7 visits Discharge Recommendation: Alf Facility Equipment Needed: No Prior Level of Function Prior Level of ADL Function: Independent Prior Level of Mobility: Independent; Device: Front wheeled walker Prior Level of Transfers: Independent Assessment Pt in the bed and is declining therapy initially. Pt offered to come later after getting pain medicine but pt wanting to "get it over with". Pt declines to sit EOB due to pain and having just done that with PT. Pt is overall min assist with UB bathing and dressing and combing his hair. Pt needs much encouragement for increased independence. Pt self limiting and does only the minimum he was asked to do. Pt rolls L<>R with SBA. Pt limited by pain, weakness and fatigue. OT recs SNF at discharge. Subjective Pt in the bed and states "Oh I can't sit up again, I just can't". GODOY offered to return later after pain pills but pt states he won't be able to sit up then either. Pain: Pt c/o pain but didn't state where or rate his pain. Asking about pain meds. RN tells this GODOY "not for another hour". GODOY passed this on to the pt. Medical Precautions: Enhanced Contact Proper PPE donned/doffed in accordance with facility standards. Fall Risk: Meza Fall Risk Score: 70 (Medium Risk) Meza Fall Risk Score: 70 (High Risk) Precautions/Restrictions: Lines/Drains/Airways: colostomy Family/Caregiver Present: none Objective ADLs Grooming: Min Assist UE Dressing: Min Assist UE Bathing: Min Assist Pt needing much encouragement for self care tasks. Declines mouth care. Pt states "I don't need to change my gown" and "I can't get that off" (Pt had food in his crews along side of his mouth and needs cues and encouragement to "try" to get the food off. Pt was able) Pt able to wash UB and apply deodorant but was not thorough. Does quickly due to being cold. Pt asking this GODOY to remove cap from his drink but self feeding not observed. Bed Mobility Rolling to right: SBA Rolling to left: SBA Pt declined to sit EOB and could not be encouraged. Transfers/Mobility Not attempted Device(s) used: NA Cognition Overall Cognitive Status: appears generally WFL, however increased self limiting behaviors noted throughout. Overall Orientation Status: Oriented x4 Plan Continue acute OT per plan of care. Safety/Education Safety Safety Devices in place: All fall risk precautions in place, call light within reach, and left in bed Restraints: N/A Education Education Given To: patient Education Provided: OT Role, Plan of Care, ADL Adaptive Strategies, and Benefits of Increasing Activity Education Method: Verbal, Demonstration, and Teach Back Barriers to Learning: None Education Outcome: Verbalized Understanding, Demonstrated Understanding, and Continued Education Needed AM-PAC AM-PAC Inpatient Daily Activity Raw Score: 12 ADL Inpatient CMS G-Code Modifier: CL Goals Patient Stated Goal: to control his pain. Encounter Problems Encounter Problems (Active) Balance Patient will maintain dynamic sitting balance for 3 minutes with modified independence in order to demonstrate improved postural control and prepare for out of bed mobility. (Not Addressed) Start: 02/22/25 Expected End: 03/04/25 Dressing Upper Extremities Patient will complete upper body dressing SBA (Progressing) Start: 02/22/25 Expected End: 03/04/25 Dressings Lower Extremities Patient will dress lower body MIN A (Not Addressed) Start: 02/22/25 Expected End: 03/04/25 Grooming Patient will complete daily grooming tasks SBA (Progressing) Start: 02/22/25 Expected End: 03/04/25 Mobility Patient will demonstrate functional mobility with MOD A and FWW (Not Addressed) Start: 02/22/25 Expected End: 03/04/25 Therapeutic Exercise Pt will demo good participation in BUE exercises to increase ROM And strength for participation in ADLS and transfers. (Not Addressed) Start: 02/22/25 Expected End: 03/04/25 Toileting Patient will complete toileting tasks at bedside commode with mod assist. (Not Addressed) Start: 02/22/25 Expected End: 03/04/25 Transfers Patient will complete functional transfer with rolling walker with mod assist in order to prepare for ambulation. (Not Addressed) Start: 02/22/25 Expected End: 03/04/25 Patient will perform bed mobility with modified independence in order to improve independence and prepare for out of bed mobility. (Progressing) Start: 02/22/25 Expected End: 03/04/25 Therapy Time Individual Co-treatment Time In 923 Time Out 0942 Minutes 18 Timed Code Treatment Minutes: 17 Minutes (adl) JAYNE Goodman Cosigned by Samuel Webb OT at 02/23/2025 4:04 PM EDT Images from the original note were not included. Palliative Care Progress Note Chief Complaint: David Doan is a 64 y.o. male with chief complaint of weakness, functional decline, diarrhea Palliative care consulted for goals of care, symptom management Palliative Care is actively following. Assessment/Plan Goals of care -David Doan retains capacity for medical decision-making -NOK: pt has a brother Aguila and sister Olivia, has not spoken to either one in quite some time due to drifting apart, no HCPOA - per chart review, house is condemned and patient will not be able to return, SW following & [place] [facility] involved (Ethan [phone]) - patient seen this am, was awake, alert, oriented X 3 when seen - patient continues to request for medical team not top call his siblings - patient continues to have goal to continue all care, remain Full Code - Code status remains Full Code - patient's goal remains to get stronger, go to SNF for PT/OT Severe PCM -dietitian following - albumin 1.7 - on pureed diet Rectal abscess/mass/Concern for malignancy - General Surgery following--> reports that mass appears malignant -CT c/a/p--> Findings are most consistent with rectal malignancy with local perforation and suspect perirectal abscess. There is abnormal irregular soft tissue wall thickening for a long segment of the rectum with near occlusion of the lumen. There are locules of air with fluid surrounding the rectum near the anal rectal verge most concerning for perforation and/or abscess. Locules of air extend into the soft tissue of the medial left buttocks and into the tissues of the scrotum (gas-forming organism not excluded) -also seen on imaging are multiple lymph nodes surrounding the rectum concerning for metastatic lymph nodes - CEA 21.5 - patient S/P biopsy and Diverting Loop Sigmoid Colostomy by Dr. Castro on 02/19 Pain - likely due to combination of his chronic back pain along with pain from surgery - patient stated that in past he has followed with pain management doctors - patient on oxycodone 5-10mg q4h PRN by our team, used Oxycodone 5 mg po X 2, 10 mg po X 2 in last 24 hrs - patient continues to complain of back, abdominal pain but not utilizing prn oxycodone - encouraged patient to liberalize use of Oxycocone - continue scheduled tylenol - will change Gabapentin to 300 mg TID - will continue to monitor pain closely and make adjustments in his medications as needed Anxiety/Depression - psychiatry on case - trintellix started this admission - also on lorazepam 0.5 mg nightly prn Insomnia - patient on melatonin 5 mg nightly prn, patient stated that melatonin does not help - Remeron 7.5 mg HS nightly started 02/22, patient stated that helped with his sleep Debility -found at home alone, in deplorable condition--> APS and SW involved -PT/OT as able--> rec SNF, plan for dc to [facility] Norovirus - + on GI panel 02/14/25 Palliative Care Encounter -Code Status: Full Code - will continue to follow for ongoing monitoring of progression of Pain and Constipation as well as for appropriateness for hospice care due to Cancer - will continue to evaluate test results related to Cancer, medication effectiveness for Pain and Constipation, response to treatment of Cancer Total of 55 minutes spent on this encounter including Chart review, Patient visit and exam, Documentation in EHR, Care coordination, and Communicating with primary attending or other consultants. Discharge planning: Not ready for discharge due to uncontrolled symptoms Patient meets criteria for general inpatient hospice care: No Palliative Care IDT members involved: None Discussed the plan of care with the other interdisciplinary team (IDT) members of the Palliative Care and Hospice teams and Patient. Subjective: Subjective/Events David Doan is a 64 y.o. male admitted to [facility] for weakness, functional decline, diarrhea on 02/14/25. Patient seen and examined this afternoon. He was lying on bed. Patient continuous to complain of abdominal and back pain. Patient not utilizing enough prn Oxycodone for pain. Ostomy functioning well with stool in it. Palliative Care Assessments: Goals of care: Continue Current Management and Improve or Maintain Function/Quality of Life Advanced Directives: No Known Advance Directive Functional Assessment: PPS 30% bedbound; can't do any work/extensive disease; total care; reduced intake; full or drowsy or confusion Prognosis: depends upon goals of care and uncertain at this time Spiritual Assessment: No spiritual distress identified Bereavement and Grief: Grief Issues Not Identified PDMP/OARRS Reviewed: Yes-reviewed. 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 Irving Symptom Assessment Score Irving Score Pain Score (if non-verbal, add .FLACC below) 4 Tiredness Score 4 Nausea Score 0 Depression Score 0 Anxiety Score 0 Drowsiness Score 0 Anorexia Score (0= eating well, 10= not eating) 3 Wellbeing Score (10= worst sense of well-being) 4 Constipation 0 Dyspnea Score (0= no shortness of breath) 0 Family Meeting: Participants: patient Family meeting was held to discuss:Diagnosis and Prognosis, Goals of Care, Treatment Options, Symptom Management, Advanced Care Planning, and Prior Expressed Wishes Objective: BP 139/83 (Patient Position: Lying) Pulse 63 Temp 36.9 C (98.5 F) (Temporal) Resp 20 Ht 5' 10.51" (1.791 m) Wt 139 lb 15.9 oz (63.5 kg) SpO2 98% BMI 19.80 kg/m Physical Exam Constitutional: Appearance: He is ill-appearing. HENT: Head: Normocephalic. Right Ear: External ear normal. Left Ear: External ear normal. Nose: Nose normal. Mouth/Throat: Mouth: Mucous membranes are moist. Eyes: General: No scleral icterus. Right eye: No discharge. Left eye: No discharge. Conjunctiva/sclera: Conjunctivae normal. Pupils: Pupils are equal, round, and reactive to light. Cardiovascular: Rate and Rhythm: Normal rate and regular rhythm. Pulses: Normal pulses. Heart sounds: Normal heart sounds. No murmur heard. Pulmonary: Effort: Pulmonary effort is normal. Breath sounds: Normal breath sounds. Abdominal: General: Abdomen is flat. Bowel sounds are normal. There is no distension. Palpations: Abdomen is soft. Comments: Ostomy present with liquid stool, gas Musculoskeletal: General: No swelling. Cervical back: Normal range of motion and neck supple. Right lower leg: No edema. Left lower leg: No edema. Skin: General: Skin is warm. Neurological: Mental Status: He is alert and oriented to person, place, and time. Motor: Weakness present. Psychiatric: Mood and Affect: Mood normal. Medication information: 24-hour PRN meds received: Oxycodone 10 mg po x 2, Oxycodone 5 mg po X 2 Results/Verification of Data Review Objective data reviewed (must include dates reviewed for labs, imaging reports and other specialty notes): - BMP, CBC, MAR, Vitals reviewed 02/23/25 Data in Support of Terminal Illness: Is patient hospice appropriate? TBD Brenda Phipps MD Hospitalist Progress Note 02/23/2025 Subjective: Admit Date: 02/14/2025 PCP: Rosalind Almanzar MD Room#: P5-031/A6-640 A BRIEF HOSPITAL COURSE: David Doan is a 64 y.o. male with history of HTN, prostate cancer, depression who presented to ED via EMS on 02/14/25 for failure to thrive after being found covered in feces and with sacral wounds. In ED, initial labs significant for Na 147, bicarb 20, albumin 2.3, WBC 9.9 wnl, Hb 9.6, CK 30 wnl, troponin negative, ethanol negative. Given IVF's in ED. Admitted for further evaluation and management. GI PCR (+) norovirus. C diff PCR negative. Geriatrics consulted/evaluated. General Surgery consulted/evaluated for diarrhea and rectal pain. Psych consulted/evaluated for depression. CT chest (02/15) with no acute intrathoracic process, but osteopenia. CT A/P (02/15) showed findings most consistent with rectal malignancy with local perforation and suspected perirectal abscess, abnormal irregular soft tissue wall thickening for a long segment of rectum with near occlusion of lumen, locules of air with fluid surrounding rectum near anal rectal verge most concerning for perforation and/or abscess, locules of air extending into soft tissue of medial left buttocks and into tissues of scrotum, multiple lymph nodes surrounding rectum concerning for metastatic lymph nodes, bilateral nephrolithiasis, no obstructive uropathy, prostate gland enlargement, vertebral body L2 compression fracture, changes of chronic pancreatitis. Elevated CEA 21.5. Palliative Care consulted/evaluated. Obtained rectal exam under anesthesia with biopsy as well as diverting loop sigmoid colostomy (02/19/25). Cardiology consulted/evaluated for bradycardia with intermittent HR 30-40s. PT/OT recommended SNF. Interval History: No overnight issue documented. Patient sitting in bed, Aox3, but hard of hearing. States that he is not doing well today and reports diffuse 7/10 pain today. Currently denies nausea, fever, chills, chest pain, SOB. Case and plan discussed with patient. Questions answered. Adult diet Dysphagia - Pureed; Low Fiber 24HR INTAKE/OUTPUT: Intake/Output Summary (Last 24 hours) at 02/23/2025 1231 Last data filed at 02/22/2025 1500 Gross per 24 hour Intake -- Output 200 ml Net -200 ml Past Medical History: Medical History[1] LABS: CBC: Recent Labs 02/21/25 03002/22/2534102/23/25 1004 WBC 9.3 8.3 10.3 RBC 4.22* 3.97* 4.51 HGB 9.7* 9.3* 10.7* HCT 32.9* 31.4* 35.8* MCV 78.0 79.1 79.4 RDW 18.6* 18.6* 20.0* PLT 362 357 371 BMP: Recent Labs 02/21/2530002/22/2534102/23/25 0556 NA 133* 134* 135* K 5.1 4.9 4.7 CL 103 102 105 CO2 27 25 24 BUN 8* 11 14 CREATININE 0.54* 0.54* 0.55* GLUCOSE 117* 95 89 CALCIUM 7.6* 7.6* 7.3* ANIONGAP 3 7 6 LIVER PROFILE: Recent Labs 02/21/2530002/22/2534102/23/25 0556 AST 19 14 14 ALT <6 <6 <6 BILITOT 0.2 0.2 0.2 ALKPHOS 60 69 70 PROT 5.2* 5.1* 5.0* PT/INR: No results for input(s): "PROTIME", "INR" in the last 72 hours. CARDIAC ENZYMES: No results for input(s): "TROPONINI" in the last 72 hours. Procalcitonin: No results found for: "PROCAL" COVID-19 PCR: No results for input(s): "COVID19" in the last 72 hours. Objective: Vitals: BP 139/83 (Patient Position: Lying) Pulse 63 Temp 36.9 C (98.5 F) (Temporal) Resp 20 Ht 5' 10.51" (1.791 m) Wt 139 lb 15.9 oz (63.5 kg) SpO2 98% BMI 19.80 kg/m Pulse Ox: SpO2 Av.5 % Min: 97 % Max: 98 % Supplemental O2: O2 Flow Rate (L/min): 6 L/min Physical Exam Constitutional: General: He is not in acute distress. HENT: Ears: Comments: Hard of hearing Eyes: Extraocular Movements: Extraocular movements intact. Cardiovascular: Rate and Rhythm: Normal rate and regular rhythm. Pulmonary: Effort: Pulmonary effort is normal. No respiratory distress. Abdominal: Palpations: Abdomen is soft. Comments: (+) Ostomy Skin: General: Skin is warm and dry. Neurological: Mental Status: He is alert and oriented to person, place, and time. Psychiatric: Mood and Affect: Mood is anxious. Medications: Scheduled PRN Scheduled Meds[2] PRN Meds[3] Continuous Continuous Meds[4] Assessment Acute, acute on chronic, unstable/uncontrolled chronic problems/diagnoses: # Failure to thrive # Norovirus infection - GI PCR (+) norovirus. C diff PCR negative. # Perforated rectal adenocarcinoma s/p rectal exam under anesthesia with biopsy and diverting loop sigmoid colostomy (02/19/25) - CT A/P (02/15) showed findings most consistent with rectal malignancy with local perforation and suspected perirectal abscess, abnormal irregular soft tissue wall thickening for a long segment of rectum with near occlusion of lumen, locules of air with fluid surrounding rectum near anal rectal verge most concerning for perforation and/or abscess, locules of air extending into soft tissue of medial left buttocks and into tissues of scrotum, multiple lymph nodes surrounding rectum concerning for metastatic lymph nodes, bilateral nephrolithiasis, no obstructive uropathy, prostate gland enlargement, vertebral body L2 compression fracture, changes of chronic pancreatitis. Elevated CEA 21.5. Biopsy (02/19): (+) Invasive adenocarcinoma. # Acute on chronic anemia # Bradycardia # Hyponatremia # Hypokalemia, improved # Hyperglycemia, improved # Functional decline # Debility # Severe malnutrition Stable chronic problems affecting care, new non-acute diagnoses: # HTN # Hx of prostate cancer # Depression, anxiety - Trintellix 5 mg daily Plan As a result of the above findings & factors, the following mgmt was pursued: - Geriatrics evaluated. Recs noted. - Psych evaluated. Noted patient does NOT require inpatient psychiatric admission. Recs noted. - Surgery following. Stated will need staging MRI pelvis which will have to be done at [facility] likely outpatient. Advised to continue Augmentin for 4 days post op. On Low fiber pureed diet. Consulted ostomy wound team. Recs noted. - On PO Augmentin day - PRN pain medications - Monitor H&H and transfuse PRN - Palliative Care following. Recs noted. - Cardiology evaluated. Noted that patient with asymptomatic bradycardia so will continue to monitor. Ordered TTE. Recs noted. - Wound care - Truckload Owner Operator evaluated - Continue supportive care - Continue chronic medications as able - PT/OT recommended SNF - TCC following for dispo planning - am labs, replace lytes prn - delirium precautions: limit nighttime disturbances - DVT prophylaxis: SCDs and encourage ambulation Advance Directive: Full Code Anticipated Discharge - Date - TBD - Location - TBD, SNF? - Pending the following - clinical course, building energy consultant recs, dispo planning Extended Emergency Contact Information Primary Emergency Contact: Aguila Doan Mobile Relation: Brother Preferred language: Portuguese Humidifier Maintenance Worker needed? No Sam Walter MD Division of Hospitalist Medicine [facility] [1] Past Medical History: Diagnosis Date Depression Hypertension Prostate disease [2] acetaminophen, 1,000 mg, Oral, q8h [Held by provider] enoxaparin, 40 mg, SubCUTAneous, Daily ergocalciferol, 1.25 mg, Oral, Weekly gabapentin, 300 mg, Oral, Nightly influenza, 0.5 mL, IntraMUSCular, Prior to discharge miconazole, , Topical, BID mirtazapine, 7.5 mg, Oral, Nightly polyethylene glycol (PEG) 3350, 17 g, Oral, Daily sodium chloride 0.9%, 10 mL, IntraVENous, 2 times per day sodium chloride 0.9%, 10 mL, IntraVENous, 2 times per day stomahesive in petrolatum, , Topical, 3 times per day Vortioxetine HBr, 5 mg, Oral, Daily [3] PRN medications: acetaminophen, albuterol, diphenhydrAMINE OR diphenhydrAMINE, LORazepam, melatonin, miconazole, naloxone, ondansetron ODT OR ondansetron, ondansetron ODT OR ondansetron, oxyCODONE OR [DISCONTINUED] oxyCODONE, perflutren protein A microsphere (Optison) 3 mL in sodium chloride (PF) 0.9 % 10 mL IV, polyethylene glycol (PEG) 3350, prochlorperazine, sodium chloride, sodium chloride, sodium chloride, sodium chloride, sodium chloride 0.9%, sodium chloride 0.9%, stomahesive in petrolatum [4] Images from the original note were not included. PHYSICAL THERAPY [facility] Treatment Note Name/MRN: David Doan ([id number]) Date of : 1960 Age: 64 y.o. Room/Bed: B4468/B4468 A Visit #: 1 out of 7 visits Discharge Recommendation: Alf Facility Equipment Needed: No Assessment Pt demonstrating decreased tolerance for activity secondary to pain. Pt requires cueing for technique to protect abdominal area as well as assist to complete transitions to sitting with limited tolerance for sitting. Pt will continue to benefit from current recommendation to further improve tolerance and functional mobility Subjective Pt agreeable to therapy. Observation tele and PIV intact, Ostomy intact Vitals Vitals Heart Rate: 63 Heart Rate Source: Monitor BP: 139/83 MAP (mmHg): 102 Patient Position: Lying Pain: 0-10 pain scale: 8/10 Location: abdomen Medical Precautions: Enhanced Contact Proper PPE donned/doffed in accordance with facility standards. Fall Risk: Meza Fall Risk Score: 70 (Medium Risk) Meza Fall Risk Score: 70 (High Risk) Precautions/Restrictions: Lines/Drains/Airways: colostomy Overall Cognitive Status: WFL Overall Orientation Status: Oriented x4 Family/Caregiver Present: none Objective Bed Mobility Supine to sit: Min Assist Sit to supine: Min Assist Pt cued for technique of log rolling with assist needed to scoot hips to EOB and assist with trunk elevation. Pt able to maintain sitting balance once upright with usage of Ue's to brace self. Pt tolerated sitting for 2 minutes before returning to supine with assist to elevate LE's and guide trunk. No reports of dizziness with positional changes but reports increased pain. Exercises Exercises Quad Sets: 1 set / 10 reps in supine B LE Gluteal Sets: 1 set / 10 reps in supine with weak contraction Ankle Pumps: 1 set / 10 reps in sitting B LE Comments: Exercises initiated to improve strength, activity tolerance and decreased pain for mobility with pt able to teach back with increased time and cueing needed to perform. Pt declined attempts for further exercises due to pain Plan Continue acute PT per plan of care. Safety/Education Safety Safety Devices in place: All fall risk precautions in place, call light within reach, left in bed, patient at risk for falls, and nurse notified Restraints: No Education Education Given To: patient Education Provided: PT Role, PT Goals, Plan of Care, Home Exercise Program, and Transfer Training Education Method: Verbal, Demonstration, and Teach Back Barriers to Learning: None Education Outcome: Continued Education Needed Outcome Measures AM-PAC AM-PAC Inpatient Mobility Raw Score (No Stairs) : 9 JH-HLM JH-HLM Scale: Sat at edge of bed Goals Patient Stated Goal: To have less pain Encounter Problems Encounter Problems (Active) Balance Patient will maintain dynamic standing balance for 4 minutes with CGA in order to demonstrate decreased risk of falling. (Not Addressed) Start: 02/15/25 Expected End: 02/28/25 Patient will maintain dynamic sitting balance for 5 minutes with modified independence in order to demonstrate improved postural control and prepare for out of bed mobility. (Progressing) Start: 02/15/25 Expected End: 02/28/25 Exercise Patient will complete lower extremity exercises for 3 sets / 10-15 reps in order to improve strength and activity tolerance for mobility. (Progressing) Start: 02/15/25 Expected End: 02/28/25 Mobility Patient will ambulate 50 feet with CGA and rolling walker in order to improve safety and independence with mobility. (Not Addressed) Start: 02/15/25 Expected End: 02/28/25 Patient will ascend and descend 7 stairs with rolling walker and CGA in order to safely negotiate home. (Not Addressed) Start: 02/15/25 Expected End: 02/28/25 Transfers Patient will perform bed mobility with modified independence in order to improve independence and prepare for out of bed mobility. (Progressing) Start: 02/15/25 Expected End: 02/28/25 Patient will complete functional transfer with rolling walker with CGA in order to prepare for ambulation. (Not Addressed) Start: 02/15/25 Expected End: 02/28/25 Therapy Time Individual Co-treatment Time In 0850 Time Out 0910 Minutes 20 Timed Code Treatment Minutes: 10 Minutes (ther act) Sharri Waterman SURVEY PROJECT MANAGER Cosigned by Eliana Ramirez PT at 02/26/2025 3:34 PM EST Images from the original note were not included. Palliative Care Progress Note Chief Complaint: David Doan is a 64 y.o. male with chief complaint of weakness, functional decline, diarrhea Palliative care consulted for goals of care, symptom management Palliative Care is actively following. Assessment/Plan Goals of care -David Doan retains capacity for medical decision-making -NOK: pt has a brother Aguila and sister Olivia, has not spoken to either one in quite some time due to drifting apart, no HCPOA -per chart review, house is condemned and patient will not be able to return, SW following & [place] APS involved (Ethan [phone]) - patient seen this am, was awake, alert, oriented X 3 when seen - discussed HCPOA, patient was open to signing HCPOA paperwork today - appreciate Geriatrics team CENTRAL SUPPLY ASSISTANT-LEATHER ETCHER Dina Suh evaluating today, per Dina patient has capacity for completing HCPOA paperwork - consulted social work team for assistance with HCPOA paperwork - Code status remains Full Code - patient's goal remains to get stronger, go to SNF for PT/OT Severe PCM -dietitian following - albumin 1.7 Rectal abscess/mass/Concern for malignancy - General Surgery following--> reports that mass appears malignant -CT c/a/p--> Findings are most consistent with rectal malignancy with local perforation and suspect perirectal abscess. There is abnormal irregular soft tissue wall thickening for a long segment of the rectum with near occlusion of the lumen. There are locules of air with fluid surrounding the rectum near the anal rectal verge most concerning for perforation and/or abscess. Locules of air extend into the soft tissue of the medial left buttocks and into the tissues of the scrotum (gas-forming organism not excluded) -also seen on imaging are multiple lymph nodes surrounding the rectum concerning for metastatic lymph nodes - CEA 21.5 - patient S/P biopsy and Diverting Loop Sigmoid Colostomy by Dr. Castro on 02/19 Pain - likely due to combination of his chronic back pain along with pain from surgery - patient stated that in past he has followed with pain management doctors - patient on oxycodone 5-10mg q4h PRN by our team, used Oxycodone 10 mg po X 4 in last 24 hrs - patient also remains on IV Morphine from surgical team, used 4 mg IV x 4 in last 24 hrs, patient stated that he prefers IV Morphine for pain control - extensive conversation with patient regarding using Oxycodone as it lasts longer and also for in preparation for discharge as nursing facilities would not be able to give pain medications, patient agreeable to stop Morphine after the conversation - will continue to monitor pain closely and make adjustments in his medications as needed Anxiety/Depression - psychiatry on case - trintellix started this admission - also on lorazepam 0.5 mg nightly prn Insomnia - patient on melatonin 5 mg nightly prn, patient stated that melatonin does not help and he has not slept for last 2 days - discussed with psychiatry team Gila Matos APRN - LEATHER ETCHER regarding using Remeron 7.5 mg nightly for insomnia, appreciate expert recommendations - started on Remeron 7.5 mg HS nightly Debility -found at home alone, in deplorable condition--> APS and SW involved -PT/OT as able--> rec SNF, plan [facility] dc to [facility] - + on GI panel 02/14/25 Palliative Care Encounter -Code Status: Full Code - will continue to follow for ongoing monitoring of progression of Pain and Constipation as well as for appropriateness for hospice care due to Cancer - will continue to evaluate test results related to Cancer, medication effectiveness for Pain and Constipation, response to treatment of Cancer Total of 55 minutes spent on this encounter including Chart review, Patient visit and exam, Documentation in EHR, Care coordination, and Communicating with primary attending or other consultants. Discharge planning: Not ready for discharge due to uncontrolled symptoms Patient meets criteria for general inpatient hospice care: No Palliative Care IDT members involved: None Discussed the plan of care with the other interdisciplinary team (IDT) members of the Palliative Care and Hospice teams and Patient. Subjective: Subjective/Events David Doan is a 64 y.o. male admitted to [facility] for weakness, functional decline, diarrhea on 02/14/25. Patient seen and examined this afternoon. He was lying on bed. Patient complained of abdominal and back pain when seen. Patient also complained of not being able to sleep for last 2 days. Denied any other complains. Palliative Care Assessments: Goals of care: Continue Current Management and Improve or Maintain Function/Quality of Life Advanced Directives: No Known Advance Directive Functional Assessment: PPS 30% bedbound; can't do any work/extensive disease; total care; reduced intake; full or drowsy or confusion Prognosis: depends upon goals of care and uncertain at this time Spiritual Assessment: No spiritual distress identified Bereavement and Grief: Grief Issues Not Identified PDMP/OARRS Reviewed: Yes-reviewed. 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 Irving Symptom Assessment Score Irving Score Pain Score (if non-verbal, add .FLACC below) 4 Tiredness Score 4 Nausea Score 0 Depression Score 0 Anxiety Score 0 Drowsiness Score 0 Anorexia Score (0= eating well, 10= not eating) 3 Wellbeing Score (10= worst sense of well-being) 4 Constipation 0 Dyspnea Score (0= no shortness of breath) 0 Family Meeting: Participants: patient Family meeting was held to discuss:Diagnosis and Prognosis, Goals of Care, Treatment Options, Symptom Management, Advanced Care Planning, and Prior Expressed Wishes Objective: BP 139/81 (BP Location: Right arm, Patient Position: Sitting) Pulse 73 Temp 36.1 C (96.9 F) (Temporal) Resp 19 Ht 5' 10.51" (1.791 m) Wt 139 lb 15.9 oz (63.5 kg) SpO2 97% BMI 19.80 kg/m Physical Exam Constitutional: Appearance: He is ill-appearing. HENT: Head: Normocephalic. Right Ear: External ear normal. Left Ear: External ear normal. Nose: Nose normal. Mouth/Throat: Mouth: Mucous membranes are moist. Eyes: General: No scleral icterus. Right eye: No discharge. Left eye: No discharge. Conjunctiva/sclera: Conjunctivae normal. Pupils: Pupils are equal, round, and reactive to light. Cardiovascular: Rate and Rhythm: Normal rate and regular rhythm. Pulses: Normal pulses. Heart sounds: Normal heart sounds. No murmur heard. Pulmonary: Effort: Pulmonary effort is normal. Breath sounds: Normal breath sounds. Abdominal: General: Abdomen is flat. Bowel sounds are normal. There is no distension. Palpations: Abdomen is soft. Musculoskeletal: General: No swelling. Cervical back: Normal range of motion and neck supple. Right lower leg: No edema. Left lower leg: No edema. Skin: General: Skin is warm. Neurological: Mental Status: He is alert and oriented to person, place, and time. Motor: Weakness present. Psychiatric: Mood and Affect: Mood normal. Medication information: 24-hour PRN meds received: Oxycodone 10 mg po x 4, Morphine 4 mg IV X 4, Melatonin 5 mg po X 1 Results/Verification of Data Review Objective data reviewed (must include dates reviewed for labs, imaging reports and other specialty notes): - BMP, CBC, MAR, Vitals reviewed 02/22/25 Data in Support of Terminal Illness: Is patient hospice appropriate? TBD Brenda Phipps MD Images from the original note were not included. OCCUPATIONAL THERAPY [facility] Initial Evaluation Name/MRN: David Doan ([id number]) Evaluation Date: 02/22/2025 Date of : 1960 Admission Date: 02/14/2025 11:10 AM Age: 64 y.o. Room/Bed: [facility] A Discharge Recommendation: Alf Facility Equipment Needed: No Assessment IMPRESSION: Pt in 02/16 with c/o weakness, functional decline, failure to thrive, and is s/p colostomy placement. Per chart review, he was previously IND for ADLS, functional transfers / mobility per pt report. He is currently SBA for minimal bed mobility, DEP for LB ADLS, and MIN - SBA for UB ADLS. He is limited by increased fatigue, weakness, and increased self limiting behaviors at this time. HE would benefit from skilled OT services. Recommend planned discharge for SNF at this time. Admitting Diagnosis: functional decline, failure to thrive, colostomy placement. Performance Deficits /Impairments: Increased Pain, Decreased Functional Mobility, Decreased ADL status, Decreased Strength, Decreased Endurance, Decreased Balance, and Decreased High Level IADLs Prognosis: Good Decision Making: Medium Complexity Subjective Agreeable to therapy evaluation with encouragement, OK to see per RN. Pain: 0-10 pain scale: 7/10 Location: ostomy site Past Medical History: Medical History[1] Past Surgical History: Surgical History[2] Admission Diagnosis: Patient Active Problem List Diagnosis Date Noted Declining functional status 02/16/2025 Depression 02/16/2025 Vitamin D deficiency 02/16/2025 At risk for delirium 02/16/2025 Severe malnutrition (CMS/HCC) ([facility]) 02/15/2025 Adult failure to thrive 02/15/2025 Failure to thrive in adult 02/14/2025 Streptococcal bacteremia 06/23/2023 Right foot pain 06/23/2023 Severe alcohol use disorder ([facility]) 05/11/2023 Osteomyelitis of finger of right hand ([facility]) 05/07/2023 Rectal mass 02/14/2025 Medical Precautions: Enhanced Contact Proper PPE donned/doffed in accordance with facility standards. Fall Risk: Meza Fall Risk Score: 70 (Medium Risk) Meza Fall Risk Score: 70 (High Risk) Precautions/Restrictions: Lines/Drains/Airways: colostomy Family/Caregiver Present: none Overall Cognitive Status: appears generally WFL, however increased self limiting behaviors noted throughout. Overall Orientation Status: Oriented x4 Social/Functional History Patient admitted from home. Lives With: Alone Type of Home: apartment Home Layout: Single Level Home Home Access: Stairs to Enter with Rails (# of stairs: 7) Bathroom Shower/Tub: Tub/Shower Combo Toilet: Standard Home Equipment: front wheeled walker Homemaking Responsibilities: Needs Assist Receives Help From: Neighbor Active Rn Orthopaedic: N/A Prior Level of Function Prior Level of ADL Function: Independent Prior Level of Mobility: Independent; Device: Front wheeled walker Prior Level of Transfers: Independent Information received from chart review, however per discussion with patient, his apartment has been condemned and he is unable to return. Objective ADLs Pt agreeable to very minimal activity at this time. Increased self limiting behaviors noted throughout. Pt with noted diminished functional reach and strength noted this date for participation in Adls. Pt noted to be completing feeding task without physical assist this date upon arrival, however reports that he did need assist from RN for set up prior to feeding. PT declines participation in further ADLs at this time. Bed Mobility Rolling to right: SBA Rolling to left: SBA Scooting: Mod Assist, x2 Person Assist HOB elevated, increased time required to complete. Denies dizziness with positional changes. Pt declined to attempt supine <> sit mobility this date, however agreeable to attempt rolling R / L with therapist. Able to complete x2 rolls each direction with SBA overall and cueing to engage BLE to increase pt independence and ease of completion. Pt required rest break between attempts 2/2 complaints of ostomy site pain. PT required MOD A x2 to scoot up in bed with increased reliance on draw pad. Increased education provided on importance of mobility to prevent further dysfunction, however pt continues to decline to attempt supine > sit mobility at this time. Transfers/Mobility N/T this date 2/2 pt decline. Device(s) used: None AM-PAC AM-PAC Inpatient Daily Activity Raw Score: 12 ADL Inpatient CMS G-Code Modifier: CL Plan Pt would benefit from skilled acute OT services to address Strengthening, Balance Training, Self-Care/ADL Training, Functional Mobility Training, Endurance Training, Safety Education and Training, Pain Management, Equipment Evaluation/Education, and Patient/Caregiver Training Frequency: 7 visits during current hospital admission or until additional recommendations are made Barriers: Pain, Impaired balance, Lower extremity weakness, Decreased endurance, Limited safety awareness, and Limited participation Safety/Education Safety Safety Devices in place: All fall risk precautions in place, call light within reach, left in bed, patient at risk for falls, nurse notified, and no alarms engaged upon entry Restraints: No Education Education Given To: patient Education Provided: OT Role, Plan of Care, Fall Prevention Education, Discharge Recommendations, Benefits of Increasing Activity, and bed mobility techniques Education Method: Verbal, Demonstration, and Teach Back Barriers to Learning: None Education Outcome: Verbalized Understanding and Demonstrated Understanding Goals Patient Stated Goal: to control his pain. Encounter Problems Encounter Problems (Active) Balance Patient will maintain dynamic sitting balance for 3 minutes with modified independence in order to demonstrate improved postural control and prepare for out of bed mobility. Start: 02/22/25 Expected End: 03/04/25 Dressing Upper Extremities Patient will complete upper body dressing SBA Start: 02/22/25 Expected End: 03/04/25 Dressings Lower Extremities Patient will dress lower body MIN A Start: 02/22/25 Expected End: 03/04/25 Grooming Patient will complete daily grooming tasks SBA Start: 02/22/25 Expected End: 03/04/25 Mobility Patient will demonstrate functional mobility with MOD A and FWW Start: 02/22/25 Expected End: 03/04/25 Therapeutic Exercise Pt will demo good participation in BUE exercises to increase ROM And strength for participation in ADLS and transfers. Start: 02/22/25 Expected End: 03/04/25 Toileting Patient will complete toileting tasks at bedside commode with mod assist. Start: 02/22/25 Expected End: 03/04/25 Transfers Patient will complete functional transfer with rolling walker with mod assist in order to prepare for ambulation. Start: 02/22/25 Expected End: 03/04/25 Patient will perform bed mobility with modified independence in order to improve independence and prepare for out of bed mobility. Start: 02/22/25 Expected End: 03/04/25 Therapy Time Individual Co-Treatment Co-Evaluation Time In 1522 Time Out 1532 Minutes 10 Samuel Webb OT Patient's Occupational Therapy Plan of Care supervision is transferred to a [facility] Occupational Therapist. Goals and/or treatment plan was established in collaboration with patient/family/other representatives. [1] Past Medical History: Diagnosis Date Depression Hypertension Prostate disease [2] Past Surgical History: Procedure Laterality Date AMPUTATION Right 2023 right partial index finger COLOSTOMY 02/19/2025 FEMUR SURGERY Right Images from the original note were not included. PHYSICAL THERAPY [facility] Name/MRN: David Doan ([id number]) Date: 02/22/2025 Treatment is being deferred at present because Pt just received his lunch . Will continue to attempt Sharri Waterman PTA Cosigned by Eliana Ramirez PT at 02/22/2025 3:[address] [facility] [place] [facility] [place]rophysiology Progress Note HPI / Interval History: David Doan is a 64 y.o. year old male patient who we are consulted for bradycardia. He is admitted for FTT, has also has a history of rectal cancer s/p resection and diverting colostomy, alcohol abuse, an depression. Today he reports he hasn't been able to sleep in 2 days. He denies any symptoms with bradycardia. Echo pending. I assisted by darkening the room and turning off the TV to help him sleep, and he was appreciative. Assessment/Plan HF NYHA Class [] I [] II [] III [] IV []Unable to assess [x] N/A Bradycardia. -asymptomatic -no significant pauses on tele -role of pacemaker- generally indicated for symptomatic bradycardia, but in the absence of symptoms will continue to monitor -avoid negative chronotropic drugs -TSH ok -echo pending -all questions answered at this time Medications: Scheduled Meds[1] Infusion Medications: Continuous Meds[2] Physical Examination: Vitals: 02/21/25 1954 02/21/25201802/22/25 0844 02/22/25 1304 BP: 137/76 139/81 BP Location: Left arm Right arm Patient Position: Sitting Sitting Pulse: 67 (!) 49 (!) 40 73 Resp: 19 Temp: (!) 35.9 C (96.7 F) 36.1 C (96.9 F) TempSrc: Temporal Temporal SpO2: 98% 97% Weight: Height: Intake/Output Summary (Last 24 hours) at 02/22/2025 1411 Last data filed at 02/22/2025 0900 Gross per 24 hour Intake -- Output 1840 ml Net -1840 ml Patient Vitals for the past 168 hrs: Weight Weight Method 02/21/25 0600 139 lb 15.9 oz (63.5 kg) Bed scale 02/19/25 0453 133 lb 4.8 oz (60.5 kg) -- 02/18/25 0500 128 lb (58.1 kg) Bed scale Physical Exam Constitutional: Comments: Frail, thin HENT: Head: Comments: [place] Cardiovascular: Rate and Rhythm: Regular rhythm. Bradycardia present. Pulmonary: Effort: Pulmonary effort is normal. Breath sounds: Normal breath sounds. Abdominal: General: Abdomen is flat. Musculoskeletal: General: Normal range of motion. Skin: General: Skin is warm and dry. Laboratory Tests: TROPONIN I, CONVENTIONAL SENSITIVITY CK Date Value Ref Range Status 02/14/2025 30 30 - 185 U/L Final 05/07/2023 445 (H) 30 - 170 U/L Final 05/07/2023 520 (H) 30 - 170 U/L Final 05/07/2023 1,043 (H) 30 - 170 U/L Final TROPONIN I, HIGH SENSITIVITY Troponin HS Serial Baseline Date Value Ref Range Status 02/14/2025 <3 <=35 ng/L Final Comment: In individuals presenting with symptoms > 2h, a baseline troponin <= 5 ng/L suggests acute cardiac injury is unlikely and further serial testing is generally not indicated. 2h Troponin HS (Serial 2nd Troponin) Date Value Ref Range Status 02/14/2025 <3 <=35 ng/L Final Comment: Delta value was unable to be calculated as both baseline and serial troponin tests were below the level of quantitation. As both baseline and 2h troponin values are below the level of quantitation, acute cardiac injury is unlikely. No results found for: TROPDELTBASE No results found for: "TROPHS3" No results found for: TROPDELTSEC Recent Labs 02/19/25 1509 02/20/25 0128 02/21/25 0301 02/22/25 034 NA 129* 132* 133* 134* K 4.2 4.6 5.1 4.9 CL 101 101 103 102 CO2 20* BUN 8* 9 8* 11 CREATININE 0.46* 0.55* 0.54* 0.54* Recent Labs 02/19/25 1509 02/20/25 0128 02/21/25 0301 02/22/25 0342 WBC 5.7 6.2 9.3 8.3 HGB 6.8* 9.6* 9.7* 9.3* HCT 23.5* 31.4* 32.9* 31.4* MCV 79.7 78.3 78.0 79.1 PLT 237 304 362 357 No results for input(s): "BNP" in the last 72 hours. No results for input(s): "TRIG", "HDL", "LDLCALC", "CHOL" in the last 72 hours. No results found for: LDLCHOLESTER Lab Results Component Value Date TSH 2.62 02/15/2025 EF BP Date Value Ref Range Status 05/10/2023 72 55 - 100 % Final 05/07/23 TRANSTHORACIC ECHOCARDIOGRAM (TTE) COMPLETE (CONTRAST/BUBBLE/3D PRN) 05/10/2023 5:31 PM (Final) Interpretation Summary Left Ventricle: Left ventricle size is normal. Mildly increased wall thickness. Normal left ventricular systolic function. EF by 2D Simpsons Biplane is 72%. Global longitudinal strain is -21.8%. Normal wall motion. Right Ventricle: Right ventricle size is normal. Normal systolic function. No significant valvular abnormalities. No vegetations or other evidence for infectious endocarditis. Signed by: Jorge Luis Rivero MD on 05/10/2023 5:31 PM Other reports reviewed: Cardiac Tests: ECG: Tracing reviewed. Telemetry findings reviewed: sinus with PACs EF BP Date Value Ref Range Status 05/10/2023 72 55 - 100 % Final SUYAPA Hightower CNP Date Of Service 02/22/2025 [1] acetaminophen, 1,000 mg, Oral, q8h amoxicillin-clavulanate, 875 mg, Oral, 2 times per day [Held by provider] enoxaparin, 40 mg, SubCUTAneous, Daily ergocalciferol, 1.25 mg, Oral, Weekly gabapentin, 300 mg, Oral, Nightly influenza, 0.5 mL, IntraMUSCular, Prior to discharge miconazole, , Topical, BID mirtazapine, 7.5 mg, Oral, Nightly polyethylene glycol (PEG) 3350, 17 g, Oral, Daily sodium chloride 0.9%, 10 mL, IntraVENous, 2 times per day sodium chloride 0.9%, 10 mL, IntraVENous, 2 times per day stomahesive in petrolatum, , Topical, 3 times per day Vortioxetine HBr, 5 mg, Oral, Daily [2] Surgery Post Op Progress Note PATIENT NAME: David Doan TODAY'S DATE: 02/22/2025 SUBJECTIVE: General Surgery follow up on diverting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 Anthropometric Measures: Height: 179.1 cm (5' 10.51") Current Body Weight: 60.5 kg (133 lb 4.8 oz) Weight Source: Bed Scale Admission Body Weight: 59.9 kg (132 lb) (stated) Usual Body Weight: 59.6 kg (131 lb 6.4 oz) (11/30/24) % Weight Change (Calculated): 1.4 Sylva Body Weight (lbs) (Calculated): 169 lbs Sylva Body Weight (Kg) (Calculated): 77 kg % Sylva Body Weight (Calculated): 78.9 % BMI (kg/m2) (Calculated): 18.8 Weight Adjustment For: No Adjustment BMI Categories: Normal Weight (BMI 18.5-24.9) Nutrition Diagnosis: Severe malnutrition, In context of social or environmental circumstances related to inadequate protein-energy intake as evidenced by poor intake prior to admission, severe loss of subcutaneous fat, severe muscle loss Altered GI function related to altered GI structure as evidenced by (Rectal Exam Under Anesthesia with Biopsy, +Diverting Loop Sigmoid Colostomy creation on 02/19) Nutrition Interventions: Nutrition Education/Counseling: Education not indicated Coordination of Nutrition Care: Continue to monitor while inpatient Plan of Care discussed with: patient Goals: Previous Goal Met: Progressing toward Goal(s) Goals: PO intake 50% or greater, prior to discharge Nutrition Monitoring and Evaluation: Behavioral-Environmental Outcomes: None Identified, Knowledge or Skill Food/Nutrient Intake Outcomes: Supplement Intake, Food and Nutrient Intake, Diet Advancement/Tolerance Physical Signs/Symptoms Outcomes: Biochemical Data, Hemodynamic Status, Fluid Status or Edema, Nausea or Vomiting, GI Status, Meal Time Behavior, Nutrition Focused Physical Findings Discharge Planning: Too soon to determine Josy Gonzales RDN, LDN, Contact: *[phone] Images from the original note were not included. PHYSICAL THERAPY [facility] Name/MRN: David Doan ([id number]) Date: 02/20/2025 Pt is alert and oriented to where they can understand that therapy was being offered to them. Treatment was offered and patient refused. The reason stated by patient for refusal was he just had surgery yesterday.. The therapist explained the proposed treatment, the expected benefits and outcome of the treatment and possible medical consequences/risks of refusal. Pt reports understanding but he just can't today. He needs a few days to feel better. Again educated in benefit of starting to mobilize but continued to decline. Will continue to follow. Sharri Waterman PTA Cosigned by Eliana Ramirez PT at 02/20/2025 4:14 PM EDT Surgery Post Op Progress Note PATIENT NAME: David Doan TODAY'S DATE: 02/20/2025 SUBJECTIVE: General Surgery follow up on diverting loop sigmoid colostomy. Overall doing well. Some pain but controlled. NO nausea or emesis. No acute events overnight. NO fever/chills. Pain controlled YES/NO: Yes Other Complaints YES/NO: No Flatus/BM/or Ostomy function YES/NO: No OBJECTIVE: VITALS: BP 100/74 (BP Location: Right arm) Pulse 62 Temp (!) 35.8 C (96.5 F) (Temporal) Resp 16 Ht 5' 10.51" (1.791 m) Wt 133 lb 4.8 oz (60.5 kg) SpO2 100% Comment: 100 BMI 18.85 kg/m INTAKE/OUTPUT: I/O last 3 completed shifts: In: 2226.5 (36.8 mL/kg) [P.O.:120; I.V.:1862.5 (30.8 mL/kg); Blood:134; IV Piggyback:110] Out: 3875 (64.1 mL/kg) [Urine:3850 (1.8 mL/kg/hr); Blood:25] Weight: 60.5 kg I/O this shift: In: - Out: 675 [Urine:675] CONSTITUTIONAL: awake and alert ABDOMEN: soft, nondistended, and incisional tenderness. Stoma large beefy red with noted serous drainage within the bag INCISION: clean, dry, no drainage. Steri strips intact. Data: CBC: Recent Labs 02/19/2562002/19/25 1509 02/20/25 0128 WBC 5.7 5.7 6.2 HGB 6.6* 6.8* 9.6* HCT 22.7* 23.5* 31.4* PLT 320 237 304 BMP: Recent Labs 02/19/2562002/19/25 1509 02/20/25 0128 NA 131* 129* 132* K 4.7 4.2 4.6 CL 99 101 101 CO2 25 20* 23 BUN 11 8* 9 CREATININE 0.53* 0.46* 0.55* GLUCOSE 129* 168* 260* Hepatic: Recent Labs 02/19/2562002/19/25 1509 02/20/25 0128 AST 12 9 15 ALT <6 <6 <6 BILITOT 0.1 0.5 0.6 ALKPHOS 65 48 63 ASSESSMENT AND PLAN: Mr. Doan is a 64 y/o M who presented with rectal mass and failure to thrive. REUA with biopsy and diverting loop sigmoid colostomy 02/19 - CT scan and OR exam consistent with perforated rectal mass - CEA 21.5 - Will need staging MRI pelvis pending results this will have to be done at [facility] likely outpatient - Augmentin continue - Anemia multifactorial- has received 2 UNITS PRBC yesterday stable today - Tolerating CLD advance to FLD - Continue to monitor ostomy output- ostomy wound team consulted SUYAPA Tee CNP Cosigned by Sherman Castro MD at 02/20/2025 1:10 PM EDT Hospitalist Progress Note 02/20/2025 Subjective: Admit Date: 02/14/2025 PCP: Rosalind Almanzar MD Room#: [id number] A BRIEF HOSPITAL COURSE: David Doan is a 64 y.o. male with history of HTN, prostate cancer, depression who presented to ED via EMS on 02/14/25 for failure to thrive after being found covered in feces and with sacral wounds. In ED, initial labs significant for Na 147, bicarb 20, albumin 2.3, WBC 9.9 wnl, Hb 9.6, CK 30 wnl, troponin negative, ethanol negative. Given IVF's in ED. Admitted for further evaluation and management. GI PCR (+) norovirus. C diff PCR negative. Geriatrics consulted/evaluated. General Surgery consulted/evaluated for diarrhea and rectal pain. Psych consulted/evaluated for depression. CT chest (02/15) with no acute intrathoracic process, but osteopenia. CT A/P (02/15) showed findings most consistent with rectal malignancy with local perforation and suspected perirectal abscess, abnormal irregular soft tissue wall thickening for a long segment of rectum with near occlusion of lumen, locules of air with fluid surrounding rectum near anal rectal verge most concerning for perforation and/or abscess, locules of air extending into soft tissue of medial left buttocks and into tissues of scrotum, multiple lymph nodes surrounding rectum concerning for metastatic lymph nodes, bilateral nephrolithiasis, no obstructive uropathy, prostate gland enlargement, vertebral body L2 compression fracture, changes of chronic pancreatitis. Elevated CEA 21.5. Palliative Care consulted/evaluated. Obtained rectal exam under anesthesia with biopsy as well as diverting loop sigmoid colostomy (02/19/25). Interval History: No overnight issue documented. Patient sitting in bed, Aox3, but hard of hearing. Reports 7/10 abdominal pain, nausea, and some chills today. Currently denies fever, chest pain, SOB. Case and plan discussed with patient. Questions answered. Adult diet Clear liquid 24HR INTAKE/OUTPUT: Intake/Output Summary (Last 24 hours) at 02/20/2025 1210 Last data filed at 02/20/2025 0911 Gross per 24 hour Intake 120 ml Output 4125 ml Net -4005 ml Past Medical History: Medical History[1] LABS: CBC: Recent Labs 02/19/25 0621 02/19/25 1509 02/20/25 0128 WBC 5.7 5.7 6.2 RBC 2.95* 2.95* 4.01* HGB 6.6* 6.8* 9.6* HCT 22.7* 23.5* 31.4* MCV 76.9* 79.7 78.3 RDW 19.8* 18.8* 18.1* PLT 320 237 304 BMP: Recent Labs 02/19/25 0621 02/19/25 1509 02/20/25 0128 NA 131* 129* 132* K 4.7 4.2 4.6 CL 99 101 101 CO2 25 20* 23 BUN 11 8* 9 CREATININE 0.53* 0.46* 0.55* GLUCOSE 129* 168* 260* CALCIUM 7.3* 7.0* 7.6* ANIONGAP 7 8 8 LIVER PROFILE: Recent Labs 02/19/25 0621 02/19/25 1509 02/20/25 0128 AST 12 9 15 ALT <6 <6 <6 BILITOT 0.1 0.5 0.6 ALKPHOS 65 48 63 PROT 5.1* 4.4* 5.8* PT/INR: No results for input(s): "PROTIME", "INR" in the last 72 hours. CARDIAC ENZYMES: No results for input(s): "TROPONINI" in the last 72 hours. Procalcitonin: No results found for: "PROCAL" COVID-19 PCR: No results for input(s): "COVID19" in the last 72 hours. Objective: Vitals: BP 100/74 (BP Location: Right arm) Pulse 62 Temp (!) 35.8 C (96.5 F) (Temporal) Resp 16 Ht 5' 10.51" (1.791 m) Wt 133 lb 4.8 oz (60.5 kg) SpO2 100% Comment: 100 BMI 18.85 kg/m Pulse Ox: SpO2 Av.9 % Min: 96 % Max: 100 % Supplemental O2: O2 Flow Rate (L/min): 6 L/min Physical Exam Constitutional: General: He is not in acute distress. HENT: Ears: Comments: Hard of hearing Eyes: Extraocular Movements: Extraocular movements intact. Cardiovascular: Rate and Rhythm: Normal rate and regular rhythm. Pulmonary: Effort: Pulmonary effort is normal. No respiratory distress. Abdominal: Palpations: Abdomen is soft. Comments: (+) Ostomy Skin: General: Skin is warm and dry. Neurological: Mental Status: He is alert and oriented to person, place, and time. Medications: Scheduled PRN Scheduled Meds[2] PRN Meds[3] Continuous Continuous Meds[4] Assessment Acute, acute on chronic, unstable/uncontrolled chronic problems/diagnoses: # Failure to thrive # Norovirus infection - GI PCR (+) norovirus. C diff PCR negative. # Perforated rectal mass s/p rectal exam under anesthesia with biopsy and diverting loop sigmoid colostomy (02/19/25) - CT A/P (02/15) showed findings most consistent with rectal malignancy with local perforation and suspected perirectal abscess, abnormal irregular soft tissue wall thickening for a long segment of rectum with near occlusion of lumen, locules of air with fluid surrounding rectum near anal rectal verge most concerning for perforation and/or abscess, locules of air extending into soft tissue of medial left buttocks and into tissues of scrotum, multiple lymph nodes surrounding rectum concerning for metastatic lymph nodes, bilateral nephrolithiasis, no obstructive uropathy, prostate gland enlargement, vertebral body L2 compression fracture, changes of chronic pancreatitis. Elevated CEA 21.5 # Acute on chronic anemia # Hyponatremia # Hypokalemia, improved # Hyperglycemia # Functional decline # Debility # Severe malnutrition Stable chronic problems affecting care, new non-acute diagnoses: # HTN # Hx of prostate cancer # Depression, anxiety - Trintellix 5 mg daily Plan As a result of the above findings & factors, the following mgmt was pursued: - Geriatrics evaluated. Recs noted. - Psych evaluated. Noted patient does NOT require inpatient psychiatric admission. Recs noted. - Surgery following. Stated will need staging MRI pelvis which will have to be done at [facility] likely outpatient. Advised to continue Augmentin. Advanced to FLD. Consulted ostomy wound team. Recs noted. - On PO Augmentin - PRN pain medications - Monitor H&H and transfuse PRN - Palliative Care following. Recs noted. 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 No Sam Walter MD Division of Hospitalist Medicine [facility] [1] Past Medical History: Diagnosis Date Depression Hypertension Prostate disease [2] amoxicillin-clavulanate, 875 mg, Oral, 2 times per day [Held by provider] enoxaparin, 40 mg, SubCUTAneous, Daily ergocalciferol, 1.25 mg, Oral, Weekly influenza, 0.5 mL, IntraMUSCular, Prior to discharge miconazole, , Topical, BID sodium chloride 0.9%, 10 mL, IntraVENous, 2 times per day sodium chloride 0.9%, 10 mL, IntraVENous, 2 times per day stomahesive in petrolatum, , Topical, 3 times per day Vortioxetine HBr, 5 mg, Oral, Daily [3] PRN medications: acetaminophen OR acetaminophen, acetaminophen, LORazepam, melatonin, miconazole, morphine sulfate OR morphine sulfate, naloxone, ondansetron ODT OR ondansetron, ondansetron ODT OR ondansetron, oxyCODONE OR oxyCODONE, polyethylene glycol (PEG) 3350, prochlorperazine, sodium chloride, sodium chloride, sodium chloride, sodium chloride, sodium chloride 0.9%, sodium chloride 0.9%, stomahesive in petrolatum [4] lactated Ringer's, 75 mL/hr, Last Rate: 75 mL/hr (02/20/25 0102) [facility] Wound Care/Ostomy Re-Consult Note David Doan AGE: 64 y.o. GENDER: male : 1960 Subjective: HISTORY of PRESENT ILLNESS HPI David Doan is a 64 y.o. male who presents for a wound care re consult. HPI: David is a 64 y.o. male who presented to the emergency department on 02/14/25 with chief complaint of failure to thrive. He had a welfare check today and living conditions were deplorable and he has been unable to take care of himself. He is unsure if he is on any medications. States he has not drink alcohol in 3 months and denies any other substances. Apparently he was covered in feces and has a sacral wound. Wound care consulted for "Skin tear to nathanael areas and LE" Wound care re consulted for new loop sigmoid colostomy Patient resting in bed at time of visit. Patient states he is having 7 out of 10 pain from surgery yesterday. Pt refused skin assessment and treatment application at this time. ET mix and Miconazole powder at bedside. Colostomy pouch intact. Updated pt than ostomy teaching will begin tomorrow on 02/21. Denies needs. PAST MEDICAL HISTORY Medical History[1] PAST SURGICAL HISTORY Surgical History[2] FAMILY HISTORY Family History[3] SOCIAL HISTORY Social History[4] ALLERGIES Allergies[5] MEDICATIONS Medications Ordered Prior to Encounter[6] REVIEW OF SYSTEMS Pertinent items are noted in HPI. Objective: BP 100/74 (BP Location: Right arm) Pulse 62 Temp (!) 35.8 C (96.5 F) (Temporal) Resp 16 Ht 1.791 m (5' 10.51") Wt 60.5 kg (133 lb 4.8 oz) SpO2 100% Comment: 100 BMI 18.85 kg/m PHYSICAL EXAM General appearance: in no apparent distress, alert, oriented times 3, moderately ill, and cachectic disheveled appearance Skin: warm and dry, nails with stool under them Pulmonary: Normal effort, no respiratory distress, no cyanosis Perineum: patient refused Bilateral buttocks: patient refused LUQ colostomy: Pouch intact LABS CBC: Lab Results Component Value Date WBC 6.2 02/20/2025 HGB 9.6 (L) 02/20/2025 HCT 31.4 (L) 02/20/2025 MCV 78.3 02/20/2025 PLT 304 02/20/2025 BMP: Lab Results Component Value Date NA 132 (L) 02/20/2025 K 4.6 02/20/2025 CL 101 02/20/2025 CO2 23 02/20/2025 BUN 9 02/20/2025 CREATININE 0.55 (L) 02/20/2025 PT/INR: No results found for: "PROTIME", "INR" Prealbumin: No results found for: PREALBUMIN Albumin:No components found for: LABALBU Sed Rate:No results found for: SEDRATE Micro: No components found for: BC Assessment/Plan: Nursing staff to perform dressing change: Perineum: Lesion of unknown origin/Possible cancer -General surgery following- -Follow General surgery orders- Bilateral buttock: MASD (bodily fluids and friction /shear) -cleanse with soap and water, apply ET mix TID and PRN, 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 Any questions or concerns please secure chat "ACH wound/ostomy". I personally obtained the horowitz and critical portions of the history and physical exam. I reviewed the labs, imaging studies, and electronic medical record. I reviewed the chart documentation and discussed the patient with treatment team members. I have edited the note to reflect my clinical findings and my assessment and plan. Please note, the time of this note does not reflect the time I saw this patient today, but the time of this documentaton. Portions of this note including HPI, ROS, impression/plan, and examination may have been copied forward from admission to today as to provide important historical information essential in contributing to medical decision making. Documentation has been reviewed and edited as necessary to support clinical decision making for today's visit and to reflect my own independent evaluation of this patient. Decision making for today's visit and to reflect my own independent evaluation of this patient. [1] Past Medical History: Diagnosis Date Depression Hypertension Prostate disease [2] Past Surgical History: Procedure Laterality Date AMPUTATION Right 2023 right partial index finger COLOSTOMY 02/19/2025 FEMUR SURGERY Right [3] No family history on file. [4] Social History Tobacco Use Smoking status: Every Day Smokeless tobacco: Never Substance Use Topics Alcohol use: Yes Drug use: No [5] No Known Allergies [6] No current facility-administered medications on file prior to encounter. Current Outpatient Medications on File Prior to Encounter Medication Sig Dispense Refill Bismuth Tribromoph-Petrolatum (xeroform petrolat patch 2"x2") pads Apply 1 each topically daily. gabapentin (Neurontin) 300 MG capsule Take 1 capsule (300 mg) by mouth in the morning and 1 capsule (300 mg) at noon and 1 capsule (300 mg) before bedtime. hydrOXYzine pamoate (Vistaril) 50 MG capsule Take 1 capsule (50 mg) by mouth every 6 hours as needed for allergies or anxiety for up to 10 days. traZODone (Desyrel) 100 MG tablet Take 1 tablet (100 mg) by mouth Nightly as needed for sleep. Images from the original note were not included. Palliative Care Progress Note Chief Complaint: David Doan is a 64 y.o. male with chief complaint of weakness, functional decline, diarrhea Palliative care consulted for goals of care, symptom management Palliative Care is actively following. Assessment/Plan Goals of care -David Doan retains capacity for medical decision-making -NOK: pt has a brother Aguila and sister Olivia, has not spoken to either one in quite some time due to drifting apart--> pt requested he would not like to contact his family or have them see him until he gets better -no HCPOA, pt states he doesn't know who he would designate, is OK with brother & sister assisting with decisions if he was unable -per chart review, house is condemned and patient will not be able to return--> will likely dc [facility] upon dc -see subjective for details of conversation -SW following & [place] APS involved (Ethan [phone]) - patient seen this afternoon, introduced self and role - patient was slow to respond , did answer all questions appropriately - patient was upset on not getting to eat solid food, most of the conversation revolved around food - unable to discuss goals with patient today, will revisit patient in 1-2 days to try to attempt to discuss goals - Code status remains Full Code Severe PCM -dietitian following - albumin 1.7 Rectal abscess/mass/Concern for malignancy - General Surgery following--> reports that mass appears malignant -CT c/a/p--> Findings are most consistent with rectal malignancy with local perforation and suspect perirectal abscess. There is abnormal irregular soft tissue wall thickening for a long segment of the rectum with near occlusion of the lumen. There are locules of air with fluid surrounding the rectum near the anal rectal verge most concerning for perforation and/or abscess. Locules of air extend into the soft tissue of the medial left buttocks and into the tissues of the scrotum (gas-forming organism not excluded) -also seen on imaging are multiple lymph nodes surrounding the rectum concerning for metastatic lymph nodes - CEA 21.5 - patient S/P biopsy and Diverting Loop Sigmoid Colostomy by Dr. Castro on 02/19 Pain - likely due to combination of his chronic back pain along with pain from surgery - patient stated that in past he has followed with pain management doctors - patient on oxycodone 5-10mg q4h PRN by our team, used Oxycodone 10 mg po X 4 in last 24 hrs - patient also remains on IV Morphine from surgical team - will continue to monitor pain closely and make adjustments in his medications as needed Anxiety/Depression - psychiatry on case - trintellix started this admission - also on lorazepam 0.5 mg nightly prn Debility -found at home alone, in deplorable condition--> APS and SW involved -PT/OT as able--> rec SNF[facility] + on [facility] panel 02/14/25 Palliative Care Encounter -Code Status: Full Code - will continue to follow for ongoing monitoring of progression of Pain and Constipation as well as for appropriateness for hospice care due to Cancer - will continue to evaluate test results related to Cancer, medication effectiveness for Pain and Constipation, response to treatment of Cancer Total of 55 minutes spent on this encounter including Chart review, Patient visit and exam, Documentation in EHR, Care coordination, and Communicating with primary attending or other consultants. Discharge planning: Not ready for discharge due to uncontrolled symptoms Patient meets criteria for general inpatient hospice care: No Palliative Care IDT members involved: None Discussed the plan of care with the other interdisciplinary team (IDT) members of the Palliative Care and Hospice teams and Patient. Subjective: Subjective/Events David Doan is a 64 y.o. male admitted to [facility] for weakness, functional decline, diarrhea on 02/14/25. Patient seen and examined this afternoon. He was lying on bed. Complained of abdominal and back pain when seen. Patient also complained of pain at surgical site. Patient complained of not being able to eat solid food, stated his abdomen is hurting because of the liquid food. Denied nausea. Palliative Care Assessments: Goals of care: Continue Current Management and Improve or Maintain Function/Quality of Life Advanced Directives: No Known Advance Directive Functional Assessment: PPS 30% bedbound; can't do any work/extensive disease; total care; reduced intake; full or drowsy or confusion Prognosis: depends upon goals of care and uncertain at this time Spiritual Assessment: No spiritual distress identified Bereavement and Grief: Grief Issues Not Identified PDMP/OARRS Reviewed: Yes-reviewed. Oxycodone, gabapentin reported Social history: Marital status: single Children: no children Living status: alone Work history: not asked status: Yes, [place] Confucianist hay: None ROS: See palliative care ROS/ESAS below; All other systems were reviewed and are negative. Irving Symptom Assessment Score Irving Score Pain Score (if non-verbal, add .FLACC below) 5 Tiredness Score 5 Nausea Score 0 Depression Score 0 Anxiety Score 0 Drowsiness Score 0 Anorexia Score (0= eating well, 10= not eating) 3 Wellbeing Score (10= worst sense of well-being) 8 Constipation 0 Dyspnea Score (0= no shortness of breath) 0 Family Meeting: Participants: patient Family meeting was held to discuss:Diagnosis and Prognosis, Goals of Care, Treatment Options, Symptom Management, Advanced Care Planning, and Prior Expressed Wishes Objective: BP 115/68 (BP Location: Right arm) Pulse 67 Temp 36.2 C (97.2 F) (Temporal) Resp 18 Ht 5' 10.51" (1.791 m) Wt 133 lb 4.8 oz (60.5 kg) SpO2 99% BMI 18.85 kg/m Physical Exam Constitutional: Appearance: He is ill-appearing. HENT: Head: Normocephalic and atraumatic. Right Ear: External ear normal. Left Ear: External ear normal. Mouth/Throat: Mouth: Mucous membranes are moist. Eyes: General: No scleral icterus. Right eye: No discharge. Left eye: No discharge. Conjunctiva/sclera: Conjunctivae normal. Pupils: Pupils are equal, round, and reactive to light. Cardiovascular: Rate and Rhythm: Normal rate and regular rhythm. Pulses: Normal pulses. Heart sounds: Normal heart sounds. No murmur heard. Pulmonary: Effort: Pulmonary effort is normal. Breath sounds: Normal breath sounds. No stridor. No wheezing. Abdominal: General: Abdomen is flat. Bowel sounds are normal. There is no distension. Palpations: Abdomen is soft. Musculoskeletal: General: No swelling. Cervical back: Normal range of motion and neck supple. Right lower leg: No edema. Left lower leg: No edema. Skin: General: Skin is warm. Coloration: Skin is not jaundiced. Neurological: Mental Status: He is alert. Motor: Weakness present. Comments: [id number] Psychiatric: Comments: Could not be assessed Medication information: 24-hour PRN meds received: Oxycodone 10 mg po x 4, Zofran 4 mg IV x 1, Morphine 2 mg IV x 1, Morphine 4 mg IV X 1, Melatonin 5 mg po X 1, HM 0.5 mg IV x 1 Results/Verification of Data Review Objective data reviewed (must include dates reviewed for labs, imaging reports and other specialty notes): - BMP, CBC, MAR, Vitals reviewed 02/20/25 Data in Support of Terminal Illness: Is patient hospice appropriate? TBD Brenda Phipps MD Post Op Check Diet. Resting comfortably. Ostomy already with gas, no stool. Vitals: 02/19/25 1607 BP: 105/63 Pulse: 54 Resp: 18 Temp: 36.3 C (97.3 F) SpO2: 98% Exam: General: No acute distress, resting comfortably Abdomen: Soft, nontender, nondistended, ostomy pink with gas and stool, laparoscopic sites clean, dry and intact Plan: 64 y.o. male with failure to thrive and rectal mass CT scan and OR exam consistent with perforated rectal mass. Will need MRI of the pelvis pending tissue results. CEA 21.5 Given the patient's failure to thrive and poor living conditions, decision making capacity and overall goals of care discussions are ongoing. Psychiatry and geriatrics following. Palliative care also following given advanced local malignancy. Care team in agreement with surgical plan. Patient has capacity to make own decisions per care team. However, will need continued assistance for goals of care discussions going forward. Augmentin for perforated rectal mass no drainable abscess on exam, will plan for 4 day post op course Anemia-multifactorial, acute on chronic secondary to rectal mass, perioperative blood loss, malnutrition and chronic comorbidities. Transfused 1 unit during OR with hemoglobin 6.6 to 6.8, additional PRBC transfusing at present. Trial clear liquid diet Monitor ostomy output, ostomy care consulted. Sherman Castro MD General Surgery Pager #[phone] 4:41 PM 02/19/2025 Spiritual Care Note [facility] Palliative Care Patient Name:David Doan Chief Complaint: Chief Complaint Patient presents with Failure To Thrive Pt arrives via EMS following a welfare check where pt was stuck on his couch and has not been able to eat or drink anything for a few days and cannot care for himself. Pt arrives with feces covering body and complaints of wound to his bottom. Reason for visit: Initial Visit Services Provided To:patient Background and visit note: Introduced myself and pastoral care to patient. He is hard of hearing. He was feeling ok. He appreciated the care he has been receiving. He is hopeful of all things concerning his recovery. Will follow up. Is there spiritual distress? NO Comment: Interventions: Supportive presence, empathetic listening, validated feelings, counseling, and spiritual Support. Care Plan: life review. Follow Up: PRN and when patient is able. Debriefed: with well digger team. Laurita Celis 02/19/25 Images from the original note were not included. [facility] - Surgery [facility] Physicians Surgery Sherman Castro MD Surgical Progress Note PATIENT NAME: David Doan TODAY'S DATE: 02/19/2025 CC: failure to thrive, rectal pain SUBJECTIVE: Weekend events noted. Continues to have bowel movements. Continues to have rectal pain. OBJECTIVE: VITALS: BP 119/68 Pulse 107 Temp 37.7 C (99.9 F) Resp 18 Ht 5' 10.51" (1.791 m) Wt 133 lb 4.8 oz (60.5 kg) SpO2 96% BMI 18.85 kg/m INTAKE/OUTPUT: I/O last 3 completed shifts: In: 8276.3 (136.9 mL/kg) [I.V.:8276.3 (136.9 mL/kg)] Out: - (0 mL/kg) Weight: 60.5 kg No intake/output data recorded. REVIEW OF SYSTEMS: Pertinent positives and negatives as per interval history section PHYSICAL EXAM: Physical Exam Constitutional: General: He is not in acute distress. Appearance: He is not ill-appearing. HENT: Head: Normocephalic and atraumatic. Eyes: General: No scleral icterus. Pupils: Pupils are equal, round, and reactive to light. Cardiovascular: Rate and Rhythm: Normal rate and regular rhythm. Pulmonary: Effort: Pulmonary effort is normal. No respiratory distress. Abdominal: General: There is no distension. Tenderness: There is no abdominal tenderness. Musculoskeletal: General: No swelling or tenderness. Skin: General: Skin is warm. Coloration: Skin is not jaundiced. Data: CBC: Recent Labs 02/17/2525102/18/2515002/19/25 0621 WBC 8.8 7.3 5.7 HGB 7.5* 7.6* 6.6* HCT 25.7* 26.2* 22.7* PLT 319 326 320 BMP: Recent Labs 02/17/2525102/18/251 02/19/25 0621 NA 131* 131* 131* K 4.5 4.4 4.7 CL 102 101 99 CO2 BUN 13 11 11 CREATININE 0.54* 0.49* 0.53* GLUCOSE 119* 111 129* Hepatic: Recent Labs 02/17/2525102/18/251 02/19/25 0621 AST 13 14 12 ALT <6 <6 <6 BILITOT 0.2 0.2 0.1 ALKPHOS 56 65 65 Coag: No results for input(s): "INR", "PT", "PTT" in the last 72 hours. ASSESSMENT AND PLAN: 64 y.o. male with failure to thrive and rectal pain CT scan consistent with perforated rectal mass. Will need MRI of the pelvis pending tissue results. CEA 21.5 Plan for exam under anesthesia with biopsy and diverting loop colostomy Given the patient's failure to thrive and poor living conditions, decision making capacity and overall goals of care discussions are ongoing. Psychiatry and geriatrics following. Will also consult palliative care given likely advanced local malignancy. Care team in agreement with surgical plan. Patient has capacity to make own decisions per care team. However, will need continued assistance for goals of care discussions going forward. Augmentin for perforated rectal mass, source control will not be able to be achieved until diversion of stool. Anemia-multifactorial, acute on chronic secondary to rectal mass, malnutrition and chronic comorbidities. Transfusing 1 unit packed red blood cells for hemoglobin 6.6 with plans for operative intervention today. This case had high medical decision making and case complexity with 50 minute total care time including chart review, care coordination and face to face encounter. The patient was seen and examined independently and relevant data reviewed by myself. A full chart review was performed. I personally interviewed the patient and performed an individual physical examination. In addition, I discussed the patient's condition and treatment options with them. I have also reviewed and agree with the past medical, family and social history and care plan unless otherwise noted. All of the patient's questions were answered. Sherman Castro MD General Surgery Pager #[phone] Perfect Serve: Sherman Castro 10:05 AM 02/19/2025 Images from the original note were not included. PHYSICAL THERAPY [facility] Name/MRN: David Doan ([id number]) Date: 02/19/2025 Treatment is being deferred at present because pt is currently off of the floor for surgery. Will resume when medically stable Sharri Waterman PTA Cosigned by Eliana Ramirez PT at 02/19/2025 4:22 PM EDT Hospitalist Progress Note 02/19/2025 Subjective: Admit Date: 02/14/2025 PCP: Rosalind Almanzar MD Room#: B4-468/B4-468 A Interval History: Patient found to have Hb 6.6 this AM, and 6.8 this afternoon after surgery. Received 1 unit pRBCs in the morning. Currently receiving another unit. Adult diet Clear liquid 24HR INTAKE/OUTPUT: Intake/Output Summary (Last 24 hours) at 02/19/2025 1630 Last data filed at 02/19/2025 1333 Gross per 24 hour Intake 3226.5 ml Output 775 ml Net 2451.5 ml Past Medical History: Medical History[1] LABS: CBC: Recent Labs 02/18/25 0151 02/19/25 0602/19/25 1509 WBC 7.3 5.7 5.7 RBC 3.37* 2.95* 2.95* HGB 7.6* 6.6* 6.8* HCT 26.2* 22.7* 23.5* MCV 77.7 76.9* 79.7 RDW 19.9* 19.8* 18.8* PLT 326 320 237 BMP: Recent Labs 02/18/25 0151 02/19/25 0621 02/19/25 1509 NA 131* 131* 129* K 4.4 4.7 4.2 CL 101 99 101 CO2 25 25 20* BUN 11 11 8* CREATININE 0.49* 0.53* 0.46* GLUCOSE 111 129* 168* CALCIUM 7.2* 7.3* 7.0* ANIONGAP 5 7 8 LIVER PROFILE: Recent Labs 02/18/25 0151 02/19/25 0621 02/19/25 1509 AST 14 12 9 ALT <6 <6 <6 BILITOT 0.2 0.1 0.5 ALKPHOS 65 65 48 PROT 5.3* 5.1* 4.4* PT/INR: No results for input(s): "PROTIME", "INR" in the last 72 hours. CARDIAC ENZYMES: No results for input(s): "TROPONINI" in the last 72 hours. Procalcitonin: No results found for: "PROCAL" COVID-19 PCR: No results for input(s): "COVID19" in the last 72 hours. Objective: Vitals: BP 105/63 Pulse 54 Temp 36.3 C (97.3 F) (Temporal) Resp 18 Ht 5' 10.51" (1.791 m) Wt 133 lb 4.8 oz (60.5 kg) SpO2 98% BMI 18.85 kg/m Pulse Ox: SpO2 Av.5 % Min: 95 % Max: 99 % Supplemental O2: O2 Flow Rate (L/min): 6 L/min Physical Exam Vitals and nursing note reviewed. Constitutional: General: He is not in acute distress. Appearance: He is ill-appearing. HENT: Head: Normocephalic and atraumatic. Eyes: Extraocular Movements: Extraocular movements intact. Pupils: Pupils are equal, round, and reactive to light. Cardiovascular: Rate and Rhythm: Normal rate and regular rhythm. Pulses: Normal pulses. Pulmonary: Effort: Pulmonary effort is normal. Breath sounds: Normal breath sounds. Abdominal: General: Bowel sounds are normal. There is no distension. Palpations: Abdomen is soft. Tenderness: There is no abdominal tenderness. Musculoskeletal: General: Normal range of motion. Cervical back: Neck supple. Skin: Capillary Refill: Capillary refill takes less than 2 seconds. Neurological: General: No focal deficit present. Mental Status: He is alert and oriented to person, place, and time. Mental status is at baseline. Psychiatric: Mood and Affect: Mood normal. Medications: Scheduled PRN Scheduled Meds[2] PRN Meds[3] Continuous Continuous Meds[4] Assessment Failure to thrive Norovirus diarrhea Perforated rectal mass Hypoalbuminemia Bradycardia Anemia Hypokalemia Hyponatremia Hyperglycemia Vit D deficiency Functional decline HTN Depression BPH Severe malnutrition Plan Continue IVF and antibiotics, continue serial exams, GS following, continue wound care, Geriatrics and Psychiatry and Palliative Care are following, continue vit D, PT/OT, follow up labs, discharge planning, see orders - plan for OR today with general surgery for exam under anesthesia and diverting loop colostomy - anemia, suspect worsening in the setting of surgical intervention - receiving 1 unit pRBCs currently; holding lovenox - am labs, replace lytes prn - PT/OT/CM/SW - delirium precautions: increase activity - DVT prophylaxis: enoxaparin and encourage ambulation Advance Directive: Full Code Anticipated Discharge - Date - 02/21-02/22 - Location - Skilled Facility - Pending the following - clinical improvement, completion of work up, disposition finalization and when OK with consultants Total time spent (which include face to face and non face to face encounters) : 35 Toxic drug monitoring/narrow therapeutic index drug monitoring : # Drug name : leahnox # Route administered : subcutaneous # Method of monitoring : daily CBC No emergency contact information on file. Jarod Elliott MD Division of Hospitalist Medicine [facility] [1] Past Medical History: Diagnosis Date Depression Hypertension Prostate disease [2] amoxicillin-clavulanate, 875 mg, Oral, 2 times per day [Held by provider] enoxaparin, 40 mg, SubCUTAneous, Daily ergocalciferol, 1.25 mg, Oral, Weekly influenza, 0.5 mL, IntraMUSCular, Prior to discharge miconazole, , Topical, BID sodium chloride 0.9%, 10 mL, IntraVENous, 2 times per day sodium chloride 0.9%, 10 mL, IntraVENous, 2 times per day stomahesive in petrolatum, , Topical, 3 times per day Vortioxetine HBr, 5 mg, Oral, Daily [3] PRN medications: acetaminophen OR acetaminophen, acetaminophen, LORazepam, melatonin, miconazole, morphine sulfate OR morphine sulfate, naloxone, ondansetron ODT OR ondansetron, ondansetron ODT OR ondansetron, oxyCODONE OR oxyCODONE, polyethylene glycol (PEG) 3350, prochlorperazine, sodium chloride, sodium chloride, sodium chloride, sodium chloride, sodium chloride 0.9%, sodium chloride 0.9%, stomahesive in petrolatum [4] lactated Ringer's, 75 mL/hr, Last Rate: Stopped (02/19/25 1143) Consent for Transfusion of Blood Products Met with patient and discussed indications for, the procedure of, alternative to, and the risks of a blood component transfusion, as well as mitigation measures. Indication(s): Hgb < 7 with suspected active bleed Procedure: blood components would be transfused via peripheral IV Alternative: no transfusion / observe Risks include discomfort (ex: pruritis), mild allergic reaction / urticaria, fever, TACO (rare), TRALI (v rare), hemolytic rxn (v rare), anaphylaxis (v rare), transmission of infectious disease (ext rare), shock / organ injury / (ext rare). Risks of plasma, platelets, or whole blood are higher than PRBC. The patient provided verbal consent to proceed with the transfusion of blood components. Juan Antonio Churchill MD Division of Hospitalist Medicine [facility] 6:54 AM 02/19/25 Images from the original note were not included. [facility] Department of Surgery Progress Note PATIENT NAME: David Doan : 1960 ATTENDING PHYSICIAN: Vika Angela MD ADMIT DATE: 02/14/2025 TODAY'S DATE: 02/18/2025 SUBJECTIVE Patient stable. NAEON. Tolerating breakfast. Understands that surgery is planned for tomorrow. Most concerned regarding pain associated. Denies abdominal pain but endorses back pain and "pain at the bed sore" which is assumed related to rectal mass. OBJECTIVE VITALS: BP 112/63 Pulse 64 Temp 37.3 C (99.1 F) (Temporal) Resp 18 Ht 5' 10.51" (1.791 m) Wt 128 lb (58.1 kg) SpO2 99% BMI 18.10 kg/m PHYSICAL EXAM: CONSTITUTIONAL: NAD, alert to self EYES: No scleral icterus CHEST: Resp effort easy and unlabored ABDOMEN: soft, non-distended, non-tender, Peritoneal signs absent : rectal examination deferred SKIN: Warm and dry INTAKE/OUTPUT: I/O last 3 completed shifts: In: 6413.8 (110.5 mL/kg) [I.V.:6413.8 (110.5 mL/kg)] Out: 3 (0.1 mL/kg) [Stool:3] Weight: 58.1 kg No intake/output data recorded. Data Recent Labs 02/16/25 0320 02/17/25 0252 02/18/25 0151 WBC 10.5 8.8 7.3 HGB 7.6* 7.5* 7.6* HCT 26.4* 25.7* 26.2* PLT 312 319 326 Recent Labs 02/16/25 0320 02/17/25 0252 02/18/25 0151 NA 130* 131* 131* K 3.8 4.5 4.4 CL 102 102 101 CO2 23 23 25 BUN 12 13 11 CREATININE 0.57* 0.54* 0.49* GLUCOSE 132* 119* 111 Recent Labs 02/16/25 0320 02/17/25 0252 02/18/25 0151 AST 14 13 14 ALT <6 <6 <6 BILITOT 0.2 0.2 0.2 ALKPHOS 52 56 65 Current Inpatient Medications Current Medications[1] ASSESSMENT AND PLAN 64 y.o. male with failure to thrive and rectal mass Labs, notes and imaging reviewed Rectal mass difficult to examine at bedside and deferred today CT scan consistent with perforated rectal mass. Will need MRI of the pelvis pending tissue results. CEA 21.5 Would recommend exam under anesthesia with biopsy and diverting loop colostomy - Dr. Castro planning for this on Wednesday. Appreciate palliative involvement. Agree that David does have capacity to make decisions does demonstrate understanding of surgical plans; although, somewhat confused by the discussion related ostomy planning. Further discussions to be had tomorrow. NPO tonight in preparation for OR tomorrow Psychiatry and geriatrics following, appreciate recommendations. Augmentin for perforated rectal mass, source control will not be able to be achieved until diversion of stool. Moderate MDM. I spent 35 minutes total on the day of the visit obtaining history, reviewing imaging and laboratory results, performing a physical exam and providing patient education and counseling. Department of Surgery [1] Current Facility-Administered Medications: acetaminophen (Tylenol) tablet 650 mg, 650 mg, Oral, q6h PRN, 650 mg at 02/16/25 0015 OR acetaminophen (Tylenol) suppository 650 mg, 650 mg, Rectal, q6h PRN, Vika Angela MD amoxicillin-clavulanate (Augmentin) 875-125 MG per tablet 1 tablet, 875 mg, Oral, 2 times per day, VINCENT Reich, 1 tablet at 02/18/25 1001 enoxaparin (Lovenox) syringe 40 mg, 40 mg, SubCUTAneous, Daily, Vika Angela MD, 40 mg at 02/18/25 1001 ergocalciferol (Vitamin D2) capsule 1.25 mg, 1.25 mg, Oral, Weekly, Dina Suh APRN - LOIS, 1.25 mg at 02/16/25 1019 influenza vaccine tiss-cult subunt (Flucelvax) STANDARD-DOSE injection 0.5 mL, 0.5 mL, IntraMUSCular, Prior to discharge, Vika Angela MD lactated Ringer's infusion, 75 mL/hr, IntraVENous, Continuous, Vika Angela MD, Last Rate: 75 mL/hr at 02/18/25623, 75 mL/hr at 02/18/25623 LORazepam (Ativan) tablet 0.5 mg, 0.5 mg, Oral, Nightly PRN, SUYAPA Colon CNP, 0.5 mg at 02/18/25141 melatonin tablet 5 mg, 5 mg, Oral, Nightly PRN, Dina Suh APRN - LEATHER ETCHER, 5 mg at 02/17/252015 miconazole (Micotin) 2 % powder, , Topical, BID, SUYAPA Rice CNP, Given at 02/18/25 1002 naloxone (Narcan) injection 0.4 mg, 0.4 mg, IntraVENous, q5 min PRN, Vika Angela MD ondansetron ODT (Zofran-ODT) disintegrating tablet 4 mg, 4 mg, Oral, q8h PRN, 4 mg at 02/16/25 1231 OR ondansetron (Zofran) injection 4 mg, 4 mg, IntraVENous, q6h PRN, Vika Angela MD, 4 mg at 02/16/25 0332 oxyCODONE (Roxicodone) immediate release tablet 5 mg, 5 mg, Oral, q4h PRN OR oxyCODONE (Roxicodone) immediate release tablet 10 mg, 10 mg, Oral, q4h PRN, SUYAPA Colon CNP, 10 mg at 02/18/25 0142 polyethylene glycol (PEG) 3350 (Miralax) packet 17 g, 17 g, Oral, Daily PRN, Vika Angela MD prochlorperazine (Compazine) injection 5 mg, 5 mg, IntraVENous, q6h PRN, Obed Callahan MD, 5 mg at 02/15/25 1432 sodium chloride 0.9 % infusion, 5-250 mL/hr, IntraVENous, PRN, Gely Trejo, PA sodium chloride 0.9% (NS) flush 10 mL, 10 mL, IntraVENous, 2 times per day, Gely Gent, PA, 10 mL at 02/17/25 2018 sodium chloride 0.9% (NS) flush 10 mL, 10 mL, IntraVENous, PRN, Gely Trejo PA stomahesive in petrolatum (ET Mix), , Topical, PRN, Idalia Gallagher CENTRAL SUPPLY ASSISTANT - LEATHER ETCHER stomahesive in petrolatum (ET Mix), , Topical, 3 times per day, Idalia Gallagher CENTRAL SUPPLY ASSISTANT - LEATHER ETCHER, Given at 02/18/25 0549 Vortioxetine HBr (Trintellix) tablet 5 mg, 5 mg, Oral, Daily, Gila Matos CENTRAL SUPPLY ASSISTANT - LEATHER ETCHER, 5 mg at 02/18/25 1001 Hospitalist Progress Note 02/18/2025 Subjective: Admit Date: 02/14/2025 PCP: Rosalind Almanzar MD Room#: [id number] A Interval History: No cp, sob, cough, n/v, f/c. Weak. Case and plan discussed with patient. All questions answered. NPO diet with enteral medications Adult diet Regular 24HR INTAKE/OUTPUT: Intake/Output Summary (Last 24 hours) at 02/18/2025 0904 Last data filed at 02/18/2025 0624 Gross per 24 hour Intake 6413.75 ml Output 1 ml Net 6412.75 ml Past Medical History: Medical History[1] LABS: CBC: Recent Labs 02/16/25 0320 02/17/25 0252 02/18/25 0151 WBC 10.5 8.8 7.3 RBC 3.43* 3.32* 3.37* HGB 7.6* 7.5* 7.6* HCT 26.4* 25.7* 26.2* MCV 77.0 77.4 77.7 RDW 19.7* 19.5* 19.9* PLT 312 319 326 BMP: Recent Labs 02/16/250 02/17/252 02/18/25 0151 NA 130* 131* 131* K 3.8 4.5 4.4 CL 102 102 101 CO2 23 23 25 BUN 12 13 11 CREATININE 0.57* 0.54* 0.49* GLUCOSE 132* 119* 111 CALCIUM 7.1* 7.2* 7.2* ANIONGAP 5 6 5 LIVER PROFILE: Recent Labs 02/16/2531902/17/2525102/18/25 015 AST 14 13 14 ALT <6 <6 <6 BILITOT 0.2 0.2 0.2 ALKPHOS 52 56 65 PROT 5.2* 5.3* 5.3* PT/INR: No results for input(s): "PROTIME", "INR" in the last 72 hours. CARDIAC ENZYMES: No results for input(s): "TROPONINI" in the last 72 hours. Procalcitonin: No results found for: "PROCAL" COVID-19 PCR: No results for input(s): "COVID19" in the last 72 hours. Objective: Vitals: BP 112/63 Pulse 64 Temp 37.3 C (99.1 F) (Temporal) Resp 18 Ht 5' 10.51" (1.791 m) Wt 128 lb (58.1 kg) SpO2 99% BMI 18.10 kg/m Pulse Ox: SpO2 Av % Min: 99 % Max: 99 % Supplemental O2: Physical Exam Vitals and nursing note reviewed. Constitutional: General: He is not in acute distress. Appearance: He is ill-appearing. HENT: Head: Normocephalic and atraumatic. Eyes: Extraocular Movements: Extraocular movements intact. Pupils: Pupils are equal, round, and reactive to light. Cardiovascular: Rate and Rhythm: Normal rate and regular rhythm. Pulses: Normal pulses. Heart sounds: Murmur heard. Pulmonary: Effort: Pulmonary effort is normal. Breath sounds: Normal breath sounds. Abdominal: General: Bowel sounds are normal. There is no distension. Palpations: Abdomen is soft. Tenderness: There is no abdominal tenderness. Musculoskeletal: General: Normal range of motion. Cervical back: Neck supple. Skin: Capillary Refill: Capillary refill takes less than 2 seconds. Findings: Lesion present. Neurological: General: No focal deficit present. Mental Status: He is alert and oriented to person, place, and time. Mental status is at baseline. Psychiatric: Mood and Affect: Mood normal. Medications: Scheduled PRN Scheduled Meds[2] PRN Meds[3] Continuous Continuous Meds[4] Assessment Failure to thrive Norovirus diarrhea Perforated rectal mass Hypoalbuminemia Bradycardia Anemia Hypokalemia Hyponatremia Hyperglycemia Vit D deficiency Functional decline HTN Depression BPH Severe malnutrition Plan Continue IVF and antibiotics, continue serial exams, GS following, OR planned for tomorrow, continue wound care, Geriatrics and Psychiatry and Palliative Care are following, continue vit D, PT/OT, follow up labs, discharge planning, see orders - am labs, replace lytes prn - PT/OT/CM/SW - delirium precautions: increase activity - DVT prophylaxis: enoxaparin and encourage ambulation Advance Directive: Full Code Anticipated Discharge - Date - 02/21-02/22 - Location - Skilled Facility - Pending the following - clinical improvement, completion of work up, disposition finalization and when OK with consultants Total time spent (which include face to face and non face to face encounters) : 45 minutes Toxic drug monitoring/narrow therapeutic index drug monitoring : # Drug name : lovenox # Route administered : subcutaneous # Method of monitoring : daily CBC No emergency contact information on file. Vika Angela MD Division of Hospitalist Medicine Acute care [facility] [1] Past Medical History: Diagnosis Date Depression Hypertension Prostate disease [2] amoxicillin-clavulanate, 875 mg, Oral, 2 times per day enoxaparin, 40 mg, SubCUTAneous, Daily ergocalciferol, 1.25 mg, Oral, Weekly influenza, 0.5 mL, IntraMUSCular, Prior to discharge miconazole, , Topical, BID sodium chloride 0.9%, 10 mL, IntraVENous, 2 times per day stomahesive in petrolatum, , Topical, 3 times per day Vortioxetine HBr, 5 mg, Oral, Daily [3] PRN medications: acetaminophen OR acetaminophen, LORazepam, melatonin, naloxone, ondansetron ODT OR ondansetron, oxyCODONE OR oxyCODONE, polyethylene glycol (PEG) 3350, prochlorperazine, sodium chloride, sodium chloride 0.9%, stomahesive in petrolatum [4] lactated Ringer's, 75 mL/hr, Last Rate: 75 mL/hr (02/18/25 0624) Images from the original note were not included. PHYSICAL THERAPY [facility] Name/MRN: David Doan ([id number]) Date: 02/17/2025 Pt is alert and oriented to where they can understand that therapy was being offered to them. Treatment was offered and patient refused. The reason stated by patient for refusal was he is getting surgery on Wednesday, he is in too much pain and is too weak. The therapist explained the proposed treatment, the expected benefits and outcome of the treatment and possible medical consequences/risks of refusal. Educated pt that he would not get stronger lying in bed and pt said "I wont get any stronger until after surgery so theres no point". Nathalie Chau PTA Cosigned by Manuelito Short PT at 02/17/2025 12:55 PM EDT Hospitalist Progress Note 02/17/2025 Subjective: Admit Date: 02/14/2025 PCP: Rosalind Almanzar MD Room#: [id number] A Interval History: Having some intermittent nausea. Remains very weak. No cp, sob, cough, emesis, f/c. Case and plan discussed with patient and GERARDO Fowler, separately. All questions answered. NPO diet with enteral medications Adult diet Regular 24HR INTAKE/OUTPUT: Intake/Output Summary (Last 24 hours) at 02/17/2025 1125 Last data filed at 02/17/2025 0300 Gross per 24 hour Intake -- Output 2 ml Net -2 ml Past Medical History: Medical History[1] LABS: CBC: Recent Labs 02/15/2533402/16/2531902/17/25 025 WBC 8.9 10.5 8.8 RBC 3.53* 3.43* 3.32* HGB 7.9* 7.6* 7.5* HCT 27.1* 26.4* 25.7* MCV 76.8* 77.0 77.4 RDW 19.8* 19.7* 19.5* PLT 330 312 319 BMP: Recent Labs 02/15/2533402/16/2531902/17/25251 NA 129* 130* 131* K 3.4* 3.8 4.5 CL 101 102 102 CO2 19* 23 23 BUN 16 12 13 CREATININE 0.63* 0.57* 0.54* GLUCOSE 150* 132* 119* CALCIUM 7.5* 7.1* 7.2* ANIONGAP 9 5 6 LIVER PROFILE: Recent Labs 02/15/2533402/16/2531902/17/25 025 AST 25 14 13 ALT <6 <6 <6 BILITOT 0.4 0.2 0.2 ALKPHOS 55 52 56 PROT 5.7* 5.2* 5.3* PT/INR: No results for input(s): "PROTIME", "INR" in the last 72 hours. CARDIAC ENZYMES: No results for input(s): "TROPONINI" in the last 72 hours. Procalcitonin: No results found for: "PROCAL" COVID-19 PCR: No results for input(s): "COVID19" in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 Manual Basophils Manual Bands Manual Metamyelocytes Manual Myelocytes Manual Promyelocytes Manual Blasts Manual Atypical Lymphocytes Manual Unclassified Cells, Manual Lab Results Component Value Date TSH 2.62 02/15/2025 Lab Results Component Value Date [id number] 02/15/2025 Lab Results Component Value Date VITD25 <4 (L) 02/15/2025 [1] Current Facility-Administered Medications: acetaminophen (Tylenol) tablet 650 mg, 650 mg, Oral, q6h PRN, 650 mg at 02/16/25 0015 OR acetaminophen (Tylenol) suppository 650 mg, 650 mg, Rectal, q6h PRN, Vika Angela MD amoxicillin-clavulanate (Augmentin) 875-125 MG per tablet 1 tablet, 875 mg, Oral, 2 times per day, VINCENT Reich enoxaparin (Lovenox) syringe 40 mg, 40 mg, SubCUTAneous, Daily, Vika Angela MD, 40 mg at 02/15/25 0905 ergocalciferol (Vitamin D2) capsule 1.25 mg, 1.25 mg, Oral, Weekly, SUYAPA Tena CNP, 1.25 mg at 02/16/25 1019 influenza vaccine tiss-cult subunt (Flucelvax) STANDARD-DOSE injection 0.5 mL, 0.5 mL, IntraMUSCular, Prior to discharge, Vika Angela MD lactated Ringer's infusion, 75 mL/hr, IntraVENous, Continuous, Vika Angela MD, Last Rate: 75 mL/hr at 02/16/25 1233, 75 mL/hr at 02/16/25 1233 melatonin tablet 5 mg, 5 mg, Oral, Nightly PRN, SUYAPA Tena CNP miconazole (Micotin) 2 % powder, , Topical, BID, SUYAPA Rice CNP, Given at 02/16/25 1432 naloxone (Narcan) injection 0.4 mg, 0.4 mg, IntraVENous, q5 min PRN, Vika Angela MD ondansetron ODT (Zofran-ODT) disintegrating tablet 4 mg, 4 mg, Oral, q8h PRN, 4 mg at 02/16/25 1231 OR ondansetron (Zofran) injection 4 mg, 4 mg, IntraVENous, q6h PRN, Vika Angela MD, 4 mg at 02/16/25 0332 oxyCODONE (Roxicodone) immediate release tablet 5 mg, 5 mg, Oral, q4h PRN, Vika Angela MD, 5 mg at 02/16/25 1432 polyethylene glycol (PEG) 3350 (Miralax) packet 17 g, 17 g, Oral, Daily PRN, Vika Angela MD prochlorperazine (Compazine) injection 5 mg, 5 mg, IntraVENous, q6h PRN, Obed Callahan MD, 5 mg at 02/15/25 1432 sodium chloride 0.9 % infusion, 5-250 mL/hr, IntraVENous, PRN, Gely Gent, PA sodium chloride 0.9% (NS) flush 10 mL, 10 mL, IntraVENous, 2 times per day, Gely Gent, PA sodium chloride 0.9% (NS) flush 10 mL, 10 mL, IntraVENous, PRN, Gely Gent, PA stomahesive in petrolatum (ET Mix), , Topical, PRN, Idalia Gallagher APRN - LEATHER ETCHER stomahesive in petrolatum (ET Mix), , Topical, 3 times per day, Idalia Gallagher APRN - LOIS, Given at 02/16/25 1432 Vortioxetine HBr (Trintellix) tablet 5 mg, 5 mg, Oral, Daily, Gila Matos APRN - LEATHER ETCHER, 5 mg at 02/16/25 1018 Hospitalist Progress Note 02/16/2025 Subjective: Admit Date: 02/14/2025 PCP: Rosalind Almanzar MD Room#: B4-468/B4-468 A Interval History: No cp, sob, cough, n/v, f/c. Tolerating diet. Very weak. Case and plan discussed with patient and GS separately. All questions answered. Adult diet Regular NPO diet with enteral medications 24HR INTAKE/OUTPUT: Intake/Output Summary (Last 24 hours) at 02/16/2025 1305 Last data filed at 02/16/2025 0100 Gross per 24 hour Intake -- Output 3 ml Net -3 ml Past Medical History: Medical History[1] LABS: CBC: Recent Labs 02/14/25 1237 02/15/25 0335 02/16/25 0320 WBC 9.9 8.9 10.5 RBC 4.31* 3.53* 3.43* HGB 9.6* 7.9* 7.6* HCT 34.0* 27.1* 26.4* MCV 78.9 76.8* 77.0 RDW 20.4* 19.8* 19.7* PLT 412 330 312 BMP: Recent Labs 02/14/25 1237 02/15/25 0335 02/16/25 0320 NA 147* 129* 130* K 4.5 3.4* 3.8 CL 114* 101 102 CO2 20* 19* 23 BUN 21 16 12 CREATININE 0.81 0.63* 0.57* GLUCOSE 133* 150* 132* CALCIUM 8.5* 7.5* 7.1* ANIONGAP 13 9 5 LIVER PROFILE: Recent Labs 02/14/25 1237 02/15/25 0335 02/16/25 0320 AST 22 25 14 ALT <6 <6 <6 BILITOT 0.4 0.4 0.2 ALKPHOS 61 55 52 PROT 7.3 5.7* 5.2* PT/INR: No results for input(s): "PROTIME", "INR" in the last 72 hours. CARDIAC ENZYMES: No results for input(s): "TROPONINI" in the last 72 hours. Procalcitonin: No results found for: "PROCAL" COVID-19 PCR: No results for input(s): "COVID19" in the last 72 hours. Objective: Vitals: BP 100/64 (BP Location: Right arm, Patient Position: Lying) Pulse 75 Temp 36.6 C (97.9 F) (Temporal) Resp 16 Ht 5' 10.51" (1.791 m) Wt 132 lb (59.9 kg) SpO2 99% BMI 18.67 kg/m Pulse Ox: SpO2 Av % Min: 99 % Max: 99 % Supplemental O2: Physical Exam Vitals and nursing note reviewed. Constitutional: General: He is not in acute distress. Appearance: He is ill-appearing. HENT: Head: Normocephalic and atraumatic. Eyes: Extraocular Movements: Extraocular movements intact. Pupils: Pupils are equal, round, and reactive to light. Cardiovascular: Rate and Rhythm: Normal rate and regular rhythm. Pulses: Normal pulses. Pulmonary: Effort: Pulmonary effort is normal. Breath sounds: Normal breath sounds. Abdominal: General: Bowel sounds are normal. There is no distension. Palpations: Abdomen is soft. Tenderness: There is no abdominal tenderness. Musculoskeletal: General: Normal range of motion. Cervical back: Neck supple. Skin: General: Skin is warm. Capillary Refill: Capillary refill takes less than 2 seconds. Neurological: General: No focal deficit present. Mental Status: He is alert and oriented to person, place, and time. Mental status is at baseline. Psychiatric: Mood and Affect: Mood normal. Medications: Scheduled PRN Scheduled Meds[2] PRN Meds[3] Continuous Continuous Meds[4] Assessment Failure to thrive Norovirus diarrhea Perforated rectal mass Bradycardia Anemia Hypokalemia Hyponatremia Hyperglycemia Vit D deficiency Functional decline HTN Depression BPH Severe malnutrition Plan Continue to monitor on telemetry, continue IVF, continue antibiotics, continue serial exams, GS has seen and planning OR on Wednesday, wound care, Geriatrics and Psychiatry are following, continue Wound Care, pricing actuary has seen, replace vit D, PT/OT, follow up labs, discharge planning, see orders - am labs, replace lytes prn - PT/OT/CM/SW - delirium precautions: increase activity - DVT prophylaxis: enoxaparin and encourage ambulation Advance Directive: Full Code Anticipated Discharge - Date - 02/21-02/22 - Location - Skilled Facility - Pending the following - clinical improvement, completion of work up, disposition finalization and when OK with consultants Total time spent (which include face to face and non face to face encounters) : 46 minutes Toxic drug monitoring/narrow therapeutic index drug monitoring : # Drug name : lovenox # Route administered : subcutaneous # Method of monitoring : daily CBC No emergency contact information on file. Vika Angela MD Division of Hospitalist Medicine Acute [facility] [1] Past Medical History: Diagnosis Date Depression Hypertension Prostate disease [2] amoxicillin-clavulanate, 875 mg, Oral, 2 times per day enoxaparin, 40 mg, SubCUTAneous, Daily ergocalciferol, 1.25 mg, Oral, Weekly influenza, 0.5 mL, IntraMUSCular, Prior to discharge miconazole, , Topical, BID sodium chloride 0.9%, 10 mL, IntraVENous, 2 times per day stomahesive in petrolatum, , Topical, 3 times per day Vortioxetine HBr, 5 mg, Oral, Daily [3] PRN medications: acetaminophen OR acetaminophen, melatonin, naloxone, ondansetron ODT OR ondansetron, oxyCODONE, polyethylene glycol (PEG) 3350, prochlorperazine, sodium chloride, sodium chloride 0.9%, stomahesive in petrolatum [4] lactated Ringer's, 75 mL/hr, Last Rate: 75 mL/hr (02/16/25 1233) Images from the original note were not included. OCCUPATIONAL THERAPY [facility]'s Name/MRN: David Doan ([id number]) Date: 02/16/2025 Pt is alert and oriented to where they can understand that therapy was being offered to them. Evaluation was offered and patient refused. The reason stated by patient for refusal was feeling weak, tired, and not ready to participate in OT yet. The therapist explained the proposed treatment, the expected benefits and outcome of the treatment and possible medical consequences/risks of refusal. Physician notified of refusal. Dr. Angela. OT informed Dr. Angela of the above information and that OT will sign off on OT at this time and to please re-order if the patient is ready to participate. Olivia Gracia OT Images from the original note were not included. Attending Attestation [facility] - Surgery [facility] Physicians Surgery Patient Name: David Doan Date: 02/16/25 Patient seen and examined. Presents after wellness check at home found him covered in feces and unable to care for himself. General surgery was consulted for rectal abscess/mass. Bedside exam is limited, but mass appears malignant. CT scan of the chest abdomen pelvis yesterday with local mass and perforation. No obvious distant disease. Exam: General: Cachectic Abdomen: Soft, nontender, nondistended. Rectal: Exam limited at bedside, but large fungating rectal mass with surrounding erythema and tenderness Assessment and Plan: 64 y.o. male with failure to thrive and rectal mass Labs, notes and imaging reviewed Rectal masses difficult to examine at bedside CT scan consistent with perforated rectal mass. Will need MRI of the pelvis pending tissue results. CEA 21.5 Would recommend exam under anesthesia with biopsy and diverting loop colostomy Given the patient's failure to thrive and poor living conditions, decision making capacity and overall goals of care discussions are ongoing. Psychiatry and geriatrics following. Will also consult palliative care given likely advanced local malignancy. Tentative plan for rectal exam under anesthesia and diverting loop colostomy on Wednesday. Augmentin for perforated rectal mass, source control will not be able to be achieved until diversion of stool. This case had high medical decision making and case complexity with 50 minute total care time including chart review, care coordination and face to face encounter. The patient was seen and examined independently and relevant data reviewed by myself. A full chart review was performed. I personally interviewed the patient and performed an individual physical examination. In addition, I discussed the patient's condition and treatment options with them. I have also reviewed and agree with the past medical, family and social history and care plan unless otherwise noted. All of the patient's questions were answered. Sherman Castro MD General Surgery Pager #[phone] 1:44 PM 02/16/2025 GENERAL SURGERY Progress Note PATIENT NAME: David Doan TODAY'S DATE: 02/16/2025 SUBJECTIVE: Follow up on rectal pain/abscess. Patient seen this morning resting in bed. He notes that he is exhausted and has not been able to get much sleep. He notes continued rectal pain today, denies abdominal pain. Patient endorses PO intake but does endorse nausea without vomiting. Patient made aware of CT findings and need for surgery. He does understand and is agreeable to proceeding Wednesday, even if ostomy is necessary. Per nursing, patient resistant to care/changing due to pain. Diarrhea and drainage continue. No overnight events noted. Pain controlled Yes, fairly Other Complaints No Flatus/BM/or Ostomy function Yes OBJECTIVE: VITALS: BP 100/64 (BP Location: Right arm, Patient Position: Lying) Pulse 75 Temp 36.6 C (97.9 F) (Temporal) Resp 16 Ht 5' 10.51" (1.791 m) Wt 132 lb (59.9 kg) SpO2 99% BMI 18.67 kg/m INTAKE/OUTPUT: I/O last 3 completed shifts: In: - (0 mL/kg) Out: 3 (0.1 mL/kg) [Stool:3] Weight: 59.9 kg No intake/output data recorded. REVIEW OF SYSTEMS: Pertinent positives and negatives as per interval history section PHYSICAL EXAM: CONSTITUTIONAL: A&O x 3, LUNGS: Resp effort easy and unlabored, breath sounds normal ABDOMEN: soft, nondistended, nontender, peritoneal signs absent MUSCULOSKELETAL: Normal range of motion NEUROLOGIC: Level of Alertness: alert PSYCHIATRIC: Speech is normal SKIN: Warm, dry, and intact Data: CT chest abdomen pelvis with contrast Status: Final result Link to Procedure Log Procedure Log Orders Requiring a Screening Form Procedure Order Status Order ID Accession Number Form Status CT chest abdomen pelvis with contrast Completed [id number] Created PACS Images Show images for CT chest abdomen pelvis with contrast Study Result Narrative & Impression Patient Name: DAVID DOAN : 1960 Exam Date/Time: 02/15/2025 16:04 Procedure: CT CHEST ABDOMEN PELVIS W CONTRAST Ordering Provider: TREJO ALAINA Reason For Exam: Rectal pain, ?mass, abdominal pain Gender: Male Age: 64 years History: Rectal pain, ?mass, abdominal pain Exam: CT CHEST ABDOMEN PELVIS W CONTRAST INDICATION: Inpatient. Rectal pain. Abdominal pain. Scan Parameters: Multiple axial 1mm images were obtained of the chest and 3mm images of the abdomen and pelvis. Coronal and sagittal reconstructions were reviewed as well. Dose reduction was employed with automated exposure control. Additional reconstructed MIP images provided with 3-D postprocessing. CONTRAST: IV contrast; GI contrast not provided COMPARISON: There is no comparison CT exam of this facility. FINDINGS: CHEST: There is no pneumothorax, confluent consolidation, or sizable pleural effusion. The thyroid gland is normal. The airway is patent. The esophagus is decompressed. There is no mediastinal or axillary adenopathy. The heart is not enlarged. Coronary artery and aorta atherosclerotic calcifications are present. There is no pulmonary artery embolus or aortic dissection. There is no right heart strain. The bone mineralization is decreased. There is no acute fracture. ABDOMEN AND PELVIS: The bone mineralization is decreased. There is compression fracture of L2 with approximate 50 percent anterior height loss compared to the adjacent vertebra. The liver, gallbladder, and spleen are within normal limits. There is bilateral adrenal gland hyperplasia, greatest on the left. Diffuse calcifications are present throughout the pancreas. The pancreatic duct is dilated. Difficult to assess for associated cysts or branch duct IPMN. The pancreas is atrophied. Left superior renal pole calculi measure approximately 18 mm and 10 mm. There is no hydronephrosis. A punctate right renal calculus is present. An approximate 4 mm calculus is present within the bladder on the left at the ureterovesical junction. The bladder wall is not thickened. A few locules of air are present in the bladder lumen which may be iatrogenic in etiology. The prostate gland is enlarged measuring 4.9 cm in transverse axial dimension. There is an abnormal appearance of the rectum with abnormal irregular soft tissue wall thickening for a long segment. Loculated air extends on the lumen of the rectum into the surrounding fat most concerning for local contained perforation with intraluminal fluid, for instance measuring 2.2 x 4.5 x 5.2 cm in size. This is at the anorectal verge. Additional locules of air are present either within the wall or adjacent to the wall of the rectum. There is severe narrowing of the rectal lumen due to this mass at multiple sites along the distal rectum. In addition there are abnormal lymph nodes in the surrounding fat concerning for metastatic lymph nodes. Locules of air are present in the soft tissue extending from the anal rectal verge into the medial buttocks and along the perineum into the scrotum. There is mural wall thickening which extends to the junction of the sigmoid. The sigmoid is redundant. The appendix is not clearly identified. The stomach is moderately distended with air and fluid. The duodenum is not well distended. Multiple small bowel loops appear decompressed. There is a soft tissue nodule at the midline in the subcutaneous tissues overlying the bladder measuring 2.7 x 1.2 cm. There is minimal subcutaneous fat. IMPRESSION: CHEST: No acute intrathoracic process, as above. Osteopenia. ABDOMEN/PELVIS: 1. ABNORMAL EXAM. Findings are most consistent with rectal malignancy with local perforation and suspect perirectal abscess. There is abnormal irregular soft tissue wall thickening for a long segment of the rectum with near occlusion of the lumen. There are locules of air with fluid surrounding the rectum near the anal rectal verge most concerning for perforation and/or abscess. Locules of air extend into the soft tissue of the medial left buttocks and into the tissues of the scrotum (gas-forming organism not excluded). Direct visualization is recommended with tissue sampling when feasible. 2. There are multiple lymph nodes surrounding the rectum concerning for metastatic lymph nodes. 3. Bilateral nephrolithiasis. No obstructive uropathy. Bladder calculus also noted. 4. Prostate gland enlargement, correlate with PSA. 5. Vertebral body L2 compression fracture (there is no discrete lesion to suggest pathologic fracture). Osteopenia. 6. Changes of chronic pancreatitis, as above. Difficult to assess for associated cysts or branch duct IPMN. The pancreas is atrophied. 7. Additional findings, as above. CRITICAL TEST COMMUNICATION: VINCENT Reich (ordering provider) was notified by [employer] secure chat today at 7:21pm with immediate confirmed receipt. Report Dictated on Electronically Signed By: Olivia Sears MD Electronically Signed Date/Time: 02/15/2025 7:28 PM EDT Result History CT chest abdomen pelvis with contrast (Order #[id number]) on 02/15/2025 - Order Result History Report CT chest abdomen pelvis with contrast: Patient Communication Add MyChart Message Not seen Risk Scores No Tyrer-Cuzick assessment data. No Risk Considerations assessment data. No NCC HBOC Guidelines assessment data. No NCCN Stewart assessment data. No Risk Explanation Tyrer-Cuzick 8 assessment data. No BRCAPRO assessment data. No Myriad risk assessment data. No Bertin risk assessment data. No Steph risk assessment data. No FORENSICS ANALYST Request ID assessment data. No [facility] linux server engineer ID assessment data. Breast Cancer Risk Navigation Events None Signed by Signed Time Phone Pager Olivia Sears MD 02/15/2025 19:28 Exam Information Status Exam Begun Exam Ended Final 02/15/2025 16:04 02/15/2025 16:29 External Results Report Open External Results Report Encounter View Encounter Screening Form Questions No questionnaires are associated with this screening form. Study Details Open Study Details Order Transmittal Tracking CT chest abdomen pelvis with contrast (Order #[id number]) on 02/15/[address] chest abdomen pelvis with contrast (Order #[id number]) on 02/15/25 CBC: Recent Labs 02/14/25 1237 02/15/25 0335 02/16/25 0320 WBC 9.9 8.9 10.5 HGB 9.6* 7.9* 7.6* HCT 34.0* 27.1* 26.4* PLT 412 330 312 BMP: Recent Labs 02/14/25 1237 02/15/25 0335 02/16/25 0320 NA 147* 129* 130* K 4.5 3.4* 3.8 CL 114* 101 102 CO2 20* 19* 23 BUN 21 16 12 CREATININE 0.81 0.63* 0.57* GLUCOSE 133* 150* 132* Hepatic: Recent Labs 02/14/25 1237 02/15/25 0335 02/16/25 0320 AST 22 25 14 ALT <6 <6 <6 BILITOT 0.4 0.4 0.2 ALKPHOS 61 55 52 ASSESSMENT AND PLAN: Mr. Doan is a 64 y.o. M presenting with failure to thrive, diarrhea -WBC 10.5, Hgb 7.6- monitor, CEA 21.5 -Exam 02/15 limited due to pain and diarrhea but rectal mass appears to be present -(+)Norovirus, (-)C. Diff -CT C/A/P with rectal malignancy with local perforation and perirectal abscess, locules of air extend into soft tissue of medial L buttocks and scrotum -Okay to continue diet for now -Augmentin added for perirectal abscess coverage -Medical mgmt per primary team Disposition: Patient with diarrhea and rectal pain, concern for rectal mass confirmed by CT. Will need to proceed with REUA and probable diverting colostomy Wednesday- patient educated and agreeable. Appreciate geriatrics and social work coordination for capacity analysis. Will continue to follow. Patient counseled on risks, benefits, and alternatives of treatment plan today. Patient states an understanding and willingness to proceed with plan. VINCENT Reich [facility] Wound Care CONSULT Note David Doan AGE: 64 y.o. GENDER: male : 1960 Subjective: HISTORY of PRESENT ILLNESS HPI David Doan is a 64 y.o. male who presents for a wound consult. HPI: Mr. Doan madelyn 64 y.o male with PMH listed below who is admitted FTT. He was brought in after a welfare check found him on his couch and covered in feces. He has not eating for a bit and is having significant weakness. He has been unable to care for himself. He says he has had diarrhea and had c diff recently but did not complete a course of treatment. Patient refused exam of buttock yesterday , offered to place waffle overlay on bed at about 11am today and patient wants to rest a bit more before that . I did provide hygiene incont. Of BM and urine. Brief removed and pad placed under patient, applied barrier ointment with zinc. Antifungal powder added to order for groins . Skin is very moist and musty, frequently incont. Of bowel and bladder. Constant stool draining from rectum / abscess plans for surgery on Wednesday . Possible ostomy per chart notes , complains of being tired and wanting to rest. +diarrhea , +pain rectum and buttock skin . Wound Care consulted for pressure injury buttocks. After exam today , patient PAST MEDICAL HISTORY Medical History[1] PAST SURGICAL HISTORY Surgical History[2] FAMILY HISTORY Family History[3] SOCIAL HISTORY Social History[4] ALLERGIES Allergies[5] MEDICATIONS Medications Ordered Prior to Encounter[6] REVIEW OF SYSTEMS Pertinent items are noted in HPI. Objective: BP 100/64 (BP Location: Right arm, Patient Position: Lying) Pulse (!) 49 Temp 36.6 C (97.9 F) (Temporal) Resp 16 Ht 5' 10.51" (1.791 m) Wt 132 lb (59.9 kg) SpO2 99% BMI 18.67 kg/m PHYSICAL EXAM General appearance: in no apparent distress, alert, oriented times 3, moderately ill, and cachectic disheveled appearance Skin: warm and dry, nails with stool under them Pulmonary: Normal effort, no respiratory distress, no cyanosis Sacrum: no ulcer noted to sacral today , skin cleansed , Periwound fragile and excoriated due to moisture Left hip blanchable , skin intact and +erythema present advised to lay on the opposite side for little bit, patient agrees. Nurse notified. Bilateral buttocks: [place] excoriated skin present over sacral and scrotum / groins moist yeast odor. Periwound fragile scattered partial thickness rash due to maceration of stool and urine. No photo taken , patient on isolation precaution unable to complete photo today . LABS CBC: Lab Results Component Value Date WBC 10.5 02/16/2025 HGB 7.6 (L) 02/16/2025 HCT 26.4 (L) 02/16/2025 MCV 77.0 02/16/2025 PLT 312 02/16/2025 BMP: Lab Results Component Value Date NA 130 (L) 02/16/2025 K 3.8 02/16/2025 CL 102 02/16/2025 CO2 23 02/16/2025 BUN 12 02/16/2025 CREATININE 0.57 (L) 02/16/2025 PT/INR: No results found for: "PROTIME", "INR" Prealbumin: No results found for: PREALBUMIN Albumin:No components found for: LABALBU Sed Rate:No results found for: SEDRATE Micro: No components found for: BC Assessment/Plan: Nursing staff to perform dressing change: Sacrum: Unstageable Pressure Injury resolved x 1 Continue treatment for prevention . - Clean with soap and water, apply ET mix then leave SO TID and PRN - Envella bed is causing too much pain , ok to switch back to pressure redistribution mattress/ bed per patient request. Willing to try waffle overlay later and does not want it filled all the way. - Reposition q2hrs - Incontinent checks q2hrs Bilateral buttock: MASD (bodily fluids and friction /shear) - Clean with soap and water, apply stomahesive powder then zinc based barrier - may alternate with ET mix then leave SO TID and PRN Fungal groins bilateral - mioconazole powder BID Nutritional support Wound Care to follow Recommend to follow up at [facility] wound care center after hospital discharge. Any questions or concerns please secure chat "ACH wound/ostomy". Thank you for the consult! I personally obtained the horowitz and critical portions of the history and physical exam. I reviewed the labs, imaging studies, and electronic medical record. I reviewed the chart documentation and discussed the patient with treatment team members. I have edited the note to reflect my clinical findings and my assessment and plan. Please note, the time of this note does not reflect the time I saw this patient today, but the time of this documentaton. Portions of this note including HPI, ROS, impression/plan, and examination may have been copied forward from admission to today as to provide important historical information essential in contributing to medical decision making. Documentation has been reviewed and edited as necessary to support clinical decision making for today's visit and to reflect my own independent evaluation of this patient. Decision making for today's visit and to reflect my own independent evaluation of this patient. [1] Past Medical History: Diagnosis Date Depression Hypertension Prostate disease [2] Past Surgical History: Procedure Laterality Date AMPUTATION Right 2023 right partial index finger FEMUR SURGERY Right [3] No family history on file. [4] Social History Tobacco Use Smoking status: Every Day Smokeless tobacco: Never Substance Use Topics Alcohol use: Yes Drug use: No [5] No Known Allergies [6] No current facility-administered medications on file prior to encounter. Current Outpatient Medications on File Prior to Encounter Medication Sig Dispense Refill Bismuth Tribromoph-Petrolatum (xeroform petrolat patch 2"x2") pads Apply 1 each topically daily. gabapentin (Neurontin) 300 MG capsule Take 1 capsule (300 mg) by mouth in the morning and 1 capsule (300 mg) at noon and 1 capsule (300 mg) before bedtime. hydrOXYzine pamoate (Vistaril) 50 MG capsule Take 1 capsule (50 mg) by mouth every 6 hours as needed for allergies or anxiety for up to 10 days. traZODone (Desyrel) 100 MG tablet Take 1 tablet (100 mg) by mouth Nightly as needed for sleep. Images from the original note were not included. OCCUPATIONAL THERAPY [facility]'s Name/MRN: David Doan ([id number]) Date: 02/15/2025 Pt is alert and oriented to where they can understand that therapy was being offered to them. Evaluation was offered and patient refused. The reason stated by patient for refusal was pt was tired and already got up with PT earlier this date. The therapist explained the proposed treatment, the expected benefits and outcome of the treatment and possible medical consequences/risks of refusal. Will continue to monitor and re-attempt during current admission. Victorina Miner OT Images from the original note were not included. PHYSICAL THERAPY [facility] Initial Evaluation Name/MRN: David Doan ([id number]) Evaluation Date: 02/15/2025 Date of : 1960 Admission Date: 02/14/2025 11:10 AM Age: 64 y.o. Room/Bed: B4-468/B4468 A Having reviewed the treatment plan and goals for this patient, I certify that the plan of care below is medically necessary and appropriate. Discharge Recommendation: Alf Facility ((Pending progress)) Equipment Needed: No Assessment IMPRESSION: Pt admitted to ED on 02/14 with Failure to thrive, weakness, functional decline, and diarrhea. Prior to admission, pt lived alone and performed mobility with a FWW. Upon eval, pt required CGA/min assist for bed mobility. Pt would benefit from skilled PT services in order to increase safety and independence in functional mobility and daily tasks. Recommend SNF upon DC. Admitting Diagnosis: failure to thrive Prognosis: good Performance Deficits /Impairments: Increased Pain, Decreased Functional Mobility, Decreased ADL status, Decreased Strength, Decreased Safety Awareness, Decreased Endurance, Decreased Balance, and Decreased ROM Decision Making: Medium Complexity Subjective Pt in bed agreeable to PT with encouragement Per RN pt okay for therapy. Pain: 0-10 pain scale: 7/10 Location: back/ R knee pain Past Medical History: Medical History[1] Past Surgical History: Surgical History[2] Admission Diagnosis: Patient Active Problem List Diagnosis Date Noted Severe malnutrition ([facility] ([facility]) 02/15/2025 Adult failure to thrive 02/15/2025 Failure to thrive in adult 02/14/2025 Streptococcal bacteremia 06/23/2023 Right foot pain 06/23/2023 Severe alcohol use disorder ([facility]) 05/11/2023 Osteomyelitis of finger of right hand ([facility]) 05/07/2023 Medical Precautions: Enhanced Contact Proper PPE donned/doffed in accordance with facility standards. Fall Risk: Meza Fall Risk Score: 100 (Medium Risk) Meza Fall Risk Score: 100 (High Risk) Precautions/Restrictions: skin care precautions Family/Caregiver Present: none Overall Cognitive Status: WFL Overall Orientation Status: Oriented x4 Vision: has glasses but doesn't wear them Hearing: impaired Social/Functional History Patient admitted from home. Lives With: Alone Type of Home: apartment Home Layout: Single Level Home Home Access: Stairs to Enter with Rails (# of stairs: 7) Bathroom Shower/Tub: Tub/Shower Combo Toilet: Standard Home Equipment: front wheeled walker Homemaking Responsibilities: Needs Assist Receives Help From: Neighbor Active Rn Orthopaedic: N/A Prior Level of Function Prior Level of ADL Function: Independent Prior Level of Mobility: Independent; Device: Front wheeled walker Prior Level of Transfers: Independent Objective Lower Extremity Assessment AROM: WFL Strength: Patient demonstrates appropriate quad strength to participate in safe OOB mobility, however demonstrates generalized weakness with mobility Sensation: WFL Balance: Balance During Session: Posture: fair Sitting - Static: SBA Bed Mobility: Supine to sit: Min Assist Sit to supine: Contact Guard Rolling to right: Contact Guard Rolling to left: Contact Guard Patient able to roll right and left with contact-guard assist. Cueing for hand placement. Good carryover noted. Pt required min assist while getting to EOB. Pt denies dizziness, but reports increase in pain. Once on EOB pt able to complete static sitting balance for about 2 minutes with SBA before requesting to lay back down. CGA required when getting back into bed. Transfers/ ambulation not completed Pt did not want to complete any OOB activities at this time due to R knee and back pain. Patient educated on the benefits of increasing his activity/working with therapy. Outcome Measures AM-PAC How much HELP from another person do you currently need Turning from your back to your side while in a flat bed without using bedrails?: A Little Moving from lying on your back to sitting on the side of a flat bed without using bedrails?: A Little Moving to and from a bed to a chair (including a wheelchair)?: A Little Standing up from a chair using your arms (wheelchair or bedside chair)?: A Lot Walking in a hospital room?: A Lot Stair climbing assessed?: No AM-PAC Inpatient Mobility Raw Score (No Stairs) : 13 JH-HLM JH-HLM Scale: Sat at edge of bed Plan Pt would benefit from skilled acute PT services to address Strengthening, ROM, Gait Training, Balance Training, Self-Care/ADL Training, Functional Mobility Training, Endurance Training, Safety Education and Training, Stair Training, and Pain Management. Frequency: 7 visitsduring current hospital admission or until additional recommendations are made Barriers: Pain, Impaired balance, Lower extremity weakness, Upper extremity weakness, Decreased endurance, Limited safety awareness, and Stairs at home Safety/Education Safety Safety Devices in place: All fall risk precautions in place, call light within reach, left in bed, bed alarm in place, gait belt, patient at risk for falls, and nurse notified Restraints: No Education Education Given To: patient Education Provided: PT Role, PT Goals, Plan of Care, Fall Prevention Education, Discharge Recommendations, and Benefits of Increasing Activity Education Method: Verbal and Demonstration Barriers to Learning: Hearing Education Outcome: Verbalized Understanding, Demonstrated Understanding, and Continued Education Needed Goals Patient Stated Goal: to decrease pain Encounter Problems Encounter Problems (Active) Balance Patient will maintain dynamic standing balance for 4 minutes with CGA in order to demonstrate decreased risk of falling. Start: 02/15/25 Expected End: 02/28/25 Patient will maintain dynamic sitting balance for 5 minutes with modified independence in order to demonstrate improved postural control and prepare for out of bed mobility. Start: 02/15/25 Expected End: 02/28/25 Exercise Patient will complete lower extremity exercises for 3 sets / 10-15 reps in order to improve strength and activity tolerance for mobility. Start: 02/15/25 Expected End: 02/28/25 Mobility Patient will ambulate 50 feet with CGA and rolling walker in order to improve safety and independence with mobility. Start: 02/15/25 Expected End: 02/28/25 Patient will ascend and descend 7 stairs with rolling walker and CGA in order to safely negotiate home. Start: 02/15/25 Expected End: 02/28/25 Transfers Patient will perform bed mobility with modified independence in order to improve independence and prepare for out of bed mobility. Start: 02/15/25 Expected End: 02/28/25 Patient will complete functional transfer with rolling walker with CGA in order to prepare for ambulation. Start: 02/15/25 Expected End: 02/28/25 Therapy Time Individual Co-Treatment Co-Evaluation Time In 1121 Time Out 1136 Minutes 15 Eliana Ramirez PT Patient's Physical Therapy Plan of Care supervision is transferred to a [facility] Therapy Services Physical Therapist. Goals and/or treatment plan was established in collaboration with patient/family/other representatives. [1] Past Medical History: Diagnosis Date Depression Hypertension Prostate disease [2] Past Surgical History: Procedure Laterality Date AMPUTATION Right 2023 right partial index finger FEMUR SURGERY Right Cosigned by Vika Angela MD at 02/20/2025 9:45 AM EDT Hospitalist Progress Note 02/15/2025 Subjective: Admit Date: 02/14/2025 PCP: Rosalind Almanzar MD Room#: X2-486/Z2-025 A Interval History: Very weak. Diarrhea persists. No cp, sob, cough, n/v, f/c. Tolerating diet. Case and plan discussed with patient and Psychiatry separately. Dave Alanis RN, via secure chat regarding pink slip written by EMS. All questions answered. Adult diet Regular 24HR INTAKE/OUTPUT: No intake or output data in the 24 hours ending 02/15/25 1107 Past Medical History: Medical History[1] LABS: CBC: Recent Labs 02/14/25 1237 02/15/25 0335 WBC 9.9 8.9 RBC 4.31* 3.53* HGB 9.6* 7.9* HCT 34.0* 27.1* MCV 78.9 76.8* RDW 20.4* 19.8* PLT 412 330 BMP: Recent Labs 02/14/25 1237 02/15/25 0335 NA 147* 129* K 4.5 3.4* CL 114* 101 CO2 20* 19* BUN 21 16 CREATININE 0.81 0.63* GLUCOSE 133* 150* CALCIUM 8.5* 7.5* ANIONGAP 13 9 LIVER PROFILE: Recent Labs 02/14/25 1237 02/15/25 0335 AST 22 25 ALT <6 <6 BILITOT 0.4 0.4 ALKPHOS 61 55 PROT 7.3 5.7* PT/INR: No results for input(s): "PROTIME", "INR" in the last 72 hours. CARDIAC ENZYMES: No results for input(s): "TROPONINI" in the last 72 hours. Procalcitonin: No results found for: "PROCAL" COVID-19 PCR: No results for input(s): "COVID19" in the last 72 hours. Objective: Vitals: BP 131/89 (BP Location: Left arm, Patient Position: Lying) Pulse 72 Temp 36.2 C (97.1 F) (Temporal) Resp 16 Ht 5' 10.51" (1.791 m) Wt 132 lb (59.9 kg) SpO2 100% BMI 18.67 kg/m Pulse Ox: SpO2 Av % Min: 100 % Max: 100 % Supplemental O2: Physical Exam Vitals and nursing note reviewed. Constitutional: General: He is not in acute distress. Appearance: He is ill-appearing. HENT: Head: Normocephalic. Mouth/Throat: Mouth: Mucous membranes are dry. Eyes: Pupils: Pupils are equal, round, and reactive to light. Cardiovascular: Rate and Rhythm: Normal rate and regular rhythm. Pulses: Normal pulses. Pulmonary: Effort: Pulmonary effort is normal. Breath sounds: Normal breath sounds. Abdominal: General: Bowel sounds are normal. There is no distension. Palpations: Abdomen is soft. Tenderness: There is no abdominal tenderness. Musculoskeletal: Cervical back: Normal range of motion. Right lower leg: No edema. Left lower leg: No edema. Skin: General: Skin is dry. Capillary Refill: Capillary refill takes less than 2 seconds. Neurological: General: No focal deficit present. Mental Status: He is alert and oriented to person, place, and time. Mental status is at baseline. Psychiatric: Mood and Affect: Mood normal. Medications: Scheduled PRN Scheduled Meds[2] PRN Meds[3] Continuous Continuous Meds[4] Assessment Failure to thrive Norovirus diarrhea Bradycardia Anemia Hypokalemia Hyponatremia Hyperglycemia Functional decline HTN Depression BPH Severe malnutrition Plan Continue to monitor on telemetry, continue IVF, serial exams, symptomatic treatment of norovirus, wound care, Geriatrics evaluating, pricing actuary evaluating, Psychiatry evaluation for community pink slip and depression, PT/OT, follow up labs, discharge planning, see orders - am labs, replace lytes prn - PT/OT/CM/SW - delirium precautions: increase activity - DVT prophylaxis: enoxaparin and encourage ambulation Advance Directive: Full Code Anticipated Discharge - Date - 02/17-02/19 - Location - Skilled Facility - Pending the following - clinical improvement, completion of work up, disposition finalization and when OK with consultants Total time spent (which include face to face and non face to face encounters) : 45 minutes Toxic drug monitoring/narrow therapeutic index drug monitoring : # Drug name : lovenox # Route administered : subcutaneous # Method of monitoring : daily CBC No emergency contact information on file. Vika Angela MD Division of Hospitalist Medicine [employer] [facility] [employer] [1] Past Medical History: Diagnosis Date Depression Hypertension Prostate disease [2] enoxaparin, 40 mg, SubCUTAneous, Daily influenza, 0.5 mL, IntraMUSCular, Prior to discharge [3] PRN medications: acetaminophen OR acetaminophen, melatonin, ondansetron ODT OR ondansetron, polyethylene glycol (PEG) 3350, prochlorperazine [4] lactated Ringer's, 75 mL/hr, Last Rate: 75 mL/hr (02/15/25 0517) Patient declined smoking cessation counseling. Accepting of handout with contact information for future reference. documented in this encounter [facility] 02-23-2025 Hospital Discharge instructions SUYAPA Bennett - LEATHER ETCHER - 02/23/2025 11:04 AM EDT Images from the original note were not included. POST-OPERATIVE INSTRUCTIONS LAPAROSCOPIC/ROBOTIC SURGERY Thank you very much for allowing me to participate in your care, it is truly a privilege. Below please see discharge orders that will help you during your recovery. Please do not hesitate to call the office at [phone] for any questions. After hours, the same number will allow you to reach the on-call surgeon. Call the office to schedule your post-operative appointment with Dr. Castro or PA/DAG SPRAYER for 2 weeks if not already scheduled. (May need to be seen before 2 weeks if stitches and/or drains present) Change bandages daily or more frequently if needed. Keep incisions clean with soap/ water daily. (Peroxide OK as well) Cover incision(s) as needed. Please remove the Steri-Strips 5 days after surgery. This includes any clear bandages and gauze placed in the navel, if applicable. If you have skin glue this will come off on its own May place an ice pack over your incisions on and off (15min) at a time for the next 24-48 hours. Resume regular diet as tolerated (recommend starting with liquids) General guidelines for activity: Avoid strenuous activity or lifting anything heavier than 15 pounds. It is OK to be up and walking around. Going up and down stairs is also OK. Do what is comfortable: stop and rest when you feel tired. It is OK to shower after 24 hours You will have pain medicine ordered. Take as directed/needed. Some discomfort, mild bruising, and swelling are not unusual; please call my office if you have any severe pain, hemorrhage, or high fever (over 101 F) During the laparoscopic procedure that you had, gas is pumped into the abdominal cavity. You may feel abdominal, shoulder, or rib pain for a few days due to this. Resume home medications (see medication reconciliation sheet) Do NOT drive for one day and while taking your narcotic pain medicine. Watch for signs of infection: Excessive warmth or bright redness around your incisions Leakage of bloody or cloudy fluid from you incisions Fever over 100.5 If you experience constipation Increase your water intake. Increase your activity; walking is best. An over the counter stool softener or mild laxative may be necessary if you still have not had a bowel movement after several days. Please call the office at [phone] for any questions and too make your post op appointment if needed. Thank you again for allowing me to participate in your care, and get well soon! Sherman Castro MD Ernesto Edwards RN - 02/23/2025 11:08 AM EDT Images from the original note were not included. Continuity of Care Form Patient Name: David Doan : 1960 Admit date: 02/14/2025 Discharge date: 02/2025 Code Status Order: Full Code Advance Directives: N Admitting Physician: Vika Angela MD PCP: Rosalind Almanzar MD Discharging Nurse: Ernesto Edwards RN Discharging Hospital Unit/Room#: B4468/B4468 A Discharging Unit Emergency Contact: Extended Emergency Contact Information Primary Emergency Contact: Aguila Doan Mobile Relation: Brother Preferred language: Portuguese Humidifier Maintenance Worker needed? No Past Surgical History: Past Surgical History: Procedure Laterality Date AMPUTATION Right 2023 right partial index finger COLOSTOMY 02/19/2025 FEMUR SURGERY Right Immunization History: Immunization History Administered Date(s) Administered Tdap 05/07/2023 Active Problems: Medical Problems Problem List * (Principal) Failure to thrive in adult Osteomyelitis of finger of right hand (HCC) Severe malnutrition (CMS/HCC) (HCC) (Chronic) Severe alcohol use disorder (HCC) (Chronic) Streptococcal bacteremia Right foot pain Adult failure to thrive Declining functional status Depression Vitamin D deficiency At risk for delirium Rectal mass Isolation/Infection: Enhanced Contact Norovirus Nurse Assessment: Last Vital Signs: BP 139/83 (Patient Position: Lying) Pulse 63 Temp 36.9 C (98.5 F) (Temporal) Resp 20 Ht 1.791 m (5' 10.51") Wt 63.5 kg (139 lb 15.9 oz) SpO2 98% BMI 19.80 kg/m Last documented pain score (0-10 scale): Last Weight: Wt Readings from Last 1 Encounters: 02/21/25 63.5 kg (139 lb 15.9 oz) Mental Status: CHACHO Patient Mental Status: oriented and alert IV Access: CHACHO IV Access: None Nursing Mobility/ADLs: Walking Total assistance Transfer Total assistance Bathing Total assistance Dressing Total assistance Toileting Total assistance Feeding Minimal assistance Instructor Extension Work Total assistance Med Delivery yes Wound Care Documentation and Therapy: Wound/Incision 05/09/23 Incision Finger - index Anterior;Right (Active) Odor None 02/20/251 Drainage Amount None 02/20/251 Primary Dressing Open to air 02/22/252035 Number of days: 655 Wound/Incision 02/14/25 Pressure Injury Sacrum (Active) Site Assessment Red 02/22/25 1200 Odor None 02/20/251 Drainage Amount None 02/20/25 2241 Treatments Pharmaceutical agent 02/22/252035 Primary Dressing Open to air 02/22/252035 Number of days: 8 Wound/Incision 02/19/25 Incision Abdomen Upper (Active) Odor None 02/20/251 Drainage Amount None 02/20/252240 Primary Dressing Steri-strips 02/22/25 1304 Dressing Status Clean, dry & intact 02/22/252035 Number of days: 3 Elimination: Continence: Bowel: no Bladder: no Urinary Catheter: None Colostomy/Ileostomy/Ileal Conduit: 02/19 - Colostomy Loop LUQ-Stomal Appliance: 2 piece Colostomy Loop LUQ-Site Assessment: Clean, Intact Colostomy Loop LUQ-Peristomal Assessment: Clean, Intact Colostomy Loop LUQ-Treatment: Site care, Bag change Colostomy Loop LUQ-Output (mL): 140 mL Date of Last BM: 02/26/2025 Intake/Output Summary (Last 24 hours) at 02/23/2025 1107 Last data filed at 02/22/2025 1500 Gross per 24 hour Intake -- Output 200 ml Net -200 ml I/O last 3 completed shifts: In: - (0 mL/kg) Out: 790 (12.4 mL/kg) [Urine:650 (0.3 mL/kg/hr); Stool:140] Weight: 63.5 kg Safety Concerns: at risk for falls Impairments/Disabilities: none Nutrition Therapy: Current Nutrition Therapy: Oral diet: general, low fiber Routes of Feeding: oral Liquids: no restrictions Daily Fluid Restriction: no Last Modified Barium Swallow with Video (Video Swallowing Test): not done Treatments at the Time of Hospital Discharge: Respiratory Treatments: Oxygen Therapy: is not on home oxygen therapy. Ventilator: No ventilator support Rehab Therapies: physical therapy and occupational therapy Weight Bearing Status/Restrictions: no restriction Other Medical Equipment (for information only, NOT a DME order): walker Other Treatments: Patient's personal belongings (please select all that are sent with patient): RN SIGNATURE: MANAGEMENT/SOCIAL WORK SECTION Inpatient Status Date: 02-14-2025 Discharging to Facility/ Agency Name: [facility] Address: [address] [place] [address] Jet Dyeing Machine Operator/Charity Fundraiser signature: ICIAN SECTION Name: David Doan Prognosis: fair Condition at Discharge: stable Rehab Potential (if transferring to Rehab): fair Recommended Labs or Other Treatments After Discharge: BMP/CBC on 03/01/2025 The individual is being admitted to a nursing facility directly from an [facility] or a unit of a [facility] that is not operated by or licensed by [facility] under section 5119.14 or 5160-3-15.1 5 The individual requires the level of services provided by a nursing facility for the condition for which he or she was treated in the hospital and, Physician Certification: I certify the above information and transfer of David Doan is necessary for the continuing treatment of the diagnosis listed and that he requires long term facility for less than 30 days. Update Admission H&P: No change in H&P PHYSICIAN SIGNATURE: documented in this encounter [facility] 02-21-2025 Consult note Associated Order (s): IP CONSULT TO CARDIOLOGY Images from the original note were not included. [facility] [address] [address] Dept: [phone] This is a 64-year-old man seen for bradycardia. His history includes Rectal cancer, status post resection and diverting colostomy. Depression. 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 He stated that his mother struggled with the same illness. This is self described. He has been seen by psychiatry and they have made note of that and recommended treatment Alcohol abuse disorder. He said that he has struggled on and off with alcohol abuse Failure to thrive, that was his admitting diagnosis. He has struggled with immobility. He is socially isolated. Because of back pain and leg weakness he has not been able to secure food at home. He said he went 3 days without eating. He was having problems with diarrhea. Apparently, he is alienated friends and neighbors and her brother who lives locally because of his poor living conditions, including the diarrhea that has resulted in his home being quite odorous. He has no known heart disease. With his immobility he has not had shortness of breath or chest pain or palpitations or syncope or near syncope. Has never been told that he had heart disease. An echocardiogram April 2023 was normal with a left ventricular ejection fraction of 72%. Reviewing his electrocardiograms he has had sinus bradycardia on his twelve-lead electrocardiograms and atrial premature complexes. While here, he underwent diverting loop sigmoid colostomy. This was done because of a perforated rectal mass. This was found to be a advanced local malignancy. Final pathology is pending. Current medications include Augmentin, miconazole powder, MiraLAX, Trintellix 5 mg daily. On exam he appears frail but in no distress. He is at heart rates into the 30s, blood pressure is normal most recent 136/80. His oxygen saturation is 98% on room air. He has no peripheral edema. Posterior tibial pulses are normal. Heart sounds are normal. Neck veins are normal. His extremities are warm. He is breathing quietly while supine His EKG shows sinus bradycardia, atrial premature complexes. That is my review. My review of his chest x-ray was nonspecific increased vascularity. Hemoglobin on admission 9.6 dropped to 6.6 most recently 9.7. GFR greater than 90, troponins less than 3 to levels. Telemetry strip shows sinus rhythm, sinus bradycardia, atrial premature complexes with some 2-second pauses. Medical decision making Asymptomatic sinus bradycardia with atrial premature complexes. Recommend Typically or traditionally or by guidelines the indication for a pacemaker would be symptomatic bradycardia. This patient has heart rates that are clearly unusually low for his age. However, given all the things going on I would just follow this for now. He appears to be asymptomatic. A TSH is normal. An echocardiogram a year and a half ago was normal. Given his history, would be reasonable to get a follow-up echocardiogram. I will order that and follow-up on it. RBC Associated Order(s): IP CONSULT TO PALLIATIVE CARE Images from the original note were not included. Palliative Care Initial Consult Chief Complaint: David Doan is a 64 y.o. male with chief complaint of weakness, functional decline, diarrhea. Palliative Care is actively following. Assessment/Plan Goals of Care -Full Code -David Doan retains capacity for medical decision-making -NOK: pt has a brother Aguila and sister Olivia, has not spoken to either one in quite some time due to drifting apart--> pt requested he would not like to contact his family or have them see him until he gets better -no HCPOA, pt states he doesn't know who he would designate, is OK with brother & sister assisting with decisions if he was unable -goals of care: Continue current medical management, pt hoping to get better. 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 intake -albumin 1.7 Rectal abscess/mass Concern for malignancy - General Surgery following--> reports that mass appears malignant -CT c/a/p--> Findings are most consistent with rectal malignancy with local perforation and suspect perirectal abscess. There is abnormal irregular soft tissue wall thickening for a long segment of the rectum with near occlusion of the lumen. There are locules of air with fluid surrounding the rectum near the anal rectal verge most concerning for perforation and/or abscess. Locules of air extend into the soft tissue of the medial left buttocks and into the tissues of the scrotum (gas-forming organism not excluded) -also seen on imaging are multiple lymph nodes surrounding the rectum concerning for metastatic lymph nodes - Plan for REUA and probable diverting colostomy on Wednesday - CEA 21.5 Pain - Order oxycodone 5-10mg q4h PRN -PRN tylenol Anxiety Difficulty Sleeping -states difficulty sleeping due to pain and anxiety at night -continue PRN melatonin -add PO ativan 0.5mg nightly PRN Debility - Geriatrics consulted -found at home alone, in deplorable condition--> APS and SW involved -PT/OT as able--> rec SNF, plan for dc to [facility] Depression - Psych following -on trintellix daily Norovirus - + on GI panel 02/14/25 -on IVF -states diarrhea is slowing down Palliative Care Encounter -Code Status: Full Code - will continue to follow for ongoing monitoring of progression of Pain, Anorexia, and Fatigue as well as for appropriateness for hospice care due to Protein Calorie Malnutrition and probable cancer Total of 75 minutes spent on this encounter including Chart review, Patient visit and exam, Documentation in EHR, Care coordination, Communicating with primary attending or other consultants, Electronic border police of medications, tests or procedures, Counseling and educating patient/family/caregiver, and Independently interpreting results and communicating results to patient/family/caregiver. Discharge planning: Not ready for discharge due to ongoing medical work-up/critical illness Patient meets criteria for general inpatient hospice care: No Palliative Care IDT members involved: None Discussed the plan of care with the other interdisciplinary team (IDT) members of the Palliative Care and Hospice teams and Patient and Floor Nurse. Subjective: Subjective/Events David Doan is a 64 y.o. male with PMH depression, HTN, anxiety, past alcohol use disorder (in remission), chronic back pain. He presented to ED due to weakness, functional decline, inability to care for self. [facility] for depression, low energy, impaired self-care where he was found with poor hygiene and fecal soiling retained capacity and insight. A welfare check was called & pt was found to be in deplorable living conditions, patient on couch covered in feces. Patient also reported rectal pain and some nausea without vomiting. CT c/a/p findings are most consistent with rectal malignancy with local perforation and suspect perirectal abscess. Palliative care consulted for goals of care. Upon assessment today, patient is sitting up in bed awake. He is A&Ox3. On room air. Denies shortness of breath. Having pain in lower back/buttocks. Rates 7/10. Still with poor p.o. intake. Requesting meat be pureed if able. No nausea or vomiting. Patient still with episodes of diarrhea but states it has been slowing down some. Last documented BM 02/16. GOC discussions: met with patient at bedside. Introduced self and role and provided medical updates. Patient shares that his goal is to get better. Is agreeable to nursing facility upon discharge. Wishes to have more answers regarding rectal mass prior to making any GOC decisions. Plan for surgery on Wednesday. I do share the concern for malignancy and review CT findings. He verbalizes understanding. Asks if there would be treatment options available if were to be advanced malignancy. Share that if found to have cancer, could discuss treatment options with oncology to see if a candidate. Discuss that if not opting for treatment or if not an option, could consider comfort focused care with hospice. Patient shares that if found to have advanced cancer, would likely pursue comfort focused care. Patient does not have HCPOA. Says he doesn't know who he would designate. Discussed [place] NOK law and that his siblings would be legal NOK. He verbalizes understanding and is okay with this. Discussed CODE STATUS. Pt states that he wishes to remain a full code now and would be ok with trying CPR if needed. All questions answered. Pain Assessment Location: lower back, buttocks Description: aching Frequency:Daily Duration: month(s) Alleviating Factors: relaxation and pain medication Exacerbating Factors: unable to associate with any factor Effect:N/A Palliative Care Assessments: Goals of care: Continue Current Management and Improve or Maintain Function/Quality of Life Advanced Directives: No Known Advance Directive Functional Assessment: PPS 30% bedbound; can't do any work/extensive disease; total care; reduced intake; full or drowsy or confusion Prognosis: depends upon goals of care and uncertain at this time Spiritual Assessment: No spiritual distress identified Bereavement and Grief: Grief Issues Not Identified PDMP/OARRS Reviewed: Yes-reviewed. Oxycodone, gabapentin reported Social history: Marital status: single Children: no children Living status: alone Work history: not asked [place] status: Yes, [employer]: None ROS: See palliative care ROS/ESAS below; All other systems were reviewed and are negative. Irving Symptom Assessment Score Irving Score Pain Score (if non-verbal, add .FLACC below) 7 Tiredness Score 5 Nausea Score 0 Depression Score 4 Anxiety Score 2 Drowsiness Score 0 Anorexia Score (0= eating well, 10= not eating) 7 Wellbeing Score (10= worst sense of well-being) 6 Constipation 0 Dyspnea Score (0= no shortness of breath) 0 Family Meeting: Participants: none held Family meeting was held to discuss:N/A Medical History[1] Surgical History[2] Family History[3] Unable to obtain family history due to N/A- family history available Allergies[4] Objective: BP 107/69 (BP Location: Left arm, Patient Position: Lying) Pulse 76 Temp 37 C (98.6 F) (Temporal) Resp 20 Ht 5' 10.51" (1.791 m) Wt 132 lb (59.9 kg) SpO2 97% BMI 18.67 kg/m Physical Exam Vitals reviewed. Constitutional: Appearance: He is cachectic. He is ill-appearing. HENT: Head: Normocephalic. Nose: Nose normal. Eyes: General: Right eye: No discharge. Left eye: No discharge. Extraocular Movements: Extraocular movements intact. Cardiovascular: Rate and Rhythm: Normal rate and regular rhythm. Pulses: Normal pulses. Pulmonary: Effort: Pulmonary effort is normal. Abdominal: General: There is no distension. Palpations: Abdomen is soft. Tenderness: There is no abdominal tenderness. There is no guarding. Skin: General: Skin is warm and dry. Neurological: Mental Status: He is alert and oriented to person, place, and time. Psychiatric: Mood and Affect: Mood normal. Behavior: Behavior normal. Medication information: 24-hour PRN meds received: Oxycodone x3, Zofran x1, melatonin x1 Results/Verification of Data Review Objective data reviewed (must include dates reviewed for labs, imaging reports and other specialty notes): Labs 02/17/25, CT C/A/P 02/15, GI PCR panel 02/14, records, medication use, and chart reviewed on 02/17/25 Data in Support of Terminal Illness: Is patient hospice appropriate? TBD Transition Note Initiated: yes SUYAPA Cortes CNP [1] Past Medical History: Diagnosis Date Depression Hypertension Prostate disease [2] Past Surgical History: Procedure Laterality Date AMPUTATION Right 2023 right partial index finger FEMUR SURGERY Right [3] No family history on file. [4] No Known Allergies Cosigned by Viraj Franklin MD at 02/17/2025 2:17 PM EDT Associated Order(s): IP CONSULT TO PSYCHIATRY Department of Psychiatry Consult Service Nurse Practitioner Consult Note Reason for Consult: behavioral concerns Requesting Physician: Coreen CHIEF COMPLAINT: Chief Complaint Patient presents with Failure To Thrive Pt arrives via EMS following a welfare check where pt was stuck on his couch and has not been able to eat or drink anything for a few days and cannot care for himself. Pt arrives with feces covering body and complaints of wound to his bottom. History obtained from: patient and past medical records HISTORY OF PRESENT ILLNESS: David is a 64-year-old [employer] with a history of major depressive disorder, anxiety, alcohol use disorder (in remission), chronic back pain, and malnutrition, presenting with severe functional decline and self-neglect. [facility] ([facility]) for depression, low energy, sleep disturbance, and impaired self-care, where he was found with poor hygiene and fecal soiling but retained capacity and insight. He was started on trazodone 50 mg nightly, which reportedly helped with sleep but was discontinued at some point prior to this admission. During today s encounter, David was alert, cooperative, and hard of hearing, but able to engage in brief conversation. He describes a longstanding history of depression, beginning around age 16. He reports chronic low mood, fatigue, poor appetite, and social withdrawal. He recalls prior benefit from Prozac a little and expresses interest in restarting Lamotrigine, which he says helped him in the past. He denies current suicidal ideation, homicidal ideation, or psychotic symptoms. He has never been psychiatrically hospitalized. He denies current substance use and reports abstinence from alcohol for approximately four months. His last drink occurred prior to hospitalization; he reports prior DUIs and multiple rehab stays, but no history of withdrawal seizures or delirium tremens. He acknowledges progressive loss of motivation and capacity for self-care, attributing it to exhaustion, chronic pain, and hopelessness about his health. He expresses that his goal is to get [his] health and energy back and is agreeable to restarting psychiatric medication. He currently denies hallucinations or delusions. There is no evidence of kisha. He reports intermittent memory problems and difficulty concentrating. Collateral was obtained from the following individual: No REVIEW OF SYSTEMS: Medical Review Of Systems: Pertinent items are noted in HPI. Psychiatric Review Of Systems: Depressed mood:Endorses Sleep changes:Admits to sleep disturbance Appetite changes:very poor FTT Weight changes:weight loss Energy changes:low/poor Loss of interest/anhedonia:endorses Somatic symptoms:pain Libido changes:no Anxiety/panic:admits to ruminations, nervousness Guilty/hopeless:hopeless, helpless Self-injurious/risky behavior:poor self care Suicidal ideation:"sometimes" not intent or plan Homicidal ideation:Denies Access to weapons:Denies Lifetime Psychiatric Review Of Systems: Kisha or hypomania:Denies Panic attacks:Denies Phobias:Denies PTSD:Denies Obsessions/compulsions:Denies Hallucinations:Denies Delusions:Denies PAST PSYCHIATRIC HISTORY: The patient is currently receiving care for the above psychiatric illness with MD (last appointment Nov 2024). Past mental health outpatient care includes: Psychiatry Previous psychiatric hospitalizations: None psychiatric; multiple detox/rehab stays Previous diagnoses: MDD Previous suicide attempts: One aborted attempt (2005 - bought firearm, did not act) History of self-injurious behavior:Denies History of violence:Denies Past psychiatric medications include: Paxil, Prozac, trazodone, Lamictal PAST MEDICAL/SURGICAL HISTORY: Past Medical History: Medical History[1] Past Surgical History: Surgical History[2] CURRENT MEDICATIONS/ALLERGIES: Current Medications[3] Allergies: Allergies[4] FAMILY HISTORY: Psychiatric Family History: none Family history of suicide:Denies SOCIAL HISTORY: Lives alone; limited social support No children Previously lived with a girlfriend; currently College graduate ([employer]) 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 ([phone], [facility]) Followed intermittently with the MD APS and social work involved for discharge planning Substance Use History: Nicotine:Denies Alcohol:Heavy alcohol use in past, multiple DUIs, two rehab stays; abstinent since mid. Recreational Drugs: THC use Caffeine: Denies Legal consequences of chemical use: hx of DUI Use of OTC: PSYCHIATRIC EXAMINATION: Vitals: Vitals: 02/14/251999 BP: Pulse: 72 Resp: Temp: SpO2: Physical Examination: Constitutional: ill appearing, but non-toxic, oriented X 3, and thin Musculoskeletal: gait Not examined Mental Status Examination: Appearance: poorly kept, appears older than stated age Attitude toward examiner: Poor eye contact. Behavior/motor: Psychomotor retardation. Speech: Loud Mood: "Depressed" Affect: Dysphoric, constricted Thought process: [place] Thought content: Mood congruent Thought perception: No perceptual abnormalities noted Suicidal ideation:Denies Homicidal ideation: Denies Cognition: oriented to person, place, situation, and month of year Memory: Impaired Immediate Recall Insight: poor Judgment: poor DATA REVIEWED: Prior records have been reviewed in EMR Encounter Date: 02/14/25 ECG 12 lead Result Value Heart Rate 41 QRSD Interval 98 QT Interval 512 QTC Interval 421 P Downs 82 QRS Downs 77 T Wave Downs 80 NJ Interval 151 Impression Sinus bradycardia Probable left atrial enlargement Nonspecific T abnrm, anterolateral leads no stemi Electronically Signed On 02-14-2025 12:47:34 EDT by Caleb Bess Labs: Recent Results (from the past 24 hours) Serial Troponin, High Sensitivity Collection Time: 02/14/25 4:52 PM Result Value Ref Range Troponin HS Serial Baseline <3 <=35 ng/L Troponin, High Sensitivity, Serial, Second Test Collection Time: 02/14/25 6:47 PM Result Value Ref Range 2h Troponin HS (Serial 2nd Troponin) <3 <=35 ng/L Gastrointestinal PCR Panel Collection Time: 02/14/25 11:45 PM Specimen: Per Rectum; Stool Result Value Ref Range Campylobacter Not Detected Not Detected Plesiomonas shigelloides Not Detected Not Detected Salmonella Not Detected Not Detected Vibrio species Not Detected Not Detected Vibrio cholerae Not Detected Not Detected Yersinia enterocolitica Not Detected Not Detected Enterotoxigenic E coli (ETEC) Not Detected Not Detected Shiga toxin-producing E coli (STEC) Not Detected Not Detected Shigella/Enteroinvasive E coli (EIEC) Not Detected Not Detected Cryptosporidium Not Detected Not Detected Cyclospora cayetanensis Not Detected Not Detected Entamoeba histolytica Not Detected Not Detected Giardia lamblia Not Detected Not Detected Adenovirus F 40/41 Not Detected Not Detected Astrovirus Not Detected Not Detected Norovirus GI/GII Detected (A) Not Detected Rotavirus A Not Detected Not Detected Sapovirus Not Detected Not Detected C. DIFFICILE by PCR with Reflex to EIA Collection Time: 02/14/25 11:45 PM Specimen: Per Rectum; Stool Result Value Ref Range C. difficile toxin PCR Not Detected Not Detected TSH Collection Time: 02/15/25 3:35 AM Result Value Ref Range THYROID STIMULATING HORMONE 2.62 0.35 - 4.94 uIU/mL Vitamin B12 Collection Time: 02/15/25 3:35 AM Result Value Ref Range VITAMIN B12 680 213 - 816 pg/mL Vitamin D Deficiency Screening (Vit D 25) Collection Time: 02/15/25 3:35 AM Result Value Ref Range VIT D 25-OH, TOTAL <4 (L) See comment ng/mL CBC auto differential Collection Time: 02/15/25 3:35 AM Result Value Ref Range Auto WBC 8.9 3.6 - 10.7 10*3/uL RBC 3.53 (L) 4.40 - 5.90 10*6/uL Hemoglobin 7.9 (L) 13.0 - 18.0 g/dL Hematocrit 27.1 (L) 40.0 - 52.0 % MCV 76.8 (L) 77.0 - 99.0 fL MCH 22.4 (L) 26.0 - 34.0 pg MCHC 29.2 (L) 30.5 - 36.0 % RDW 19.8 (H) 11.5 - 15.0 % Platelets 330 140 - 440 10*3/uL MPV 9.7 9.0 - 12.7 fL nRBC 0.0 0.0 - 2.0 /100 WBCs Neutrophils Relative 77.0 38.0 - 82.0 % Lymphocytes Relative 12.2 (L) 15.0 - 45.0 % Monocytes Relative 9.1 5.0 - 13.0 % Eosinophils Relative 0.8 0.0 - 6.0 % Basophils Relative 0.2 0.0 - 2.0 % Immature Grans % 0.7 0.0 - 2.0 % Neutrophils Absolute 6.8 1.8 - 7.5 10*3/uL Lymphocytes Absolute 1.1 1.0 - 4.3 10*3/uL Monocytes Absolute 0.8 0.0 - 0.9 10*3/uL Eosinophils Absolute 0.1 0.0 - 0.5 10*3/uL Basophils Absolute 0.0 0.0 - 0.2 10*3/uL Immature Grans Absolute 0.1 (H) <0.1 10*3/uL Comprehensive metabolic panel Collection Time: 02/15/25 3:35 AM Result Value Ref Range SODIUM 129 (L) 136 - 145 mmol/L POTASSIUM 3.4 (L) 3.5 - 5.1 mmol/L CHLORIDE 101 98 - 107 mmol/L CARBON DIOXIDE 19 (L) 23 - 31 mmol/L ANION GAP 9 3 - 13 mmol/L UREA NITROGEN 16 9 - 23 mg/dL CREATININE 0.63 (L) 0.67 - 1.27 mg/dL GLUCOSE 150 (H) 82 - 115 mg/dL CALCIUM 7.5 (L) 8.8 - 10.0 mg/dL AST (SGOT) 25 <34 U/L ALT <6 <40 U/L ALKALINE PHOSPHATASE 55 40 - 150 U/L ALBUMIN 1.8 (L) 3.1 - 4.5 g/dL BILIRUBIN, TOTAL 0.4 <1.2 mg/dL TOTAL PROTEIN 5.7 (L) 6.4 - 8.3 g/dL eGFR >90.0 >60.0 mL/min/1.73m*2 Magnesium Collection Time: 02/15/25 3:35 AM Result Value Ref Range MAGNESIUM 1.9 1.6 - 2.6 mg/dL PDMP records have been reviewed ASSESSMENT: David presents with major depressive disorder contributing to profound apathy, anergia, and inability to maintain activities of daily living. His functional impairment is exacerbated by chronic pain, malnutrition, and medical illness. He is oriented, lucid, and expresses understanding of his condition, consistent with decision-making capacity for medical and psychiatric treatment. There is no evidence of psychosis or acute suicidal intent. Presentation reflects severe depression with loss of motivation and executive function, not a primary psychotic or safety concern. He does not meet criteria for inpatient psychiatry. Given his weakness, medical complexity, and self-care deficits, he would benefit most from long term placement upon discharge for rehabilitation and assistance with ADLs. Diagnostic Impression: Diagnoses F33.1 Major Depressive Disorder, recurrent, moderate to severe F10.21 Alcohol Use Disorder, in sustained remission R62.7 Failure to thrive in adult E46 Malnutrition, severe M54.9/G89.29 Chronic back pain R41.89 Cognitive impairment, multifactorial (depressive, nutritional, vascular) Risk of harm to self: Suicide Risk Assessment (SAFE-T): C-SSRS Screener (Since Last Contact): 1. Wish to be ? No 2. Current suicidal thoughts? No 3. Suicidal thoughts w/ method? 4. Suicidal Intent without specific plan? 5. Intent with plan? 6. Suicidal behavior? No Calculated C-SSRS Risk Score No Risk Indicated Risk Factors: Depression, hx of suicidal ideation, isolation Protective Factors: Involvement in services, no previous attempts Suicidal Ideation Intensity: Low Risk Level: Low Risk -- Risk factors include: Alcohol or other substance abuse, Depression, History of alcohol or other substance use disorder , Hopelessness , Lack of social supports , Medical illness comorbidity , and Sense of isolation Protective factors include:Denies current suicidal ideation, Future-oriented talk , Willingness to seek help and support , Receiving and engaged in care for mental, physical, and substance use disorders , and Support through ongoing medical and mental healthcare relationships Plan Mood / Depression Start Trintellix (vortioxetine) 5 mg PO daily, increase to 10 mg as tolerated. Consider Reintroducing Lamotrigine 25 mg PO daily with gradual titration, monitoring for rash or adverse effects. Rationale: combination targets depressive symptoms, cognition, and energy without excessive sedation or appetite suppression. Sleep / Anxiety If insomnia persists, consider trazodone 50 mg PO qHS PRN (previously effective). Continue supportive and reassurance-based interactions. Cognition Continue geriatrics monitoring. Cognitive testing deferred until nutritional and medical stabilization; consider neuropsychology referral outpatient. Safety Denies suicidal or homicidal ideation. No indication for inpatient psychiatry. Continue observation on medical unit; sitter PRN if confusion worsens. Social / Disposition Agree with geriatrics and APS that patient requires SNF placement or other supervised living for recovery and ADL support. Continue social work coordination for safe discharge planning and [facility] benefit review. Follow-Up Psychiatry to follow for medication response, cognition, and reassessment of capacity during admission. Reevaluate mood and function after 5-7 days on Trintellix. Capacity Statement The patient is oriented to person, place, and situation and demonstrates understanding of his medical needs and treatment options. He has capacity for medical and psychiatric decisions at this time. However, due to severe depression, weakness, and self-care deficits, he requires ongoing support and likely SNF placement for safe discharge and continued rehabilitation. Risk of harm to others: low - Current/history of alcohol or other substance abuse, especially PCP or stimulants RECOMMENDATIONS: Pt does NOT require inpatient psychiatric admission. Defer to primary team for need for green slip/sitter. Recommending discontinuation of community pink slip. Medications: see above Labs: Defer to IM Studies: Defer to IM Delirium precautions: Avoid sedating/anticholinergic medications, encourage sleep hygiene, minimize barriers to nutrition, optimize sensory input and access to assistive devices (dentures, glasses, etc) where indicated, encourage time up in chair as able, D/c Redman, restraints, IV lines, as able and reserve agitation PRNs for instances where patient is danger to self/others/treatment. Recommendations shared with primary team. Follow up: see above On this day, 02/15/25 , I spent total time 90 minutes preparing to see the pt, reviewing previous notes, obtaining/reviewing separately obtained, history, test results, and coordinating care with hospital staff and if pertinent outpatient providers, as well as documenting all relevant and pertinent clinical information in the patient's electronic record on the day of the visit. In addition,I was able to, spend face/face time counseling/educating the patient/family/caregiver, discuss the diagnosis, current symptom burden, medication side effects, medication change options, and importance of compliance with the treatment plan. For every encounter with this patient, if applicable this Provider wore appropriate PPE including but not limited to standard precautions, N95 mask, surgical mask, gown and/or protective eyewear. Chart reviewed, including notes, labs, imagining, allergies, and medications, all pertinent information discussed with medical staff, nursing, social work, and patient/family if necessary. [1] Past Medical History: Diagnosis Date Depression Hypertension Prostate disease [2] Past Surgical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 and leg swelling. Gastrointestinal: Positive for diarrhea. Negative for abdominal pain, constipation and nausea. Genitourinary: Negative for difficulty urinating. Musculoskeletal: Positive for back pain and gait problem. Neurological: Positive for weakness. Negative for dizziness. Psychiatric/Behavioral: Positive for dysphoric mood and sleep disturbance. Negative for confusion. The patient is not nervous/anxious. Functional Status Prior to Admission: (I: Independent, A: Assisted, D: Dependent) ADLs I A D Notes Bathing [x] [] [] Dressing [x] [] [] Toileting [x] [] [] Transfers [x] [] [] Feeding [x] [] [] Ambulation [x] [] [] Assistive devices: IADLs I A D Telephone [x] [] [] Transportation [] [] [x] Shopping [] [x] [] Meal prep [] [] [] "Too tired to cook" Housework [] [] [] Not able to to housework Medications [x] [] [] Finances [x] [] [] Objective: BP 131/89 (BP Location: Left arm, Patient Position: Lying) Pulse 72 Temp 36.2 C (97.1 F) (Temporal) Resp 16 Ht 5' 10.51" (1.791 m) Wt 132 lb (59.9 kg) SpO2 100% BMI 18.67 kg/m No intake or output data in the 24 hours ending 02/15/25 0859 Wt Readings from Last 3 Encounters: 02/14/25 132 lb (59.9 kg) 06/23/23 149 lb (67.6 kg) 05/10/23 127 lb (57.6 kg) Physical Exam Vitals reviewed. Constitutional: General: He is not in acute distress. Appearance: He is cachectic. He is ill-appearing. HENT: Head: Normocephalic and atraumatic. Right Ear: Decreased hearing noted. Left Ear: Decreased hearing noted. Cardiovascular: Rate and Rhythm: Normal rate and regular rhythm. Pulmonary: Effort: Pulmonary effort is normal. No respiratory distress. Breath sounds: Normal breath sounds. Abdominal: General: There is no distension. Palpations: Abdomen is soft. Tenderness: There is abdominal tenderness (generalized). Musculoskeletal: Right lower leg: No edema. Left lower leg: No edema. Neurological: Mental Status: He is alert and oriented to person, place, and time. Psychiatric: Attention and Perception: Attention normal. Mood and Affect: Affect is blunt. Behavior: Behavior is cooperative. Labs and Imaging: Recent Results (from the past 24 hours) ECG 12 lead Collection Time: 02/14/25 12:06 PM Result Value Ref Range Heart Rate 41 bpm QRSD Interval 98 ms QT Interval 512 ms QTC Interval 421 ms P Downs 82 degrees QRS Downs 77 degrees T Wave Downs 80 degrees [place] Interval 151 ms SARS-CoV-2 Antigen Collection Time: 02/14/25 12:30 PM Specimen: Nasal; Swab Result Value Ref Range SARS-CoV-2 Antigen Negative Negative CBC auto differential Collection Time: 02/14/25 12:37 PM Result Value Ref Range Auto WBC 9.9 3.6 - 10.7 10*3/uL RBC 4.31 (L) 4.40 - 5.90 10*6/uL Hemoglobin 9.6 (L) 13.0 - 18.0 g/dL Hematocrit 34.0 (L) 40.0 - 52.0 % MCV 78.9 77.0 - 99.0 fL MCH 22.3 (L) 26.0 - 34.0 pg MCHC 28.2 (L) 30.5 - 36.0 % RDW 20.4 (H) 11.5 - 15.0 % Platelets 412 140 - 440 10*3/uL MPV 9.4 9.0 - 12.7 fL Comprehensive metabolic panel Collection Time: 02/14/25 12:37 PM Result Value Ref Range SODIUM 147 (H) 136 - 145 mmol/L POTASSIUM 4.5 3.5 - 5.1 mmol/L CHLORIDE 114 (H) 98 - 107 mmol/L CARBON DIOXIDE 20 (L) 23 - 31 mmol/L ANION GAP 13 3 - 13 mmol/L UREA NITROGEN 21 9 - 23 mg/dL CREATININE 0.81 0.67 - 1.27 mg/dL GLUCOSE 133 (H) 82 - 115 mg/dL CALCIUM 8.5 (L) 8.8 - 10.0 mg/dL AST (SGOT) 22 <34 U/L ALT <6 <40 U/L ALKALINE PHOSPHATASE 61 40 - 150 U/L ALBUMIN 2.3 (L) 3.1 - 4.5 g/dL BILIRUBIN, TOTAL 0.4 <1.2 mg/dL TOTAL PROTEIN 7.3 6.4 - 8.3 g/dL eGFR >90.0 >60.0 mL/min/1.73m*2 Ethanol Collection Time: 02/14/25 12:37 PM Result Value Ref Range ETHANOL IN SER/PLAS <10 <10 mg/dL MANUAL DIFFERENTIAL (CELLAVISION) Collection Time: 02/14/25 12:37 PM Result Value Ref Range RBC Morphology abnormal Anisocytosis Slight (A) (none) Microcytes Slight (A) (none) Hypochromia Slight (A) (none) Ovalocytes Slight (A) (none) Dacryocytes Slight (A) (none) Acanthocytes Slight (A) (none) Toxic Granulation Present (A) (none) Dohle Bodies Present (A) (none) Giant PLTs Rare (A) (none) Neutrophils % 84 (H) 38 - 82 % Bands % 3 (H) <=0 % Lymphocytes % 4 (L) 15 - 45 % Atypical Lymphocytes % 4 (H) <=0 % Monocytes % 5 5 - 13 % Absolute Neutrophil Count 8.6 (H) 1.8 - 7.5 10*3/uL Bands Absolute 0.3 (H) <=0.0 10*3/uL Lymphocytes Absolute 0.4 (L) 1.0 - 4.3 10*3/uL Atypical Lymphs Absolute 0.4 (H) <=0.0 10*3/uL Monocytes Absolute 0.5 0.0 - 0.9 10*3/uL Neutrophils Manual 84 Lymphocytes Manual 4 Monocytes Manual 5 Eosinophils Manual Basophils Manual Bands Manual 3 Metamyelocytes Manual Myelocytes Manual Promyelocytes Manual Blasts Manual Atypical Lymphocytes Manual 4 Unclassified Cells, Manual Magnesium Collection Time: 02/14/25 12:37 PM Result Value Ref Range MAGNESIUM 2.5 1.6 - 2.6 mg/dL CK Collection Time: 02/14/25 12:37 PM Result Value Ref Range CK 30 30 - 185 U/L Serial Troponin, High Sensitivity Collection Time: 02/14/25 4:52 PM Result Value Ref Range Troponin HS Serial Baseline <3 <=35 ng/L Troponin, High Sensitivity, Serial, Second Test Collection Time: 02/14/25 6:47 PM Result Value Ref Range 2h Troponin HS (Serial 2nd Troponin) <3 <=35 ng/L Gastrointestinal PCR Panel Collection Time: 02/14/25 11:45 PM Specimen: Per Rectum; Stool Result Value Ref Range Campylobacter Not Detected Not Detected Plesiomonas shigelloides Not Detected Not Detected Salmonella Not Detected Not Detected Vibrio species Not Detected Not Detected Vibrio cholerae Not Detected Not Detected Yersinia enterocolitica Not Detected Not Detected Enterotoxigenic E coli (ETEC) Not Detected Not Detected Shiga toxin-producing E coli (STEC) Not Detected Not Detected Shigella/Enteroinvasive E coli (EIEC) Not Detected Not Detected Cryptosporidium Not Detected Not Detected Cyclospora cayetanensis Not Detected Not Detected Entamoeba histolytica Not Detected Not Detected Giardia lamblia Not Detected Not Detected Adenovirus F 40/41 Not Detected Not Detected Astrovirus Not Detected Not Detected Norovirus GI/GII Detected (A) Not Detected Rotavirus A Not Detected Not Detected Sapovirus Not Detected Not Detected C. DIFFICILE by PCR with Reflex to EIA Collection Time: 02/14/25 11:45 PM Specimen: Per Rectum; Stool Result Value Ref Range C. difficile toxin PCR Not Detected Not Detected TSH Collection Time: 02/15/25 3:35 AM Result Value Ref Range THYROID STIMULATING HORMONE 2.62 0.35 - 4.94 uIU/mL Vitamin B12 Collection Time: 02/15/25 3:35 AM Result Value Ref Range VITAMIN B12 680 213 - 816 pg/mL Vitamin D Deficiency Screening (Vit D 25) Collection Time: 02/15/25 3:35 AM Result Value Ref Range VIT D 25-OH, TOTAL <4 (L) See comment ng/mL CBC auto differential Collection Time: 02/15/25 3:35 AM Result Value Ref Range Auto WBC 8.9 3.6 - 10.7 10*3/uL RBC 3.53 (L) 4.40 - 5.90 10*6/uL Hemoglobin 7.9 (L) 13.0 - 18.0 g/dL Hematocrit 27.1 (L) 40.0 - 52.0 % MCV 76.8 (L) 77.0 - 99.0 fL MCH 22.4 (L) 26.0 - 34.0 pg MCHC 29.2 (L) 30.5 - 36.0 % RDW 19.8 (H) 11.5 - 15.0 % Platelets 330 140 - 440 10*3/uL MPV 9.7 9.0 - 12.7 fL nRBC 0.0 0.0 - 2.0 /100 WBCs Neutrophils Relative 77.0 38.0 - 82.0 % Lymphocytes Relative 12.2 (L) 15.0 - 45.0 % Monocytes Relative 9.1 5.0 - 13.0 % Eosinophils Relative 0.8 0.0 - 6.0 % Basophils Relative 0.2 0.0 - 2.0 % Immature Grans % 0.7 0.0 - 2.0 % Neutrophils Absolute 6.8 1.8 - 7.5 10*3/uL Lymphocytes Absolute 1.1 1.0 - 4.3 10*3/uL Monocytes Absolute 0.8 0.0 - 0.9 10*3/uL Eosinophils Absolute 0.1 0.0 - 0.5 10*3/uL Basophils Absolute 0.0 0.0 - 0.2 10*3/uL Immature Grans Absolute 0.1 (H) <0.1 10*3/uL Comprehensive metabolic panel Collection Time: 02/15/25 3:35 AM Result Value Ref Range SODIUM 129 (L) 136 - 145 mmol/L POTASSIUM 3.4 (L) 3.5 - 5.1 mmol/L CHLORIDE 101 98 - 107 mmol/L CARBON DIOXIDE 19 (L) 23 - 31 mmol/L ANION GAP 9 3 - 13 mmol/L UREA NITROGEN 16 9 - 23 mg/dL CREATININE 0.63 (L) 0.67 - 1.27 mg/dL GLUCOSE 150 (H) 82 - 115 mg/dL CALCIUM 7.5 (L) 8.8 - 10.0 mg/dL AST (SGOT) 25 <34 U/L ALT <6 <40 U/L ALKALINE PHOSPHATASE 55 40 - 150 U/L ALBUMIN 1.8 (L) 3.1 - 4.5 g/dL BILIRUBIN, TOTAL 0.4 <1.2 mg/dL TOTAL PROTEIN 5.7 (L) 6.4 - 8.3 g/dL eGFR >90.0 >60.0 mL/min/1.73m*2 Magnesium Collection Time: 02/15/25 3:35 AM Result Value Ref Range MAGNESIUM 1.9 1.6 - 2.6 mg/dL Lab Results Component Value Date TSH 2.62 02/15/2025 No components found for: "B12" VIT D 25-OH, TOTAL Date Value Ref Range Status 02/15/2025 <4 (L) See comment ng/mL Final Reviewed: active problem list, medication list, allergies, social history, notes from last encounter, notes from last several encounters, lab results, imaging Follow-up: will follow with you Dina Suh, SUYAPA - LEATHER ETCHER 02/15/25 8:59 AM [1] No Known Allergies [2] Current Facility-Administered Medications: acetaminophen (Tylenol) tablet 650 mg, 650 mg, Oral, q6h PRN, 650 mg at 02/15/25 0517 OR acetaminophen (Tylenol) suppository 650 mg, 650 mg, Rectal, q6h PRN, Vika Angela MD enoxaparin (Lovenox) syringe 40 mg, 40 mg, SubCUTAneous, Daily, Vika Angela MD, 40 mg at 02/14/25 1711 influenza vaccine tiss-cult subunt (Flucelvax) STANDARD-DOSE injection 0.5 mL, 0.5 mL, IntraMUSCular, Prior to discharge, Vika Angela MD lactated Ringer's infusion, 75 mL/hr, IntraVENous, Continuous, Vika Angela MD, Last Rate: 75 mL/hr at 02/15/25 0517, 75 mL/hr at 02/15/25 0517 melatonin tablet 10 mg, 10 mg, Oral, Nightly PRN, Obed Callahan MD, 10 mg at 02/14/252258 ondansetron ODT (Zofran-ODT) disintegrating tablet 4 mg, 4 mg, Oral, q8h PRN OR ondansetron (Zofran) injection 4 mg, 4 mg, IntraVENous, q6h PRN, Vika Angela MD, 4 mg at 02/15/25 0033 polyethylene glycol (PEG) 3350 (Miralax) packet 17 g, 17 g, Oral, Daily PRN, Vika Angela MD potassium chloride (Klor-Con) packet 40 mEq, 40 mEq, Oral, Once, Vika Angela MD prochlorperazine (Compazine) injection 5 mg, 5 mg, IntraVENous, q6h PRN, Obed Callahan MD, 5 mg at 02/15/25 0224 [3] Past Medical History: Diagnosis Date Depression Hypertension Prostate disease [4] Past Surgical History: Procedure Laterality Date AMPUTATION Right 2023 right partial index finger FEMUR SURGERY Right [5] No family history on file. documented in this encounter [facility] 02-19-2025 Note [facility] 02-19-2025 Note [facility] 02-15-2025 Note Referral placed to [facility] via [facility] per [facility] request. Await review and response regarding ability to accept. [facility] notified. [facility] 02-15-2025 Note Patient declined smo ra cessation counseling. Accepting of handout with contact information for future reference. [facility] 02-14-2025 Note [facility] 02-14-2025 History and physical note Attending History and Physical Admit Date: 02/14/2025 PCP: Rosalind Almanzar MD CHIEF COMPLAINT: weakness/functional decline/diarrhea Reason for Admission: weakness/functional decline/diarrhea History Obtained From: patient/chart HISTORY OF PRESENT ILLNESS: David is a 64 y.o. male with past medical history below who presents with chief complaint listed above. He was brought in after a welfare check found him on his couch and covered in feces. He has not eating for a bit and is having significant weakness. He has been unable to care for himself. He says he has had diarrhea and had c diff recently but did not complete a course of treatment. He denies cp, sob, cough, n/v, f/c. No syncope. Will admit for further evaluation and management. Seen and examined in the ED. D/w pt Past Medical History: Medical History[1] Past Surgical History: Surgical History[2] Social History: Social History Socioeconomic History Marital status: Unknown Spouse name: Not on file Number of children: Not on file Years of education: Not on file Highest education level: Not on file Occupational History Not on file Tobacco Use Smoking status: Every Day Smokeless tobacco: Never Substance and Sexual Activity Alcohol use: Yes Drug use: No Sexual activity: Not on file Other Topics Concern Not on file Social History Narrative Not on file Social Drivers of Health Financial Resource Strain: Not on file Food Insecurity: Not on file Transportation Needs: Not on file Physical Activity: Not on file Stress: Not on file Social Connections: Not on file Intimate Partner Violence: Not At Risk (05/08/2023) Humiliation, Afraid, Rape, and Kick questionnaire Fear of Current or Ex-Partner: No Emotionally Abused: No Physically Abused: No Sexually Abused: No Housing Stability: Not on file Family History: Family History[3] Medications Prior to Admission: Current Medications[4] Medications Reconciliation: Medication were reviewed and verified as accurate with patient. Allergies: Allergies[5] REVIEW OF SYSTEMS: 10 point ROS obtained, as per HPI, otherwise NEG Vitals: BP (!) 135/74 Pulse 76 Temp 36.4 C (97.5 F) (Oral) Resp 18 Ht 5' 10.5" (1.791 m) Wt 132 lb (59.9 kg) SpO2 100% BMI 18.67 kg/m BMI Classification: Normal Weight (BMI 18.5-24.9) Pulse Ox: SpO2 Av % Min: 100 % Max: 100 % Supplemental O2: PHYSICAL EXAM: Physical Exam Vitals and nursing note reviewed. Constitutional: General: He is not in acute distress. Appearance: He is ill-appearing. HENT: Head: Normocephalic and atraumatic. Mouth/Throat: Pharynx: Oropharynx is clear. Eyes: Extraocular Movements: Extraocular movements intact. Conjunctiva/sclera: Conjunctivae normal. Pupils: Pupils are equal, round, and reactive to light. Cardiovascular: Rate and Rhythm: Normal rate and regular rhythm. Pulses: Normal pulses. Heart sounds: Murmur heard. Pulmonary: Effort: Pulmonary effort is normal. Breath sounds: Normal breath sounds. Abdominal: General: Bowel sounds are normal. There is no distension. Palpations: Abdomen is soft. Tenderness: There is no abdominal tenderness. There is no rebound. Musculoskeletal: General: Normal range of motion. Cervical back: Neck supple. Right lower leg: No edema. Left lower leg: No edema. Skin: General: Skin is dry. Capillary Refill: Capillary refill takes less than 2 seconds. Neurological: General: No focal deficit present. Mental Status: He is alert and oriented to person, place, and time. Mental status is at baseline. Psychiatric: Mood and Affect: Mood normal. DATA: CBC: Recent Labs 02/14/25 1237 WBC 9.9 RBC 4.31* HGB 9.6* HCT 34.0* MCV 78.9 RDW 20.4* PLT 412 BMP: Recent Labs 02/14/25 1237 NA 147* K 4.5 CL 114* CO2 20* BUN 21 CREATININE 0.81 GLUCOSE 133* CALCIUM 8.5* ANIONGAP 13 LIVER PROFILE: Recent Labs 02/14/25 1237 AST 22 ALT <6 BILITOT 0.4 ALKPHOS 61 PROT 7.3 PT/INR: No results for input(s): "PROTIME", "INR" in the last 72 hours. CARDIAC ENZYMES: No results for input(s): "TROPONINI" in the last 72 hours. Procalcitonin: No results found for: "PROCAL" Urine Culture: Results for orders placed or performed during the hospital encounter of 05/07/23 Urine culture Collection Time: 05/07/23 12:15 PM Specimen: Urine, Clean Catch Result Value Ref Range Urine Culture No growth (<1,000 CFU/mL) COVID-19 PCR: No results for input(s): "COVID19" in the last 72 hours. I reviewed: [x] laboratory results [x] radiographic results At the time of today's encounter. Pt was advised of the results. Assessment Functional decline Failure to thrive Diarrhea Bradycardia Anemia Hypernatremia Hyperglycemia Cachexia HTN Depression BPH Plan I discussed management with the ED clinician and agree with the need for hospitalization, monitor on telemetry, follw up EKG, IVF, serial exams, check TSH nad B12 and vit D, check stools/GI panel/c diff, review home meds and continue as appropriate, Geriatrics evaluation, pricing actuary evaluation, PT/OT, follow up labs, discharge planning, see admission orders - am labs, replace lytes prn - PT/OT/CM/SW - delirium precautions: increase activity - DVT prophylaxis: enoxaparin and encourage ambulation Advance Directive: Prior Anticipated Discharge - Date - 02/17-02/18 - Location - Skilled Facility - Pending the following - clinical improvement, completion of work up, disposition finalization and when Ok with consultants Total time spent (which include face to face and non face to face encounters) : 64 minutes. Toxic drug monitoring/narrow therapeutic index drug monitoring : # Drug name : # Route administered : # Method of monitoring : No emergency contact information on file. ADVANCED CARE PLANNING David Doan : 1960 Primary Care Physician: Rosalind Almanzar MD The patient and/or family/surrogate voluntarily agreed to participate in ACP services. Patient s cognitive capacity: intact Code Status: [ X_] [FULL CODE - Continue all advanced life support: CPR,intubation,invasive procedures] [_] [DNR-CCA - DO NOT do CPR, intubation] [_] [DNR-DIGITAL SERVICE ENGINEER - Comfort care only] [_] DNR form [was/was not] signed Summary of discussion: The patient health care POA/ surrogate is the following: [Condition that instigated the ACP on this DOS, relevant PMH, functional status, goals of care, and whom this was discussed with including names and relationship to the patient, and any relevant advance care documentation discussion] I answered all the patient/family questions that I could within the range and scope of the current medical situation. We discussed the medical conditions, risks, benefits, outcomes, and goals of care at this time for the patient's medical issues at hand in the face of the patient's chronic issues and current presentation. Total time spent: 3 minutes were spent discussing the patient's resuscitation status, advance care planning, and end of life care, with patient and/or family/surrogate. Vika Angela MD Division of Hospitalist Medicine [facility] [1] Past Medical History: Diagnosis Date Depression Hypertension Prostate disease [2] Past Surgical History: Procedure Laterality Date AMPUTATION Right 2023 right partial index finger FEMUR SURGERY Right [3] No family history on file. [4] No current facility-administered medications for this encounter. Current Outpatient Medications: Bismuth Tribromoph-Petrolatum (xeroform petrolat patch 2"x2") pads, Apply 1 each topically daily., Disp: , Rfl: gabapentin (Neurontin) 300 MG capsule, Take 1 capsule (300 mg) by mouth in the morning and 1 capsule (300 mg) at noon and 1 capsule (300 mg) before bedtime., Disp: , Rfl: hydrOXYzine pamoate (Vistaril) 50 MG capsule, Take 1 capsule (50 mg) by mouth every 6 hours as needed for allergies or anxiety for up to 10 days., Disp: , Rfl: traZODone (Desyrel) 100 MG tablet, Take 1 tablet (100 mg) by mouth Nightly as needed for sleep., Disp: , Rfl: [5] No Known Allergies documented in this encounter [facility] 02-14-2025 Emergency department Note EMERGENCY DEPARTMENT ENCOUNTER Pt Name: David Doan Birthdate 1960 Date of evaluation: 02/14/2025 ED Provider: Caleb Bess MD CHIEF COMPLAINT Chief Complaint Patient presents with Failure To Thrive Pt arrives via EMS following a welfare check where pt was stuck on his couch and has not been able to eat or drink anything for a few days and cannot care for himself. Pt arrives with feces covering body and complaints of wound to his bottom. HISTORY OF PRESENT ILLNESS (Location/Symptom, Timing/Onset, Context/Setting, Quality, Duration, Modifying Factors, Severity) Note limiting factors. I wore appropriate PPE for the entirety of this encounter. HPI David Doan is a 64 y.o. who presents to the emergency department with chief complaint of failure to thrive. Despite arrival triage she is not suicidal. He had a welfare check today and living conditions were deplorable and he has been unable to take care of himself. He is unsure if he is on any medications. States he has not drink alcohol in 3 months and denies any other substances. Denies any current pain. Apparently he was covered in feces and has a sacral wound. Nursing Notes were reviewed. Limitations to history: None Outside historians: EMS REVIEW OF SYSTEMS Review of Systems Constitutional: Positive for fatigue. Neurological: Positive for weakness. Pertinent positives and negatives as per HPI. PAST MEDICAL HISTORY Medical History[1] SURGICAL HISTORY Surgical History[2] CURRENT MEDICATIONS Previous Medications BISMUTH TRIBROMOPH-PETROLATUM (XEROFORM PETROLAT PATCH 2"X2") PADS Apply 1 each topically daily. GABAPENTIN (NEURONTIN) 300 MG CAPSULE Take 1 capsule (300 mg) by mouth in the morning and 1 capsule (300 mg) at noon and 1 capsule (300 mg) before bedtime. HYDROXYZINE PAMOATE (VISTARIL) 50 MG CAPSULE Take 1 capsule (50 mg) by mouth every 6 hours as needed for allergies or anxiety for up to 10 days. TRAZODONE (DESYREL) 100 MG TABLET Take 1 tablet (100 mg) by mouth Nightly as needed for sleep. ALLERGIES Patient has no known allergies. FAMILY HISTORY Family History[3] SOCIAL HISTORY Social History[4] SCREENINGS Gayla Coma Scale Best Eye Response: Spontaneous Best Verbal Response: Oriented Best Motor Response: Follows commands Gayla Coma Scale Score: 15 PHYSICAL EXAM ED Triage Vitals [02/14/25 1203] Temp Heart Rate Resp BP 36.4 C (97.5 F) 75 17 (!) 145/89 SpO2 Temp Source Heart Rate Source Patient Position 100 % Oral Monitor Lying BP Location FiO2 (%) Left arm -- Physical Exam Vitals and nursing note reviewed. Constitutional: General: He is not in acute distress. Appearance: He is well-developed. He is not ill-appearing or diaphoretic. HENT: Head: Normocephalic and atraumatic. Mouth/Throat: Mouth: Mucous membranes are dry. Pharynx: Oropharynx is clear. Eyes: Extraocular Movements: Extraocular movements intact. Conjunctiva/sclera: Conjunctivae normal. Pupils: Pupils are equal, round, and reactive to light. Cardiovascular: Rate and Rhythm: Regular rhythm. Bradycardia present. Pulmonary: Effort: Pulmonary effort is normal. No respiratory distress. Breath sounds: Normal breath sounds. Abdominal: Palpations: Abdomen is soft. Tenderness: There is no abdominal tenderness. Musculoskeletal: General: No swelling. Cervical back: Normal range of motion and neck supple. No rigidity. Skin: General: Skin is warm and dry. Capillary Refill: Capillary refill takes less than 2 seconds. Neurological: General: No focal deficit present. Mental Status: He is alert and oriented to person, place, and time. Psychiatric: Mood and Affect: Mood normal. DIAGNOSTIC RESULTS Procedures/EKG: EKG was reviewed by myself. Physician EKG interpretation can be found in [facility] RADIOLOGY (Per Emergency Physician): Interpretation per the Radiologist below, if available at the time of this note: No orders to display ED BEDSIDE ULTRASOUND: Performed by ED Physician - none LABS: Labs Reviewed CBC WITH AUTO DIFFERENTIAL - Abnormal Result Value Auto WBC 9.9 RBC 4.31 (*) Hemoglobin 9.6 (*) Hematocrit 34.0 (*) MCV 78.9 MCH 22.3 (*) MCHC 28.2 (*) RDW 20.4 (*) Platelets 412 MPV 9.4 COMPREHENSIVE METABOLIC PANEL - Abnormal SODIUM 147 (*) POTASSIUM 4.5 CHLORIDE 114 (*) CARBON DIOXIDE 20 (*) ANION GAP 13 UREA NITROGEN 21 CREATININE 0.81 GLUCOSE 133 (*) CALCIUM 8.5 (*) AST (SGOT) 22 ALT <6 ALKALINE PHOSPHATASE 61 ALBUMIN 2.3 (*) BILIRUBIN, TOTAL 0.4 TOTAL PROTEIN 7.3 eGFR >90.0 MANUAL DIFFERENTIAL (CELLAVISION) - Abnormal RBC Morphology abnormal Anisocytosis Slight (*) Microcytes Slight (*) Hypochromia Slight (*) Ovalocytes Slight (*) Dacryocytes Slight (*) Acanthocytes Slight (*) Toxic Granulation Present (*) Dohle Bodies Present (*) Giant PLTs Rare (*) Neutrophils % 84 (*) Bands % 3 (*) Lymphocytes % 4 (*) Atypical Lymphocytes % 4 (*) Monocytes % 5 Absolute Neutrophil Count 8.6 (*) Bands Absolute 0.3 (*) Lymphocytes Absolute 0.4 (*) Atypical Lymphs Absolute 0.4 (*) Monocytes Absolute 0.5 Neutrophils Manual 84 Lymphocytes Manual 4 Monocytes Manual 5 Eosinophils Manual Basophils Manual Bands Manual 3 Metamyelocytes Manual Myelocytes Manual Promyelocytes Manual Blasts Manual Atypical Lymphocytes Manual 4 Unclassified Cells, Manual SARS-COV-2 ANTIGEN - Normal SARS-CoV-2 Antigen Negative ETHANOL - Normal ETHANOL IN SER/PLAS <10 Narrative: BIOMEDICAL EQUIPMENT TECHNICIAN depression is seen >100 mg/dL. NOTE: This result is for medical treatment only. Analysis performed using non-forensic procedures. MAGNESIUM - Normal MAGNESIUM 2.5 Narrative: Higher values can be expected in females during menses. DRUGS OF ABUSE COMPLETE URINALYSIS WITH REFLEX TO CULTURE All other labs were within normal range or not returned as of this dictation. EMERGENCY DEPARTMENT COURSE and DIFFERENTIAL DIAGNOSIS/MDM: Vitals: Vitals: 02/14/25 1203 02/14/25 1215 BP: (!) 145/89 BP Location: Left arm Patient Position: Lying Pulse: 75 (!) 48 Resp: 17 18 Temp: 36.4 C (97.5 F) TempSrc: Oral SpO2: 100% 100% Weight: 59.9 kg (132 lb) Height: 1.791 m (5' 10.5") 63-year-old male presents for possible failure to thrive. Differential failure to thrive, anemia, electrolyte derangement, arrhythmia, dehydration. Plan is screening labs, anticipate medical admit for PT OT and social insurance analyst consult. Diagnoses as of 02/14/25 1434 Failure to thrive in adult Medications sodium chloride 0.9 % bolus 1,000 mL (1,000 mL IntraVENous New Bag 02/14/25 1402) REVAL: Labs with mild hypernatremia, chronic anemia, no other significant derangement. Patient is bradycardic but not symptomatic or hypotensive so we will continue to monitor as it is sinus without any block. I spoke with hospitalist Dr. Angela accepts for further treatment. CRITICAL CARE TIME CONSULTS: None PROCEDURES: Unless otherwise noted below, none Procedures Patients symptoms are consistent with sepsis, severe sepsis, or septic shock (If yes use ".sepsiscoremeasure"): FINAL IMPRESSION 1. Failure to thrive in adult DISPOSITION Admit 02/14/2025 02:34:14 PM PATIENT REFERRED TO: No follow-up provider specified. DISCHARGE MEDICATIONS: New Prescriptions No medications on file (Comment: Please note this report has been produced using speech recognition software and may contain errors related to that system including errors in grammar, punctuation, and spelling, as well as words and phrases that may be inappropriate. If there are any questions or concerns please feel free to contact the dictating provider for clarification.) Caleb Bess MD (electronically signed) Emergency Medicine Provider Caleb Bess MD 02/14/251434 [1] Past Medical History: Diagnosis Date Depression Hypertension Prostate disease [2] Past Surgical History: Procedure Laterality Date AMPUTATION Right 2023 right partial index finger FEMUR SURGERY Right [3] No family history on file. [4] Social History Socioeconomic History Marital status: Unknown Tobacco Use Smoking status: Every Day Smokeless tobacco: Never Substance and Sexual Activity Alcohol use: Yes Drug use: No Social Drivers of Health Intimate Partner Violence: Not At Risk (05/08/2023) Humiliation, Afraid, Rape, and Kick questionnaire Fear of Current or Ex-Partner: No Emotionally Abused: No Physically Abused: No Sexually Abused: No Caleb Bess MD 02/14/25 documented in this encounter [facility] 06-23-2023 Evaluation + Plan note Associated Problem(s): Streptococcal bacteremia See above [facility] 06-23-2023 Evaluation + Plan note Associated Problem(s): Right foot pain See above. Referral to ortho [facility] made for R foot pain [facility] 06-23-2023 Miscellaneous Notes Associated Problem(s): Streptococcal bacteremia See above Associated Problem(s): Right foot pain See above. Referral to ortho [facility] made for R foot pain Associated Problem(s): Osteomyelitis of finger of right hand (HCC) Patient presents to office today for EOT follow for R index finger OM s/p partial amp of R index finger on 05/09 as well as strep bovis BSI. TTE negative for IE. R hand cx with proteus vulgaris, MSSA, b frag, skin carine. 05/28 blood cx NG. On 6 week IV course of ertapenem through 06/24/23. No new issues at surgical site of R index finger. Pain improving. Does have gradually worsening plantar surface pain of R foot since he fell prior to hospital admission. Still has normal ROM of R ankle joint and toes. R dorsalis pedis pulse intact. With 1+ edema of R ankle/foot and mild erythema. Tenderness along plantar surface. Has had some difficulty bearing weight on this foot d/t the pain of plantar surface. His physician at his facility has been prescribing gabapentin for nerve pain without relief. Plan: 1. Discontinue ertapenem for OM course today. 2. Midline removed in office today without difficulty 3. Called hand surgeon Dr. Hernandez's office to schedule follow up 4. Referral to ortho [facility] Marjorie made for R foot pain of plantar surface. With some mild edema and minimal erythema of R foot. Low concern for cellulitis/infectious process (including septic arthritis) at this time as it has been chronic and patient has normal ROM of joint. Has also been on broad IV atbs without change in clinical status of R foot. ESR minimally elevated at 27, CRP WNL as of 06/21/23. No follow up needed unless patient has new issues/concerns. documented in this encounter [facility] 06-23-2023 Evaluation + Plan note Associated Problem(s): Osteomyelitis of finger of right hand (HCC) Patient presents to office today for EOT follow for R index finger OM s/p partial amp of R index finger on 05/09 as well as strep bovis BSI. TTE negative for IE. R hand cx with proteus vulgaris, MSSA, b frag, skin carine. 05/28 blood cx NG. On 6 week IV course of ertapenem through 06/24/23. No new issues at surgical site of R index finger. Pain improving. Does have gradually worsening plantar surface pain of R foot since he fell prior to hospital admission. Still has normal ROM of R ankle joint and toes. R dorsalis pedis pulse intact. With 1+ edema of R ankle/foot and mild erythema. Tenderness along plantar surface. Has had some difficulty bearing weight on this foot d/t the pain of plantar surface. His physician at his facility has been prescribing gabapentin for nerve pain without relief. Plan: 1. Discontinue ertapenem for OM course today. 2. Midline removed in office today without difficulty 3. Called hand surgeon Dr. Hernandez's office to schedule follow up 4. Referral to ortho KIRILL Amador made for R foot pain of plantar surface. With some mild edema and minimal erythema of R foot. Low concern for cellulitis/infectious process (including septic arthritis) at this time as it has been chronic and patient has normal ROM of joint. Has also been on broad IV atbs without change in clinical status of R foot. ESR minimally elevated at 27, CRP WNL as of 06/21/23. No follow up needed unless patient has new issues/concerns. [facility] 06-23-2023 History of Present illness Narrative Images from the original note were not included. [facility] Infectious Diseases Advanced Practice Provider Outpatient Progress Note HISTORYOF PRESENT ILLNESS Patient presents to office today for EOT follow for R index finger OM s/p partial amp of R index finger on 05/09 as well as strep bovis BSI. TTE negative for IE. R hand cx with proteus vulgaris, MSSA, b frag, skin carine. 05/28 blood cx NG. On 6 week IV course of ertapenem through 06/24/23. Today, patient reports worsening R foot pain x1 month. It is swollen and slightly red. Pt states it got worse 1 month ago and has gradually worsened. He believes it began when he fell prior to his hospital admission in April. He denies worsening pain or numbness at R finger surgical site. Still has some residual tingling at R index finger since surgery. Does endorse some soft stools, but denies watery diarrhea. No recent fever, chills, abd pain n/v. Otherwise, no new alleviating or exacerbating factors. Review of Systems Constitutional: Negative for activity change, appetite change, chills and fever. HENT: Negative for congestion, ear discharge, ear pain, facial swelling, hearing loss, sore throat, trouble swallowing and voice change. Eyes: Negative for photophobia, pain, discharge, redness, itching and visual disturbance. Respiratory: Negative for apnea, cough, choking, shortness of breath and wheezing. Cardiovascular: Negative for chest pain and leg swelling. Gastrointestinal: Positive for diarrhea. Negative for abdominal distention, abdominal pain, constipation, nausea and vomiting. Genitourinary: Negative for difficulty urinating, dysuria, flank pain, frequency, hematuria and urgency. Musculoskeletal: Positive for arthralgias and joint swelling. Negative for gait problem, neck pain and neck stiffness. Skin: Negative for color change, rash and wound. Neurological: Negative for dizziness, speech difficulty, weakness, light-headedness, numbness and headaches. Psychiatric/Behavioral: Negative for agitation, behavioral problems and confusion. Social History Socioeconomic History Marital status: Unknown Spouse name: Not on file Number of children: Not on file Years of education: Not on file Highest education level: Not on file Occupational History Not on file Tobacco Use Smoking status: Every Day Smokeless tobacco: Never Substance and Sexual Activity Alcohol use: Yes Drug use: No Sexual activity: Not on file Other Topics Concern Not on file Social History Narrative Not on file Social Determinants of Health Financial Resource Strain: Not on file Food Insecurity: Not on file Transportation Needs: Not on file Physical Activity: Not on file Stress: Not on file Social Connections: Not on file Intimate Partner Violence: Not At Risk (05/08/2023) Humiliation, Afraid, Rape, and Kick questionnaire Fear of Current or Ex-Partner: No Emotionally Abused: No Physically Abused: No Sexually Abused: No Housing Stability: Not on file Past Medical History: Diagnosis Date Depression Hypertension Prostate disease No family history on file. Vitals: 06/23/23 1352 BP: 110/70 Pulse: 59 Temp: 36.4 C (97.5 F) SpO2: 98% Weight: 149 lb (67.6 kg) Height: 5' 10.5" (1.791 m) Wt Readings from Last 3 Encounters: 06/23/23 149 lb (67.6 kg) 05/10/23 127 lb (57.6 kg) Physical Exam Vitals and nursing note reviewed. Constitutional: General: He is not in acute distress. Appearance: He is normal weight. He is ill-appearing. He is not toxic-appearing or diaphoretic. Comments: Pt sitting in wheelchair, NAD. Responds appropriately, conversant. HENT: Head: Normocephalic and atraumatic. Right Ear: External ear normal. Left Ear: External ear normal. Nose: Nose normal. Mouth/Throat: Mouth: Mucous membranes are moist. Pharynx: Oropharynx is clear. No oropharyngeal exudate. Eyes: General: Right eye: No discharge. Left eye: No discharge. Extraocular Movements: Extraocular movements intact. Cardiovascular: Rate and Rhythm: Normal rate and regular rhythm. Pulses: Normal pulses. Heart sounds: Normal heart sounds. No murmur heard. Pulmonary: Effort: Pulmonary effort is normal. No respiratory distress. Breath sounds: Normal breath sounds. No wheezing or rhonchi. Abdominal: General: Abdomen is flat. Bowel sounds are normal. There is no distension. Palpations: Abdomen is soft. Tenderness: There is no abdominal tenderness. There is no guarding. Musculoskeletal: General: Tenderness and deformity present. No swelling. Cervical back: Normal range of motion. No rigidity. Right lower leg: Edema present. Left lower leg: No edema. Comments: R index finger surgical site clean, no erythema/edema. + tenderness to touch. R radial pulse intact. R foot with mild erythema, edema at foot/ankle joint. Normal ROM of toes and ankle joint. Tenderness along plantar surface. R dorsalis pedis pulse intact. Skin: General: Skin is warm and dry. Coloration: Skin is not jaundiced. Findings: Erythema present. No lesion or rash. Comments: Midline site clean, removed in office. Neurological: General: No focal deficit present. Mental Status: He is alert and oriented to person, place, and time. Mental status is at baseline. Sensory: No sensory deficit. Motor: No weakness. Psychiatric: Mood and Affect: Mood normal. Behavior: Behavior normal. Thought Content: Thought content normal. No visits with results within 1 Month(s) from this visit. Latest known visit with results is: No results displayed because visit has over 200 results. Other Labs: Micro: No results for input(s): "COVID19" in the last 72 hours. 05/15- GI PCR panel- negative 05/10- blood cx- /2 negative 05/09- R finger swab- proteus vulgaris, MSSA, b fragilis, skin carine 05/09- urine cx- no growth 05/07- covid/flu/rsv- negative 05/07- blood cx- 04/27 S gallolyticus (bovis group) 05/07 HIV nonreactive 05/07 HgbA1c 5.3% Lines: Midline, removed in office 06/23/23 at 20cm Radiography/Echo/Other: 05/10- TTE Left Ventricle: Left ventricle size is normal. Mildly increased wall thickness. Normal left ventricular systolic function. EF by 2D Simpsons Biplane is 72%. Global longitudinal strain is -21.8%. Normal wall motion. Right Ventricle: Right ventricle size is normal. Normal systolic function. No significant valvular abnormalities. No vegetations or other evidence for infectious endocarditis. 05/15- CXR 1. Lines/Tubes/Devices/Hardware: Interval retraction of the left-sided PICC with tip overlying the cavoatrial junction. 2. Lungs: Patchy bibasilar airspace opacities, similar to prior. No significant pulmonary edema. 3. Pleura: No pneumothorax or large pleural effusions. 4. Heart and mediastinum: Unchanged cardiomediastinal contours. 05/14- Cxr Left arm PICC line tip near the level of the hemidiaphragms. Recommend retracting the PICC line 4 cm. Mild basilar infiltrates or atelectasis. 05/08- MRI R hand Acute osteomyelitis involving the distal phalanx of the index finger. There is associated diffuse soft tissue swelling/cellulitis. Question associated soft tissue laceration. Correlate with physical exam findings. Cellulitis along the dorsum of the second-fourth MCP joints. 05/08- CXR 2. Lungs: No convincing acute process.. Limited due to portable technique. Consider follow-up with PA and lateral chest for persistent symptoms. 3. Pleura: No significant effusion. No significant pneumothorax. 4. Heart and mediastinum: Limited due to technique. 5. Upper abdomen: No acute process seen. 6. Thorax:No acute bony process 05/07- XR R hand There is soft tissue swelling with locules of air and lucency surrounding the distal second digit proximal, middle, and distal phalanx concerning for infectious process with an open wound. There is deformity of the second digit distal phalanx with absence of the tuft which may reflect infectious involvement versus chronic deformity. The metacarpals appear intact. The metacarpophalangeal joints are within normal limits. 05/07- CT head 1. No intracranial hemorrhage or depressed skull fracture. 2. 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 Cerebral volume loss. Antimicrobials, Start/End Dates: Cefepime: 05/07-05/09 Vancomycin: 05/07-05/11 Cefazolin: 05/09, 05/12 Ceftriaxone: 05/10-05/11 Ertapenem: 05/13-06/23 ASSESSMENT/PLAN 1. Right foot pain Assessment & Plan: See above. [place] [facility] [place] foot pain Orders: - [facility] [place] 2. Edema of right foot - [facility] [place] 3. Osteomyelitis of finger of right hand (HCC) Assessment & Plan: Patient presents to office today for EOT follow for R index finger OM s/p partial amp of R index finger on 05/09 as well as strep bovis BSI. TTE negative for IE. R hand cx with proteus vulgaris, MSSA, b frag, skin carine. 05/28 blood cx NG. On 6 week IV course of ertapenem through 06/24/23. No new issues at surgical site of R index finger. Pain improving. Does have gradually worsening plantar surface pain of R foot since he fell prior to hospital admission. Still has normal ROM of R ankle joint and toes. R dorsalis pedis pulse intact. With 1+ edema of R ankle/foot and mild erythema. Tenderness along plantar surface. Has had some difficulty bearing weight on this foot d/t the pain of plantar surface. His physician at his facility has been prescribing gabapentin for nerve pain without relief. Plan: 1. Discontinue ertapenem for OM course today. 2. Midline removed in office today without difficulty 3. Called hand surgeon Dr. Hernandez's office to schedule follow up 4. Referral to ortho KIRILL Amador made for R foot pain of plantar surface. With some mild edema and minimal erythema of R foot. Low concern for cellulitis/infectious process (including septic arthritis) at this time as it has been chronic and patient has normal ROM of joint. Has also been on broad IV atbs without change in clinical status of R foot. ESR minimally elevated at 27, CRP WNL as of 06/21/23. No follow up needed unless patient has new issues/concerns. 4. Streptococcal bacteremia Assessment & Plan: See above Total time 55 minutes on this day of visit includes record and documentation review before and after visit including documentation and time not explicitly included on EMR time stamp for accounting for open encounter. Midline Removal 06/23/23 Site:left arm Catheter Type:single lumen Length:20 cm Appearance of tip:clean, intact Culture:No Bleeding:No Applied dressing to site and instructed to remove in 24 hours. Patient Tolerance:well LINA Bales PA-C documented in this encounter [facility] 05-18-2023 Telephone encounter Note Spoke with patients nurse Woods, confirmed IV orders, stop date, weekly labs and follow up appt. [facility] 05-18-2023 Miscellaneous Notes Spoke with patients nurse Woods, confirmed IV orders, stop date, weekly labs and follow up appt. Patient discharged to [facility], faxed a copy of patients OPAT and appt reminder letter to the facility. Will call to review the orders. Images from the original note were not included. Update IV sheet Received an approval from [facility] for the Dalba. Left a msg for the TCC on H6 asking for a call back to see if she knows when they plan to discharge the patient for scheduling purposes. Spoke with Stephanie and sent Flori a secure chat and was informed David is growing a new bacteria that is not covered by Dalba. New plan in place now. [facility] Authorization for Testing Initiated. Company Name & Number Contacted for Auth: [employer] Name of Funeral Arranger: colby online Name of Procedure: Dalba Cpt Code: J0875 Diagnosis Code: M86.9 [facility] of Procedure: [address] [facility] [address] Is Auth Required: YES Call Reference #: [id number] Pending Case #: Clinical Reviewer: online portal Additional Info if given: progress note, MRI, Labs Approved Case reference: Date Range for Approved Auth: Images from the original note were not included. Patient still admitted. documented in this encounter [facility] 05-18-2023 Telephone encounter Note Patient discharged to [facility], faxed a copy of patients OPAT and appt reminder letter to the facility. Will call to review the orders. [facility] 05-13-2023 Telephone encounter Note Images from the original note were not included. Update IV sheet [facility] 05-13-2023 Miscellaneous Notes Images from the original note were not included. Update IV sheet Received an approval from [facility] for the Dalba. Left a msg for the TCC on H6 asking for a call back to see if she knows when they plan to discharge the patient for scheduling purposes. Spoke with Stephanie and sent Flori a secure chat and was informed David is growing a new bacteria that is not covered by [facility]. New plan in place now. New auth [facility] covermymeds Authorization for Testing Initiated. Company Name & Number Contacted for Auth: [employer] Name of Funeral Arranger: [employer]by online Name of Procedure: Dalba Cpt Code: J0875 Diagnosis Code: M86.9 Location of Procedure: [address] Is Auth Required: YES Call Reference #: [id number] Pending Case #: Clinical Reviewer: online portal Additional Info if given: progress note, MRI, Labs Approved Case reference: Date Range for Approved Auth: Images from the original note were not included. Patient still admitted. documented in this encounter [facility] 05-13-2023 Telephone encounter Note Received an approval from [facility] for the Dalba. Left a msg for the TCC on H6 asking for a call back to see if she knows when they plan to discharge the patient for scheduling purposes. Spoke with Stephanie and sent Flori a secure chat and was informed David is growing a new bacteria that is not covered by [facility]ba. New plan in place now. [facility] 05-12-2023 Telephone encounter Note New auth sent to [facility] on covermymeds [facility] 05-11-2023 Telephone encounter Note Authorization for Testing Initiated. Company Name & Number Contacted for Auth: [employer] Name of Funeral Arranger: [employer]by online Name of Procedure: Dalba Cpt Code: J0875 Diagnosis Code: M86.9 Location of Procedure: [address] Is Auth Required: YES Call Reference #: [id number] Pending Case #: Clinical Reviewer: online portal Additional Info if given: progress note, MRI, Labs Approved Case reference: Date Range for Approved Auth: [facility] 05-11-2023 Telephone encounter Note Images from the original note were not included. Patient still admitted. [facility] Evaluation note Diagnosis Right foot pain- Primary Pain in soft tissues of limb Edema of right foot Osteomyelitis of finger of right hand (HCC) Unspecified osteomyelitis, hand Streptococcal bacteremia documented in this encounter [facility]* Diagnosis Right foot pain- Primary Pain in soft tissues of limb Edema of right foot Osteomyelitis of finger of right hand (HCC) Unspecified osteomyelitis, hand Streptococcal bacteremia Rectal cancer (HCC)- Primary Malignant neoplasm of rectum documented in this encounter [facility]* Diagnosis Right foot pain- Primary Pain in soft tissues of limb Edema of right foot Osteomyelitis of finger of right hand (HCC) Unspecified osteomyelitis, hand Streptococcal bacteremia Failure to thrive in adult- Primary Adult failure to thrive Failure to thrive in adult Adult failure to thrive Pressure injury of sacral region, unstageable (CMS/HCC) Rectal mass Other symptoms involving digestive system Abnormal EKG Nonspecific abnormal electrocardiogram (ECG) (EKG) Palliative care encounter Severe malnutrition (CMS/HCC) (HCC) Nutritional marasmus Declining functional status Recurrent major depressive disorder, remission status unspecified Adult failure to thrive Severe malnutrition (CMS/HCC) (HCC) Nutritional marasmus Declining functional status Depression Depressive disorder, not elsewhere classified Vitamin D deficiency At risk for delirium [facility] Consultation (Routine) - Pending Review Specialty Diagnoses / Procedures Referred By Antonio nelson Referred To Contact Orthopedic Surgery Diagnoses Right foot pain Edema of right foot Unique Moreno PA-C [address] [place] [address] Ye Szymanski MD [address] [place] [id number] Referral ID Status Reason Start Date Expiration Date Visits Requested Visits Authorized [id number] Pending Review Specialty Services Required 06/23/2023 06/22/[address] [facility] Summary Purpose Family History No Family History Records FoundNo Family History Records FoundNo Family History Records FoundNo Family History Records FoundNo Family History Records Found Advance Directives Date Activated Date Inactivated Comments 02/19/2025 1:32 PM 02/27/2025 6:37 PM Date Activated Date Inactivated Comments 02/14/2025 4:34 PM 02/19/2025 1:32 PM Date Activated Date Inactivated Comments 05/08/2023 12:35 AM 05/17/2023 11:50 PM Latest Code Status on File Code Status Date Activated Date Inactivated Comments Full Code 05/08/2023 12:35 AM Latest Code Status on File Code Status Date Activated Date Inactivated Comments Full Code 05/08/2023 12:35 AM 05/17/2023 11:50 PM Latest Code Status on File Code Status Date Activated Date Inactivated Comments Full Code 05/08/2023 12:35 AM 05/17/2023 11:50 PM Date Activated Date Inactivated Comments 02/19/2025 1:32 PM Additional Source Comments (unrecognized sect ion and content) No Status Records FoundNo Status Records FoundNo Status Records FoundNo Status Records FoundNo Status Records Found INFORMATION SOURCE (unrecogn ized section and content) DATE CREATED AUTHOR 10/19/2017 [facility] DATE CREATED AUTHOR AUTHOR'S ORGANIZ ATION 10/22/2017 [facility] DATE CREATED AUTHOR AUTHOR'S ORGANIZ ATION 03/29/2023 [facility] DATE CREATED AUTHOR AUTHOR'S ORGANIZ ATION 07/12/2023 [facility] DATE CREATED AUTHOR AUTHOR'S ORGANIZ ATION 02/28/2025 [facility] Reason for Visit (unrecogniz ed section and content) Reason Onset Date Comments IV Medication 05/11/2023 IV antibiotic sh eet_Updyke Orders 05/11/2023 Updated IV antib iotic sheet Reason Comments Osteomyelitis Reason Comments Failure To Thrive Pt arrives via EMS f ollowing a welfare check where pt was stuck on his couch and has not been able to eat or drink anything for a few days and cannot care for himself. Pt arrives with feces covering body and complaints of wound to his bottom. Specialty Diagnoses / Procedures Referred By Antonio t Referred To Contact Diagnoses Failure to thrive in adult Procedures . 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 0256 (Given - Provider: Nestor Scales RN)1220 (Given - Provider: Ernesto Edwards RN)1822 (Not Given - Provider: Ernesto Edwards RN - Reason: Patient/family refused) 0209 (Given - Provider: Nestor Scales RN)1119 (Given - Provider: Ernesto Edwards RN)1920 (Given - Provider: Ernesto Edwards RN) 0231 (Given - Provider: Yanet Vickers RN)1114 (Given - Provider: Charis Meier) enoxaparin (Lovenox) syringe 40 mg 40 mg, SubCUTAneous, Every 24 hours scheduled (Daily), First dose on Wed02/14/25 at 1635, Indication of Use: Prophylaxis-DVT/PE, Indications: Prophylaxis of Venous Thromboembolism 0900 (Dose Auto Held)1140 (Unheld by provider - Provider: Vika Angela MD) 1143 (Given - Provider: Ernesto Edwards RN) 0844 (Given - Provider: Charis Meier) ergocalciferol (Vitamin D2) capsule 1.25 mg 1.25 mg, Oral, Weekly, First dose on Wed02/16/25 at 0900, For 8 doses gabapentin (Neurontin) capsule 300 mg (CANCELED) 300 mg, Oral, 3 times daily, First dose (after last modification) on Wed02/23/25 at 2100 0818 (Given - Provider: Ernesto Edwards RN)1538 (Given - Provider: Ernesto Edwards RN)203 (Given - Provider: Nestor Scales RN) 103 (Given - Provider: Ernesto Edwards RN)153 (Given - Provider: Malathi Brush RN)2019 (Given - Provider: Yanet Vickers RN) 09 (Given - Provider: Ernesto Edwards RN) gabapentin (Neurontin) capsule 400 mg 400 mg, Oral, 3 times daily, First dose (after last modification) on Wed02/27/25 at 1400 1334 (Given - Provider: Ernesto Edwards RN) influenza vaccine tiss-cult subunt (Flucelvax) STANDARD-DOSE injection 0.5 mL 0.5 mL, IntraMUSCular, Prior to discharge, Starting on Wed02/15/25 at 0800, For 1 dose miconazole (Micotin) 2 % powder Topical, 2 times daily, First dose on Wed02/16/25 at 1330, Nursing staff to perform dressing change: Bilateral groins: Fungal dermatitis -cleanse with soap and water and dry thoroughly, apply Miconazole powder, 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, Apply to: bilateral groins 0819 (Given - Provider: Ernesto Edwards RN)2033 (Given - Provider: Nestor Scales RN) 112 (Given - Provider: Ernesto Edwards RN)2023 (Given - Provider: Yanet Vickers RN) 0847 (Given - Provider: Charis Meier) mirtazapine (Remeron) tablet 7.5 mg 7.5 mg, Oral, Nightly, First dose on Wed02/22/25 at 2100 2031 (Given - Provider: Nestor Scales RN) 2017 (Given - Provider: Yanet Vickers RN) polyethylene glycol (PEG) 3350 (Miralax) packet 17 g 17 g, Oral, Daily, First dose on Wed02/21/25 at 1200 0818 (Given - Provider: Ernesto Edwards RN) 1143 (Given - Provider: Ernesto Edwards RN) 0841 (Not Given - Provider: Charis Meier - Reason: Patient/family refused) sodium chloride 0.9% (NS) flush 10 mL 10 mL, IntraVENous, Every 12 hours scheduled (2 times per day), First dose on Wed02/16/25 at 2100 0818 (Given - Provider: Ernesto Edwards RN)2033 (Given - Provider: Nestor Scales RN) 112 (Given - Provider: Ernesto Edwards RN)2039 (Not Given - Provider: Yanet Vickers RN - Reason: Other - Comment: duplicate order) 0843 (Given - Provider: Charis Meier) sodium chloride 0.9% (NS) flush 10 mL 10 mL, IntraVENous, Every 12 hours scheduled (2 times per day), First dose on Wed02/19/25 at 2100, Phase II/On Unit 0859 (Not Given - Provider: Ernesto Edwards RN - Reason: Other - Comment: Duplicate)2032 (Given - Provider: Nestor Scales RN) 1146 (Not Given - Provider: Ernesto Edwards RN - Reason: Other - Comment: Duplicate)2017 (Given - Provider: Yanet Vickers RN) 0844 (Given - Provider: Charsi Meier) stomahesive in petrolatum (ET Mix) Topical, Every 8 hours scheduled (3 times per day), First dose (after last modification) on Wed02/19/25 at 2200, Nursing staff to perform dressing change: Rectum: Rectal cancer -cleanse with soap and water, apply ET mix TID and PRN, 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 Sacrum: Pressure Injury Stage 3 -cleanse with soap and water, apply ET mix TID and PRN, leave SO Bilateral buttock: MASD (bodily fluids and friction /shear) - Resolved - continue treatment as prevention -cleanse with soap and water, apply ET mix TID and PRN, 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 , Apply to: Bilateral buttock 0506 (Given - Provider: Nestor Scales RN)1538 (Given - Provider: Ernesto Edwards RN)2145 (Given - Provider: Nestor Scales RN) 0601 (Given - Provider: Nestor Scales RN)1636 (Given - Provider: Ernesto Edwarsd RN)2023 (Given - Provider: Yanet Vickers RN) 0616 (Given - Provider: Yanet Vickers RN)1334 (Given - Provider: Ernesto Edwards RN) Vortioxetine HBr (Trintellix) tablet 5 mg 5 mg, Oral, Daily, First dose on Wed02/16/25 at 0900 0818 (Given - Provider: Ernesto Edwards RN) 1121 (Given - Provider: Ernesto Edwards RN) 0840 (Given - Provider: Charis Meier) PRN Medication Order 02/25/2025 02/26/2025 02/27/2025 acetaminophen (Tylenol) tablet 650 mg 650 mg, Oral, Every 4 hours PRN, mild pain (1-3), moderate pain (4-6), severe pain (7-10), Starting on 02/19/25 at 1332, Phase II/On Unit, Give in addition to any other pain medication ordered at same time for any pain indication. albuterol 108 (90 Base) MCG/ACT inhaler 2 puff 2 puff, Inhalation, Once PRN, wheezing, Starting on Lakeisha 02/22/25 at 0332, For 1 dose, CV Procedural Medications, @@@LOW COUNT CANISTER - DO NOT RETURN TO PHARMACY.@@@ Prior to stress test or echocardiogram, in patients with known or suspected bronchospastic pulmonary disease Administer using an inhaler spacer. diphenhydrAMINE (BENADryl) injection 25 mg(Linked Group 1) 25 mg, IntraVENous, Once PRN, other, Use per medication instructions, Starting on Lakeisha 02/22/25 at 0332, For 1 dose, CV Procedural Medications, Use for allergic reaction during transthoracic echocardiogram (TTE) procedure only. Mild or Moderate Allergic Reaction (hives, itching, redness, stable vitals), administer 25 mg IVP over 3 minutes or via IM if IV access is not obtainable and contact provider. Severe Allergic Reaction/Anaphylaxis (cardiovascular collapse, respiratory compromise), administer 25 mg IVP over 3 minutes or via IM if IV access is not obtainable. Activate EMS and contact provider. diphenhydrAMINE (BENADryl) injection 25 mg(Linked Group 1) 25 mg, IntraMUSCular, Once PRN, other, Use per medication instructions, Starting on Wed02/22/25 at 0332, For 1 dose, CV Procedural Medications, Use for allergic reaction during transthoracic echocardiogram (TTE) procedure only. Mild or Moderate Allergic Reaction (hives, itching, redness, stable vitals), administer 25 mg IVP over 3 minutes or via IM if IV access is not obtainable and contact provider. Severe Allergic Reaction/Anaphylaxis (cardiovascular collapse, respiratory compromise), administer 25 mg IVP over 3 minutes or via IM if IV access is not obtainable. Activate EMS and contact provider. LORazepam (Ativan) tablet 0.5 mg 0.5 mg, Oral, Nightly PRN, anxiety, Starting on 02/17/25 at 1059 melatonin tablet 5 mg 5 mg, Oral, Nightly PRN, sleep, Starting on Lakeisha 02/15/25 at 1247 2032 (Given - Provider: Nestor Scales, RN) 2017 (Given - Provider: Yanet Vickers, ALEXANDRE) miconazole (Micotin) 2 % powder Topical, PRN, itching, Starting on Wed02/19/25 at 1624, Nursing staff to perform dressing change: Bilateral groins: Fungal dermatitis -cleanse with soap and water and dry thoroughly, apply Miconazole powder, leave SO BID and PRN, Apply to: Bilateral groins naloxone (Narcan) injection 0.4 mg 0.4 mg, IntraVENous, Every 5 min PRN, opioid reversal, respiratory depression, Starting on Wed02/16/25 at 0943, +++ For RR <10, pinpoint pupils, over sedation for opioid reversal - MUST notify human resources compensation analyst provider immediately after first dose, may give IM or SQ if no IV access +++ ondansetron (Zofran) injection 4 mg(Linked Group 2) 4 mg, IntraVENous, Every 6 hours PRN, nausea, vomiting, Starting on Wed02/14/25 at 1633, 1st Line. Give IV if patient is unable to take orally. If inadequate response within 60 minutes, proceed to next-line agent or contact provider if no further options ordered. ondansetron (Zofran) injection 4 mg(Linked Group 3) 4 mg, IntraVENous, Every 6 hours PRN, nausea, vomiting, Starting on Wed02/19/25 at 1332, Phase II/On Unit, 1st Line. Give IV if patient is unable to take orally. If inadequate response within 60 minutes, proceed to next-line agent or contact provider if no further options ordered. ondansetron ODT (Zofran-ODT) disintegrating tablet 4 mg(Linked Group 2) 4 mg, Oral, Every 8 hours PRN, nausea, vomiting, Starting on Wed02/14/25 at 1633, 1st Line. If inadequate response within 60 minutes, proceed to next-line agent or contact provider if no further options ordered. Patient should allow tablet to dissolve on tongue. Do not remove from blister pack until just before administering. ondansetron ODT (Zofran-ODT) disintegrating tablet 4 mg(Linked Group 3) 4 mg, Oral, Every 8 hours PRN, nausea, vomiting, Starting on 02/19/25 at 1332, Phase II/On Unit, 1st Line. If inadequate response within 60 minutes, proceed to next-line agent or contact provider if no further options ordered. Patient should allow tablet to dissolve on tongue. Do not remove from blister pack until just before administering. oxyCODONE (Roxicodone) immediate release tablet 10 mg(Linked Group 4) 10 mg, Oral, Every 4 hours PRN, severe pain (7-10), Starting on 02/25/25 at 1141 1220 (Given - Provider: Ernesto Edwards RN)2032 (Given - Provider: Nestor Scales RN) 0209 (Given - Provider: Nestor Scales RN)0706 (Given - Provider: Nestor Scales RN)1119 (Given - Provider: Ernesto Edwards RN)1535 (Given - Provider: Malathi Brush RN)2018 (Given - Provider: Yanet Vickers RN) 0231 (Given - Provider: Yanet Vickers RN)0915 (Given - Provider: Ernesto Edwards, ALEXANDRE)1334 (Given - Provider: Ernesto Edwards RN) oxyCODONE (Roxicodone) immediate release tablet 5 mg (CANCELED)(Linked Group 5) 5 mg, Oral, Every 4 hours PRN, moderate pain (4-6), Starting on 02/17/25 at 1058 0256 (Given - Provider: Nestor Scales RN)0818 (Given - Provider: Ernesto Edwards RN) perflutren protein A microsphere (Optison) 3 mL in sodium chloride (PF) 0.9 % 10 mL IV 0-10 mL, IntraVENous, IMG once PRN, other, Suboptimal echo image, Starting on [place]isha 02/22/25 at 0332, For 1 dose, CV Procedural Medications, Administer via slow IVP for suboptimal echocardiogram enhancement. May administer as divided doses to reach optimal image enhancement polyethylene glycol (PEG) 3350 (Miralax) packet 17 g 17 g, Oral, Daily PRN, constipation, Starting on Wed02/14/25 at 1633, 1st line for treatment of constipation - give scheduled if no bowel movement in past 24 hours. prochlorperazine (Compazine) injection 5 mg 5 mg, IntraVENous, Every 6 hours PRN, nausea, vomiting, Starting on [place]isha 02/15/25 at 0215, Second Line sodium chloride 0.9 % infusion 5-250 mL/hr, IntraVENous, PRN, if patient receiving piggyback infusions and maintenance fluids are not ordered OR KVO fluids to protect IV site / prevent frequent line interruptions/ long duration, Starting on Wed02/16/25 at 1221, For piggyback infusion, administer at same rate as piggyback for a total of 25 mL. Enter 25 mL into dose field and piggyback rate into rate field of order. If piggyback is infusing at a rate less than 100 mL/hr, enter 25 mL into dose field and 100 mL/hr into rate field of order. For KVO fluids, enter rate of 20 mL/hr or less into rate field of order. sodium chloride 0.9 % infusion 250 mL/hr, IntraVENous, Administer over 10 Minutes, As needed, For use in priming line prior to transfusion (prime via gravity) and flush line post transfusion, Starting on Wed02/19/25 at 0655, For 1 dose, For use in priming line prior to transfusion (prime via gravity) and flush line post transfusion ONLY. Discontinue once line has been cleared of remaining blood product. sodium chloride 0.9 % infusion 5-250 mL/hr, IntraVENous, PRN, if patient receiving piggyback infusions and maintenance fluids are not ordered OR KVO fluids to protect IV site / prevent frequent line interruptions/ long duration, Starting on Wed02/19/25 at 1332, Phase II/On Unit, For piggyback infusion, administer at same rate as piggyback for a total of 25 mL. Enter 25 mL into dose field and piggyback rate into rate field of order. If piggyback is infusing at a rate less than 100 mL/hr, enter 25 mL into dose field and 100 mL/hr into rate field of order. For KVO fluids, enter rate of 20 mL/hr or less into rate field of order. sodium chloride 0.9 % infusion 250 mL/hr, IntraVENous, Administer over 10 Minutes, As needed, For use in priming line prior to transfusion (prime via gravity) and flush line post transfusion, Starting on Wed02/19/25 at 1527, For 1 dose, For use in priming line prior to transfusion (prime via gravity) and flush line post transfusion ONLY. Discontinue once line has been cleared of remaining blood product. sodium chloride 0.9% (NS) flush 10 mL 10 mL, IntraVENous, PRN, line care, Starting on Wed02/16/25 at 1221, After every IV line use sodium chloride 0.9% (NS) flush 10 mL 10 mL, IntraVENous, PRN, line care, Starting on Wed02/19/25 at 1332, Phase II/On Unit, After every IV line use stomahesive in petrolatum (ET Mix) Topical, PRN, dry skin, Starting on Wed02/19/25 at 1623, Nursing staff to perform dressing change: Rectum: Rectal cancer -cleanse with soap and water, apply ET mix TID and PRN, leave SO Sacrum: Pressure Injury Stage 3 -cleanse with soap and water, apply ET mix TID and PRN, 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 Bilateral buttock: MASD (bodily fluids and friction /shear) - Resolved - continue treatment as prevention -cleanse with soap and water, apply ET mix TID and PRN, leave SO , Apply to: Bilateral buttocks Linked Groups Order Group 1: diphenhydrAMINE (BENADryl) injection 25 mgJump to med 25 mg, IntraVENous, Once PRN, other, Use per medication instructions, Starting on [place] 02/22/25 at 0332, For 1 dose, CV Procedural Medications, Use for allergic reaction during transthoracic echocardiogram (TTE) procedure only. Mild or Moderate Allergic Reaction (hives, itching, redness, stable vitals), administer 25 mg IVP over 3 minutes or via IM if IV access is not obtainable and contact provider. Severe Allergic Reaction/Anaphylaxis (cardiovascular collapse, respiratory compromise), administer 25 mg IVP over 3 minutes or via IM if IV access is not obtainable. Activate EMS and contact provider. Or diphenhydrAMINE (BENADryl) injection 25 mgJump to med 25 mg, IntraMUSCular, Once PRN, other, Use per medication instructions, Starting on [place]isha 02/22/25 at 0332, For 1 dose, CV Procedural Medications, Use for allergic reaction during transthoracic echocardiogram (TTE) procedure only. Mild or Moderate Allergic Reaction (hives, itching, redness, stable vitals), administer 25 mg IVP over 3 minutes or via IM if IV access is not obtainable and contact provider. Severe Allergic Reaction/Anaphylaxis (cardiovascular collapse, respiratory compromise), administer 25 mg IVP over 3 minutes or via IM if IV access is not obtainable. Activate EMS and contact provider. Group 2: ondansetron ODT (Zofran-ODT) disintegrating tablet 4 mgJump to med 4 mg, Oral, Every 8 hours PRN, nausea, vomiting, Starting on Wed02/14/25 at 1633, 1st Line. If inadequate response within 60 minutes, proceed to next-line agent or contact provider if no further options ordered. Patient should allow tablet to dissolve on tongue. Do not remove from blister pack until just before administering. Or ondansetron (Zofran) injection 4 mgJump to med 4 mg, IntraVENous, Every 6 hours PRN, nausea, vomiting, Starting on Wed02/14/25 at 1633, 1st Line. Give IV if patient is unable to take orally. If inadequate response within 60 minutes, proceed to next-line agent or contact provider if no further options ordered. Group 3: ondansetron ODT (Zofran-ODT) disintegrating tablet 4 mgJump to med 4 mg, Oral, Every 8 hours PRN, nausea, vomiting, Starting on Wed02/19/25 at 1332, Phase II/On Unit, 1st Line. If inadequate response within 60 minutes, proceed to next-line agent or contact provider if no further options ordered. Patient should allow tablet to dissolve on tongue. Do not remove from blister pack until just before administering. Or ondansetron (Zofran) injection 4 mgJump to med 4 mg, IntraVENous, Every 6 hours PRN, nausea, vomiting, Starting on Wed02/19/25 at 1332, Phase II/On Unit, 1st Line. Give IV if patient is unable to take orally. If inadequate response within 60 minutes, proceed to next-line agent or contact provider if no further options ordered. Group 4: oxyCODONE (Roxicodone) immediate release tablet 5 mg (CANCELED) 5 mg, Oral, Every 4 hours PRN, severe pain (7-10), Starting on 02/25/25 at 1141 Or oxyCODONE (Roxicodone) immediate release tablet 10 mgJump to med 10 mg, Oral, Every 4 hours PRN, severe pain (7-10), Starting on 02/25/25 at 1141 Group 5: oxyCODONE (Roxicodone) immediate release tablet 5 mg (CANCELED)Jump to med 5 mg, Oral, Every 4 hours PRN, moderate pain (4-6), Starting on 02/17/25 at 1058 Or oxyCODONE (Roxicodone) immediate release tablet 10 mg (CANCELED) 10 mg, Oral, Every 4 hours PRN, severe pain (7-10), Starting on 02/17/25 at 1058 FOR RECORDS PERTAINING TO PATIENTS WHO ARE OR HAVE BEEN ENROLLED IN A CHEMICAL DEPENDENCY/SUBSTANCEABUSE PROGRAM, SOME INFORMATION MAY BE OMITTED. This clinical summary was aggregated from multiple sources. Caution should be exercised in using it in the provision of clinical care. This summary normalizes information from multiple sources, and as a consequence, information in this document may materially change the coding, format and clinical context of patient data. In addition, data may be omitted in some cases. CLINICAL DECISIONS SHOULD BE BASED ON THE PRIMARY CLINICAL RECORDS. [employer] [facility]. provides no warranty or guarantee of the accuracy or completeness of information in this document.
[2025-02-28 08:38] LABS: Hematocrit 26.5 % (40-54); Hemoglobin 8.1 g/dL (13.0-16.5); Mean Corp Hgb Conc 30.6 g/dL (32-36); Mean Corpuscular Volume 77.7 fL (80-94); Mean Platelet Vol. 9.0 fl (6.2-12.0); Platelet Count 346 K/mm3 (150-450); RBC Distribution Width CV 19.9 % (11.6-14.6); RBC Distribution Width SD 54.1 fl (35.1-43.9); Red Blood Count 3.41 M/mm3 (4.6-6.2); White Blood Count 9.3 K/mm3 (4.4-11.0)
[2025-02-28 09:07] LABS: AST(SGOT) 16 U/L (<=37); Alanine Aminotransfer ALT/SGPT 6 U/L (<=46); Albumin, Serum 2.2 g/dL (3.4-4.8); Alkaline Phosphatase 87 U/L (40-129); Anion Gap 10 (5-15); BUN 13 mg/dL (4-19); BUN/Creat Ratio 23.6 RATIO (10-20); Calcium,Total 8.1 mg/dL (7.6-11.0); Carbon Dioxide 21.8 mmol/L (21.0-32.0); Chloride 100 mmol/L (98-108); Cholesterol 75 mg/dL (<=200); Globulin 3.6 g/dL (2.2-4.2); Glucose 121 mg/dL (70-99); Low Density Lipoprotein Calc. 15 mg/dL; Magnesium 1.9 mg/dL (1.5-2.2); Potassium 4.4 mmol/L (3.3-5.1); Triglycerides 44 mg/dL; Very Low Density Lipoprotein 9 mg/dL (5-40); Vitamin D,25 Hydroxy 6.5 ng/mL (30-100); cholesterol:hdl ratio screen 1.56
== END | disposition home or self-care (01) ==
LOC: OLS.ACW300 05:00
PROVIDERS: Visit Provider Family Medicine
DX: S68.120D Partial traumatic metacarpophalangeal amputation of right index finger, subsequent encounter (principal); M86.141 Other acute osteomyelitis, right hand; M62.81 Muscle weakness (generalized)
CPT/HCPCS: 36415; 80053; 80061; 82306; 83036; 83735; 84443; 85027